=== PATIENT | female | born 1970 | race Hispanic/Latino ===

== ENCOUNTER → 2023-10-28 12:11 | Outpatient (REF) | payer OTHER, SELFPAY ==
[2023-10-28 13:38] LABS: Hematocrit 24.4 % (37.0-47.0); Hemoglobin 8.1 g/dL (12.0-16.0); Mean Corp Hgb Conc. 33.2 g/dL (33.0-37.0); Mean Corpuscular Hgb 29.1 pg (27.0-31.0); Mean Corpuscular Volume 87.8 fL (81.0-99.0); Mean Platelet Volume 9.6 fL (7.4-10.4); Platelet Count 401 10^3/uL (130-400); Red Blood Cell Count 2.78 10^6/uL (4.20-5.40); Red Cell Dist. Width 13.5 % (11.5-14.5); White Blood Cell Count 8.1 10^3/uL (4.8-10.8)
[2023-10-28 14:02] LABS: Blood Urea Nitrogen 22 mg/dl (7-17); Calcium 7.5 mg/dl (8.4-10.2); Carbon Dioxide 21 mmol/L (22-30); Chloride 105 mmol/L (98-107); Glucose 116 mg/dl (70-99); Potassium 5.4 mmol/L (3.5-5.1); Sodium 129 mmol/L (135-145); eGFR 41.93
== END ==
LOC: REG 12:11
PROVIDERS: ATTENDING PHYSICIAN Specialist
DX: M32.14 Glomerular disease in systemic lupus erythematosus (principal)
CPT/HCPCS: 36415; 80048; 85027

== ENCOUNTER → 2023-11-01 09:53 | Outpatient (REF) | payer OTHER, SELFPAY ==
[2023-11-01 14:25] LABS: Urine Protein 973 mg/dl (0-12)
[2023-11-01 14:26] LABS: 24 Hour Urine Creatinine 0.638 gm/day (0.8-1.8); 24 Hour Urine Protein 17027.5 mg/day (42-225); 24 Hour Urine Total Volume 1750 ml
== END ==
LOC: CLINIC 09:53
PROVIDERS: ATTENDING PHYSICIAN Specialist; FAMILY PHYSICIAN Nurse Practitioner Adult Health
DX: M32.14 Glomerular disease in systemic lupus erythematosus (principal)
CPT/HCPCS: 81050; 82570; 84156

== ENCOUNTER 2023-11-08 13:20 | Inpatient (IN) | payer OTHER, SELFPAY ==
[2023-11-08] VITALS (8 sets, daily range): BP systolic 77–220; BP diastolic 24–133; BMI 58.1
--- NOTE | 2023-11-08 09:36 | ED.GENMED ---
History of Present Illness
General
Chief Complaint: Abnormal Lab Value
Time Seen by Provider: 11/08/23 09:36
Travel History
Have you had any contact with someone who has COVID-19?: No
Do you have any symptoms of coronavirus? Fever > 100 degrees, chills, cough, shortness of breath, sore throat, loss of taste or smell, muscle aches, or headache?: No
History of Present Illness
History of Present Illness:
HPI: The patient is under the impression that she was to come here after an evaluation for bilateral thigh pain at the [facility] last week. She no longer has bilateral thigh pain. She has a history of lupus. She chronically has some swelling to
the face and legs. Language line was used to obtain HPI.
EXAM:
GENERAL: Well appearing in no distress
HEENT: Moist oral mucosa, mild facial edema noted
CARDIOVASCULAR: No murmurs, normal heart rate and rhythm, No chest wall tenderness
PULMONARY: No respiratory distress, breath sounds are clear and equal
ABDOMEN: Soft with no peritoneal signs, no tenderness
NEUROLOGIC: Excellent strength all extremities, no coordination deficits
PSYCHIATRIC: Appropriate mental status, normal insight and judgement
EXTREMITIES: Nontender, trace bilateral lower extremity edema, moves all extremities equally
SKIN: No rash, no lesions
ED COURSE:
9:45 AM: I initially evaluated patient
NUMBER AND COMPLEXITY OF PROBLEMS ADDRESSED AT THE ENCOUNTER
� Chronic conditions affecting care: Lupus, history of hydrocephalus with PHOTO STUDIO ASSISTANT shunt, CKD, questionable history of high blood pressure
� Acute Exacerbation and/or Progression of Chronic Illness: This is an acute problem
� Differential Diagnosis includes: Exacerbation of lupus, lab abnormality, JASKARAN
AMOUNT AND/OR COMPLEXITY OF DATA TO BE REVIEWED AND ANALYZED
� I performed an independent evaluation of and my interpretation is:
EKG:
CT:
X-rays:
Laboratory Studies: White count 12.5 but the patient is on steroids, hemoglobin is 8.1 which is similar to 12 days ago, creatinine continues to worsen now at 1.9, last year the patient's creatinine was normal
Other:
� Review of other/old records: I reviewed the discharge summary from March 2022 in which she initially came with hypertensive emergency but ultimately had iatrogenic shock requiring pressor support and was found to have
lupus/CKD/JASKARAN.
� Clinical information was obtained by an independent historian: I spoke to family at bedside
� Prescriptions/Medications Considered but not given:
� Further testing considered but not performed:
RISK OF COMPLICATIONS AND/OR MORBIDITY OR MORTALITY OF PATIENT MANAGEMENT
� Social determinants of health affecting care: Lives at home, Pakistani-speaking
� Discussion with other providers: I did speak to patient navigator who spoke to Dr. Leung, rheumatology who recommended patient be admitted to the hospital for steroids; hospitalist for admission at 12 PM
� Escalation of care including admission/observation vs risk of discharge considered: Language line was used to obtain history however the reason for visit is somewhat unclear. Her current medications include mycophenolate,
prednisone, and lisinopril. Proteinuria noted on urinalysis and she has worsening renal function.
Past History
Past History
ED Past Medical History: HTN and Other (Hydrocephalus)
ED Past Surgical History: Other (PHOTO STUDIO ASSISTANT shunt)
Social History
Tobacco: Non-smoker
Alcohol: None
Drug: None
Personal:
Living: with family
Family History
Family History: Diabetes
Phy Exam
Physical Exam
Physical Exam:
See HPI
Course
Orders/Labs/Results
Orders:
Orders
11/08/23 10:11
Type+Screen Urgent
CRP [C-Reactive Protein] Urgent
Complete Blood Count/With Diff Urgent
11/08/23 10:12
Basic Metabolic Panel Urgent
11/08/23 10:30
Urinalysis Reflex To Culture Urgent
Date Specimen was Collected: 11/08/23
Time Specimen was Collected: 10:29
Urine Microscopic Reflex Cult Urgent
Abnormal Lab Results
11/08/23 11/08/23 11/08/23
10:11 10:12 10:30
WBC 12.5 H 10^3/uL
(4.8-10.8)
RBC 2.78 L 10^6/uL
(4.20-5.40)
Hgb 8.1 L g/dL
(12.0-16.0)
Hct 23.8 L %
(37.0-47.0)
Abs Immat Gran (auto) 0.1 H 10^3/uL
(0-0.05)
Absolute Neuts (auto) 10.0 H 10^3/uL
(1.4-6.5)
Absolute Lymphs (auto) 0.8 L 10^3/uL
(1.2-3.4)
Absolute Eos (auto) 1.1 H 10^3/uL
(0-0.7)
Neutrophils % 80.1 H %
(42.2-75.2)
Lymphocytes % 6.6 L %
(20.5-51.1)
Eosinophils % 8.8 H %
(0-6)
Sodium 131 L mmol/L
(135-145)
Chloride 112 H mmol/L
(98-107)
Carbon Dioxide 18 L mmol/L
(22-30)
BUN 18 H mg/dl
(7-17)
Creatinine 1.9 H mg/dL
(0.6-1.0)
Calcium 7.6 L mg/dl
(8.4-10.2)
C-Reactive Protein 41.50 H mg/L
(0.0-10.00)
Ur Occult Blood Reflex 3+ A
(Negative)
Urine RBC 30-40 A /HPF
(0-2)
Urine Bacteria (Reflex) Few A
(Negative)
Urine Glucose Trace A
(Negative)
Urine Albumin (Reflex) 3+ A
(Neg - Trace)
11/08/23 10:11
11/08/23 10:12
Vital Signs
Initial and Last Documented VS:
Initial Vital Signs
Temp Pulse Resp BP Pulse Ox
98.4 F 105 16 185/101 100
11/08/23 09:20 11/08/23 09:20 11/08/23 09:20 11/08/23 09:20 11/08/23 09:20
Last Documented Vital Signs
Temp Pulse Resp BP Pulse Ox
98.4 F 105 16 185/101 100
11/08/23 09:20 11/08/23 09:20 11/08/23 09:20 11/08/23 09:20 11/08/23 09:20
*Critical Care Note
Total Time (30-74mins, 75-104mins- exclusive of procedures): Not Applicable
ED Attending Note
-
Portions of this chart may have been created with voice recognition software.� Occasional wrong word or��sound alike� substitutions may have occurred due to the inherent limitations of voice recognition software.
Discharge Plan
Departure
Patient Disposition: Admit
Date of Disposition: 11/08/23
Time of Disposition: 12:04
Presentation/result/management discussed w/ accepting MD/DO: Hospitalist
Discharge Problem:
Acute renal insufficiency
Prescriptions:
No Action
prednisone 5 mg Tablet
5 mg PO DAILY
mycophenolate mofetil 500 mg Tablet
1,000 mg PO BID
lisinopril 20 MG tablet
20 mg PO DAILY
acetaminophen [Tylenol Extra Strength] 500 mg Tablet
500 mg PO DAILYPRN PRN (Reason: mild pain)
ferrous sulfate [iron] 325 mg (65 mg iron) Tablet
325 mg PO HS
Referrals:
UNKNOWN - PT DOES,NOT KNOW [Family Provider] -
Interventions
Interventions:
*Risk Screen - Suicide Last Done: 11/08/23 10:09
*Neglect/Abuse Screening Last Done: 11/08/23 10:09
*ED COVID-19 Vaccine History Last Done: 11/08/23 09:23
[2023-11-08 10:21] LABS: % Basophils 0.6 % (0-2); % Eosinophils 8.8 % (0-6); % Immature Granulocytes 0.5 % (0-0.5); % Lymphocytes 6.6 % (20.5-51.1); % Monocytes 3.4 % (1.7-9.3); % Neutrophils 80.1 % (42.2-75.2); Absolute Basophils 0.1 10^3/uL (0-0.2); Absolute Eosinophils 1.1 10^3/uL (0-0.7); Absolute Immature Granulocytes 0.1 10^3/uL (0-0.05); Absolute Lymphocytes 0.8 10^3/uL (1.2-3.4); Absolute Monocytes 0.4 10^3/uL (0.1-0.6); Hematocrit 23.8 % (37.0-47.0); Hemoglobin 8.1 g/dL (12.0-16.0); Mean Corpuscular Hgb 29.1 pg (27.0-31.0); Mean Corpuscular Volume 85.6 fL (81.0-99.0); Mean Platelet Volume 9.1 fL (7.4-10.4); Nucleated Red Blood Cells % 0 %; Platelet Count 317 10^3/uL (130-400); Red Blood Cell Count 2.78 10^6/uL (4.20-5.40); Red Cell Dist. Width 13.9 % (11.5-14.5); White Blood Cell Count 12.5 10^3/uL (4.8-10.8)
[2023-11-08 10:33] LABS: Blood Urea Nitrogen 18 mg/dl (7-17); Calcium 7.6 mg/dl (8.4-10.2); Carbon Dioxide 18 mmol/L (22-30); Chloride 112 mmol/L (98-107); Glucose 94 mg/dl (70-99); Potassium 4.2 mmol/L (3.5-5.1); Sodium 131 mmol/L (135-145); eGFR 31.57
[2023-11-08 10:55] LABS: Urine Albumin 3+ (Neg - Trace); Urine Bilirubin Negative (Negative); Urine Character Clear (Clear); Urine Color Yellow; Urine Glucose Trace (Negative); Urine Ketone Negative (Negative); Urine Leukocyte Negative (Negative); Urine Nitrite Negative (Negative); Urine Occult Blood 3+ (Negative); Urine Urobilinogen Negative (Neg - 1+); Urine pH 6.5 (5.0-9.0)
[2023-11-08 11:32] LABS: Urine Mucus Few; Urine Squamous Cell >30 /LPF (Few)
[2023-11-08 11:34] LABS: Urine Bacteria Few (Negative); Urine Hyaline Cast >15 /LPF (0-2); Urine Red Blood Cell 30-40 /HPF (0-2); Urine White Cell 0-2 /HPF (0-5)
--- NOTE | 2023-11-08 12:29 | HPS.HSE ---
Addendum entered and electronically signed by Alex Schaefer DO 11/08/23 14:11:
Attending note:
Patient seen and examined and discussed with ASHLEY Mooney, and I agree with her note. Video language line used to help with interpretation.
Gen-AAOx3, NAD
HEENT-NC, AT, anicteric, clear oral mm
Neck-supple
CV-reg, no M, +S1/S2
Lungs-clear B/L
Abd-soft, NT, ND
Ext-no edema
Musculoskeletal-no cyanosis, clubbing
Skin-warm and dry
Neuro-grossly non-focal
Psych-calm, cooperative
JASKARAN on CKD 3A -differential diagnosis includes lupus nephritis versus other causes. Check renal ultrasound. Admit to MedSurg. Consult nephrology. Consult rheumatology. Hold lisinopril. Urinalysis shows 3+ albumin. Check spot
protein/creatinine ratio.
Normal anion gap metabolic acidosis. Bicarbonate 18. Start oral sodium bicarbonate.
SLE -continue mycophenolate, prednisone.
Hyponatremia -sodium 131. Check urine studies.
Chronic normocytic anemia -due to chronic inflammation. Hemoglobin appears to be at baseline.
Essential hypertension with hypertensive urgency -hold YANE inhibitor given JASKARAN. Can use hydralazine 3 times daily.
Full code
Original Note:
Family Physician
-
Family Physician: NOT KNOW UNKNOWN - PT DOES
Chief Complaint
-
right flank pain on off x 2 days , elevated creat
History of Present Illness
53-year-old female complaining of 2 days of right flank pain on and off she reported she went to a clinic last week and was told to go to the ER. She reports she took lisinopril 20 mg today. She denies any dysuria, hematuria, frequency, fever,
chills, chest pain, palpitations, shortness breath, cough, abdominal pain, nausea, vomiting, diarrhea. She was diagnosed with lupus approximately 8 months ago and has been on CellCept and prednisone daily. Other past medical history includes
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
Medical History
Past Medical History
Past Medical History: Reports Other
Additional Past Medical History:
Hypertension
Lupus Dx 8 months ago on chronic CellCept and prednisone
Iron deficiency anemia
HX renal biopsy 03/01/2022 cLass 4 lupus nephritis
Past Surgical History: Reports (X 2)
Social History
Tobacco: Non-smoker
Alcohol: None
Drug: None
Personal:
Living: With Family ( and son)
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
Family History
Family History: Other (Father complications of infection, mother still alive living in [place] and healthy)
Allergies / Home Medications
Allergies reflects when Allergies were last updated in [facility].
Home Medications with original date entered in [facility]
Allergy/Medication List:
Allergies
Allergy/AdvReac Type Severity Reaction Status Date / Time
No Known Allergies Allergy Verified 11/08/23 09:34
Home Medications
mycophenolate mofetil 500 mg tablet 1,000 mg PO BID 07/12/23
prednisone 5 mg tablet 5 mg PO DAILY 07/12/23
lisinopril 20 mg tablet 20 mg PO DAILY Blood pressure 09/01/23
acetaminophen 500 mg tablet (Tylenol Extra Strength) 500 mg PO DAILYPRN PRN mild pain 11/08/23
ferrous sulfate 325 mg (65 mg iron) tablet (iron) 325 mg PO HS 11/08/23
Review of Systems
-
History Source: Patient
A 12 point ROS was completed and negative except as noted: Yes
Constitutional: Denies Fever or Chills
EENT: Denies Sore Throat or Runny Nose
Respiratory: Denies Cough or Trouble Breathing
Cardiac: Denies Chest Pain
Abdomen/GI: Reports Other (Right flank pain on and off); Denies Abdominal Pain, Nausea, Vomiting, Diarrhea, Constipated, Bloody Stools or Black Stools
: Denies Dysuria, Frequency, Flank Pain, Incontinence or Difficulty Voiding
Musculoskeletal: Denies Joint Pain or Edema
Skin: Denies Itching or Rash
Neurological: Denies Dizzy or Headache
Endocrine: Reports No Symptoms
Hematologic/Lymphatic: Reports No Symptoms
Psych: Reports Calm
Physical Exam
Vital Signs
Vital Signs
Temp Pulse Resp BP Pulse Ox
98.4 F 88 18 185/101 100
11/08/23 09:20 11/08/23 12:23 11/08/23 12:23 11/08/23 09:20 11/08/23 09:20
Physical Exam
General: Comfortable and Conversant; No Pain, Fever or Chills
HEENT: NormoCephalic, Anicteric, Moist mucous membranes, [place] Conjunctivae and No Ptosis
Respiratory: Clear; No Wheezes, Rales or Rhonchi
Cardiac: S1/S2 and Regular Rhythm; No Murmur, Rub, Gallop or Peripheral Edema
GI: Soft, Non Tender, Non Distended, Normal Bowel Sounds and No Hepatosplenomegaly
Rectal: Deferred by Provider
Genito-urinary: Deferred by me
Musculoskeletal: No Clubbing, No Cyanosis and No Edema
Skin: Warm and Dry; No Rash
Neuro: AO x 3 ([place] and [place] speaking female), No Motor Deficits, Nonfocal/grossly intact, Cranial Nerves Intact and Other (Chronic strabismus of left eye); No Slurred Speech, Facial Droop or Tremors
Psych: Calm
Laboratory Results
-
11/08/23 10:11
11/08/23 10:12
Impression/Plan
-
Impression/plan:
Admit to MedSurg
#JASKARAN on CKD 3A concern ACute on chronic class IV lupus nephritis
#HX renal biopsy 03/01/2022 cLass 4 lupus nephritis
Creat 1.9 was 1.5 on , 1.2 on 08/2023
-Consult nephrology
-IV NSS
- Renal ultrasound
-Hold lisinopril 20 mg daily
-Follow BMP
#Lupus Hx chronic immunosuppressant/steroid
-Patient on mycophenolate 1000 mg twice daily, prednisone 5 mg daily
-consult Rheumatology
- will give Iv Solu-Medrol 750 mg daily x 3 days, increase CellCept to 1500 mg twice daily per Dr. Farhan Leung rheumatology
#HTN�benign
185/101
Hold lisinopril 20 mg daily patient's last dose was 11/08/2023 this am
-start hydralazine 25 mg tid
#Anemia-normocytic
Hgb 8.1
Check iron panel, B12, folate
-type and screen, blood consent obtained and scanned to chart
-Continue oral iron
#Leukocytosis likely secondary to chronic steroid use
No obvious infectious source
WBC 12.5, afebrile, BP stable
DVT prophylaxis
SCDs
Full code
[2023-11-08 13:38] LABS: Iron 37 ug/dl (37-170)
[2023-11-08 13:47] LABS: Percent Saturation 20 % (20-50); Total Iron Binding Capacity 183 ug/dl (265-497)
[2023-11-08 14:46] LABS: Folate 5.1 ng/ml (2.76-20); Vitamin B12 508 pg/ml (239-931)
[2023-11-08] MEDS: APRESOLINE 25 MG PO ×2 (14:53→20:52)
[2023-11-08] MEDS: NSS 1000 IV (14:54)
[2023-11-08] MEDS: SODIUM BICARBONATE 650 MG PO ×2 (15:33→20:49)
[2023-11-08] MEDS: SOLU-MEDROL 256 MG IV (15:33)
[2023-11-08 15:56] LABS: Osmolality Urine 461 mOsm/kg (300-900)
--- NOTE | 2023-11-08 16:05 | PTCARENOTE ---
Arrived from ED and ambulated to bed. No complaints at this time. Language line in drawer if needed. Oriented to room. Call luciano within reach.
[2023-11-08 16:14] LABS: Urine Sodium 78 mmol/L (30-90)
--- NOTE | 2023-11-08 17:10 | W.CON.NEPH ---
Consultation
-
Date/Time Consultation Requested: 11/08/23 1330
Date/Time Consultation Performed: 11/08/23 1700
Requesting Provider: Laura Laboy
Performing Provider: Ceci Gonzalez
Reason for Consultation: JASKARAN
Medical History
-
Chief Complaint: fank pain and edema
History of Present Illness:
53-year-old female with PMH of lupus nephritic class 4 diagnosed 02/2022 on cellcept, prednisone, persistent proteinuria around 2gm/gm of cr with stable cr below 1, IS managed by Rheumatology Dr Waite,uncontrolled HTN on coreg, restarted on Lisinopril
in June following cr was at 1.2 in Aug and 1.5 in Oct, 24hr urine shows worsening proteinuria 17gm/day, chr anemia, who also had latent TB supposed to have completed Rifampin comes with complaining of 2 days of right flank pain, swelling of face
and legs. she went to a clinic last week and was told to go to the ER, she came today to ER.�She is not taking coreg as directed and ran out of it some time ago, reports BP are labile at home. There was nonocomplaince in her history. She denies
any dysuria, hematuria, frequency, fever, chills, chest pain, palpitations, shortness breath, cough, abdominal pain, nausea, vomiting, diarrhea.�Cr on admit at 1.9, BP are high 200 range.
Past Medical History
Hypertension
Lupus Dx 8 months ago on chronic CellCept and prednisone
Iron deficiency anemia
HX� renal biopsy 03/01/2022 cLass 4 lupus nephritis
h/o Hydrocephalus
Past Medical History: Other (c section, K biopsy)
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
Social History
Tobacco: Non-Smoker
Alcohol: None
Drug: None
Living: With Family
Family History
Family History: Not Pertinent
Allergies / Home Medications
Allergy/AdvReac Type Severity Reaction Status Date / Time
No Known Allergies Allergy Verified 11/08/23 09:34
Medication Instructions Recorded Confirmed Type
mycophenolate mofetil 500 mg tablet 1,000 mg PO BID 07/12/23 11/08/23 History
prednisone 5 mg tablet 5 mg PO DAILY 07/12/23 11/08/23 History
lisinopril 20 mg tablet 20 mg PO DAILY Blood pressure 09/01/23 11/08/23 History
acetaminophen 500 mg tablet 500 mg PO DAILYPRN PRN mild pain 11/08/23 11/08/23 History
(Tylenol Extra Strength)
ferrous sulfate 325 mg (65 mg 325 mg PO HS 11/08/23 11/08/23 History
iron) tablet (iron)
Review of Systems
-
All compelte 12 point ROS have been inquired and found negative other than stated in HPI
Physical Exam
Vital Signs
Vital Signs
Temp Pulse Resp BP Pulse Ox
98.0 F 96 18 192/121 98
11/08/23 14:34 11/08/23 14:34 11/08/23 14:34 11/08/23 14:34 11/08/23 14:34
Lab Results
WBC 12.5 10^3/uL (4.8-10.8) H 11/08/23 10:11
RBC 2.78 10^6/uL (4.20-5.40) L 11/08/23 10:11
Hgb 8.1 g/dL (12.0-16.0) L 11/08/23 10:11
Hct 23.8 % (37.0-47.0) L 11/08/23 10:11
Plt Count 317 10^3/uL (130-400) 11/08/23 10:11
Sodium 131 mmol/L (135-145) L 11/08/23 10:12
Potassium 4.2 mmol/L (3.5-5.1) 11/08/23 10:12
Chloride 112 mmol/L (98-107) H 11/08/23 10:12
Carbon Dioxide 18 mmol/L (22-30) L 11/08/23 10:12
BUN 18 mg/dl (7-17) H 11/08/23 10:12
Creatinine 1.9 mg/dL (0.6-1.0) H 11/08/23 10:12
eGFR 31.57 11/08/23 10:12
Glucose 94 mg/dl (70-99) 11/08/23 10:12
Calcium 7.6 mg/dl (8.4-10.2) L 11/08/23 10:12
Physical Exam
General: Awake, Alert, Oriented and AOx3
HEENT: EOMI and Anicteric
Respiratory: Clear
Cardiac: S1/S2 and Regular Rate/Rhythm
Abdomen: Soft, Nontender and Nondistended
Musculoskeletal: No Clubbing, No Cyanosis and No Edema (trace)
Skin: No Rash
Neuro: Nonfocal/Grossly Intact
Psych: Mood/afflect pleasant, Insight/judgement good and Appropriate
Assessment/Plan
-
Assessment:�
JASKARAN(baseline 0.9)
class IV lupus nephritis
Hypertensive urgency on presentation
uncontrolled HTN
Marked nephrotic syndrome with hypoalbuminemia-17gm/day
Hyponatremia, hypervolemic
Low gap Metabolic acidosis
Anemia
Hypocalcemia in setting of hypoalbuminemia
h/o Pericardial effusion 2021
Plan:
A/w flank pain and puffy face and LE edema
Pt is currently treated with cellcept, prednisone for class 4lupus nephritis and lately her cr slowly increasing with progressive proteinuria 17gm/day
cr currently at 1.9, UA with sediment, await renal US
on pulse steroids, increased dose of cellcept per rheum Dr FARRAR
wonder if she will need rebiopsy if no improvement seen
BP are high, she ran out coreg dont know for how long, resume now
would avoid hydralazine with risk of drug induced lupus, ok to use prn
hold ACEI for JASKARAN , ok for nifedipine if needed
she seem mild hypervolemic on exam, would hold IVF , check BNP
note had h/o pericardial effusion in 2021
anemia-fe sat 20%-start IV fe course, adequate vit B12 and folate
for met acidosis added sodium bicarb po
hyponatremia likely hypervolemia-fluid restrict 48ounces/day, check TSH, U osmo high 461, U na normal
labs in am
d/w nursing
Data Reviewed
-
Radiology: Report Reviewed by me
Labs: Labs Reviewed by me
[2023-11-08] MEDS: APRESOLINE 5 MG IV (18:12)
--- NOTE | 2023-11-08 18:17 | PTCARENOTE ---
Nephrology made aware of current high BP's this shift. Medication adjustments made, see MAR.
[2023-11-08 18:37] LABS: NT-proBNP 5420 pg/ml
[2023-11-08 19:44] LABS: Protein/creatinine Ratio 17.9; Urine Protein 1748 mg/dl
[2023-11-08] MEDS: CELLCEPT 1500 MG PO (20:43)
[2023-11-08] MEDS: FEOSOL 325 MG PO (20:49)
[2023-11-08] MEDS: COREG 25 MG PO (20:50)
[2023-11-09 03:13] VITALS: BP 150/90
[2023-11-09 06:00] VITALS: BMI 23.9
[2023-11-09 07:00] VITALS: BP 185/118
[2023-11-09 07:07] LABS: % Basophils 0.2 % (0-2); % Immature Granulocytes 0.6 % (0-0.5); % Lymphocytes 12.8 % (20.5-51.1); % Monocytes 1.3 % (1.7-9.3); % Neutrophils 85.1 % (42.2-75.2); Absolute Lymphocytes 0.7 10^3/uL (1.2-3.4); Absolute Monocytes 0.1 10^3/uL (0.1-0.6); Absolute Neutrophils 4.6 10^3/uL (1.4-6.5); Hematocrit 22.7 % (37.0-47.0); Hemoglobin 7.6 g/dL (12.0-16.0); Mean Corp Hgb Conc. 33.5 g/dL (33.0-37.0); Mean Corpuscular Hgb 28.6 pg (27.0-31.0); Mean Corpuscular Volume 85.3 fL (81.0-99.0); Mean Platelet Volume 9.4 fL (7.4-10.4); Nucleated Red Blood Cells % 0 %; Platelet Count 315 10^3/uL (130-400); Red Blood Cell Count 2.66 10^6/uL (4.20-5.40); Red Cell Dist. Width 13.8 % (11.5-14.5); White Blood Cell Count 5.4 10^3/uL (4.8-10.8)
[2023-11-09 07:30] LABS: Blood Urea Nitrogen 23 mg/dl (7-17); Carbon Dioxide 16 mmol/L (22-30); Chloride 112 mmol/L (98-107); Estimated Creatinine Clearance 18 ml/min; Glucose 128 mg/dl (70-99); Potassium 4.4 mmol/L (3.5-5.1); Sodium 130 mmol/L (135-145); eGFR 25.11
[2023-11-09 08:02] LABS: TSH Reflex To Free T4 1.78 uIU/ml (0.47-4.68)
[2023-11-09] MEDS: CELLCEPT 1500 MG PO ×2 (08:44→21:01)
[2023-11-09] MEDS: COREG 25 MG PO ×2 (08:45→21:09)
[2023-11-09] MEDS: SODIUM BICARBONATE 650 MG PO ×3 (08:45→21:08)
--- NOTE | 2023-11-09 09:17 | W.PN.HOSP.TC ---
Today's Communication/Plan
-
Continue steroids
Monitor hemoglobin
Monitor creatinine
Assessment / Plan
Assessment / Plan
Gen-awake, alert, NAD
HEENT-NC, AT, anicteric, clear oral mm
Neck-supple
CV-reg, no M, +S1/S2
Lungs-clear B/L
Abd-soft, NT, ND
Ext-no edema
Musculoskeletal-no cyanosis, clubbing
Skin-warm and dry
Neuro-grossly non-focal
Psych-calm, cooperative
JASKARAN on CKD 3A -differential diagnosis includes lupus nephritis versus other causes.� She has class IV lupus nephritis. Continue pulse dose steroids per rheumatology. Mycophenolate dose increased by nephrology. Renal ultrasound unremarkable.� Spot
urine protein/creatinine ratio over 17. Creatinine is slowly rising. Nephrology following. May need renal biopsy. Defer to nephrology.
SLE -continue mycophenolate, prednisone.
Hyponatremia -sodium 130. High urine osmolality consistent with ADH excess. Fluid restriction.
Acute on chronic normocytic anemia -chronic anemia due to chronic inflammation.� Hemoglobin down to 7.6 today. No evidence of bleeding clinically. Hemodilution from IV fluids possibly playing a role. Monitor hemoglobin.
Essential hypertension with hypertensive urgency -hold YANE inhibitor given JASKARAN.� Carvedilol resumed. Hydralazine discontinued by nephrology. Can use nifedipine if needed.
Full code
Anticipated Discharge: > 48 hours
Subjective/Interval History
-
Date of Service: November 09, 2023
Patient seen and examined. No complaints.
Objective Data
-
Labs:
Laboratory Results
11/09/23
06:51
WBC 5.4
Hgb 7.6 L
Hct 22.7 L
Plt Count 315
Sodium 130 L
Potassium 4.4
Chloride 112 H
Carbon Dioxide 16 L
BUN 23 H
Creatinine 2.3 H
Glucose 128 H
Calcium 8.0 L
Vital Signs:
Vital Signs
Temp Pulse Resp BP Pulse Ox
98 F 78 18 185/118 99
11/09/23 07:00 11/09/23 07:00 11/09/23 07:00 11/09/23 07:00 11/09/23 07:00
I&O
11/08/23 11/09/23 11/10/23
06:59 06:59 06:59
Intake Total 240 / 240
Output Total 150 / 150
Balance 90 / 90
Review of Systems
-
Unable to obtain full review of systems at this time due to: Language Barrier
--- NOTE | 2023-11-09 09:22 | PTOTSP ---
Patient admitted due to JASKARAN, otherwise independent prior to admission. Therapist confirmed with the patient that she has no issues regarding her mobility. RN confirms the patient has been independent while here. PT evaluation is not warranted at
this time, will sign off.
--- NOTE | 2023-11-09 13:05 | CON.RHM ---
Addendum entered and electronically signed by Farhan Leung MD 11/09/23 15:57:
I have seen the patient with Sunita Guzman PA-C and reviewed her assessment/plan with the following addittions:
53 yo uninsured female with Class IV LN (biopsy proven 02/2022, moderate activity, mild chronicity) and treated latent TB. Former patient of Dr. Waite who now follows with me. She was sent to the ED for pulse dose steroids. Outpatient labs c/f
proteinuric flare with uptrending Cr to 1.5 (baseline 1) and 17 grams of protein. She had been on MMF 2g and pred 5 outpatient as maintenance therapy with unclear compliance (refills not picked up). Hospital course notable for Cr of 2.3.
# Class IV LN (CARL 1:1280, low C3, C4, ACL IgM 14, B2GP 52)
- recommend 750 mg of IV solumedrol daily for 3 days
- continue to trend renal function
- case discussed with nephrology, agree with repeating biopsy if no improvement
- c/w MMF 1500 mg BID
- currently in the process of obtaining outpatient Benlysta and Voclosporin through [employer] patient assistance
- would eventually discharge on 60 mg of prednisone daily
- has follow up with me 11/17
- we will continue to follow
Farhan Leung MD, [facility]
[phone]
Original Note:
Assessment/Plan
-
Continue high dose IV steroids
Increase Cellcept to 3g daily�
Continue to monitor renal function.
History of Present Illness
-
Pt is a 53 yo female with class IV lupus nephritis who presented ED yesterday after instructed by Dr. Leung for worsening proteinuria of 17 g. 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 She has been seen at our office since 2021 for SLE.
She was seen in office with elevated proteinuria along with fatigue arthralgias and edema. Since being admitted she currently she notes improvement of her edema. She is on day 2 of�750 mg IV medrol. Pt seen By Dr Leung and myself.�
Review of Systems
-
General: Edema: Yes
Vasculitis: Rash: No
Data Reviewed
Patient Allergies
Allergy/AdvReac Type Severity Reaction Status Date / Time
No Known Allergies Allergy Verified 11/08/23 09:34
Physical Exam
-
Constitutional: Alert and Oriented
Psych: Appropriate Behavior
[2023-11-09] MEDS: FERRLECIT 110 MG IV (13:31)
--- NOTE | 2023-11-09 13:54 | W.PN.NEPH.PH ---
Today's Communication / Plan
-
- initiate nifedipine
- trend BMP
Assessment/Plan
-
Assessment:�
JASKARAN(baseline 0.9)
class IV lupus nephritis
Hypertensive urgency on presentation
uncontrolled HTN
Marked nephrotic syndrome with hypoalbuminemia-17gm/day
Hyponatremia, hypervolemic
Low gap Metabolic acidosis
Anemia
Hypocalcemia in setting of hypoalbuminemia
h/o Pericardial effusion 2021
Plan:
patient presented with flank pain and puffy face and LE edema
Pt is currently treated with cellcept, prednisone for class 4lupus nephritis and lately her cr slowly increasing with progressive proteinuria 17gm/day
cr currently at 1.9, UA with sediment, UPCR 17.9, KUS with mismatched kidney size but otherwise benign
patient completed treatment for latent TB per rheum
pulse dose steroids day 2 today. if Cr does not improve after steroids, we will need to biopsy this patient. this is complicated by her anemia.
- per rheum, they are attempting to obtain voclosporin and/or benlysta for this patient in the outpatient setting
Blood pressures elevated, likely consistent with active lupus nephritis. initiated nifedipine 60mg daily. Patinet also on coreg 25mg BID
She will need aggressive control of her proteinuria once Cr stabilizes with YANE/ARB, SGLT2-i, MRA.
note had h/o pericardial effusion in 2021
anemia-fe sat 20%-start IV fe course, adequate vit B12 and folate. no CHRIS with pressures this high
bicarb gap high, not likely to be fixed with just sodium bicarb tabs. please give 1 amp sodium bicarb
hyponatremia likely hypervolemia-fluid restrict 48ounces/day, TSH wnl, U osmo high 461, U na normal
-
-
Date of Service: November 09, 2023
CC / HPI / ROS
-
Chief Complaint:
lupus nephritis
History of Present Illness:
Cr baseline 1, elevated to 2.3 now
pulse dose steroids day 2
Review of Systems:
patient states her pain is resolved
Labs
-
Labs:
WBC 5.4 10^3/uL (4.8-10.8) 11/09/23 06:51
RBC 2.66 10^6/uL (4.20-5.40) L 11/09/23 06:51
Hgb 7.6 g/dL (12.0-16.0) L 11/09/23 06:51
Hct 22.7 % (37.0-47.0) L 11/09/23 06:51
Plt Count 315 10^3/uL (130-400) 11/09/23 06:51
Sodium 130 mmol/L (135-145) L 11/09/23 06:51
Potassium 4.4 mmol/L (3.5-5.1) 11/09/23 06:51
Chloride 112 mmol/L (98-107) H 11/09/23 06:51
Carbon Dioxide 16 mmol/L (22-30) L 11/09/23 06:51
BUN 23 mg/dl (7-17) H 11/09/23 06:51
Creatinine 2.3 mg/dL (0.6-1.0) H 11/09/23 06:51
eGFR 25.11 11/09/23 06:51
Glucose 128 mg/dl (70-99) H 11/09/23 06:51
Calcium 8.0 mg/dl (8.4-10.2) L 11/09/23 06:51
Ijk-P-Sclsrrtcnju Pept 5420 pg/ml 11/08/23 10:11
Physical Exam
-
Vital Signs:
Vital Signs
Temp Pulse Resp BP Pulse Ox
98 F 78 18 185/118 99
11/09/23 07:00 11/09/23 07:00 11/09/23 07:00 11/09/23 07:00 11/09/23 07:00
Cardiovascular:: Regular rate and rhythm
Respiratory:: Bilateral: CTA
Lung Excursion:: Normal
Abdomen:: Nontender and Soft
Bowel Sounds:: Normal
Extremity Edema:: +1: Bilateral:
Ellis Catheter: No
[2023-11-09 15:00] VITALS: BP 177/65
[2023-11-09] MEDS: SOLU-MEDROL 256 MG IV (15:20)
[2023-11-09] MEDS: PROCARDIA XL (EXTENDED RELEASE) 60 MG PO (15:20)
--- NOTE | 2023-11-09 17:00 | CM ---
Alert awake oriented patient who lives with her Seth and son Jayy in a 1st floor apt. No steps to enter.Pt speaks limited Filipino but able to answer questions.She is independent in driving and in all activities of daily living.Pt is
followed at the [facility].She has no insurance.
No adaptive devices
Never had VN/SNF
Pharmacy [facility] in [place].
PCP [facility].
PLAN Home declined VN
[2023-11-09] MEDS: FEOSOL 325 MG PO (21:08)
[2023-11-09 23:26] VITALS: BP 129/75
[2023-11-10 06:00] VITALS: BMI 24.5
[2023-11-10 07:20] VITALS: BP 209/110
[2023-11-10 08:19] LABS: % Immature Granulocytes 0.5 % (0-0.5); % Lymphocytes 8.9 % (20.5-51.1); % Neutrophils 87.6 % (42.2-75.2); Absolute Lymphocytes 0.8 10^3/uL (1.2-3.4); Absolute Monocytes 0.3 10^3/uL (0.1-0.6); Absolute Neutrophils 7.5 10^3/uL (1.4-6.5); Hematocrit 22.1 % (37.0-47.0); Hemoglobin 7.6 g/dL (12.0-16.0); Mean Corp Hgb Conc. 34.4 g/dL (33.0-37.0); Mean Corpuscular Hgb 28.8 pg (27.0-31.0); Mean Corpuscular Volume 83.7 fL (81.0-99.0); Nucleated Red Blood Cells % 0 %; Red Blood Cell Count 2.64 10^6/uL (4.20-5.40); Red Cell Dist. Width 13.8 % (11.5-14.5); White Blood Cell Count 8.6 10^3/uL (4.8-10.8)
--- NOTE | 2023-11-10 08:32 | W.PN.HOSP.TC ---
Today's Communication/Plan
-
Continue current care
Assessment / Plan
Assessment / Plan
Gen-awake, alert, NAD
HEENT-NC, AT, anicteric, clear oral mm, facial swelling
Neck-supple
CV-reg, no M, +S1/S2
Lungs-clear B/L
Abd-soft, NT, ND
Ext-no edema
Musculoskeletal-no cyanosis, clubbing
Skin-warm and dry
Neuro-grossly non-focal
Psych-calm, cooperative
JASKARAN on CKD 3A -differential diagnosis includes lupus nephritis versus other causes.� She has class IV lupus nephritis. Continue pulse dose steroids per rheumatology. Mycophenolate dose increased by nephrology. Renal ultrasound unremarkable.� Spot
urine protein/creatinine ratio over 17. Creatinine is slowly rising. Nephrology following. May need renal biopsy. Defer to nephrology. Labs pending for today.
SLE -continue mycophenolate at higher dose. Rheumatology consulted. Getting pulse dose methylprednisolone.
Hyponatremia -sodium 130. High urine osmolality consistent with ADH excess. Fluid restriction.
Acute on chronic normocytic anemia -chronic anemia due to chronic inflammation.� Hemoglobin down to 7.6 yesterday, pending for today. No evidence of bleeding clinically. Hemodilution from IV fluids possibly playing a role. Monitor hemoglobin.
Essential hypertension with hypertensive urgency -hold YANE inhibitor given JASKARAN.� Carvedilol resumed. Hydralazine discontinued by nephrology. Procardia XL started. Blood pressure overall improving.
Full code
Anticipated Discharge: > 48 hours
Subjective/Interval History
-
Date of Service: November 10, 2023
Patient seen and examined. Complaining of facial swelling.
Objective Data
-
Labs:
Laboratory Results
11/10/23
07:43
WBC 8.6
Hgb 7.6 L
Hct 22.1 L
Plt Count Not Reportable
Sodium Pending
Potassium Pending
Chloride Pending
Carbon Dioxide Pending
BUN Pending
Creatinine Pending
Glucose Pending
Calcium Pending
Vital Signs:
Vital Signs
Temp Pulse Resp BP Pulse Ox
98.2 F 73 17 129/75 99
11/09/23 23:26 11/09/23 23:26 11/09/23 23:26 11/09/23 23:26 11/09/23 23:26
I&O
11/09/23 11/10/23 11/11/23
06:59 06:59 06:59
Intake Total 240 / 240 960 / 960
Output Total 150 / 150
Balance 90 / 90 960 / 960
Review of Systems
-
Unable to obtain full review of systems at this time due to: Language Barrier
History Source: Patient
All other systems: Reviewed and negative
[2023-11-10 08:39] LABS: Blood Urea Nitrogen 38 mg/dl (7-17); Calcium 7.7 mg/dl (8.4-10.2); Carbon Dioxide 15 mmol/L (22-30); Chloride 110 mmol/L (98-107); Estimated Creatinine Clearance 19 ml/min; Glucose 116 mg/dl (70-99); Potassium 4.5 mmol/L (3.5-5.1); Sodium 128 mmol/L (135-145); eGFR 26.48
[2023-11-10] MEDS: SODIUM BICARBONATE 650 MG PO (09:15)
[2023-11-10] MEDS: PROCARDIA XL (EXTENDED RELEASE) 60 MG PO (09:15)
[2023-11-10] MEDS: COREG 25 MG PO ×2 (09:15→20:41)
[2023-11-10] MEDS: CELLCEPT 1500 MG PO ×2 (09:16→20:44)
[2023-11-10] MEDS: APRESOLINE 5 MG IV (10:38)
[2023-11-10 12:40] VITALS: BP 114/60
[2023-11-10] MEDS: FERRLECIT 110 MG IV (13:33)
--- NOTE | 2023-11-10 13:36 | W.PN.NEPH.PH ---
Today's Communication / Plan
-
observe on steroids
bmp daily
titrate up nifedipine to 90mg for hypertension
Assessment/Plan
-
Assessment:�
JASKARAN(baseline 0.9)
class IV lupus nephritis
Hypertensive urgency on presentation
uncontrolled HTN
Marked nephrotic syndrome with hypoalbuminemia-17gm/day
Hyponatremia, hypervolemic
Low gap Metabolic acidosis
Anemia
Hypocalcemia in setting of hypoalbuminemia
h/o Pericardial effusion 2021
Plan:
patient presented with flank pain and puffy face and LE edema
Pt is currently treated with cellcept, prednisone for class 4 lupus nephritis and lately her cr slowly increasing with progressive proteinuria 17gm/day
cr currently at 1.9, UA with sediment, UPCR 17.9, KUS with mismatched kidney size but otherwise benign
creatinine at 2.2
patient completed treatment for latent TB per rheum
pulse dose steroids day 3 today. if Cr does not improve after steroids, we will need to biopsy this patient. this is complicated by her anemia.
- per rheum, they are attempting to obtain voclosporin and/or benlysta for this patient in the outpatient setting
Blood pressures elevated, likely consistent with active lupus nephritis. initiated nifedipine 60mg daily. Patient also on coreg 25mg BID
She will need aggressive control of her proteinuria once Cr stabilizes with YANE/ARB, SGLT2-i, MRA.
note had h/o pericardial effusion in 2021
anemia-fe sat 20%-started IV fe course, adequate vit B12 and folate. no CHRIS with pressures this high
bicarb gap high, not likely to be fixed with just sodium bicarb tabs.
hyponatremia likely hypervolemia-fluid restrict 48ounces/day, TSH wnl, U osmo high 461, U na normal
-
-
Date of Service: November 10, 2023
CC / HPI / ROS
-
Chief Complaint:
lupus nephritis
History of Present Illness:
Cr baseline 1, elevated to 2.2
pulse dose steroids day 3
bp elevated on procardia and carvedilol
Review of Systems:
patient states her pain is resolved
Labs
-
Labs:
WBC 8.6 10^3/uL (4.8-10.8) 11/10/23 07:43
RBC 2.64 10^6/uL (4.20-5.40) L 11/10/23 07:43
Hgb 7.6 g/dL (12.0-16.0) L 11/10/23 07:43
Hct 22.1 % (37.0-47.0) L 11/10/23 07:43
Plt Count 10^3/uL (130-400) 11/10/23 07:43
Sodium 128 mmol/L (135-145) L 11/10/23 07:43
Potassium 4.5 mmol/L (3.5-5.1) 11/10/23 07:43
Chloride 110 mmol/L (98-107) H 11/10/23 07:43
Carbon Dioxide 15 mmol/L (22-30) L 11/10/23 07:43
BUN 38 mg/dl (7-17) H 11/10/23 07:43
Creatinine 2.2 mg/dL (0.6-1.0) H 11/10/23 07:43
eGFR 26.48 11/10/23 07:43
Glucose 116 mg/dl (70-99) H 11/10/23 07:43
Calcium 7.7 mg/dl (8.4-10.2) L 11/10/23 07:43
Egu-O-Zjckwdsonuw Pept 5420 pg/ml 11/08/23 10:11
Physical Exam
-
Vital Signs:
Vital Signs
Temp Pulse Resp BP Pulse Ox
98.1 F 80 18 161/87 98
11/10/23 07:20 11/10/23 10:38 11/10/23 07:20 11/10/23 10:38 11/10/23 07:20
Cardiovascular:: Regular rate and rhythm
Respiratory:: Bilateral: CTA
Lung Excursion:: Normal
Abdomen:: Nontender and Soft
Bowel Sounds:: Normal
Extremity Edema:: None: Bilateral:
Ellis Catheter: No
[2023-11-10 15:38] VITALS: BP 113/63
[2023-11-10] MEDS: SOLU-MEDROL 256 MG IV (15:39)
[2023-11-10] MEDS: SODIUM BICARBONATE 1300 MG PO ×2 (15:45→21:46)
--- NOTE | 2023-11-10 15:59 | PTCARENOTE ---
Received patient this am AA0x3, Pt speaks primarily Trinidadian but understands some Italian. B/ P this am 186/110, HR-72. Pt given her am Coreg an Procardia. Recheck B/P 161/87 Pt medicated with Hydralazine 5 MG IV AT 1040. Recheck B/P-114/60. Pt
tolerated diet. OOB ambulating in room. Offered no complaints. Made patient comfortable. Cont to assess patient status.
--- NOTE | 2023-11-10 16:24 | CM ---
Patient seen, reports no new concerns at this time. CM will continue to follow for discharge planning needs.
Plan; home no needs, declining home health.
[2023-11-10] MEDS: FEOSOL 325 MG PO (20:41)
[2023-11-10 23:35] VITALS: BP 155/82
[2023-11-11 06:00] VITALS: BMI 25.2
[2023-11-11 07:00] VITALS: BP 152/108
[2023-11-11 07:21] LABS: % Basophils 0.1 % (0-2); % Immature Granulocytes 0.5 % (0-0.5); % Monocytes 0.7 % (1.7-9.3); % Neutrophils 92.7 % (42.2-75.2); Absolute Lymphocytes 0.5 10^3/uL (1.2-3.4); Absolute Monocytes 0.1 10^3/uL (0.1-0.6); Absolute Neutrophils 7.9 10^3/uL (1.4-6.5); Hematocrit 22.4 % (37.0-47.0); Hemoglobin 7.9 g/dL (12.0-16.0); Mean Corp Hgb Conc. 35.3 g/dL (33.0-37.0); Mean Corpuscular Volume 82.4 fL (81.0-99.0); Nucleated Red Blood Cells % 0 %; Platelet Count 345 10^3/uL (130-400); Red Blood Cell Count 2.72 10^6/uL (4.20-5.40); Red Cell Dist. Width 13.9 % (11.5-14.5); White Blood Cell Count 8.5 10^3/uL (4.8-10.8)
[2023-11-11 08:12] LABS: Blood Urea Nitrogen 40 mg/dl (7-17); Calcium 7.9 mg/dl (8.4-10.2); Carbon Dioxide 15 mmol/L (22-30); Chloride 108 mmol/L (98-107); Estimated Creatinine Clearance 24 ml/min; Glucose 120 mg/dl (70-99); Sodium 131 mmol/L (135-145); eGFR 33.69
[2023-11-11] MEDS: CELLCEPT 1500 MG PO ×2 (08:59→21:03)
[2023-11-11] MEDS: SODIUM BICARBONATE 1300 MG PO ×3 (09:00→21:02)
[2023-11-11] MEDS: PROCARDIA XL (EXTENDED RELEASE) 90 MG PO (09:00)
[2023-11-11] MEDS: COREG 25 MG PO ×2 (09:01→21:04)
--- NOTE | 2023-11-11 10:22 | W.PN.HOSP.TC ---
Today's Communication/Plan
-
Continue current care
Assessment / Plan
Assessment / Plan
Gen-awake, alert, NAD
HEENT-NC, AT, anicteric, clear oral mm, facial swelling
Neck-supple
CV-reg, no M, +S1/S2
Lungs-clear B/L
Abd-soft, NT, ND
Ext-no edema
Musculoskeletal-no cyanosis, clubbing
Skin-warm and dry
Neuro-grossly non-focal
Psych-calm, cooperative
JASKARAN on CKD 3A -differential diagnosis includes lupus nephritis versus other causes.� She has class IV lupus nephritis. Received 3 days of pulse dose methylprednisolone. Mycophenolate dose increased by nephrology. Renal ultrasound unremarkable.�
Spot urine protein/creatinine ratio over 17. Creatinine now coming down, 1.8 today[address] Dr. Hand believes she may need a kidney biopsy on Wednesday.
Normal anion gap metabolic acidosis -bicarb remains at 15. Sodium bicarbonate increased to 1300 mg 3 times daily.
SLE -continue mycophenolate at higher dose. Rheumatology consulted.
Hyponatremia -sodium 131. High urine osmolality consistent with ADH excess. Fluid restriction.
Acute on chronic normocytic anemia -chronic anemia due to chronic inflammation.� Hemoglobin down to 7.6 yesterday, pending for today. No evidence of bleeding clinically. Hemodilution from IV fluids possibly playing a role. Monitor hemoglobin.
Essential hypertension with hypertensive urgency -hold YANE inhibitor given JASKARAN.� Carvedilol resumed. Hydralazine discontinued by nephrology. Procardia XL started. Blood pressure overall improving.
Full code
Anticipated Discharge: > 48 hours
Subjective/Interval History
-
Date of Service: November 11, 2023
Patient seen and examined. Feeling better. No complaints.
Objective Data
-
Labs:
Laboratory Results
11/11/23
06:55
WBC 8.5
Hgb 7.9 L
Hct 22.4 L
Plt Count 345
Sodium 131 L
Potassium 4.0
Chloride 108 H
Carbon Dioxide 15 L
BUN 40 H
Creatinine 1.8 H
Glucose 120 H
Calcium 7.9 L
Vital Signs:
Vital Signs
Temp Pulse Resp BP Pulse Ox
98.4 F 66 18 152/108 98
11/11/23 07:00 11/11/23 09:00 11/11/23 07:00 11/11/23 09:00 11/11/23 07:00
I&O
11/10/23 11/11/23 11/12/23
06:59 06:59 06:59
Intake Total 960 / 960 1446 / 1446
Balance 960 / 960 1446 / 1446
Review of Systems
-
History Source: Patient
All other systems: Reviewed and negative
[2023-11-11] MEDS: FERRLECIT 110 MG IV (14:10)
[2023-11-11 15:00] VITALS: BP 132/72
--- NOTE | 2023-11-11 15:01 | W.PN.NEPH.PH ---
Today's Communication / Plan
-
Prednisone 50 mg
To determine for renal biopsy next 24 to 48-hour
Will continue to titrate antihypertensives for uncontrolled hypertension
Metabolic acidosis persist despite high sodium bicarbonate loading
Assessment/Plan
-
Assessment:�
JASKARAN(baseline 0.9)
class IV lupus nephritis
Hypertensive urgency on presentation
uncontrolled HTN
Marked nephrotic syndrome with hypoalbuminemia-17gm/day
Hyponatremia, hypervolemic
Low gap Metabolic acidosis
Anemia
Hypocalcemia in setting of hypoalbuminemia
h/o Pericardial effusion 2021
Plan:
patient presented with flank pain and puffy face and LE edema
Pt is currently treated with cellcept, prednisone for class 4 lupus nephritis and lately her cr slowly increasing with progressive proteinuria 17gm/day
Status post pulse steroids x 3 days
We will initiate prednisone 50 mg p.o. daily
cr currently at 1.9, UA with sediment, UPCR 17.9, KUS with mismatched kidney size but otherwise benign
creatinine down to 1.8.
patient completed treatment for latent TB per rheum
We will observe patient over the next 24 to 48 hours at that determine need to biopsy this patient. This is complicated by her anemia.
- per rheum, they are attempting to obtain voclosporin and/or benlysta for this patient in the outpatient setting
Blood pressures elevated, likely consistent with active lupus nephritis now on nifedipine 90mg daily. Patient also on coreg 25mg BID
She will need aggressive control of her proteinuria once Cr stabilizes with YANE/ARB, SGLT2-i, MRA.
note had h/o pericardial effusion in 2021
anemia-fe sat 20%-started IV fe course, adequate vit B12 and folate. no CHRIS with pressures this high
Metabolic acidosis: Sodium bicarb tabs.,now on 1300 mg 3 times daily
hyponatremia likely hypervolemia-fluid restrict 48ounces/day, TSH wnl, U osmo high 461, U na normal
-
-
Date of Service: November 11, 2023
CC / HPI / ROS
-
Chief Complaint:
lupus nephritis
History of Present Illness:
Cr baseline 1, down to 1.8
pulse dose steroids completed
bp elevated on procardia and carvedilol
Metabolic acidosis persist despite sodium bicarbonate initiate
Review of Systems:
patient states her pain is resolved
Subjectively nonoliguric
Labs
-
Labs:
WBC 8.5 10^3/uL (4.8-10.8) 11/11/23 06:55
RBC 2.72 10^6/uL (4.20-5.40) L 11/11/23 06:55
Hgb 7.9 g/dL (12.0-16.0) L 11/11/23 06:55
Hct 22.4 % (37.0-47.0) L 11/11/23 06:55
Plt Count 345 10^3/uL (130-400) 11/11/23 06:55
Sodium 131 mmol/L (135-145) L 11/11/23 06:55
Potassium 4.0 mmol/L (3.5-5.1) 11/11/23 06:55
Chloride 108 mmol/L (98-107) H 11/11/23 06:55
Carbon Dioxide 15 mmol/L (22-30) L 11/11/23 06:55
BUN 40 mg/dl (7-17) H 11/11/23 06:55
Creatinine 1.8 mg/dL (0.6-1.0) H 11/11/23 06:55
eGFR 33.69 11/11/23 06:55
Glucose 120 mg/dl (70-99) H 11/11/23 06:55
Calcium 7.9 mg/dl (8.4-10.2) L 11/11/23 06:55
Fzk-P-Omkontlsygg Pept 5420 pg/ml 11/08/23 10:11
Physical Exam
-
Vital Signs:
Vital Signs
Temp Pulse Resp BP Pulse Ox
98.4 F 66 18 152/108 98
11/11/23 07:00 11/11/23 09:00 11/11/23 07:00 11/11/23 09:00 11/11/23 12:41
Cardiovascular:: Regular rate and rhythm
Respiratory:: Bilateral: CTA
Lung Excursion:: Normal
Abdomen:: Nontender and Soft
Bowel Sounds:: Normal
Extremity Edema:: None: Bilateral:
Ellis Catheter: No
[2023-11-11] MEDS: DELTASONE 50 MG PO (15:25)
[2023-11-11] MEDS: FEOSOL 325 MG PO (21:03)
[2023-11-11 23:46] VITALS: BP 154/86
[2023-11-12 05:38] VITALS: BMI 25.4
[2023-11-12 07:00] VITALS: BP 227/122
[2023-11-12 08:12] LABS: Blood Urea Nitrogen 35 mg/dl (7-17); Calcium 7.6 mg/dl (8.4-10.2); Carbon Dioxide 19 mmol/L (22-30); Chloride 110 mmol/L (98-107); Estimated Creatinine Clearance 27 ml/min; Glucose 89 mg/dl (70-99); Potassium 3.4 mmol/L (3.5-5.1); Sodium 129 mmol/L (135-145); eGFR 38.81
[2023-11-12] MEDS: SODIUM BICARBONATE 1300 MG PO ×3 (08:21→21:19)
[2023-11-12] MEDS: CELLCEPT 1500 MG PO ×2 (08:21→21:17)
[2023-11-12] MEDS: COREG 25 MG PO ×2 (08:22→21:18)
[2023-11-12] MEDS: PROCARDIA XL (EXTENDED RELEASE) 90 MG PO (08:22)
[2023-11-12] MEDS: DELTASONE 50 MG PO (08:22)
[2023-11-12 08:26] VITALS: BP 227/112
--- NOTE | 2023-11-12 08:27 | PTCARENOTE ---
Pt was hypertensive this morning at 227/112 manually, Pt is asymptomatic. I reached out to the MD, morning medications given, will reassess and follow up
[2023-11-12] MEDS: LOZOL 1.25 MG PO (08:57)
--- NOTE | 2023-11-12 08:58 | W.PN.HOSP.TC ---
Today's Communication/Plan
-
Check magnesium
Replete potassium
Assessment / Plan
Assessment / Plan
Gen-awake, alert, NAD
HEENT-NC, AT, anicteric, clear oral mm, facial swelling
Neck-supple
CV-reg, no M, +S1/S2
Lungs-clear B/L
Abd-soft, NT, ND
Ext-no edema
Musculoskeletal-no cyanosis, clubbing
Skin-warm and dry
Neuro-grossly non-focal
Psych-calm, cooperative
JASKARAN on CKD 3A -differential diagnosis includes lupus nephritis versus other causes.� She has class IV lupus nephritis. Received 3 days of pulse dose methylprednisolone. Mycophenolate dose increased by nephrology. Renal ultrasound unremarkable.�
Spot urine protein/creatinine ratio over 17. Creatinine now coming down, 1.6 today. Ne[address]rology following. Dr. Hand believes she may need a kidney biopsy on Wednesday. Prednisone started by nephrology.
Normal anion gap metabolic acidosis -bicarb improved to 19. Sodium bicarbonate increased to 1300 mg 3 times daily.
Hypokalemia -3.4. Check magnesium. Will replete.
SLE -continue mycophenolate at higher dose. Rheumatology consulted.
Hyponatremia -sodium 129. High urine osmolality consistent with ADH excess. Fluid restriction.
Acute on chronic normocytic anemia -chronic anemia due to chronic inflammation.� Hemoglobin down to 7.9 yesterday. No evidence of bleeding clinically. Hemodilution from IV fluids possibly playing a role. Monitor hemoglobin.
Essential hypertension with hypertensive urgency -hold YANE inhibitor given JASKARAN.� Carvedilol resumed. Hydralazine discontinued by nephrology. Procardia XL started. Blood pressure elevated again this morning, 227/112. Will defer to nephrology.
Full code
Anticipated Discharge: > 48 hours
Subjective/Interval History
-
Date of Service: November 12, 2023
Patient seen and examined. No complaints.
Objective Data
-
Labs:
Laboratory Results
11/12/23
07:10
Sodium 129 L
Potassium 3.4 L
Chloride 110 H
Carbon Dioxide 19 L
BUN 35 H
Creatinine 1.6 H
Glucose 89
Calcium 7.6 L
Vital Signs:
Vital Signs
Temp Pulse Resp BP Pulse Ox
98 F 74 18 227/112 98
11/12/23 07:00 11/12/23 08:22 11/12/23 07:00 11/12/23 08:26 11/12/23 07:00
I&O
11/11/23 11/12/23 11/13/23
06:59 06:59 06:59
Intake Total 1446 / 1446 480 / 480
Balance 1446 / 1446 480 / 480
Review of Systems
-
Unable to obtain full review of systems at this time due to: Language Barrier
History Source: Patient
All other systems: Reviewed and negative
[2023-11-12 09:15] VITALS: BP 119/68
[2023-11-12] MEDS: KCL 40 MEQ PO (09:21)
--- NOTE | 2023-11-12 11:42 | CM ---
Patient seen bedside, reports no new concerns. Per Hospitalist note, discharge >48 hours. CM will continue to follow for discharge planning needs. Patient reports her will provide transportation home when stable for discharge.
Plan; home no needs anticipated.
[2023-11-12] MEDS: FERRLECIT 110 MG IV (13:22)
--- NOTE | 2023-11-12 13:44 | W.PN.NEPH.PH ---
Addendum entered and electronically signed by Sandra Viramontes MD 11/12/23 13:51:
Patient should make an appointment with Dr. Hernandez in 1 month.
Please obtain BMP in one week and send to Dr. Hernandez
Original Note:
Today's Communication / Plan
-
- initiated on indapamide for high blood pressures
Assessment/Plan
-
Assessment:�
JASKARAN(baseline 0.9)
class IV lupus nephritis
Hypertensive urgency on presentation
uncontrolled HTN
Marked nephrotic syndrome with hypoalbuminemia-17gm/day
Hyponatremia, hypervolemic
Low gap Metabolic acidosis
Anemia
Hypocalcemia in setting of hypoalbuminemia
h/o Pericardial effusion 2021
Plan:
patient presented with flank pain and puffy face and LE edema
Pt is currently treated with cellcept, prednisone for class 4 lupus nephritis and lately her cr slowly increasing with progressive proteinuria 17gm/day
Status post pulse steroids x 3 days
We will initiate prednisone 50 mg p.o. daily
cr currently at 1.6 (peak 2.3), UA with sediment, UPCR 17.9, KUS with mismatched kidney size but otherwise benign.
patient completed treatment for latent TB per rheum
overall, with a falling Cr and anemia, we will defer biopsy in this patient
- per rheum, they are attempting to obtain voclosporin and/or benlysta for this patient in the outpatient setting
Blood pressures elevated, likely consistent with active lupus nephritis now on nifedipine 90mg daily and coreg 25mg BID
- initiate indapamide 1.25mg PO daily and monitor response. this can likely be stopped once Cr stabilizes and we initiate her on antiproteinuric agents as below.
She will need aggressive control of her proteinuria once Cr stabilizes with YANE/ARB, SGLT2-i, MRA.
note had h/o pericardial effusion in 2021
anemia-fe sat 20%-started IV fe course, adequate vit B12 and folate. no CHRIS with pressures this high
Metabolic acidosis: Sodium bicarb tabs.,now on 1300 mg 3 times daily
hyponatremia likely hypervolemia-fluid restrict 48ounces/day, TSH wnl, U osmo high 461, U na normal
-
-
Date of Service: November 12, 2023
CC / HPI / ROS
-
Chief Complaint:
lupus nephritis
History of Present Illness:
Cr baseline 1, down to 1.6
pulse dose steroids completed
bp elevated on procardia and carvedilol
Metabolic acidosis persist despite sodium bicarbonate initiate
Review of Systems:
patient states her pain is resolved
Subjectively nonoliguric
Labs
-
Labs:
WBC 8.5 10^3/uL (4.8-10.8) 11/11/23 06:55
RBC 2.72 10^6/uL (4.20-5.40) L 11/11/23 06:55
Hgb 7.9 g/dL (12.0-16.0) L 11/11/23 06:55
Hct 22.4 % (37.0-47.0) L 11/11/23 06:55
Plt Count 345 10^3/uL (130-400) 11/11/23 06:55
Sodium 129 mmol/L (135-145) L 11/12/23 07:10
Potassium 3.4 mmol/L (3.5-5.1) L 11/12/23 07:10
Chloride 110 mmol/L (98-107) H 11/12/23 07:10
Carbon Dioxide 19 mmol/L (22-30) L 11/12/23 07:10
BUN 35 mg/dl (7-17) H 11/12/23 07:10
Creatinine 1.6 mg/dL (0.6-1.0) H 11/12/23 07:10
eGFR 38.81 11/12/23 07:10
Glucose 89 mg/dl (70-99) 11/12/23 07:10
Calcium 7.6 mg/dl (8.4-10.2) L 11/12/23 07:10
Zgu-Q-Iuhfmhdwepb Pept 5420 pg/ml 11/08/23 10:11
Physical Exam
-
Vital Signs:
Vital Signs
Temp Pulse Resp BP Pulse Ox
98 F 72 18 119/68 98
11/12/23 07:00 11/12/23 09:15 11/12/23 09:15 11/12/23 09:15 11/12/23 09:15
Cardiovascular:: Regular rate and rhythm
Respiratory:: Bilateral: CTA
Lung Excursion:: Normal
Abdomen:: Nontender and Soft
Bowel Sounds:: Normal
Extremity Edema:: +2: Bilateral:
Ellis Catheter: No
[2023-11-12 15:00] VITALS: BP 161/86
--- NOTE | 2023-11-12 16:50 | W.PN.RHM ---
Today's Communication / Plan
-
Chart checked and case discussed with nephrology. Renal function improving. Agree with deferring renal biopsy. Can be discharged on pred 50 mg daily once stable from primary team and nephro standpoint.
Will initiate Voclosporin and Benlysta on outpatient setting. Continue MMF 3 grams daily. Has follow up with me 11/17.
Rheum will sign off. Please feel free to call us back if you have any questions or concerns.
Farhan Leung MD, [facility]
[phone]
Objective Data
-
Vital Signs
Temp Pulse Resp BP Pulse Ox
98.2 F 78 18 161/86 99
11/12/23 15:00 11/12/23 15:00 11/12/23 15:00 11/12/23 15:00 11/12/23 15:00
Laboratory Data
11/11/23 06:55
11/12/23 07:10
C-Reactive Protein 41.50 mg/L (0.0-10.00) H 11/08/23 10:11
Urine Color Yellow 11/08/23 10:30
Urine Clarity Clear (Clear) 11/08/23 10:30
Urine pH 6.5 (5.0-9.0) 11/08/23 10:30
Ur Specific Blain 1.010 (<1.030) 11/08/23 10:30
Urine Ketones Negative (Negative) 11/08/23 10:30
Urine Bilirubin Negative (Negative) 11/08/23 10:30
Urine Urobilinogen Negative (Neg - 1+) 11/08/23 10:30
[2023-11-12] MEDS: FEOSOL 325 MG PO (21:19)
[2023-11-12 23:56] VITALS: BP 215/101
[2023-11-13] MEDS: APRESOLINE 5 MG IV (02:27)
[2023-11-13 05:08] VITALS: BP 207/98
[2023-11-13 06:00] VITALS: BMI 25.6
[2023-11-13 07:32] VITALS: BP 197/109
[2023-11-13 07:33] LABS: % Basophils 0.2 % (0-2); % Eosinophils 4.4 % (0-6); % Immature Granulocytes 0.4 % (0-0.5); % Lymphocytes 13.2 % (20.5-51.1); % Neutrophils 75.8 % (42.2-75.2); Absolute Eosinophils 0.5 10^3/uL (0-0.7); Absolute Immature Granulocytes 0.1 10^3/uL (0-0.05); Absolute Lymphocytes 1.6 10^3/uL (1.2-3.4); Absolute Monocytes 0.7 10^3/uL (0.1-0.6); Absolute Neutrophils 8.9 10^3/uL (1.4-6.5); Hematocrit 24.2 % (37.0-47.0); Hemoglobin 8.5 g/dL (12.0-16.0); Mean Corp Hgb Conc. 35.1 g/dL (33.0-37.0); Mean Corpuscular Hgb 28.9 pg (27.0-31.0); Mean Corpuscular Volume 82.3 fL (81.0-99.0); Mean Platelet Volume 9.3 fL (7.4-10.4); Nucleated Red Blood Cells % 0 %; Platelet Count 364 10^3/uL (130-400); Red Blood Cell Count 2.94 10^6/uL (4.20-5.40); Red Cell Dist. Width 13.7 % (11.5-14.5); White Blood Cell Count 11.8 10^3/uL (4.8-10.8)
[2023-11-13 07:57] LABS: Blood Urea Nitrogen 35 mg/dl (7-17); Calcium 7.8 mg/dl (8.4-10.2); Carbon Dioxide 21 mmol/L (22-30); Chloride 108 mmol/L (98-107); Estimated Creatinine Clearance 33 ml/min; Glucose 89 mg/dl (70-99); Potassium 3.3 mmol/L (3.5-5.1); Sodium 131 mmol/L (135-145); eGFR 49.79
[2023-11-13] MEDS: PROCARDIA XL (EXTENDED RELEASE) 90 MG PO (07:57)
[2023-11-13] MEDS: CELLCEPT 1500 MG PO ×2 (07:57→19:54)
[2023-11-13] MEDS: SODIUM BICARBONATE 1300 MG PO ×3 (07:58→21:07)
[2023-11-13] MEDS: DELTASONE 50 MG PO (07:58)
[2023-11-13] MEDS: COREG 25 MG PO ×2 (07:58→19:55)
[2023-11-13] MEDS: LOZOL 1.25 MG PO (08:42)
[2023-11-13 09:05] VITALS: BP 101/58
[2023-11-13] MEDS: KCL 40 MEQ PO (10:05)
--- NOTE | 2023-11-13 10:35 | W.PN.HOSP.TC ---
Today's Communication/Plan
-
Await nephrology input
Assessment / Plan
Assessment / Plan
Gen-awake, alert, NAD
HEENT-NC, AT, anicteric, clear oral mm, facial swelling
Neck-supple
CV-reg, no M, +S1/S2
Lungs-clear B/L
Abd-soft, NT, ND
Ext-no edema
Musculoskeletal-no cyanosis, clubbing
Skin-warm and dry
Neuro-grossly non-focal
Psych-calm, cooperative
JASKARAN on CKD 3A -differential diagnosis includes lupus nephritis versus other causes.� She has class IV lupus nephritis. Received 3 days of pulse dose methylprednisolone. Mycophenolate dose increased by nephrology. Renal ultrasound unremarkable.�
Spot urine protein/creatinine ratio over 17. Creatinine now coming down, 1.3 today. Nephrology following. Continue prednisone per nephrology. No plans for kidney biopsy now given improvement in renal function.
Normal anion gap metabolic acidosis -bicarb improved to 21. Sodium bicarbonate increased to 1300 mg 3 times daily.
Hypokalemia -3.4. Magnesium normal. Continue potassium repletion. Spironolactone added.
SLE -continue mycophenolate at higher dose. Rheumatology consulted.
Hyponatremia -sodium 131. High urine osmolality consistent with ADH excess. Fluid restriction.
Acute on chronic normocytic anemia -chronic anemia due to chronic inflammation.� Hemoglobin stable, 8.5. No evidence of bleeding clinically. Hemodilution from IV fluids possibly playing a role. Monitor hemoglobin.
Essential hypertension with hypertensive urgency -hold YANE inhibitor given JASKARAN.� Carvedilol resumed. Hydralazine discontinued by nephrology. Procardia XL started. Labile blood pressures noted.
Full code
Dispo -can discharge when cleared by nephrology. Outpatient follow-up.
Anticipated Discharge: Today
Subjective/Interval History
-
Date of Service: November 13, 2023
Patient seen and examined. No complaints.
Objective Data
-
Labs:
Laboratory Results
11/13/23
07:25
WBC 11.8 H
Hgb 8.5 L
Hct 24.2 L
Plt Count 364
Sodium 131 L
Potassium 3.3 L
Chloride 108 H
Carbon Dioxide 21 L
BUN 35 H
Creatinine 1.3 H
Glucose 89
Calcium 7.8 L
Vital Signs:
Vital Signs
Temp Pulse Resp BP Pulse Ox
98.2 F 72 16 101/58 98
11/13/23 07:32 11/13/23 08:42 11/13/23 07:32 11/13/23 09:05 11/13/23 07:32
I&O
11/12/23 11/13/23 11/14/23
06:59 06:59 07:59
Intake Total 480 / 480 1260 / 1260
Balance 480 / 480 1260 / 1260
Review of Systems
-
Unable to obtain full review of systems at this time due to: Language Barrier
History Source: Patient
All other systems: Reviewed and negative
--- NOTE | 2023-11-13 11:52 | W.PN.NEPH.PH ---
Today's Communication / Plan
-
- add on spironolactone
Assessment/Plan
-
Assessment:�
JASKARAN(baseline 0.9)
class IV lupus nephritis
Hypertensive urgency on presentation
uncontrolled HTN
Marked nephrotic syndrome with hypoalbuminemia-17gm/day
Hyponatremia, hypervolemic
Low gap Metabolic acidosis
Anemia
Hypocalcemia in setting of hypoalbuminemia
h/o Pericardial effusion 2021
Plan:
patient presented with flank pain and puffy face and LE edema
Pt is currently treated with cellcept, prednisone for class 4 lupus nephritis and lately her cr slowly increasing with progressive proteinuria 17gm/day
Status post pulse steroids x 3 days
We will initiate prednisone 50 mg p.o. daily
cr currently at 1.3 (peak 2.3), UA with sediment, UPCR 17.9, KUS with mismatched kidney size but otherwise benign.
patient completed treatment for latent TB per rheum
overall, with a falling Cr and anemia, we will defer biopsy in this patient
- per rheum, they are attempting to obtain voclosporin and/or benlysta for this patient in the outpatient setting
Blood pressures elevated, likely consistent with active lupus nephritis now on nifedipine 90mg daily and coreg 25mg BID
- initiate indapamide 1.25mg PO daily and monitor response.
- blood pressure continued to be elevated. will add on spironolactone 12.5mg in the evening
She will need aggressive control of her proteinuria once Cr stabilizes with YANE/ARB, SGLT2-i
note had h/o pericardial effusion in 2021
anemia-fe sat 20%-started IV fe course, adequate vit B12 and folate. no CHRIS with pressures this high
Metabolic acidosis: Sodium bicarb tabs.,now on 1300 mg 3 times daily
hyponatremia likely hypervolemia-fluid restrict 48ounces/day, TSH wnl, U osmo high 461, U na normal
If BP less labile, likely can d/c tomorrow
-
-
Date of Service: November 13, 2023
CC / HPI / ROS
-
Chief Complaint:
lupus nephritis
History of Present Illness:
Cr baseline 1, down to 1.3
pulse dose steroids completed
bp elevated on procardia and carvedilol
Metabolic acidosis improving
Review of Systems:
patient states her pain is resolved
Subjectively nonoliguric
Labs
-
Labs:
WBC 11.8 10^3/uL (4.8-10.8) H 11/13/23 07:25
RBC 2.94 10^6/uL (4.20-5.40) L 11/13/23 07:25
Hgb 8.5 g/dL (12.0-16.0) L 11/13/23 07:25
Hct 24.2 % (37.0-47.0) L 11/13/23 07:25
Plt Count 364 10^3/uL (130-400) 11/13/23 07:25
Sodium 131 mmol/L (135-145) L 11/13/23 07:25
Potassium 3.3 mmol/L (3.5-5.1) L 11/13/23 07:25
Chloride 108 mmol/L (98-107) H 11/13/23 07:25
Carbon Dioxide 21 mmol/L (22-30) L 11/13/23 07:25
BUN 35 mg/dl (7-17) H 11/13/23 07:25
Creatinine 1.3 mg/dL (0.6-1.0) H 11/13/23 07:25
eGFR 49.79 11/13/23 07:25
Glucose 89 mg/dl (70-99) 11/13/23 07:25
Calcium 7.8 mg/dl (8.4-10.2) L 11/13/23 07:25
Jxo-A-Clvfhbyimok Pept 5420 pg/ml 11/08/23 10:11
Physical Exam
-
Vital Signs:
Vital Signs
Temp Pulse Resp BP Pulse Ox
98.2 F 72 16 101/58 98
11/13/23 07:32 11/13/23 08:42 11/13/23 07:32 11/13/23 09:05 11/13/23 07:32
Cardiovascular:: Regular rate and rhythm
Respiratory:: Bilateral: CTA
Lung Excursion:: Normal
Abdomen:: Nontender and Soft
Bowel Sounds:: Normal
Extremity Edema:: +2: Bilateral:
Ellis Catheter: No
[2023-11-13] MEDS: FERRLECIT 110 MG IV (15:01)
[2023-11-13 15:27] VITALS: BP 133/70
[2023-11-13] MEDS: ALDACTONE 12.5 MG PO (19:54)
[2023-11-13] MEDS: FEOSOL 325 MG PO (19:55)
[2023-11-13 23:21] VITALS: BP 171/91
[2023-11-14 03:45] VITALS: BP 193/101
[2023-11-14] MEDS: APRESOLINE 5 MG IV (04:22)
[2023-11-14 05:30] VITALS: BP 161/79
[2023-11-14 05:40] VITALS: BMI 25.5
[2023-11-14 07:27] LABS: Blood Urea Nitrogen 34 mg/dl (7-17); Calcium 7.8 mg/dl (8.4-10.2); Carbon Dioxide 21 mmol/L (22-30); Chloride 111 mmol/L (98-107); Estimated Creatinine Clearance 33 ml/min; Glucose 84 mg/dl (70-99); Potassium 3.4 mmol/L (3.5-5.1); Sodium 130 mmol/L (135-145); eGFR 49.79
[2023-11-14 07:40] VITALS: BP 181/91
[2023-11-14] MEDS: DELTASONE 50 MG PO (09:13)
[2023-11-14] MEDS: COREG 25 MG PO (09:13)
[2023-11-14] MEDS: ALDACTONE 12.5 MG PO (09:14)
[2023-11-14] MEDS: LOZOL 1.25 MG PO (09:14)
[2023-11-14] MEDS: SODIUM BICARBONATE 1300 MG PO (09:14)
[2023-11-14] MEDS: PROCARDIA XL (EXTENDED RELEASE) 30 MG PO (09:14)
--- NOTE | 2023-11-14 09:14 | W.PN.HOSP.TC ---
Addendum entered and electronically signed by Alex Schaefer DO 11/14/23 11:49:
Nephrology recommends discharge today, outpatient follow up.
Original Note:
Today's Communication/Plan
-
Await nephrology input
Assessment / Plan
Assessment / Plan
Gen-awake, alert, NAD
HEENT-NC, AT, anicteric, clear oral mm, facial swelling
Neck-supple
CV-reg, no M, +S1/S2
Lungs-clear B/L
Abd-soft, NT, ND
Ext-no edema
Musculoskeletal-no cyanosis, clubbing
Skin-warm and dry
Neuro-grossly non-focal
Psych-calm, cooperative
JASKARAN on CKD 3A -differential diagnosis includes lupus nephritis versus other causes.� She has class IV lupus nephritis. Received 3 days of pulse dose methylprednisolone. Mycophenolate dose increased by nephrology. Renal ultrasound unremarkable.�
Spot urine protein/creatinine ratio over 17. Creatinine now coming down, 1.3 again today. Nephrology following. Continue prednisone per nephrology. No plans for kidney biopsy now given improvement in renal function.
Normal anion gap metabolic acidosis -bicarb improved to 21. Sodium bicarbonate increased to 1300 mg 3 times daily.
Hypokalemia -3.4. Magnesium normal. Continue potassium repletion. Spironolactone added.
SLE -continue mycophenolate at higher dose. Rheumatology consulted.
Hyponatremia -sodium 131. High urine osmolality consistent with ADH excess. Fluid restriction.
Acute on chronic normocytic anemia -chronic anemia due to chronic inflammation.� Hemoglobin stable, 8.5. No evidence of bleeding clinically. Hemodilution from IV fluids possibly playing a role. Monitor hemoglobin.
Essential hypertension with hypertensive urgency -hold YANE inhibitor given JASKARAN.� Carvedilol resumed. Hydralazine discontinued by nephrology. Procardia XL started. Labile blood pressures noted.
Full code
Dispo -can discharge when cleared by nephrology. Outpatient follow-up.
Anticipated Discharge: Today
Subjective/Interval History
-
Date of Service: November 14, 2023
Patient seen and examined. No complaints.
Objective Data
-
Labs:
Laboratory Results
11/14/23
06:42
Sodium 130 L
Potassium 3.4 L
Chloride 111 H
Carbon Dioxide 21 L
BUN 34 H
Creatinine 1.3 H
Glucose 84
Calcium 7.8 L
Vital Signs:
Vital Signs
Temp Pulse Resp BP Pulse Ox
98.1 F 86 16 161/79 99
11/13/23 23:21 11/14/23 05:30 11/13/23 23:21 11/14/23 05:30 11/13/23 23:21
I&O
11/13/23 11/14/23 11/15/23
05:59 06:59 06:59
Intake Total
Balance
Review of Systems
-
History Source: Patient
All other systems: Reviewed and negative
[2023-11-14] MEDS: CELLCEPT 1500 MG PO (09:15)
[2023-11-14] MEDS: PROCARDIA XL (EXTENDED RELEASE) 60 MG PO (09:15)
[2023-11-14] MEDS: KCL 40 MEQ PO (09:52)
--- NOTE | 2023-11-14 11:31 | W.PN.NEPH.PH ---
Today's Communication / Plan
-
- d/c today
Assessment/Plan
-
Assessment:�
JASKARAN(baseline 0.9)
class IV lupus nephritis
Hypertensive urgency on presentation
uncontrolled HTN
Marked nephrotic syndrome with hypoalbuminemia-17gm/day
Hyponatremia, hypervolemic
Low gap Metabolic acidosis
Anemia
Hypocalcemia in setting of hypoalbuminemia
h/o Pericardial effusion 2021
Plan:
patient presented with flank pain and puffy face and LE edema
Pt is currently treated with cellcept, prednisone for class 4 lupus nephritis and lately her cr slowly increasing with progressive proteinuria 17gm/day
Status post pulse steroids x 3 days
We will initiate prednisone 50 mg p.o. daily
cr currently at 1.3 (peak 2.3), UA with sediment, UPCR 17.9, KUS with mismatched kidney size but otherwise benign.
patient completed treatment for latent TB per rheum
overall, with a falling Cr and anemia, we will defer biopsy in this patient
- per rheum, they are attempting to obtain voclosporin and/or benlysta for this patient in the outpatient setting
Blood pressures elevated, likely consistent with active lupus nephritis now on nifedipine 90mg daily and coreg 25mg BID
- initiate indapamide 1.25mg PO daily and monitor response.
- blood pressure continued to be elevated. will add on spironolactone 12.5mg in the evening
She will need aggressive control of her proteinuria once Cr stabilizes with YANE/ARB, SGLT2-i
note had h/o pericardial effusion in 2021
anemia-fe sat 20%-started IV fe course, adequate vit B12 and folate. no CHRIS with pressures this high
Metabolic acidosis: Sodium bicarb tabs.,now on 1300 mg 3 times daily
hyponatremia likely hypervolemia-fluid restrict 48ounces/day, TSH wnl, U osmo high 461, U na normal
Ok for D/C today. Plan for follow up with Dr. Hernandez in 1 month
-
-
Date of Service: November 14, 2023
CC / HPI / ROS
-
Chief Complaint:
lupus nephritis
History of Present Illness:
Cr baseline 1, down to 1.3
pulse dose steroids completed
bp elevated on procardia and carvedilol. added on indapamide and spironolactone
Metabolic acidosis improving
Review of Systems:
patient states her pain is resolved
Subjectively nonoliguric
Labs
-
Labs:
WBC 11.8 10^3/uL (4.8-10.8) H 11/13/23 07:25
RBC 2.94 10^6/uL (4.20-5.40) L 11/13/23 07:25
Hgb 8.5 g/dL (12.0-16.0) L 11/13/23 07:25
Hct 24.2 % (37.0-47.0) L 11/13/23 07:25
Plt Count 364 10^3/uL (130-400) 11/13/23 07:25
Sodium 130 mmol/L (135-145) L 11/14/23 06:42
Potassium 3.4 mmol/L (3.5-5.1) L 11/14/23 06:42
Chloride 111 mmol/L (98-107) H 11/14/23 06:42
Carbon Dioxide 21 mmol/L (22-30) L 11/14/23 06:42
BUN 34 mg/dl (7-17) H 11/14/23 06:42
Creatinine 1.3 mg/dL (0.6-1.0) H 11/14/23 06:42
eGFR 49.79 11/14/23 06:42
Glucose 84 mg/dl (70-99) 11/14/23 06:42
Calcium 7.8 mg/dl (8.4-10.2) L 11/14/23 06:42
Jru-E-Zkydnozadyn Pept 5420 pg/ml 11/08/23 10:11
Physical Exam
-
Vital Signs:
Vital Signs
Temp Pulse Resp BP Pulse Ox
98.2 F 87 16 181/91 99
11/14/23 07:40 11/14/23 07:40 11/14/23 07:40 11/14/23 07:40 11/14/23 10:37
Cardiovascular:: Regular rate and rhythm
Respiratory:: Bilateral: CTA
Lung Excursion:: Normal
Abdomen:: Nontender and Soft
Bowel Sounds:: Normal
Extremity Edema:: +2: Bilateral:
Ellis Catheter: No
--- NOTE | 2023-11-14 12:00 | W.DS.TRANS ---
DC Summary - [employer]
-
Discharge Instructions:
Discharge Diagnosis/Procedures Acute kidney injury, systemic lupus
erythematosus, low blood sodium, uncontrolled
blood pressure
Diet 2 Gram Sodium,Other diet,Restrict fluids to 48
oz
Additional Diets 2 gram potassium
Activity As tolerated
Driving Restrictions As prior to admission
Bathing Restrictions None
Blood Work BMP in 5 days
Instructions:
Stand-Alone Forms:
Changes to Home Medications: Yes
Discharge Medications:
DC Medications w/original date entered in [email or web address]
acetaminophen 500 mg tablet (Tylenol Extra Strength) 500 mg PO DAILYPRN PRN mild pain 11/08/23
ferrous sulfate 325 mg (65 mg iron) tablet (iron) 325 mg PO HS Supplement 11/08/23
carvedilol 25 mg tablet 25 mg PO BID #60 tabs 11/14/23
indapamide 2.5 mg tablet 1.25 mg PO DAILY #30 tabs 11/14/23
mycophenolate mofetil 500 mg tablet 1,500 mg PO BID #180 tabs 11/14/23
nifedipine 30 mg tablet,extended release 30 mg PO DAILY #30 tabs 11/14/23
nifedipine 60 mg tablet,extended release 60 mg PO DAILY #30 tabs 11/14/23
potassium chloride 20 mEq tablet,extended release 20 meq PO TID #60 tabs 11/14/23
prednisone 50 mg tablet 50 mg PO DAILY #14 tabs 11/14/23
sodium bicarbonate 650 mg tablet 1,300 mg PO TID #180 tabs 11/14/23
spironolactone 25 mg tablet 12.5 mg PO DAILY #30 tabs 11/14/23
Home Medication Changes
Stop lisinopril
Pending Results: No
[2023-11-14 12:40] VITALS: BP 88/51
== END 2023-11-14 13:15 | disposition home or self-care (01) | DRG 546 ==
LOC: 4 EAST ACU 13:20
PROVIDERS: Clinical Nurse Specialist Family Health; ADMITTING PHYSICIAN Hospitalist; CONSULT PHYSICIAN Internal Medicine; EMERGENCY PHYSICIAN Emergency Medicine; OTHER PHYSICIAN Internal Medicine
DX: M32.14 Glomerular disease in systemic lupus erythematosus (principal); E87.1 Hypo-osmolality and hyponatremia; N17.9 Acute kidney failure, unspecified; E87.20 Acidosis, unspecified; N18.31 Chronic kidney disease, stage 3a; I12.9 Hypertensive chronic kidney disease with stage 1 through stage 4 chronic kidney disease, or unspecified chronic kidney disease; I16.0 Hypertensive urgency; D72.829 Elevated white blood cell count, unspecified; Z79.52 Long term (current) use of systemic steroids; T38.0X5A Adverse effect of glucocorticoids and synthetic analogues, initial encounter; E83.51 Hypocalcemia; E88.09 Other disorders of plasma-protein metabolism, not elsewhere classified; E87.70 Fluid overload, unspecified; D50.9 Iron deficiency anemia, unspecified; E87.6 Hypokalemia
CPT/HCPCS: 76775; 80048; 81003; 81015; 82570; 82607; 82728; 82746; 83540; 83550; 83735; 83880; 83935; 84156; 84300; 84443; 85025; 86140; 86850; 86900; 86901; 99285; J2916

== ENCOUNTER → 2023-11-18 15:24 | Outpatient (REF) | payer OTHER, SELFPAY ==
[2023-11-18 16:19] LABS: Urine Albumin 3+ (Neg - Trace); Urine Bilirubin Negative (Negative); Urine Character Clear (Clear); Urine Color Yellow; Urine Glucose Trace (Negative); Urine Ketone Negative (Negative); Urine Leukocyte Negative (Negative); Urine Nitrite Negative (Negative); Urine Occult Blood 1+ (Negative); Urine Urobilinogen Negative (Neg - 1+)
[2023-11-18 16:26] LABS: % Basophils 0.1 % (0-2); % Immature Granulocytes 0.7 % (0-0.5); % Lymphocytes 2.5 % (20.5-51.1); % Monocytes 0.7 % (1.7-9.3); Absolute Immature Granulocytes 0.1 10^3/uL (0-0.05); Absolute Lymphocytes 0.4 10^3/uL (1.2-3.4); Absolute Monocytes 0.1 10^3/uL (0.1-0.6); Absolute Neutrophils 16.8 10^3/uL (1.4-6.5); Hematocrit 29.4 % (37.0-47.0); Mean Corpuscular Hgb 28.6 pg (27.0-31.0); Mean Platelet Volume 11.6 fL (7.4-10.4); Nucleated Red Blood Cells % 0 %; Platelet Count 226 10^3/uL (130-400); Red Cell Dist. Width 14.2 % (11.5-14.5); White Blood Cell Count 17.5 10^3/uL (4.8-10.8)
[2023-11-18 16:31] LABS: Urine Bacteria Moderate (Negative); Urine White Cell 0-2 /HPF (0-5)
[2023-11-18 16:32] LABS: Erythrocyte Sed Rate 47 mm/hour (0-20); Urine Mucus Few
[2023-11-18 16:54] LABS: C-Reactive Protein < 5.00 mg/L (0.0-10.00)
[2023-11-18 17:22] LABS: TSH Reflex To Free T4 3.35 uIU/ml (0.47-4.68)
[2023-11-18 17:23] LABS: Protein/creatinine Ratio 21.6; Urine Protein 1700 mg/dl
[2023-11-18 17:43] LABS: ALT (SGPT) 24 U/L (0-35); AST (SGOT) 23 U/L (14-36); Albumin 2.5 g/dl (3.5-5.0); Alkaline Phosphatase 101 U/L (38-126); Blood Urea Nitrogen 39 mg/dl (7-17); Calcium 7.9 mg/dl (8.4-10.2); Carbon Dioxide 19 mmol/L (22-30); Chloride 107 mmol/L (98-107); Glucose 111 mg/dl (70-99); Potassium 6.4 mmol/L (3.5-5.1); Sodium 127 mmol/L (135-145); Total Bilirubin 0.2 mg/dl (0.2-1.3); Total Protein 4.9 g/dl (6.3-8.2); eGFR 45.55
[2023-11-18 17:59] LABS: Complement C3 91 mg/dl (88-165)
== END ==
LOC: CLINIC 15:24
PROVIDERS: ATTENDING PHYSICIAN Internal Medicine; FAMILY PHYSICIAN Nurse Practitioner Adult Health; OTHER PHYSICIAN Internal Medicine
DX: M32.14 Glomerular disease in systemic lupus erythematosus (principal); Z51.81 Encounter for therapeutic drug level monitoring; E03.9 Hypothyroidism, unspecified
CPT/HCPCS: 36415; 80053; 81003; 81015; 82570; 84156; 84443; 85025; 85652; 86140; 86160

== ENCOUNTER → 2023-11-23 10:22 | Outpatient (REF) | payer OTHER, SELFPAY ==
[2023-11-23 12:08] LABS: ALT (SGPT) 16 U/L (0-35); AST (SGOT) 20 U/L (14-36); Albumin 2.5 g/dl (3.5-5.0); Alkaline Phosphatase 105 U/L (38-126); Blood Urea Nitrogen 30 mg/dl (7-17); Calcium 8.1 mg/dl (8.4-10.2); Carbon Dioxide 25 mmol/L (22-30); Chloride 102 mmol/L (98-107); Glucose 116 mg/dl (70-99); Potassium 3.6 mmol/L (3.5-5.1); Sodium 132 mmol/L (135-145); Total Bilirubin 0.1 mg/dl (0.2-1.3); Total Protein 4.7 g/dl (6.3-8.2); eGFR 49.79
== END ==
LOC: CLINIC 10:22
PROVIDERS: ATTENDING PHYSICIAN Internal Medicine
DX: M32.14 Glomerular disease in systemic lupus erythematosus (principal); Z51.81 Encounter for therapeutic drug level monitoring; Z71.89 Other specified counseling
CPT/HCPCS: 36415; 80053

== ENCOUNTER → 2023-12-07 10:23 | Outpatient (REF) | payer OTHER, SELFPAY ==
[2023-12-07 13:54] LABS: Blood Urea Nitrogen 41 mg/dl (7-17); Calcium 7.9 mg/dl (8.4-10.2); Carbon Dioxide 28 mmol/L (22-30); Chloride 99 mmol/L (98-107); Glucose 92 mg/dl (70-99); Potassium 3.4 mmol/L (3.5-5.1); Sodium 128 mmol/L (135-145)
== END ==
LOC: CLINIC 10:23
PROVIDERS: ATTENDING PHYSICIAN Specialist
DX: M32.14 Glomerular disease in systemic lupus erythematosus (principal)
CPT/HCPCS: 36415; 80048

== ENCOUNTER → 2023-12-14 10:33 | Outpatient (REF) | payer OTHER, SELFPAY | LOC: CLINIC 10:33 | PROVIDERS: ATTENDING PHYSICIAN Internal Medicine; FAMILY PHYSICIAN Nurse Practitioner Adult Health | DX: Z12.31 Encounter for screening mammogram for malignant neoplasm of breast (principal) | CPT/HCPCS: 77063; 77067 ==

== ENCOUNTER 2023-12-18 06:03 | Inpatient (IN) | payer OTHER, SELFPAY ==
[2023-12-18] VITALS (74 sets, daily range): BP systolic 83–262; BP diastolic 58–159; BMI 28.6
[2023-12-18 04:18] LABS: Glucose - Point of Care 136 mg/dl (70-99)
[2023-12-18 04:26] LABS: % Basophils 0.1 % (0-2); % Eosinophils 0.5 % (0-6); % Immature Granulocytes 1.6 % (0-0.5); % Lymphocytes 11.7 % (20.5-51.1); % Monocytes 4.2 % (1.7-9.3); % Neutrophils 81.9 % (42.2-75.2); Absolute Eosinophils 0.1 10^3/uL (0-0.7); Absolute Immature Granulocytes 0.2 10^3/uL (0-0.05); Absolute Lymphocytes 1.8 10^3/uL (1.2-3.4); Absolute Monocytes 0.7 10^3/uL (0.1-0.6); Absolute Neutrophils 12.6 10^3/uL (1.4-6.5); Hematocrit 26.7 % (37.0-47.0); Hemoglobin 8.9 g/dL (12.0-16.0); Mean Corp Hgb Conc. 33.3 g/dL (33.0-37.0); Mean Corpuscular Hgb 29.9 pg (27.0-31.0); Mean Corpuscular Volume 89.6 fL (81.0-99.0); Nucleated Red Blood Cells % 0 %; Platelet Count 213 10^3/uL (130-400); Red Blood Cell Count 2.98 10^6/uL (4.20-5.40); Red Cell Dist. Width 13.4 % (11.5-14.5); White Blood Cell Count 15.4 10^3/uL (4.8-10.8)
[2023-12-18] MEDS: NITROGLYCERIN PREMIX 250 IV (04:32)
[2023-12-18 04:36] LABS: INR 0.98; PT 12.8 Sec (11.4-14.6)
[2023-12-18 04:39] LABS: ALT (SGPT) 21 U/L (0-35); AST (SGOT) 39 U/L (14-36); Albumin 2.3 g/dl (3.5-5.0); Alkaline Phosphatase 101 U/L (38-126); Blood Urea Nitrogen 39 mg/dl (7-17); Calcium 7.3 mg/dl (8.4-10.2); Carbon Dioxide 21 mmol/L (22-30); Chloride 102 mmol/L (98-107); Glucose 133 mg/dl (70-99); Potassium 3.2 mmol/L (3.5-5.1); Sodium 131 mmol/L (135-145); Total Bilirubin 0.4 mg/dl (0.2-1.3); Total Protein 4.4 g/dl (6.3-8.2); eGFR 49.79
[2023-12-18 04:41] LABS: Alcohol None Detected
--- NOTE | 2023-12-18 04:45 | ED.GENMED ---
History of Present Illness
General
Chief Complaint: Unresponsive
Source: family (Son and ) and previous hospital records (Recent hospitalization 1 month ago for acute kidney injury on chronic kidney disease related to lupus nephritis, hypertensive urgency)
Exam Limitations: altered mental status (Unresponsive, sonorous respirations)
Time Seen by Provider: 12/18/23 04:03
Nursing documentation reviewed up to this point in time: agreed with
Travel History
Have you had any contact with someone who has COVID-19?: Unable to Answer
Do you have any symptoms of coronavirus? Fever > 100 degrees, chills, cough, shortness of breath, sore throat, loss of taste or smell, muscle aches, or headache?: Unable to Answer
History of Present Illness
History of Present Illness:
This is a 53-year-old woman who resides at home with family. She is brought to the ED by private vehicle/by after he found his 330 this morning unresponsive, gurgling respirations. She seemed well and at her baseline at 10 PM when she
went to bed. No fall out of bed, no seizure activity noted.
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
She has history of lupus, lupus nephritis, hypertension and was recently admitted November 07 until November 13 for treatment of acute on chronic kidney disease thought to be related to lupus nephritis, hypertensive urgency. Medications were adjusted, she
remains on daily prednisone and was recently started on a new lupus medication several days ago.
Son states that patient has been complaining of some abdominal fullness, generalized swelling with difficulty breathing over the past several days, intermittent cough, no fevers or chills, she has not been complaining of a headache, no dizziness nor
lightheadedness.
She takes no anticoagulants.
No history of alcohol nor drug use and no recent falls.
Patient arrives via private automobile unresponsive, sonorous respirations, she was lifted out of the car placed onto a stretcher and brought immediately to ED room #11.
If applicable-neuro sx onset
Onset of symptoms known: No
Time pt last seen normal is known: Yes
Date last time pt seen normal: 12/17/23
Time last time pt seen normal: 22:00
Past History
Past History
ED Past Medical History: HTN, Renal failure (Chronic kidney disease related to lupus) and Other (Hydrocephalus, lupus with lupus nephritis, chronic anemia)
ED Past Surgical History: Cholecystectomy and Other (SURGICAL DEVICE SALES REPRESENTATIVE shunt)
Social History
Tobacco: Non-smoker
Alcohol: None
Drug: None
Personal:
Living: with family
Family History
Family History: Diabetes
Phy Exam
Physical Exam
Physical Exam:
GENERAL: 53-year-old woman appears her stated age. She is unresponsive with sonorous respirations. Bloody frothy secretions from her mouth. Initial GCS of 6�noted to briefly/occasionally withdrawal from painful stimuli
EYE: Pupils are deviated up to the right
NECK: Supple, nontender, no meningismus, no significant adenopathy.
ENT: Significant blood-tinged frothy secretions from mouth, frothy secretions extend to posterior pharynx, hypopharynx and appeared to originate from trachea
CARDIAC: Regular rate and rhythm. no murmur.
LUNGS: Sonorous respirations with initial pulse ox above 95%. Coarse rhonchi bilaterally.
ABDOMEN: Rotund, soft, nondistended, no appreciable tenderness, normoactive bowel sounds.
NEUROLOGICAL: Obtunded with sonorous respirations, initial GCS of 6, degraded to GCS of 4-5.
SKIN: Warm and dry, normal color, skin intact. No rash.
MUSCULOSKELETAL: Moderate bilateral lower extremity edema, peripheral pulses are full and equal b/l.
PSYCH: Obtunded, unobtainable.
Course
Orders/Labs/Results
Orders:
Orders
12/18/23
NPO Routine
Allow oral meds: No
Allow clear liquids: No
NPO with Ice Chips: No
Comment: can resume PO meds s/p NGT placement
12/18/23 04:08
Electrocardiogram (*1) Urgent
Reason for Study: Other
Other Reason for Exam: Potential overdose
Bedside Glucose- Treatment ONCE
Cardiac Monitoring- Treatment ONCE
EKG- Treatment ONCE
IV Insert/Care/Rem.- Treatment PRN
Pulse Ox/spot Check [RESP] Urgent
Quantity: 1
12/18/23 04:19
Alcohol Urgent
Complete Blood Count/With Diff Urgent
Comprehensive Metabolic Panel Urgent
PT/INR [Prothrombin Time] Urgent
12/18/23 04:27
BNP [NT-proBNP] Urgent
Troponin I Urgent
Nitroglycerin 100 mg/250 ml [Nitroglycerin Premix] 100 mg in 250 ml .ROUTE .STK-MED
12/18/23 04:30
Nicardipine 40 mg/200 ml [Cardene] 40 mg in 200 ml .ROUTE .STK-MED
12/18/23 04:32
CT Head W/o Iv Contrast Urgent
Comment:
Reason For Exam: unresponsive, hypertensive
Nitroglycerin 100 mg/250 ml [Nitroglycerin Premix] 100 mg in 250 ml IV NOW
Initial dose in mcg/min, then titrate:: 5
Titrate to keep:: SBP < 160 mmHg
Titrate by mcg/min:: 5 mcg/min, may increase by 10 mcg/min if dose > 20 mcg/min
Frequency of titrations (minutes):: every 3-5 minutes
Maximum dose in mcg/min:: 200
Begin to taper infusion when:: Remained at goal for 2hrs
Taper by mcg/min:: 5 mcg/min
Frequency of taper (minutes) if patient maintains goal:: 30
Taper to off?: Yes
If infusion off & no longer maintaining goal:: Contact Provider
12/18/23 04:40
Chest X-ray Portable [CR Chest Portable - 1 View] Urgent
Comment:
Reason For Exam: s/p intubation
Reason Study Needs to be Portable: Patient Unstable
12/18/23 05:10
CT Head & Neck Angio W/wo IV Urgent
Reason For Exam: unresponsive
12/18/23 05:16
ABG [Arterial Blood Gas] Urgent
%Oxygen/Room Air: AC 18/400/peep 5, 100%
12/18/23 05:24
Lactic Acid Urgent
Blood Culture Q30M
AUDREY Source: Blood/Venous
Specimen Description:
Blood Culture Q30M
AUDREY Source: Blood/Venous
Specimen Description:
12/18/23 05:36
Admit/Transfer Patient As Directed
Co-Sign Provider:
Level of Care: Inpatient admission
Assign to:: ICU
Physician / Group: htay
Diagnosis: t
Reason for Hospitalization: acute VDRF, HTN emergecy, Obtunded encephalopathy , JASKARAN, Lupus nephritis
Expected length of stay greater than two midnights?: Yes
ELOS- Estimated Length of Stay in days: 7
I certify the patient meets the requirements for IP care: Yes
12/18/23 05:38
Code Status As Directed
Resuscitation Status: Full Code
12/18/23 05:39
Speech Screening from Pete Routine
12/18/23 06:25
Procalcitonin Urgent
PCT Algorithmm Indication: Respiratory
Abnormal Lab Results
12/18/23 12/18/23 12/18/23
04:17 04:19 04:27
WBC 15.4 H 10^3/uL
(4.8-10.8)
RBC 2.98 L 10^6/uL
(4.20-5.40)
Hgb 8.9 L g/dL
(12.0-16.0)
Hct 26.7 L %
(37.0-47.0)
MPV 11.0 H fL
(7.4-10.4)
Abs Immat Gran (auto) 0.2 H 10^3/uL
(0-0.05)
Absolute Neuts (auto) 12.6 H 10^3/uL
(1.4-6.5)
Absolute Monos (auto) 0.7 H 10^3/uL
(0.1-0.6)
Immature Gran % 1.6 H %
(0-0.5)
Neutrophils % 81.9 H %
(42.2-75.2)
Lymphocytes % 11.7 L %
(20.5-51.1)
pH
pCO2
pO2
ABG O2 Sat (Measured)
Sodium 131 L mmol/L
(135-145)
Potassium 3.2 L mmol/L
(3.5-5.1)
Carbon Dioxide 21 L mmol/L
(22-30)
BUN 39 H mg/dl
(7-17)
Creatinine 1.3 H mg/dL
(0.6-1.0)
Glucose 133 H mg/dl
(70-99)
Lactic Acid
Calcium 7.3 L mg/dl
(8.4-10.2)
AST 39 H U/L
(14-36)
Troponin I 0.072 H* ng/ml
Total Protein 4.4 L g/dl
(6.3-8.2)
Albumin 2.3 L g/dl
(3.5-5.0)
POC Glucose 136 H mg/dl
(70-99)
12/18/23 12/18/23
05:16 05:24
WBC
RBC
Hgb
Hct
MPV
Abs Immat Gran (auto)
Absolute Neuts (auto)
Absolute Monos (auto)
Immature Gran %
Neutrophils %
Lymphocytes %
pH 7.31 L
(7.35-7.45)
pCO2 54 H mmHg
(32-35)
pO2 206 H mmHg
(83-108)
ABG O2 Sat (Measured) 100.0 H %
(94-98)
Sodium
Potassium
Carbon Dioxide
BUN
Creatinine
Glucose
Lactic Acid 2.3 H mmol/L
(0.7-2.0)
Calcium
AST
Troponin I
Total Protein
Albumin
POC Glucose
12/18/23 04:19
12/18/23 04:19
Vital Signs
Initial and Last Documented VS:
Initial Vital Signs
Pulse Resp
101 19
12/18/23 04:04 12/18/23 04:04
Last Documented Vital Signs
Pulse Resp BP Pulse Ox
126 20 195/134 91
12/18/23 06:30 12/18/23 06:30 12/18/23 06:35 12/18/23 06:30
MDM/Problems Addressed
Differential Diagnosis Includes:
Significant concern for hemorrhagic versus ischemic stroke. Noted to be severely hypertensive.
Unresponsive, GCS of 6 with rare episodes of purposeful upper arm movement to painful stimuli.
Due to unresponsive, gurgling respirations patient was urgently sedated and paralyzed in preparation for endotracheal intubation but required anesthesia assistance due to severely poor visualization of the cords along with significant frothy
blood-tinged secretions concerning for pulmonary edema.
Able to be bagged and pulse ox with bagging remains 100%.
Due to concern for pulmonary edema and significant hypertension IV nitroglycerin initiated.
Labs are pending.
Airway secured via ET tube, assist-control ventilator initiated and patient sent to CT for stat CT of the head.
Chronic conditions affecting care: HTN, Neurological disorder (SURGICAL DEVICE SALES REPRESENTATIVE shunt; according to family prior history of similar unresponsiveness 2009 requiring urgent intracranial surgery), Immunosuppressed, Kidney disease and Other (Lupus)
*Radiology
Radiology exam reviewed: preliminary read by ED provider (Portable chest x-ray shows ET tube in the right mainstem bronchus, complete whiteout of left lung field concerning for infiltrate, less likely atelectasis, other consideration is pleural
effusion.) and radiology read reviewed (Plain CT of the head shows SURGICAL DEVICE SALES REPRESENTATIVE shunt, no acute intracranial abnormality, no intracranial bleeding)
*Pulse Oximetry
Patient hypoxic: no
*EKG
Interpreted by ED Provider?: Yes
Interpretation: normal
Comparison EKG: no changes (Unchanged from previous June 2023 save for mildly globally flattened T waves are more pronounced than previous.)
Rate: normal
Rhythm: sinus
[place]: normal axis
Interval: normal interval
QRS Pattern: normal QRS
Ischemia: no ischemia
*Tawer Interpretation
Rate: tachycardiac
Interpretation: abnormal
Rhythm: sinus
*Critical Care Note
Total Time (30-74mins, 75-104mins- exclusive of procedures): 120
comment:
Critical care statement: A total of 120 minutes of critical care time was provided for this patient. This includes management of unstable vital signs, evaluation of the patient at bedside, reviewing the patient's pertinent medical records,
discussion with consultants, review of old EKGs and review of pertinent medical records. This time with separate from time utilized to perform the aforementioned documented procedures
Update Note
Update Note:
12/18/2023 05:[address] initially read by myself shows no evidence of intracranial bleeding. No hydrocephalus. SURGICAL DEVICE SALES REPRESENTATIVE shunt in place.
Urgent consult with neurology, case discussed with Dr. Lawton who recommends CTA of the head and neck.
As patient has significant bloody upper airway secretions and unknown time of onset/last known well time of 10 PM she is not a TNK candidate.
Portable chest x-ray shows ET tube in the right mainstem bronchus with complete whiteout/opacification left lung field concerning for infiltrate, atelectasis, other consideration is pleural effusion. There is also moderate gastric distention with
air.
Due to concern for left lung pneumonia will check lactic acid, blood cultures.
ET tube will be withdrawn [address] NG tube for gastric decompression and then plan for CTA of the head and neck.
Patient remains unresponsive with GCS of 3. She has had no further paralytics nor sedating medicines since initial RSI.
IV nitroglycerin initiated with mild improvement in hypertension, currently 210/130.
Will plan to initiate IV Cardene after CT and continue to titrate nitroglycerin.
12/18/2023 0626 AM
Patient remains unresponsive without additional sedating medications. GCS of 3.
She remains hypertensive, will initiate IV Cardene.
NG tube in place, ET tube withdrawn with improvement in left upper lobe lung sounds.
Will recheck portable chest x-ray, assess for ET tube placement and left lung opacification.
12/18/2023 0631 AM
Portable chest x-ray shows ET tube 2 cm above moreno with complete resolution of opacification left lung field that appear to be atelectasis.
NG tube looped with in the stomach with resolution of gastric distention.
Labs show moderate but stable anemia, elevated white blood cell count of 15, similar to previous.
Creatinine of 1.3, at patient's baseline. Mild hypokalemia at 3.2.
Troponin minimally elevated 0.072, similar elevation noted in 2021.
BNP is markedly elevated at 15,200 concerning for CHF.
ABG shows mild respiratory acidosis with pH of 7.31, pCO2 of 54, pO2 of 206 and normal bicarb. End-tidal CO2 on current vent settings 38-40.
CTA of the head and neck are pending.
Case has been discussed with hospitalist who is already involved.
As per neurology if CTA of the head and neck shows no occlusion we will plan to initiate IV Keppra load for possible new onset seizure disorder.
Patient remains in critical state.
ED Attending Note
-
Portions of this chart may have been created with voice recognition software.� Occasional wrong word or��sound alike� substitutions may have occurred due to the inherent limitations of voice recognition software.
Discharge Plan
Departure
Patient Disposition: Admit
Date of Disposition: 12/18/23
Time of Disposition: 05:20
Admit to: ICU
Admit to doctor: Victor Manuel
Presentation/result/management discussed w/ accepting MD/DO: Hospitalist
Condition: Critical
Discharge Problem:
acute obtundation, Malignant hypertension, Acute pulmonary edema
Interventions
Interventions:
*Risk Screen - Suicide Last Done: 12/18/23 04:59
*General Assessment Last Done: 12/18/23 04:15
*Neglect/Abuse Screening Last Done: 12/18/23 04:59
*ED COVID-19 Vaccine History Last Done: 12/18/23 04:59
ED- Neurological Assessment Last Done: 12/18/23 04:15
[2023-12-18 05:04] LABS: NT-proBNP 15200 pg/ml; Troponin I 0.072 ng/ml
--- NOTE | 2023-12-18 05:09 | HPS.HSE ---
Addendum entered and electronically signed by Diego Rush MD 12/18/23 06:56:
Per Neuro Dr Lawton
CTA head/neck (-).
- Give 2 mg IV Ativan
- Order 2000 mg IV Keppra
- Start daily rectal aspirin
- He will order cEEG shortly and have management technician come in to start
Addendum entered and electronically signed by Diego Rush MD 12/18/23 06:49:
CTA head/neck (-) per ER attd
- Empiric IV Keppra 100mg BID
- cont. EG monitoring as per Neuro
Original Note:
Family Physician
-
Family Physician: INTERVIEWE UNKNOWN - PT NOT
Chief Complaint
-
AMS obtunded and extremely weak and debilitated
History of Present Illness
I could not get any information from the patient as she is obtunded and susequently intubated at ER
Information gathered by chart review and speaking with family the ER staff.
53F HX Lupus Nephritis on on Mycophenolate and chr prednisone, uncontrolled HTN, Nephrotic syndrome, severe hypoalbuminemia, hypocalcemia, HX pericardial effusion BiB private vehicle.
She was pulled out of car by staff coz she is too debilitated in general and minimally responsive .Patient is snoring and blood around the mouth per ER staff.
Per family:
Usual state of health and went to bed
Around 3 am, she was gurgling sound with breathing
Fults frothy sputum around the mouth and in Resp distress.
Denied any Sz episode.
At ER
Obtunded, in acute distress ? acute pul edema and intubated to protect AW
HR 110 BP 260/150 -230/120
Started on NTG gtt
Medical History
Past Medical History
Past Medical History: Reports Other
Additional Past Medical History:
Lupus Dx 9months ago on chronic CellCept and prednisone
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
Hypertensive urgency
HX uncontrolled HTN
Essential HTN
Marked nephrotic syndrome with hypoalbuminemia and progressive proteinuria 17gm/day
Chronic Hypervolemic Hyponatremia due to nephrotic syndrome
Low gap Metabolic acidosis
Anemia of Chr dz plus Iron deficiency anemia
Hypocalcemia in setting of hypoalbuminemia
HX Pericardial effusion 2021
Past Surgical History: Reports (times 2 )
Social History
Tobacco: Non-smoker
Alcohol: None
Personal:
Living: With Family
Family History
Family History: Other (Father complications of infection, mother still alive living in [place] and healthy))
Allergies / Home Medications
Allergies reflects when Allergies were last updated in [employer].
Home Medications with original date entered in [employer]
Allergy/Medication List:
Allergies
Allergy/AdvReac Type Severity Reaction Status Date / Time
No Known Allergies Allergy Verified 11/08/23 09:34
Home Medications
acetaminophen 500 mg tablet (Tylenol Extra Strength) 500 mg PO DAILYPRN PRN mild pain 11/08/23
ferrous sulfate 325 mg (65 mg iron) tablet (iron) 325 mg PO HS Supplement 11/08/23
carvedilol 25 mg tablet 25 mg PO BID #60 tabs 11/14/23
indapamide 2.5 mg tablet 1.25 mg (1/2 x 2.5 mg) PO DAILY #30 tabs 11/14/23
mycophenolate mofetil 500 mg tablet 1,500 mg (3 x 500 mg) PO BID #180 tabs 11/14/23
nifedipine 30 mg tablet,extended release 30 mg PO DAILY #30 tabs 11/14/23
nifedipine 60 mg tablet,extended release 60 mg PO DAILY #30 tabs 11/14/23
potassium chloride 20 mEq tablet,extended release 20 meq PO TID #60 tabs 11/14/23
prednisone 50 mg tablet 50 mg PO DAILY #14 tabs 11/14/23
sodium bicarbonate 650 mg tablet 1,300 mg (2 x 650 mg) PO TID #180 tabs 11/14/23
spironolactone 25 mg tablet 12.5 mg (1/2 x 25 mg) PO DAILY #30 tabs 11/14/23
Review of Systems
-
Constitutional: Reports Fatigue
EENT: Reports No Symptoms
Respiratory: Reports No Symptoms
Cardiac: Reports No Symptoms
Abdomen/GI: Reports No Symptoms
: Reports No Symptoms
Musculoskeletal: Reports No Symptoms
Skin: Reports No Symptoms
Neurological: Reports Weakness
Endocrine: Reports No Symptoms
Hematologic/Lymphatic: Reports No Symptoms
Psych: Reports No Symptoms
Physical Exam
Vital Signs
Vital Signs
Pulse Resp BP Pulse Ox
132 14 208/153 100
12/18/23 05:05 12/18/23 05:05 12/18/23 05:05 12/18/23 05:05
Physical Exam
General: Other (intubated , unresponsive )
HEENT: NormoCephalic and Atraumatic
Respiratory: Rhonchi (bilaterally ); No Wheezes
Cardiac: S1/S2 and Regular Rhythm
Breast: Deferred by me
GI: Soft, Non Tender, Non Distended and Normal Bowel Sounds
Rectal: Deferred by Provider
Genito-urinary: Deferred by me
Musculoskeletal: Edema, Left Lower Extremity (2plus ) and Edema, Right Lower Extremity (2 plus )
Neuro: Other (unresposnive )
Psych: Other (unresponsive )
Laboratory Results
-
12/18/23 04:19
12/18/23 04:19
Laboratory Results
PT 12.8 Sec (11.4-14.6) 12/18/23 04:19
INR 0.98 12/18/23 04:19
Total Bilirubin 0.4 mg/dl (0.2-1.3) 12/18/23 04:19
AST 39 U/L (14-36) H 12/18/23 04:19
ALT 21 U/L (0-35) 12/18/23 04:19
Alkaline Phosphatase 101 U/L (38-126) 12/18/23 04:19
Troponin I 0.072 ng/ml H* 12/18/23 04:27
Data Reviewed
-
Lab Data: Labs Reviewed by me
Old Records: Reviewed
Impression/Plan
-
Reviewed VS: HR 110 BP 260/150 -230/120
Data
WCC 15s on chronic PO Prednisone
Hgb 8.9 - baseline is 8.5- 10
nl Plt
Na 131 - baseline Na 128- 132
Cr 1.3 - baseline Cr 1.2 - 1.3
CO2 21
eGFR 49 - baseline GFR was 55 0n 12/07/23
Pending proBNP - prior range was 5000s - 8000s
Pending ETOH
Pending EKG
My view CXR : white out on the Lt chest but rotated
Prelim HCT read per ER attd: unremarkable
Pending CT H & N per ER attd : unremarkable
Last hospitalist admission: 11/08/23 - 11/14/23
JASKARAN n chronic kidney disease 3A.
Metabolic acidosis.
Hypokalemia.
Systemic lupus erythematosus.
Chr Hyponatremia.
Acute on chronic normocytic anemia.
Hypertensive urgency.
ASSESSMENT & PLAN
Acute VDRF to protect AW due to obtunded acute encephalopathy and presumed acute Pul edema
Per ER attd d/w Neuro - ? Sz
- cont Vent
- f/u final report of HCT, CTA of H &N
- If CTA H & N is NEG , empiric IV Keppra and cont EEG monitoring
- AIRLINE LOUNGE RECEPTIONIST Meds following Small bore NGT placement
- Pending PCT and pro BNP
- ICU consult
- Neuro consulted
Total white out of Lt chest - layered pleural effusion , PNA
Acute VDRF
- pending LA
- check PCT
- BCx sent
- Empiric vanco and CFP
- f/u repeat final CXR report ( post intubation film)
HTN emergency
Associated with AMS, lethargy, weakness and general debility DDX: HTN encephalopathy
HX essential HTN
- f/u final HCT report
- cont. NTG gtt to keep SBP < 165
- Added IV Hydralazine for SBP > 165 DBP > 110
- Held nifedipine, Indapamide, spironolactone and Carvedilol due to intubation
- held Lisinopril given JASKARAN
- Renal consult
JASKARAN due to lupus nephritis
HX CKD 3A
HX Marked nephrotic syndrome with hypoalbuminemia-17gm/day
Asso. Low gap Metabolic acidosis
- Hold lisinopril.
- On AIRLINE LOUNGE RECEPTIONIST PTO Na bicarb 1300 mg tid
- Await Renal evalaution
SLE HX complicated by Lupus Nephritis
HX renal biopsy 03/01/2022 suggest cLass 4 lupus nephritis
Known to Dr. aFrhan Leung / Rheumatology per last admissio record
- Status post pulse steroids x 3 days on last admission
- on mycophenolate, prednisone
- per Rheum on prior admission they are attempting to obtain voclosporin and/or Benlysta for this patient in the outpatient setting
Hypocalcemia in setting of hypoalbuminemia
Corrected Ca is 8.7 for Alb 2.2
Hypervolemic Hyponatremia due to marked Nephrotic syndrome
Chr Hyponatremia -sodium 131 at baseline
-Trend Na
-FR 48 ounces/day
Chronic normocytic anemia -due to SLE with chronic inflammation.
- Hemoglobin appears to be at baseline.
- s/p IV fe course on last admission
- adequate vit B12 and folate on last admission
- No CHRIS due to uncontrolled HTN
HX Pericardial effusion 2021
Leukocytosis likely secondary to chronic steroid use plus or minus acute infective process
DVT Px: SCD
Code: Full
ICU
[2023-12-18 05:26] LABS: B.E. 0.5 mmol/L; HCO3 27.2 mmol/L (21-28); PCO2 54 mmHg (32-35); PO2 206 mmHg (83-108); pH 7.31 (7.35-7.45)
[2023-12-18 05:42] LABS: Lactic Acid 2.3 mmol/L (0.7-2.0)
[2023-12-18] MEDS: CARDENE 200 IV (06:33)
--- NOTE | 2023-12-18 06:34 | W.PN.ANESINT ---
Addendum entered and electronically signed by Eryn Hwang CRNA 12/18/23 06:40:
Intubation time was @ 4:30 - unable to document at that time.
Original Note:
Anesthesia Intubation Note
- Intubation Note
Intubation Note:
Diagnosis: respiratory distress
Blade: glidescope 4
Tube Size: 8.0
Depth: 22cm
Side Taped: right
Drugs Used:none
Grade View: III
EtCO2 Present: +
Atraumatic:
Attempts: multiple attempts by ER physician/ FORENSIC PATHOLOGIST / anesthesiologist d/t anterior presentation
Insertion Start and Stop Time:
SaO2 Pre: 100
SaO2 Post: 100
Glidescope Used: yes
Other Airway Adjustments:
Pre-Oxygenated: yes
Portable Chest X-Ray: to follow
RSI:
Suctioned: yes
Bilateral Breath Sounds Confirmed: equal
Vent Settings:
Settings per _X__Attending Physician
[2023-12-18 06:59] LABS: Procalcitonin 0.52 ng/ml (0.0-0.25)
[2023-12-18] MEDS: KEPPRA 2000 MG IV (07:34)
--- NOTE | 2023-12-18 07:34 | CON.NEURO4 ---
Consultation - Neurology 4
-
CONSULTING PHYSICIAN: Brad Lawton
REFERRING PHYSICIAN: ER
DICTATED BY: Brad Lawton
DATE/TIME OF REQUEST: 12/18/23
DATE/TIME OF CONSULTATION: 12/18/23
Reason for Consultation: Unresponsive, extreme hypertension
History of Present Illness:
Patient is a 53-year-old woman with a past no history of lupus associate with nephritis, uncontrolled hypertension, nephrotic syndrome, hydrocephalus status post GAS PUMPING STATION SUPERVISOR shunt presenting to hospital with extreme hypertension and encephalopathy to the
point of obtundation.
Patient had went to bed last night around 10 PM and around 3 AM noted by family to be breathing abnormally with gurgling sounds she was brought to the ER via private car and had to have assistance to get out of the car noted in the ER to have
initial GCS of 6 with rare episodes of purposeful arm movement and movement to painful stimuli. She was intubated and chest x-ray did show findings supportive of pulmonary edema and a significant left sided pleural effusion. She was extremely
hypertensive with blood pressure as high as 260/151. CT head noncontrast and CTA of the head and neck in the ER did not show any acute abnormalities. There was no overt seizure activity observed by family at home, ER reported to me gaze deviation
of the eyes right and upwards. Patient has no known history of seizures. Patient did have admission earlier this month for JASKARAN and hypertensive urgency was treated with a few days of steroids given history of lupus nephritis.
Past Medical History: CKD, Systemic lupus erythematosus on Cellcept and prednisone with lupus nephritis, hydrocephalus s/p GAS PUMPING STATION SUPERVISOR shunt, uncontrolled hypertension, nephrotic syndrome, anemia of chronic disease
Surgical History: GAS PUMPING STATION SUPERVISOR shunt, renal biopsy, 2 C sections
Family History: Reviewed and non-contributory
Social History: , lives at home with family, no tobacco or alcohol use
Allergies: No known drug allergies
Review of Symptoms:
Patient denies any fever, headache, chest pain, shortness of breath, GI or symptoms.
Physical Exam:
Middle-aged woman intubated and sedated, no signs of head or neck trauma eyes are clear her ET tube is in place neck with no obvious masses full range of motion with no meningismus, heart rate regular breathing synchronized with the vent, abdomen is
obese soft nontender, no lower extremity edema
Neurologic Examination:
Patient is sedated, eyes do not open spontaneously, she localizes to pain bilaterally in the arms and grimaces to pain, not tracking or obeying commands at this time
Cranial nerve examination shows midline resting gaze with intact horizontal extraocular movements and normal vestibular ocular reflex, pupils 3 mm equal round react light bilaterally, no ptosis, cough and gag reflexes are normal, corneal reflex
present bilaterally
Motor examination shows normal bulk and tone no abnormal movements spasticity or tremor or parkinsonism. Shows bilateral localization to pain with the arms showing 4/5 strength of shoulder abduction arm flexion bilaterally, legs withdraw with 3/5
strength of hip flexion a symmetric manner
Reflexes are unobtainable throughout no clonus Babinski is negative
Unable to assess coordination or gait
Neuro Imaging: CT head non contrast with GAS PUMPING STATION SUPERVISOR shunt catheter seen, collapsed ventricles which are similar to previous CT head, encephalomalacia in right frontal lobe around the GAS PUMPING STATION SUPERVISOR shunt, no acute infarct, hemorrhage, or edema is seen.
CTA of the head and neck images reviewed there is no significant cervical stenosis or occlusion no intracranial occlusions or stenosis seen. Vertebral arteries are patent bilaterally with patent and normal basilar artery. No significant carotid
stenosis or calcification seen. Patent DAWN and MCA arteries bilaterally with no occlusions or stenosis seen.
Impressions
1. Sudden onset global encephalopathy with no focal neurologic deficits associated with extreme hypertension, history of CKD and lupus with nephritis as well as chronic hypertension. Highest suspicion is for a hypertensive encephalopathy type of
picture, PRES (posterior reversible encephalopathy) is a similar phenomenon. Additionally may have metabolic encephalopathy due to pleural effusion, respiratory failure and pneumonia. Provoked seizure possible but at this time continuous EEG with
no seizure activity. Ischemic stroke felt less likely but in the differential diagnosis. Neurologic exam shows localization to pain bilaterally and no focal neurologic deficits of cranial nerve of motor function which is an improvement compared to
presentation. CT head and CTA head and neck with no significant abnormalities.
2. History of hydrocephalus and GAS PUMPING STATION SUPERVISOR shunt, no significant change compared to CT head study from February 2022 so unlikely any type of GAS PUMPING STATION SUPERVISOR shunt abnormality is contributing.
3. History of lupus with nephritis on immune suppression
4. History nephrotic syndrome
5. History of hypertension
Patient has the following risk factors for their symptoms: CKD, hypertension, lupus
Recommendations:
1. Start aspirin 325 mg rectally daily
2. Neurologic checks
3. Continuous EEG monitoring
4. Continue Levetiracetam 500 mg q12hr
5. Slow lowering of extreme hypertension
6. Treating respiratory failure, mechanical ventilation, antibiotics
7. Follow renal function
8. Not recommending lumbar puncture as this time
9. Sedation as appropriate for mechanical ventilation
Will follow
ICU time = 90 minutes
Discussed patient care with: ER physician, ICU physician, nursing
[2023-12-18] MEDS: NSS (PRESERVATIVE FREE) 1 ML IV (07:35)
[2023-12-18] MEDS: ATIVAN 2 MG IV (07:35)
[2023-12-18] MEDS: ASPIRIN 300 MG RECTAL (07:35)
--- NOTE | 2023-12-18 07:43 | CON.INTV ---
Addendum entered and electronically signed by Dwaine Suarez MD 12/18/23 10:33:
Of note, spoke with pharmacy who spoke with the family. Patient taking a drug called Voclosporin for her lupus nephritis. Per pharmacy, this can cause severe hypertension and up to 19%
For now we will maintain off immunosuppressive therapy. Will need to address steroid therapy, for now hold
Will consider restarting in the next 24 hours, IV steroids
Original Note:
Consultation
Consultation Request
Date/Time Consultation Requested: 12/18/23
Date/Time Consultation Performed: 12/18/23
Reason for Consultation: Critical care
Medical History
-
History of Present Illness:
History obtained from the chart as patient currently intubated and sedated. 53-year-old female with complex medical history including lupus nephritis with nephrotic syndrome, hypertension, hydrocephalus with RN DERMATOLOGY shunt, presents to [facility]
unresponsive. Of note patient was evaluated in the hospital ED for acute renal insufficiency, hypertensive urgency. Patient was found unresponsive at home by gargling, at around 3:30 AM. Patient was apparently well at 10 PM. Per records,
there has been some complaints of swelling, abdominal fullness for the past few days and mild cough. Upon arrival, pulse 126, breathing at 20, blood pressure 195/134, 91%. Patient was intubated in the ED, required assistance with anesthesia.
Secretions bloody noted worrisome for pulm edema. Patient was started on IV nitroglycerin for significant hypertension. Imaging revealed no acute findings, no hydrocephalus, RN DERMATOLOGY shunt in place. Given significant upper airway bloody secretions,
patient not lytic candidate. Initial x-ray suggested right mainstem intubation which was withdrawn and adjusted. IV Cardene was initiated for systolic pressure in the 210s. Repeat chest x-ray suggested improvement in left lung aeration. NG tube
placed. Head and neck CT angiogram was unremarkable. Patient started on IV Keppra and admitted to ICU
Upon arrival to ICU, patient is spontaneously moving extremities, reaching for ET tube
.
PMH: Poorly controlled hypertension, nephrotic syndrome, hydrocephalus with RN DERMATOLOGY shunt placed 2011, revised 2017, chronic kidney disease, chronic anemia. History of laparoscopic cholecystectomy,
Past Medical History
Past Medical History: None (See above)
Past Surgical History: None (See above)
Social History
Tobacco: Non-smoker
Alcohol: None
Drug: None
Living: With Family
Employment: Not Employed
Family History
Family History: Unable to Obtain (Per records, family history of renal disease and hypertension)
Allergies / Home Medications
Allergies
Allergy/AdvReac Type Severity Reaction Status Date / Time
No Known Allergies Allergy Verified 11/08/23 09:34
Home Medications
�Medication �Instructions �Recorded �Confirmed �Last Taken �Type
acetaminophen 500 mg tablet 500 mg PO DAILYPRN PRN mild pain 11/08/23 11/08/23 11/07/23 History
(Tylenol Extra Strength)
ferrous sulfate 325 mg (65 mg 325 mg PO HS Supplement 11/08/23 11/08/23 11/07/23 History
iron) tablet (iron)
carvedilol 25 mg tablet 25 mg PO BID #60 tabs 11/14/23 Unknown Rx
indapamide 2.5 mg tablet 1.25 mg (1/2 x 2.5 mg) PO DAILY 11/14/23 Unknown Rx
#30 tabs
mycophenolate mofetil 500 mg tablet 1,500 mg (3 x 500 mg) PO BID #180 11/14/23 Unknown Rx
tabs
nifedipine 30 mg tablet,extended 30 mg PO DAILY #30 tabs 11/14/23 Unknown Rx
release
nifedipine 60 mg tablet,extended 60 mg PO DAILY #30 tabs 11/14/23 Unknown Rx
release
potassium chloride 20 mEq 20 meq PO TID #60 tabs 11/14/23 Unknown Rx
tablet,extended release
prednisone 50 mg tablet 50 mg PO DAILY #14 tabs 11/14/23 Unknown Rx
sodium bicarbonate 650 mg tablet 1,300 mg (2 x 650 mg) PO TID #180 11/14/23 Unknown Rx
tabs
spironolactone 25 mg tablet 12.5 mg (1/2 x 25 mg) PO DAILY #30 11/14/23 Unknown Rx
tabs
Review of Systems
-
Unable to Obtain full review of systems at this time due to: Patient Intubation
Vitals / Labs / Diagnostic Testing
Vital Signs
Pulse Resp BP Pulse Ox
126 20 195/134 95
12/18/23 06:30 12/18/23 06:30 12/18/23 06:35 12/18/23 07:07
Lab Data
12/18/23 04:19
12/18/23 04:19
Laboratory Results
12/18/23 12/18/23
04:19 05:16
PT 12.8
INR 0.98
pH 7.31 L
pCO2 54 H
pO2 206 H
HCO3 27.2
O2 Delivery Level
Diagnostic Testing:
Physical Exam
-
HEENT: Normocephalic, Anicteric and Other (Large neck, ET tube)
Cardiovascular: S1/S2, Regular Rhythm, Murmur (n), Rub (n) and Peripheral Edema (n)
Respiratory: Wheeze (n), Rales (n), Rhonchi (Scattered), Non-Labored Respirations and Other (ET tube)
GI: Soft, Distended and Non Tender
Neurology: Other (Lethargic, spontaneously moving extremities, coughing)
Skin: Other (No obvious rash)
Assessment
-
Patient is a 53-year-old female with history of nephrotic syndrome, hypertension, hydrocephalus s/p RN DERMATOLOGY shunt, lupus nephritis followed by rheumatology on mycophenolate, prednisone, was being considered for biologic therapy/Cytoxan therapy as
outpatient. Lasix therapy was recently started per nephrology over the last month per reviewing outpatient records. Patient now presents with unresponsiveness requiring intubation/mechanical ventilation, treatment for hypertensive
emergency/urgency with systolic pressure in the 220s requiring Priyank christiansonip. Admitted to ICU 12/18/2023
VDRF, intubated 12/18/2023 for unresponsiveness
Found unresponsive by family at 3:30 AM
Last seen in [facility] 10 PM
Neuroimaging negative
Bloody secretions at time of intubation
Acute hypercapnia
Hypertensive emergency
Requiring nitroglycerin drip, transition to Cardene
Leukocytosis
Hyponatremia, hypokalemia elevated lactate
History of mild to moderate mitral regurgitation per echo 2021
Aortic sclerosis
PA pressure 34
Moderate pericardial effusion
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
Lupus nephritis, on chronic immunosuppression
MMF/prednisone/hydroxychloroquine
Being considered for biologic therapy (Dr. Engel)
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
Hydrocephalus status post RN DERMATOLOGY shunt; placed in 2011 with an revised in 2016
Chronic anemia
Nephrotic syndrome
Significant proteinuria
Hypertension
Laparoscopic cholecystectomy
x2
History of latent tuberculosis, positive PPD, status post 6 months of INH per records
Cannot confirm
Seen by [facility], recommended 4 months of rifampin
History of noncompliance
Plan/recommendations
At this time, patient is critically ill
Initial chest x-ray with left lung whiteout due to right mainstem, now resolved
Cardiomegaly on imaging
CT chest with patchy infiltrate
EKG unremarkable
History of mild to moderate mitral regurgitation and with pericardial effusion in the past
Neuroimaging unremarkable
Moving forward
Continue with mechanical ventilation
Wean FiO2 as able, follow airway pressures
Panculture. Blood cultures have been sent
Tracheal culture, COVID screen, flu screen
Legionella, streptococcal antigen
Continue with cefepime/vancomycin for now
Chronic immunosuppression noted
Procalcitonin barely elevated
Neuroimaging unremarkable
Patient apparently moving extremities, reaching for tube
Etiology unclear.
IV Keppra was started
Check TSH
Presentation suggests pulmonary edema
Frothy/bloody secretions noted at time of intubation
Chest x-ray with mild patchy infiltrate
Hypertensive emergency with history of MR noted
Consider echocardiogram as indicated
EKG is normal
Elevated proBNP and mildly elevated troponin noted
Follow fluid status, I's and O's
Per records, there is a history of noncompliance with regards to antihypertensive therapy
History of moderate pericardial effusion noted in the past
History of acute renal insufficiency, recently hospitalized 1 month ago
Sees nephrology as outpatient (Mary)
I's and O's, Ellis catheter
Renal biopsy noted , Suggestive of lupus nephritis although difficult to visualize report from 2021
Reviewed with critical care nursing, respiratory care
TCCT 40 min
--- NOTE | 2023-12-18 08:00 | PHA.VAN.IN ---
Assessment
- Assessment
Renal Function: Appears elevated from baseline (1.0 07/02/23)
Concomitant Antimicrobials: Cefepime
Plan
- Plan
Initial / Loading Dose: Vancomycin 1500mg x 1 dose
Maintenance Regimen: Dose by level
Monitoring: Random vancomycin level ordered for 12/19/23 at 06:00
MRSA Screen: Ordered per protocol (MRSA PCR ordered)
Pharmacokinetics Vancomycin I
- -
Patient Age: 53
Patient Sex: Female
Vancomycin Day #: 1
Indication: Pulmonary/Respiratory
Requesting Provider: Dr Rodriguez Rush
Pertinent Antimicrobial Allergies:
No antibiotic allergies
Height / Weight:
Height 4 ft 7.5 in
Actual Weight 59.5 kg
IBW in k.2
Adjusted BW in k.9
Pertinent Past Medical History: lupus nephritis on chronic prednisone and cellcept
- Vital Signs / Lab Results
Pulse Resp BP Pulse Ox
126 20 195/134 95
12/18/23 06:30 12/18/23 06:30 12/18/23 06:35 12/18/23 07:07
Lab Results - Hematology
12/18/23
04:19
WBC 15.4 H
Lab Results - Chemistry
12/18/23
04:19
BUN 39 H
Creatinine 1.3 H
Albumin 2.3 L
12/18/23
05:24
Lactic Acid 2.3 H
[2023-12-18] MEDS: VANCOCIN 300 MG IV (08:14)
[2023-12-18] MEDS: VANCOCIN 300 ML IV (08:14)
--- NOTE | 2023-12-18 09:02 | W.CON.NEPH ---
Consultation
-
Date/Time Consultation Requested: 12/18/2023
Date/Time Consultation Performed: 12/18/2023 2:334PM
Requesting Provider: Diego Rush
Performing Provider: Sandra Viramontes
Reason for Consultation: hx of lupus nephritis
Medical History
-
History of Present Illness:
Ms. Yaron Turpin is a 53YOF with PMH of lupus nephritis class IV, latent TB (s/p 6 months INH at age 21, retreatment -06/2024), HTN, anemia, hydrocephalus who presents to the hospital for unresponsiveness.
History is obtained from chart review and other physicians. She was found unresponsive at home by her , gargling around 3:30AM. Her last known well was 10PM. She was tachycardic and hypertensive on arrival. She was intubated in the ED. She
did have bloody pulmonary secretions. Patient was started on IV Keppra and admitted to the ICU.
She was last seen by her commercial stripper on 11/22 for follow up regarding HTN, nephrotic range proteinuria, edema, lupus nephritis class IV. She had a flare in early November and was treated with a steroid pulse and improvement of her JASKARAN. She had
significant proteinuria at 21g. Rheumatology was to see her and planned for benlysta/lupkynis in addition to steroids, cellcept and hydroxychloroquine. She was initiated on lasix and IS was managed per rheumatology. On last labs, her Cr was 1.2.
Per pharmacy, the patient was initiated on voclosporin for lupus nephritis.
Past Medical History
Poorly controlled hypertension
nephrotic syndrome
hydrocephalus with TEXTILE FINISHER shunt placed 2011, revised 2017
chronic anemia
latent TB s/p treatment
Past Medical History: Other
Past Surgical History: Cholecystectomy and Gynecological (C section)
Social History
Tobacco: Non-Smoker
Alcohol: None
Drug: None
Living: With Family
Employment: Not Employed
Family History
+HTN
Allergies / Home Medications
Allergy/AdvReac Type Severity Reaction Status Date / Time
No Known Allergies Allergy Verified 11/08/23 09:34
�Medication �Instructions �Recorded �Confirmed �Type
acetaminophen 500 mg tablet 500 mg PO DAILYPRN PRN mild pain 11/08/23 11/08/23 History
(Tylenol Extra Strength)
ferrous sulfate 325 mg (65 mg 325 mg PO HS Supplement 11/08/23 11/08/23 History
iron) tablet (iron)
carvedilol 25 mg tablet 25 mg PO BID #60 tabs 11/14/23 Rx
indapamide 2.5 mg tablet 1.25 mg (1/2 x 2.5 mg) PO DAILY 11/14/23 Rx
#30 tabs
mycophenolate mofetil 500 mg tablet 1,500 mg (3 x 500 mg) PO BID #180 11/14/23 Rx
tabs
nifedipine 30 mg tablet,extended 30 mg PO DAILY #30 tabs 11/14/23 Rx
release
nifedipine 60 mg tablet,extended 60 mg PO DAILY #30 tabs 11/14/23 Rx
release
potassium chloride 20 mEq 20 meq PO TID #60 tabs 11/14/23 Rx
tablet,extended release
prednisone 50 mg tablet 50 mg PO DAILY #14 tabs 11/14/23 Rx
sodium bicarbonate 650 mg tablet 1,300 mg (2 x 650 mg) PO TID #180 11/14/23 Rx
tabs
spironolactone 25 mg tablet 12.5 mg (1/2 x 25 mg) PO DAILY #30 11/14/23 Rx
tabs
Review of Systems
-
Unable to obtain full review of systems at this time due to: Patient Intubation
Physical Exam
Vital Signs
Vital Signs
Temp Pulse Resp BP Pulse Ox
96.7 F L 96 20 131/99 98
12/18/23 08:13 12/18/23 08:50 12/18/23 08:50 12/18/23 08:50 12/18/23 08:50
Lab Results
WBC 15.4 10^3/uL (4.8-10.8) H 12/18/23 04:19
RBC 2.98 10^6/uL (4.20-5.40) L 12/18/23 04:19
Hgb 8.9 g/dL (12.0-16.0) L 12/18/23 04:19
Hct 26.7 % (37.0-47.0) L 12/18/23 04:19
Plt Count 213 10^3/uL (130-400) 12/18/23 04:19
Sodium 131 mmol/L (135-145) L 12/18/23 04:19
Potassium 3.2 mmol/L (3.5-5.1) L 12/18/23 04:19
Chloride 102 mmol/L (98-107) 12/18/23 04:19
Carbon Dioxide 21 mmol/L (22-30) L 12/18/23 04:19
BUN 39 mg/dl (7-17) H 12/18/23 04:19
Creatinine 1.3 mg/dL (0.6-1.0) H 12/18/23 04:19
eGFR 49.79 12/18/23 04:19
Glucose 133 mg/dl (70-99) H 12/18/23 04:19
Calcium 7.3 mg/dl (8.4-10.2) L 12/18/23 04:19
But-G-Hckcuglcmny Pept 87516 pg/ml 12/18/23 04:27
Albumin 2.3 g/dl (3.5-5.0) L 12/18/23 04:19
Physical Exam
General: Other (intubated and sedated)
HEENT: Trachea Midline
Respiratory: Other (mechanical breath sounds)
Cardiac: S1/S2, Regular Rate/Rhythm and Edema
Breast: Deferred by me
Abdomen: Soft, Nontender, Nondistended, Normal Bowel Sounds and No Hepatosplenomegaly
Rectal: Deferred by Provider
Genito-urinary: Clear Urine
Musculoskeletal: No Clubbing, No Cyanosis and Edema
Skin: No Rash (on exposed skin)
Neuro: Sedated
Assessment/Plan
-
Assessment:
AMS
Class IV lupus nephritis (on MMF, prednisone, hydroxychloroquine + voclosporin)
CKD (bl Cr around 1.2)
Hydrocephalus s/p TEXTILE FINISHER shunt
hypertensive emergency
nephrotic syndrome
hyponatremia
Anemia
hypcoalcemia
h/o pericardial effusion
hx of latent TB, s/p treatment
Plan:
- obtain lupus labs (complements, CARL, dsDNA, esr/crp, UA, UPCR)
- plan for methylpred 40mg q12 per rheum
- given K 40meQ
- agree with nitro gtt at this time to slowly lower blood pressures.
- her AMS is concerning for lupus cerebritis vs. PRES vs. hypertensive encephalopathy vs ongoing seizures. will defer to neuro
- Cr not far from baseline. okay with lasix 40mg IV now as patient is overtly volume overloaded
Data Reviewed
-
Radiology: Image Personally Visualized and interpreted (CXR relatively clear)
Ultrasound: Report Reviewed by me (from 11/07. R smaller than L kidney)
Labs: Labs Reviewed by me, Discussed with Physician and Discussed with Nurse
Old Records: Reviewed
[2023-12-18] MEDS: MAXIPIME 2000 MG IV ×2 (10:19→21:08)
[2023-12-18] MEDS: STERILE WATER FOR INJECTION 10 ML IV ×2 (10:19→21:07)
[2023-12-18 12:02] LABS: Triglycerides 375 mg/dl (10-149)
[2023-12-18 12:54] LABS: TSH 5.06 uIU/ml (0.47-4.68)
[2023-12-18] MEDS: TYLENOL/FEVERALL 650 MG RECTAL (14:14)
--- NOTE | 2023-12-18 14:39 | PTCARENOTE ---
Patient received as a transfer from the ED at 0645 with assessment as noted. Continues intubates and lightly sedated with Propofol infusing at 15 mcg/kg/min. Reaching for ET tube when awake and she became notably more restless when her son was in
the room and speaking. As per her family she understands some Chilean but does not speak Chilean. Moves all extremities. Opens eyes spontaneously and pupils equal, 3's and sluggish but reactive. Soft wrist restraints maintained for patient safety
with current order on chart and documentation as noted. Initially sinus tach upon arrival but through the morning she settled in to NSR in the 80-90's. She was hypertensive in the ED with NTG infusing. Cardene at 5 mg/hr was added in the ED just
prior to transfer to the ICU. Upon arrival her SBP was 109. The Cardene was lowered to 2.5 mg/hr and the NTG was lowered from 65 to 50 mcg/min. At 0715 her B/P was 83/69 and both the Cardene and NTG were held. At 0730 the NTG was restarted at 25
mcg/min for a B/P of 130/97 but then was again stopped at 0830 for a B/P of 92/76 and both the Cardene and NTG remain off as of this time. Since 0850 B/P's have been stable and maintained 110-150/80-90's. T-max 101.0 rectal and PRN Tylenol 650 supp
given. Lungs initially with coarse rhonchi through out and suctioning for large amounts of thick clear/martinez secretions both via ET tube and orally. At 1200 lungs just coarse through out and suctioning for much less secretions orally and via ET tube.
Sa02 maintained >96% on vent setting A/C 18-400-50% peep 5. Hypo BS. NG tube to suction with a small amount of bile green output noted. No bowel movement today. Ellis draining clau urine. Family into visit and up dated to patient condition. Her son
is fluent bilingual and translated for his father. Patient currently in bed with soft wrist restraints in place an side rails up. Will continue to monitor closely.
--- NOTE | 2023-12-18 15:26 | W.PN.HOSP.TC ---
Today's Communication/Plan
-
IV steroids
Electroporation
IV Lasix
Lupus labs
325
Keppra
BP control
Monitor mental status
Assessment / Plan
Assessment / Plan
Physical Exam
General: Other (intubated , unresponsive )
HEENT: NormoCephalic and Atraumatic
Respiratory: Rhonchi (bilaterally ); No Wheezes
Cardiac: S1/S2 and Regular Rhythm
Breast: Deferred by me
GI: Soft, Non Tender, Non Distended and Normal Bowel Sounds
Rectal: Deferred by Provider
Genito-urinary: Deferred by me
Musculoskeletal: Edema, Left Lower Extremity (2plus ) and Edema, Right Lower Extremity (2 plus )
Neuro: Other (unresposnive )
Psych: Other (unresponsive )
#Acute Hypoxic Respiratory Failure
#Acute hypercapnic respiratory failure
#Vent dependent respiratory failure
- most likely secondary to acute metabolic encephalopathy +/- pneumonia and pulmonary edema
�Continue mechanical ventilation
� Sedation, reduce sedation as appropriate
� Antibiotics
-IV lasix
� Follow-up cultures
#Hypertensive emergency
� Weaned off Cardene drip
� May have caused PRES syndrome
-ctm and adjust as needed
-hx of non compliance
#Acute metabolic encephalopathy
� Etiology include PRES and infectious etiology v less likely Lupus cerebritis
�appreciate neurology recommendations
� Provoked seizure with possibility although EEG with no obvious evidence of seizures
CT head unremarkable
� Start aspirin 325 rectally daily
-Continue EEG monitoring
-Start Keppra 500 mg every 12
� Control hypertension
� Hold off on LP at this time, continue to monitor
-F/u TSH
#CKD 3a
� Obtain lupus labs in setting of altered mental status
� Continue methylprednisolone 40 mg every 12 per rheumatology, curb sided
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
Known to Dr. Farhan Leung / Rheumatology per last admissio record
- on mycophenolate, prednisone - start IV steroids at this time
- per Rheum on prior admission they are attempting to obtain voclosporin and/or Benlysta for this patient in the outpatient setting
-obtain lupus labs
#Hypokalemia
� Monitor and replete
#Leukocytosis
� Possibly reactive versus infection
� Continue moderate resuscitation
#Hyponatremia�continue monitor
Chronic normocytic anemia -due to SLE with chronic inflammation.
- Hemoglobin appears to be at baseline.
- s/p IV fe course on last admission
- adequate vit B12 and folate on last admission
- No CHRIS due to uncontrolled HTN
HX Pericardial effusion 2021
DVT Px: SCD
Anticipated Discharge: > 48 hours
Subjective/Interval History
-
Date of Service: December 18, 2023
intubated, sedated
Objective Data
-
Labs:
Laboratory Results
12/18/23 12/18/23
04:19 05:16
WBC 15.4 H
Hgb 8.9 L
Hct 26.7 L
Plt Count 213
PT 12.8
INR 0.98
HCO3 27.2
Sodium 131 L
Potassium 3.2 L
Chloride 102
Carbon Dioxide 21 L
BUN 39 H
Creatinine 1.3 H
Glucose 133 H
Calcium 7.3 L
Total Bilirubin 0.4
AST 39 H
ALT 21
Alkaline Phosphatase 101
Vital Signs:
Vital Signs
Temp Pulse Resp BP Pulse Ox
99.9 F 90 18 112/81 100
12/18/23 12:14 12/18/23 14:30 12/18/23 14:30 12/18/23 14:30 12/18/23 14:30
I&O
12/17/23 12/18/2312/18/24
06:59 06:59 06:59
Intake Total 343.9 / 343.9
Output Total 475 / 475
Balance -131.1 / -131.1
Review of Systems
-
History Source: Patient
All other systems: Reviewed and negative
Physical Exam
-
General: Well Developed, Well Nourished and No Apparent Distress
HEENT: Normocephalic, Atraumatic, Moist Mucous Membranes and PERRLA
Respiratory: Clear to Auscultation
Cardiac: Regular Rhythm and S1/S2; Negative Murmur, Rub or JVD
GI: Soft, Nontender, Nondistended and Normal Bowel Sounds
Musculoskeletal: No Clubbing, No Cyanosis, Edema, Left Upper Extrem, Edema, Right Lower Extrem and Edema, Left Lower Extrem
Neuro: Awake, Alert, Oriented, No Motor Deficits and Nonfocal/Grossly Intact
Data Reviewed
-
Diagnostic Radiology: Image personally visualized and interpreted and Report Reviewed by me
CT Scan: Image personally visualized and interpreted and Report Reviewed by me
Labs: Labs Reviewed by me and Discussed with Family
[2023-12-18] MEDS: KCL 270 MEQ IV (16:10)
[2023-12-18] MEDS: LASIX 40 MG IV (16:10)
[2023-12-18 16:15] LABS: Urine Albumin 2+ (Neg - Trace); Urine Bilirubin Negative (Negative); Urine Character Slightly Cloudy (Clear); Urine Color Yellow; Urine Glucose Negative (Negative); Urine Ketone Negative (Negative); Urine Leukocyte Trace (Negative); Urine Nitrite Negative (Negative); Urine Occult Blood 3+ (Negative); Urine Urobilinogen Negative (Neg - 1+); Urine pH 6.5 (5.0-9.0)
[2023-12-18 16:22] LABS: Erythrocyte Sed Rate 88 mm/hour (0-20)
[2023-12-18 16:41] LABS: Protein/creatinine Ratio 7.4; Urine Protein 508 mg/dl
[2023-12-18] MEDS: KEPPRA 500 MG IV (19:05)
--- NOTE | 2023-12-18 19:54 | PTCARENOTE ---
received patient at change of shift. opens eyes to tactile stimuli. pupils 2 and sluggish bilaterally. continuous EEG. attempts to reach for tube during turns. propofol infusing. bilateral wrist restraints in place. ETT 7.0 18/400/40/5. NS on the
monitor, strip printed and placed in chart. Ellis draining clear yellow urine. right nare [place] to low intermittent suction. +bs. family at bedside, emotional support provided.
[2023-12-18] MEDS: SOLU-MEDROL PF 40 MG IV (20:00)
[2023-12-18] MEDS: SUBLIMAZE 50 MCG IV (21:37)
[2023-12-19] VITALS (41 sets, daily range): BP systolic 110–210; BP diastolic 65–121; BMI 28.0
[2023-12-19] MEDS: SUBLIMAZE 50 MCG IV ×5 (02:08→23:44)
--- NOTE | 2023-12-19 03:05 | PTCARENOTE ---
pt reassessed, complete bed bath given. pt incontinent of stool. when turning pt reaches for ETT. bilateral wrist restraints remain in place.
--- NOTE | 2023-12-19 07:09 | W.PN.INTV ---
Today's Communication / Plan
Recommendations
Transfuse 1 unit
SBT
Follow blood pressure continue antibiotics for now, follow cultures
Hope for extubation later today
Assessment
-
Patient is a 53-year-old female with history of nephrotic syndrome, hypertension, hydrocephalus s/p ASSOCIATE MATERIAL HANDLER shunt, lupus nephritis followed by rheumatology on mycophenolate, prednisone, was being considered for biologic therapy/Cytoxan therapy as
outpatient. Lasix therapy was recently started per nephrology over the last month per reviewing outpatient records. Patient now presents with unresponsiveness requiring intubation/mechanical ventilation, treatment for hypertensive
emergency/urgency with systolic pressure in the 220s requiring Cardene drip. Admitted to ICU 12/18/2023
VDRF, intubated 12/18/2023 for unresponsiveness
Found unresponsive by family at 3:30 AM
Last seen in [facility] 10 PM
Neuroimaging negative
Bloody secretions at time of intubation
Acute hypercapnia
Hypertensive emergency
Requiring nitroglycerin drip, transition to Cardene
Leukocytosis
Hyponatremia, hypokalemia elevated lactate
History of mild to moderate mitral regurgitation per echo 2021
Aortic sclerosis
PA pressure 34
Moderate pericardial effusion
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
Lupus nephritis, on chronic immunosuppression
MMF/prednisone/hydroxychloroquine
Being considered for biologic therapy (Dr. Engel)
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
Hydrocephalus status post ASSOCIATE MATERIAL HANDLER shunt; placed in 2011 with an revised in 2017
Chronic anemia
Nephrotic syndrome
Significant proteinuria
Hypertension
Laparoscopic cholecystectomy
x2
History of latent tuberculosis, positive PPD, status post 6 months of INH per records
Cannot confirm
Seen by [facility], recommended 4 months of rifampin
History of noncompliance
Plan/recommendations
At this time, patient is critically ill, on mechanical ventilation
Chest exam is improved significantly, secretions improved
Hemodynamics improved, blood pressure stable
Cardiomegaly on imaging
CT chest with patchy infiltrate
EKG unremarkable
History of mild to moderate mitral regurgitation and with pericardial effusion in the past
Neuroimaging unremarkable
EEG unremarkable
Moving forward
Continue with mechanical ventilation
Will consider SBT, transition to CPAP
Patient following commands
Airleak is present
Tracheal culture, COVID screen, flu screen
Legionella, streptococcal antigen
Continue with cefepime/vancomycin for now
Chronic immunosuppression noted
Procalcitonin barely elevated
Follow cultures (blood culture, respiratory culture)
Neuroimaging unremarkable
Patient apparently moving extremities, following commands with sedation wean
EEG unremarkable
IV Keppra was started
TSH unremarkable
Appreciate neurology input
Presentation suggests pulmonary edema
Frothy/bloody secretions noted at time of intubation, improved
Chest x-ray with mild patchy infiltrate
Hypertensive emergency with history of MR noted
Consider echocardiogram as indicated
EKG is normal
Elevated proBNP and mildly elevated troponin noted
Follow fluid status, I's and O's
Per records, there is a history of noncompliance with regards to antihypertensive therapy
History of moderate pericardial effusion noted in the past
It is also noted that Voclosporin for her lupus nephritis. Per pharmacy, this can cause severe hypertension and up to 19%
Follow
History of acute renal insufficiency, recently hospitalized 1 month ago
Sees nephrology as outpatient (Mary)
I's and O's, Ellis catheter
Renal biopsy noted , Suggestive of lupus nephritis although difficult to visualize report from 2021
Anemia noted. No active bleeding
Will transfuse 1 unit, type and screen sent
Consent obtained from son over phone
Reviewed with critical care nursing, respiratory care
Reviewed with nephrology, primary service
Updated son by phone
TCCT 35 min
Subjective Dataa
Subjective Data
Date of Service:
Date of Service: December 19, 2023
Subjective:
Patient remains critically ill, but blood pressure is stabilized. From neurological standpoint, following commands when sedation is weaned earlier today. Low-grade fever noted. Secretions have improved significantly.
Objective Data
Data Reviewed
Vital Signs / I&O / Oxygen:
Vital Signs
Temp Pulse Resp BP Pulse Ox
98.9 F 76 26 135/81 100
12/19/23 02:59 12/19/23 05:33 12/19/23 05:33 12/19/23 05:33 12/19/23 05:33
Intake and Output
12/18/23 12/19/23 12/20/23
06:59 06:59 06:59
Intake Total 709.2 / 709.2
Output Total 1755 / 1755
Balance -1045.8 / -1045.8
SaO2 [A/C] 100
SaO2 100
Physical Exam
General: Comfortable
HEENT: Normocephalic and Anicteric
Cardiovascular: S1-S2, Regular Rhythm, Murmur (n) and Rub (n)
Respiratory: Wheeze (n), Crackles (n), Rhonchi (n), Non-Labored Respirations, ET Tube and Other (Mild coarse breath sounds)
GI: Soft, Non Distended and Non Tender
Neurology: Awake, Alert and No Motor Deficits (Moving all extremities, following commands)
Skin: Cyanosis (n), Jaundice (n) and Rash (n)
Labs/Micro/Reports
Microbiology
12/18/23 05:24 Blood/Venous Blood Culture - Preliminary
No Growth in 24 hours- Final report to follow
12/18/23 05:24 Blood/Venous Blood Culture - Preliminary
No Growth in 24 hours- Final report to follow
12/18/23 11:06 Tracheal Aspirate Gram Stain - Preliminary
12/18/23 11:06 Nose Nasal Screen MRSA (PCR) - Final
MRSA not detected - performed by PCR methodology.
[2023-12-19] MEDS: ASPIRIN 300 MG RECTAL (07:30)
[2023-12-19] MEDS: KEPPRA 500 MG IV ×2 (07:30→20:08)
[2023-12-19] MEDS: MIRALAX TUBE (07:31)
--- NOTE | 2023-12-19 07:46 | W.PN.NEURO.1 ---
Today's Communication / Plan
-
-Can come off EEG with no seizures or concerning findings on the study since starting yesterday
-Remain on Levetiracetam 500 mg q12hr tentatively would plan on weaning this off before discharge
-Continue aspirin 300 rectally
-Given significant improvement in mental status I feel acceptable to not pursue LP at this time
-Would reimage brain with CT head non contrast or ideally MRI brain (sometimes proves difficult with the shunt) non urgently in next couple of days to assess for any findings of PRES
-No concerns from my standpoint about extubation if deemed appropriate by ICU team
-Neurologic checks
-Blood pressure control
Will continue to follow
Neuro Assessment/Plan
Assessment
53 year old woman with history of lupus and associated nephritis, nephrotic syndrome, hypertension, hydrocephalus s/p ASSOCIATE MANAGER shunt, chronic immune suppression presents to the hospital with significant mental status changes to point of obtundation and
GCS of 6 on arrive to ED, required intubation, findings suggestive of pulmonary edema and respiratory failure. Some right and upward gaze reported by ED. Extreme hypertension as high as 260's systolic on admission.
CT head non contrast and CTA head and neck no acute abnormalities
No seizures on EEG, no interictal discharges highly suspicious for underlying seizure disorder.
Highest suspicion is for hypertensive encephalopathy or PRES (posterior reversible encephalopathy syndrome) which is more likely on patients with CKD and immune suppression
Provoked seizures in setting of extreme hypertension possible
Ischemic stroke is felt less likely at this point
Lupus related encephalopathy or cerebritis in differential diagnosis but felt less likely based on rapid improvement and was improving (localizing to pain while intubated on my exam 12/17) with improvement on blood pressure on medication infusions
before steroids were started
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
Subjective/Objective
Subjective Data
Date of Service: December 19, 2023
No acute events, no seizures on EEG, this morning off sedation obeyed all of my commands in Nauruan
Objective Data
Vital Signs
Temp Pulse Resp BP Pulse Ox
98.9 F 76 26 135/81 100
12/19/23 02:59 12/19/23 05:33 12/19/23 05:33 12/19/23 05:33 12/19/23 05:33
PT 12.8 Sec (11.4-14.6) 12/18/23 04:19
INR 0.98 12/18/23 04:19
Sodium 131 mmol/L (135-145) L 12/18/23 04:19
Potassium 3.2 mmol/L (3.5-5.1) L 12/18/23 04:19
BUN 39 mg/dl (7-17) H 12/18/23 04:19
Glucose 133 mg/dl (70-99) H 12/18/23 04:19
Calcium 7.3 mg/dl (8.4-10.2) L 12/18/23 04:19
Vgh-J-Vfqsdlqtsvo Pept 51537 pg/ml 12/18/23 04:27
Patient Allergies
No Known Allergies Allergy (Verified 11/08/23 09:34)
Review of Systems
-
Unable to obtain full review of systems at this time due to: Patient Intubation
Physical Exam
-
General: Comfortable and Intubated
Eyes: No Ptosis
HEENT: Normocephalic and Atraumatic
Neck: No Bruits Bilaterally
Respiratory: Clear to Auscultation
Cardiac: Regular Rhythm
GI: Normal Bowel Sounds, Soft and Non-tender
Skin: Unremarkable
Extremities: No Clubbing
Psych: Anxious
Extended Neurological Exam
Attention Span & Concentration: Other (Off sedation patient obeys all commands in Nauruan (stick out tongue, show 2 fingers, make a fist, move feet))
Memory: Unable to Assess
Tremor: Hand Tremor Absent
Involuntary Movement: None
Speech: Other (Comprehension intact)
Cranial Nerve II: Left Eye: Pupillary Reactivity Unremarkable, Pupillary Size Unremarkable and Visual Lenz Grossly Intact
Cranial Nerve II: Right Eye: Pupillary Reactivity Unremarkable, Pupillary Size Unremarkable and Visual Lenz Grossly Intact
Cranial Nerves III, IV, : Extraocular Movement: Extraocular Movement Full in all Directions
Cranial Nerve VII: Facial Symmetry: Normal Facial Symmetry and Other (Face symmetric, blink symmetric)
Cranial Nerves IX, X: Palate Movement: Other (Cough and gag intact)
Muscle Strength, Overall: Other (Symmetric motor function shows full strength 5/5 shouder abudction arm flexion hip flexion moves all extremities to command in symmetric manner)
Pronator Drift: No Drift in Upper Extremities
Deep Tendon Reflexes: Trace Throughout
Touch Sensation: Withdrawal to Pain
Data Reviewed
-
CT-A: Report Reviewed and Image Reviewed
EEG: Report Reviewed
--- NOTE | 2023-12-19 07:50 | EEGC.RPT ---
Continuous EEG Report
Recording
Start Date of Data Reviewed: 12/18/23
Start Time of Data Reviewed: 09:50
End Date of Data Reviewed: 12/19/23
End Time of Data Reviewed: 10:38
Study Sequence: Initiation of Study
Electrocardiogram: Unremarkable
Report
CONTINUOUS EEG REPORT
EEG INTERPRETATION:
Mildly abnormal study for age based on generalized slowing demonstrated bihemispherically equally. No seizures or epileptiform features seen
CLINICAL CORRELATION:
This study was suggestive of mild bihemispheric cortical dysfunction and is nonspecific to etiology, can be due to sedation, numerous metabolic causes. No epileptiform features were demonstrated.
Clinical correlation is advised.
METHODS:
A 21-channel digital electroencephalogram (EEG) was performed at the bedside. The 10/20 international system of electrode placement was used with ECG and lateral/vertical eye movements recorded. Video was recorded. Duration of this study was 24
hours and 48 minutes.
IMPRESSION(S):
Quality of study
Fair, intermittent muscle artifact
Background
Medium amplitude mix of mostly theta and delta frequencies
Fair anterior posterior differentiation gradient
No clear posterior dominant alpha rhythm seen
No asymmetry of the background
Sleep
Drowsiness present
Hyperventilation
Not performed
Photic Stimulation
Not performed
ECG
Normal rhythm
Abnormal Activity
Mild/moderate slowing seen throughout study, no seizures or interictal epileptiform discharges seen
[2023-12-19] MEDS: SOLU-MEDROL PF 40 MG IV ×2 (08:49→20:08)
[2023-12-19 08:52] LABS: % Basophils 0.1 % (0-2); % Immature Granulocytes 0.6 % (0-0.5); % Lymphocytes 3.8 % (20.5-51.1); % Monocytes 2.3 % (1.7-9.3); % Neutrophils 93.2 % (42.2-75.2); Absolute Immature Granulocytes 0.1 10^3/uL (0-0.05); Absolute Lymphocytes 0.3 10^3/uL (1.2-3.4); Absolute Monocytes 0.2 10^3/uL (0.1-0.6); Absolute Neutrophils 7.6 10^3/uL (1.4-6.5); Mean Corp Hgb Conc. 35.3 g/dL (33.0-37.0); Mean Corpuscular Hgb 30.1 pg (27.0-31.0); Mean Corpuscular Volume 85.2 fL (81.0-99.0); Mean Platelet Volume 11.5 fL (7.4-10.4); Nucleated Red Blood Cells % 0 %; Platelet Count 110 10^3/uL (130-400); Red Blood Cell Count 2.16 10^6/uL (4.20-5.40); Red Cell Dist. Width 14.2 % (11.5-14.5); White Blood Cell Count 8.1 10^3/uL (4.8-10.8)
[2023-12-19 09:06] LABS: Hematocrit 18.4 % (37.0-47.0); Hemoglobin 6.5 g/dL (12.0-16.0)
[2023-12-19 09:07] LABS: Vancomycin Random 12.7 ug/ml
[2023-12-19 09:29] LABS: % Basophils 0.1 % (0-2); % Immature Granulocytes 0.7 % (0-0.5); % Lymphocytes 4.4 % (20.5-51.1); % Monocytes 1.9 % (1.7-9.3); % Neutrophils 92.9 % (42.2-75.2); Absolute Immature Granulocytes 0.1 10^3/uL (0-0.05); Absolute Lymphocytes 0.4 10^3/uL (1.2-3.4); Absolute Monocytes 0.2 10^3/uL (0.1-0.6); Absolute Neutrophils 8.4 10^3/uL (1.4-6.5); Mean Corp Hgb Conc. 34.2 g/dL (33.0-37.0); Mean Corpuscular Hgb 29.4 pg (27.0-31.0); Mean Platelet Volume 11.8 fL (7.4-10.4); Nucleated Red Blood Cells % 0 %; Platelet Count 118 10^3/uL (130-400); Red Blood Cell Count 2.28 10^6/uL (4.20-5.40); Red Cell Dist. Width 14.3 % (11.5-14.5)
[2023-12-19 09:30] LABS: Hemoglobin 6.7 g/dL (12.0-16.0)
[2023-12-19 09:31] LABS: Hematocrit 19.6 % (37.0-47.0)
[2023-12-19 09:34] LABS: Blood Urea Nitrogen 39 mg/dl (7-17); Calcium 6.7 mg/dl (8.4-10.2); Carbon Dioxide 26 mmol/L (22-30); Chloride 107 mmol/L (98-107); Estimated Creatinine Clearance 35 ml/min; Glucose 91 mg/dl (70-99); Potassium 3.2 mmol/L (3.5-5.1); Sodium 134 mmol/L (135-145); eGFR 49.79
[2023-12-19] MEDS: MAXIPIME 2000 MG IV ×2 (10:04→21:31)
[2023-12-19] MEDS: STERILE WATER FOR INJECTION 10 ML IV ×2 (10:05→21:31)
[2023-12-19] MEDS: CALCIUM GLUCONATE 290 MG IV (11:04)
[2023-12-19] MEDS: KCL 270 MEQ IV (11:04)
[2023-12-19 12:03] LABS: B.E. 1.6 mmol/L; HCO3 24.6 mmol/L (21-28); O2 Saturation % 99.3 % (94-98); PCO2 33 mmHg (32-35); PO2 143 mmHg (83-108); pH 7.48 (7.35-7.45)
--- NOTE | 2023-12-19 12:31 | W.PN.UPDATE ---
Addendum entered and electronically signed by Dwaine Suarez MD 12/19/23 12:53:
Upon review with anesthesia, difficulty with intubation in the ED secondary to significant secretions
Patient continues to have some secretions, but overall improved
She is comfortable.
We will give another 24 hours of steroids, negative fluid status
Chest x-ray in the a.m.
Will consider extubation 12/19
Maintain on CPAP for now, maintain off sedation
Continue to follow mental status
Reviewed with critical care nursing, anesthesia, respiratory care
TCCT 15 min
Original Note:
Update Note
Progress Note Update
Patient tolerating weaning adequately, ABG reviewed, adequate oxygenation/ventilation
Following commands, moving extremities
There is a minimal cuff leak, wheezing noted and significant coughing during deflation of cough, no airleak per my review
Patient already on steroids
Did review with anesthesia. Patient may have been a difficult intubation in the ED
Will have anesthesia at bedside at time of extubation
Reviewed with CCN
--- NOTE | 2023-12-19 13:24 | W.PN.NEPH.PH ---
Today's Communication / Plan
-
- lasix
Assessment/Plan
-
Assessment:
AMS
Class IV lupus nephritis (on MMF, prednisone, hydroxychloroquine + voclosporin)
CKD (bl Cr around 1.2)
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
hypertensive emergency
nephrotic syndrome
hyponatremia
Anemia
hypcoalcemia
h/o pericardial effusion
hx of latent TB, s/p treatment
Plan:
- obtain lupus labs (complements, CARL, dsDNA). elevated ESR and CRP. UA with hematuria. UPCR at 7g
- plan for methylpred 40mg q12 per rheum. adjustment per rheumatology. could consider pulse dose steroids
- please replete K and Ca
- blood pressures very labile. will hold off on adding any more medications at this time
- her AMS is concerning for lupus cerebritis vs. PRES vs. hypertensive encephalopathy vs ongoing seizures. will defer to neuro
- Cr not far from baseline. okay with lasix 40mg IV now as patient is overtly volume overloaded
-
-
Date of Service: December 19, 2023
CC / HPI / ROS
-
Chief Complaint:
JASKARAN
History of Present Illness:
lupus nephritis
AMS
Cr rising to 1.3
Review of Systems:
intubated, plan for extubation tomorrow
Labs
-
Labs:
WBC 9.0 10^3/uL (4.8-10.8) 12/19/23 09:22
RBC 2.28 10^6/uL (4.20-5.40) L 12/19/23 09:22
Hgb 6.7 g/dL (12.0-16.0) L* 12/19/23 09:22
Hct 19.6 % (37.0-47.0) L* 12/19/23 09:22
Plt Count 118 10^3/uL (130-400) L 12/19/23 09:22
Sodium 134 mmol/L (135-145) L 12/19/23 08:41
Potassium 3.2 mmol/L (3.5-5.1) L 12/19/23 08:41
Chloride 107 mmol/L (98-107) 12/19/23 08:41
Carbon Dioxide 26 mmol/L (22-30) 12/19/23 08:41
BUN 39 mg/dl (7-17) H 12/19/23 08:41
Creatinine 1.3 mg/dL (0.6-1.0) H 12/19/23 08:41
eGFR 49.79 12/19/23 08:41
Glucose 91 mg/dl (70-99) 12/19/23 08:41
Calcium 6.7 mg/dl (8.4-10.2) L* 12/19/23 08:41
Nuz-C-Xtkydvbdwyq Pept 78975 pg/ml 12/18/23 04:27
Albumin 2.3 g/dl (3.5-5.0) L 12/18/23 04:19
Physical Exam
-
Vital Signs:
Vital Signs
Temp Pulse Resp BP Pulse Ox
98.8 F 87 16 183/94 98
12/19/23 12:19 12/19/23 12:00 12/19/23 12:00 12/19/23 12:00 12/19/23 12:29
Cardiovascular:: Regular rate and rhythm
Respiratory:: Bilateral: Coarse (mechanical breath sounds)
Lung Excursion:: Normal
Abdomen:: Nontender and Soft
Bowel Sounds:: Normal
Extremity Edema:: +3: Bilateral:
Ellis Catheter: Yes
--- NOTE | 2023-12-19 13:48 | W.PN.HOSP.TC ---
Today's Communication/Plan
-
sbt
iv steroids
iv lasix
abx
monitor air leak
transfuse 1u prbc, ctm hgb
Assessment / Plan
Assessment / Plan
Physical Exam
General: Other (intubated , unresponsive )
HEENT: NormoCephalic and Atraumatic
Respiratory: Rhonchi (bilaterally ); No Wheezes
Cardiac: S1/S2 and Regular Rhythm
Breast: Deferred by me
GI: Soft, Non Tender, Non Distended and Normal Bowel Sounds
Rectal: Deferred by Provider
Genito-urinary: Deferred by me
Musculoskeletal: Edema, Left Lower Extremity (2plus ) and Edema, Right Lower Extremity (2 plus )
Neuro: Other (unresposnive )
Psych: Other (unresponsive )
#Acute Hypoxic Respiratory Failure
#Acute hypercapnic respiratory failure
#Vent dependent respiratory failure
- most likely secondary to acute metabolic encephalopathy +/- pneumonia and pulmonary edema
�Continue mechanical ventilation
� Sedation, reduce sedation as appropriate
� Antibiotics
-IV lasix
� Follow-up cultures
-of note, difficult intubation: minimal air leak; will have anesthesia at bedside upon time of extubation; already on iv iv steroids
-SBT today
#Hypertensive emergency
� Weaned off Cardene drip
� May have caused PRES syndrome
-ctm and adjust as needed
-hx of non compliance
� Continue IV Lasix
� Defer pulse dose steroids to rheumatology
#Acute metabolic encephalopathy
� Etiology include PRES and infectious etiology v less likely Lupus cerebritis
�appreciate neurology recommendations
� Provoked seizure with possibility although EEG with no obvious evidence of seizures
CT head unremarkable
� Start aspirin 300 rectally daily
-Continue EEG monitoring - no seizure noted
-Start Keppra 500 mg every 12
� Control hypertension
� Hold off on LP at this time, continue to monitor
-MRI in the next few days
#CKD 3a
� Obtain lupus labs in setting of altered mental status
� Continue methylprednisolone 40 mg every 12 per rheumatology, curb sided
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
Known to Dr. Farhan Leung / Rheumatology per last admissio record - f/u further recs
- on mycophenolate, prednisone - IV steroids at this time;
- per Rheum on prior admission they are attempting to obtain voclosporin and/or Benlysta for this patient in the outpatient setting
-obtain lupus labs
#Anemia
� Transfuse 1 unit PRBC
� May be dilutional
� Continue to monitor
� No obvious evidence of bleeding right now
#Hypokalemia
#Hypocalcemia
� Monitor and replete
#Leukocytosis
� Possibly reactive versus infection
� Continue moderate resuscitation
#Hyponatremia�continue monitor
Chronic normocytic anemia -due to SLE with chronic inflammation.
- Hemoglobin appears to be at baseline.
- s/p IV fe course on last admission
- adequate vit B12 and folate on last admission
- No CHRIS due to uncontrolled HTN
HX Pericardial effusion 2021
DVT Px: SCD
Anticipated Discharge: > 48 hours
Subjective/Interval History
-
Date of Service: December 19, 2023
No acute events, weaning sedation, SBT today. Minimal cuff leak, may have a difficult intubation, already on steroids
Objective Data
-
Labs:
Laboratory Results
12/19/23 12/19/23 12/19/23
08:41 09:22 11:45
WBC 8.1 9.0
Hgb 6.5 L* D 6.7 L*
Hct 18.4 L* 19.6 L*
Plt Count 110 L D 118 L
HCO3 24.6
Sodium 134 L
Potassium 3.2 L
Chloride 107
Carbon Dioxide 26
BUN 39 H
Creatinine 1.3 H
Glucose 91
Calcium 6.7 L*
Vital Signs:
Vital Signs
Temp Pulse Resp BP Pulse Ox
98.8 F 87 16 183/94 98
12/19/23 12:19 12/19/23 12:00 12/19/23 12:00 12/19/23 12:00 12/19/23 12:29
I&O
12/18/23 12/19/23 12/20/23
06:59 06:59 06:59
Intake Total 709.2 / 715.9 287.6 / 287.6
Output Total 1755 / 1755 200 / 200
Balance -1045.8 / -1039.1 87.6 / 87.6
Review of Systems
-
History Source: Patient
All other systems: Reviewed and negative
Data Reviewed
-
Diagnostic Radiology: Image personally visualized and interpreted and Report Reviewed by me
CT Scan: Image personally visualized and interpreted and Report Reviewed by me
Labs: Labs Reviewed by me and Discussed with Family
[2023-12-19] MEDS: DIPRIVAN 100 IV ×2 (13:49→23:30)
[2023-12-19] MEDS: APRESOLINE 10 MG IV (14:05)
[2023-12-19 15:53] LABS: Free T4 1.88 ng/dl (0.78-2.19)
--- NOTE | 2023-12-19 19:05 | PTCARENOTE ---
Patient received in AM with assessment as noted. Initially intubated and sedated with Propofol infusing at 20 mcg/kg/min. Sedation held at 0900 at Neurology's request to facilitate exam. Patient follows directions and denies pain when awake. Moves
all extremities equally. Sedation held through the morning for an SBT. Results 1200 ABG [id number]%. aware but the patient was not extubated because of wheezing and a suspect leak test. She was a difficult intubation in the ED
and it was decided that she was at a risk of needing reintubation because of airway issues. Propofol restarted at 1230 and patient continues at this time on 15 mcg/kg/min and on vent setting PS 8, CPAP 5, Fio2 40% with sao2 100%. Patient
increasingly hypertensive with the propofol off. PRN Hydralazine 10 mg IV given x1 with patient normotensive afterwords on the propofol infusion. NSR on monitor. Afebrile. Lungs coarse and suctions for a small amount of white martinez secretions. Hypo
BS. A small amount of liquid brown stool draining via rectal trumpet. Ellis draining clau urine. AM Hgb 6.5 and 1 unit PRBC's transfused. Potassium and calcium repleted as per orders. Family into visit and updated to patient condition. Report given
to pediatric urologist.
--- NOTE | 2023-12-19 20:00 | PTCARENOTE ---
Rec'd pt sedated on diprivan gtt at 15mic, pt able to follow commands, wrists restrained for pt safety, FLOR at 3mm, sluggish, no sz activity noted, INGRAM, SR, bp stable , weak distal pulses, skin warm/dry, #7 oral ett- moved to R side at 19cm, CPAP
5, PS 8, sherrill well, sat 100, suct for thick white secretions, lungs coarse, decr in bases, hypo bowel sounds, Rectal trumpet to str drainage bag drainng brown liquid , R nares [place] to low inter suction draining gold liquid, irrigated q4h, conrad
draining clau urine
--- NOTE | 2023-12-19 23:45 | PTCARENOTE ---
sys reviewed, changes noted, fent 50mic iv given before bath, CHG bath done, linens changed, K ASHLEY Williamson aware of urine output- to cont to monitor
[2023-12-20] VITALS (26 sets, daily range): BP systolic 123–180; BP diastolic 67–97; BMI 28.2
[2023-12-20] MEDS: LASIX 40 MG IV ×2 (01:15→09:31)
--- NOTE | 2023-12-20 01:18 | PTCARENOTE ---
lasix 40mg iv given as ordered
[2023-12-20] MEDS: APRESOLINE 10 MG IV ×2 (02:08→19:27)
--- NOTE | 2023-12-20 02:09 | PTCARENOTE ---
apresoline 10mg iv given for DBP 120
[2023-12-20 03:20] LABS: Hematocrit 29.3 % (37.0-47.0); Mean Corp Hgb Conc. 35.5 g/dL (33.0-37.0); Mean Corpuscular Hgb 29.5 pg (27.0-31.0); Mean Platelet Volume 10.6 fL (7.4-10.4); Platelet Count 148 10^3/uL (130-400); Red Blood Cell Count 3.53 10^6/uL (4.20-5.40); Red Cell Dist. Width 15.2 % (11.5-14.5); White Blood Cell Count 12.4 10^3/uL (4.8-10.8)
[2023-12-20 03:26] LABS: Hemoglobin 10.4 g/dL (12.0-16.0)
[2023-12-20 03:54] LABS: Complement C3 82 mg/dl (88-165)
[2023-12-20 03:57] LABS: Blood Urea Nitrogen 41 mg/dl (7-17); Calcium 8.1 mg/dl (8.4-10.2); Carbon Dioxide 22 mmol/L (22-30); Chloride 108 mmol/L (98-107); Estimated Creatinine Clearance 35 ml/min; Glucose 103 mg/dl (70-99); Potassium 3.9 mmol/L (3.5-5.1); Sodium 134 mmol/L (135-145); eGFR 49.79
[2023-12-20] MEDS: SUBLIMAZE 50 MCG IV ×4 (04:07→23:16)
--- NOTE | 2023-12-20 04:10 | PTCARENOTE ---
sys reviewed, fent 50mic iv given for pain, ett repos on left side at 19 cm
[2023-12-20 04:33] LABS: HCO3 22.2 mmol/L (21-28); O2 Saturation % 99.2 % (94-98); PCO2 35 mmHg (32-35); PO2 132 mmHg (83-108); pH 7.41 (7.35-7.45)
--- NOTE | 2023-12-20 07:18 | W.PN.NEURO.1 ---
Addendum entered and electronically signed by Hasmukh Lawton MD 12/20/23 12:04:
Spoke with Dr Lozano, likely to remain intubated today. Will check CT head non contrast this afternoon.
Unless CT head shows findings extremely consistent with PRES, most likely pursue lumbar puncture tomorrow although my suspicion for a lupus cerebritis is lower given extreme hypertension as a likely cause of mental status changes.
Addendum entered and electronically signed by Hasmukh Lawton MD 12/20/23 09:17:
CTA head and neck done in ER on admit no significant vessel stenosis or occlusions seen, no overt evidence for a vasculitis which generally show up as stenosis or beading or occlusions on CTA of the head.
Original Note:
Today's Communication / Plan
-
-Unable to receive MRI brain due to programable COUNTY DEMONSTRATOR shunt
-Check CT head non contrast this afternoon
-Would continue aspirin for time being
-Stop Levetiracetam
-Neurologic checks
-Daily sedation holiday
-Okay for extubation from my POV if deemed appropriate by ICU
Will follow
Neuro Assessment/Plan
Assessment
53 year old woman with history of lupus and associated nephritis, nephrotic syndrome, hypertension, hydrocephalus s/p COUNTY DEMONSTRATOR shunt, chronic immune suppression presents to the hospital with significant mental status changes to point of obtundation and
GCS of 6 on arrive to ED, required intubation, findings suggestive of pulmonary edema and respiratory failure. Some right and upward gaze reported by ED. Extreme hypertension as high as 260's systolic on admission.
CT head non contrast and CTA head and neck no acute abnormalities
No seizures on EEG, no interictal discharges highly suspicious for underlying seizure disorder.
Highest suspicion is for hypertensive encephalopathy or PRES (posterior reversible encephalopathy syndrome) which is more likely on patients with CKD and immune suppression
Provoked seizures in setting of extreme hypertension possible
Ischemic stroke is felt less likely at this point
Lupus related encephalopathy or cerebritis in differential diagnosis but felt less likely based on rapid improvement and was improving (localizing to pain while intubated on my exam 12/17) with improvement on blood pressure on medication infusions
before steroids were started
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
Subjective/Objective
Subjective Data
Date of Service: December 20, 2023
No acute events, has cuff leak on airway, this morning on 15 mcg of propofol, still intubated, obeys commands when awakened
Objective Data
Vital Signs
Temp Pulse Resp BP Pulse Ox
98.4 F 94 13 140/77 100
12/20/23 04:00 12/20/23 07:00 12/20/23 07:00 12/20/23 07:00 12/20/23 07:00
Lab Results
12/20/23 03:07
12/20/23 03:07
PT 12.8 Sec (11.4-14.6) 12/18/23 04:19
INR 0.98 12/18/23 04:19
Sodium 134 mmol/L (135-145) L 12/20/23 03:07
Potassium 3.9 mmol/L (3.5-5.1) 12/20/23 03:07
BUN 41 mg/dl (7-17) H 12/20/23 03:07
Glucose 103 mg/dl (70-99) H 12/20/23 03:07
Calcium 8.1 mg/dl (8.4-10.2) L 12/20/23 03:07
Aqk-K-Gxgpraevmdh Pept 23678 pg/ml 12/18/23 04:27
Patient Allergies
No Known Allergies Allergy (Verified 11/08/23 09:34)
Review of Systems
-
Unable to obtain full review of systems at this time due to: Patient Intubation
Physical Exam
-
General: No Apparent Distress and Intubated
Eyes: No Ptosis
HEENT: Atraumatic
Neck: Full Range of Motion
Respiratory: Negative Wheezes
Cardiac: No Murmur
GI: Soft and Non-tender
Skin: Warm and Dry
Extremities: Edema +1
Extended Neurological Exam
Attention Span & Concentration: Other (Awakens to voice and mild tactile stimulation, obeys command consistently in [place] making a fist, wiggling feet, showing 2 fingers, sticking out tongue)
Memory: Unable to Assess
Tremor: Hand Tremor Absent
Involuntary Movement: None
Speech: Negative Receptive Aphasia
Cranial Nerve II: Left Eye: Pupillary Reactivity Unremarkable, Pupillary Size Unremarkable and Visual Lenz Grossly Intact
Cranial Nerve II: Right Eye: Pupillary Reactivity Unremarkable, Pupillary Size Unremarkable and Visual Lenz Grossly Intact
Cranial Nerves III, IV, : Extraocular Movement: Extraocular Movement Full in all Directions
Cranial Nerve VII: Facial Symmetry: Normal Facial Symmetry
Muscle Strength, Overall: Full Throughout
Pronator Drift: No Drift in Upper Extremities
Deep Tendon Reflexes: Trace Throughout
Touch Sensation: Withdrawal to Pain
Data Reviewed
-
CT Head: Report Reviewed and Image Reviewed
EEG: Report Reviewed
Labs: Report Reviewed
--- NOTE | 2023-12-20 07:21 | W.PN.INTV ---
Today's Communication / Plan
Recommendations
MV
Dexam for airway mgmt of lack of ETT air leak
Cefepime
Assessment
-
Patient is a 53-year-old female with history of nephrotic syndrome, hypertension, hydrocephalus s/p COASTAL AND ESTUARY SPECIALIST shunt, lupus nephritis followed by rheumatology on mycophenolate, prednisone, was being considered for biologic therapy/Cytoxan therapy as
outpatient. Lasix therapy was recently started per nephrology over the last month per reviewing outpatient records. Patient now presents with unresponsiveness requiring intubation/mechanical ventilation, treatment for hypertensive
emergency/urgency with systolic pressure in the 220s requiring Cardene drip. Admitted to ICU 12/18/2023
VDRF, intubated 12/18/2023 for unresponsiveness
Found unresponsive by family at 3:30 AM
Last seen in [facility] 10 PM
Neuroimaging negative
Bloody secretions at time of intubation
Acute hypercapnia
Hypertensive emergency
Requiring nitroglycerin drip, transition to Cardene
Leukocytosis
Hyponatremia, hypokalemia elevated lactate
History of mild to moderate mitral regurgitation per echo 2021
Aortic sclerosis
PA pressure 34
Moderate pericardial effusion
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
Lupus nephritis, on chronic immunosuppression
MMF/prednisone/hydroxychloroquine
Being considered for biologic therapy (Dr. Engel)
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
Hydrocephalus status post COASTAL AND ESTUARY SPECIALIST shunt; placed in 2011 with an revised in 2017
Chronic anemia
Nephrotic syndrome
Significant proteinuria
Hypertension
Laparoscopic cholecystectomy
x2
History of latent tuberculosis, positive PPD, status post 6 months of INH per records
Cannot confirm
Seen by Department [facility] Health, recommended 4 months of rifampin
History of noncompliance
Plan/recommendations
Continues on mechanical ventilation
Air leak test negative on deflated ETT cuff 04-15 (reportedly present before, reportedly difficult intubation, on examination small jaw, decreased opening of mouth on examination, short neck)
Changed IV MP to dexamethasone 10 mg IV q6h x 4 doses
Will reassess in 24 hrs
Continue PCV
Asp precs
Chest exam is improved significantly, secretions improved
Hemodynamics improved, blood pressure stable
CT chest with patchy infiltrate
EKG unremarkable
History of mild to moderate mitral regurgitation and with pericardial effusion in the past
Neuroimaging unremarkable
EEG unremarkable
Tracheal culture: Morax cat BL positive
CXR 12-19: suspected patchy R infiltrates. ET/GT. R sided COASTAL AND ESTUARY SPECIALIST shunt (adm CXR with L lung atelectasis due to RMSB intubation)
Blood cxs NTD
MRSA negative
COVID screen, flu screen, Legionella, streptococcal antigen: not taken
Continue with cefepime, complete 5 d course
Vancomycin d/c
Chronic immunosuppression noted
Procalcitonin barely elevated
Neurology following
EEG unremarkable
IV Keppra was started
TSH unremarkable
So far low suspicion for lupus cerebritis
Presentation suggested pulmonary edema
Frothy/bloody secretions noted at time of intubation, improved
Hypertensive emergency with history of MR noted
Consider echocardiogram as indicated
EKG is normal
Elevated proBNP and mildly elevated troponin noted
Follow fluid status, I's and O's
Per records, there is a history of noncompliance with regards to antihypertensive therapy
History of moderate pericardial effusion noted in the past
It is also noted that Voclosporin for lupus nephritis (reported side effect of evere hypertension and up to 19% of cases)
History of acute renal insufficiency, recently hospitalized 1 month ago
Sees nephrology as outpatient (Mary), team following
I's and O's, Ellis catheter
Renal biopsy noted, suggestive of lupus nephritis although difficult to visualize report from [address] Leung (Rheum) 12-19, rec to continue holding MMF due to suspected pneumonia. Rec to follow at office to evaluate resuming MMF, benlysta and likely low dose voclosporin
Anemia noted. No active bleeding
Transfused 1 U PRBCs 12-18 (consent obtained from son over phone)
Critical care time: 35 min
Subjective Dataa
Subjective Data
Date of Service:
Date of Service: December 20, 2023
Chief Complaint: General Activities Therapist Follow Up
Subjective:
No major events reported overnight
Reported difficult intubation
No air leak through deflated ET tube cuff earlier today by RT, test repeated in my presence, no air leak
Sedated, able to follow few simple commands
Review of Systems
General: Other (Follow few simple commands on sedation)
Objective Data
Data Reviewed
Vital Signs / I&O / Oxygen:
Vital Signs
Temp Pulse Resp BP Pulse Ox
98.4 F 94 13 140/77 100
12/20/23 04:00 12/20/23 07:00 12/20/23 07:00 12/20/23 07:00 12/20/23 07:00
Intake and Output
12/19/23 12/20/23 12/21/23
06:59 06:59 06:59
Intake Total 709.2 / 715.9 1028.4 / 1028.4
Output Total 1755 / 1755 970 / 970
Balance -1045.8 / -1039.1 58.4 / 58.4
SaO2 [CPAP/PSV] 100
SaO2 [A/C] 100
SaO2 100
Physical Exam
General: Comfortable
HEENT: Normocephalic, Anicteric and Moist Mucous Membranes
Cardiovascular: S1-S2, Regular Rhythm, Murmur (n) and Rub (n)
Respiratory: Wheeze (n), Crackles (n), Rhonchi (n), Non-Labored Respirations, ET Tube and Other (Mild coarse breath sounds)
GI: Soft, Non Distended and Non Tender
Neurology: No Motor Deficits (Moving all extremities, following commands) and Other (sedated)
Skin: Cyanosis (n), Jaundice (n) and Rash (n)
Labs/Micro/Reports
Lab Data
12/20/23 03:07
12/20/23 03:07
Laboratory Results
12/19/23 12/20/23
11:45 04:19
pH 7.48 H 7.41
pCO2 33 35
pO2 143 H 132 H
HCO3 24.6 22.2
O2 Delivery Level
Microbiology
12/18/23 05:24 Blood/Venous Blood Culture - Preliminary
No Growth in 48 hours- Final report to follow
12/18/23 05:24 Blood/Venous Blood Culture - Preliminary
No Growth in 48 hours- Final report to follow
12/18/23 11:06 Tracheal Aspirate Respiratory Culture - Preliminary
Moraxella catarrhalis
12/18/23 11:06 Tracheal Aspirate Gram Stain - Preliminary
12/18/23 11:06 Nose Nasal Screen MRSA (PCR) - Final
MRSA not detected - performed by PCR methodology.
[2023-12-20] MEDS: KEPPRA 500 MG IV (08:03)
[2023-12-20] MEDS: MIRALAX 17 GRAMS TUBE (08:03)
[2023-12-20] MEDS: SOLU-MEDROL PF 40 MG IV (08:03)
[2023-12-20] MEDS: ASPIRIN 300 MG RECTAL (08:03)
--- NOTE | 2023-12-20 08:47 | W.PN.NEPH.PH ---
Today's Communication / Plan
-
IV lasix
Rheumatology consult
Assessment/Plan
-
Assessment:
AMS
VDRF
Class IV lupus nephritis (on MMF, prednisone, hydroxychloroquine + voclosporin)
CKD (bl Cr around 1.2)
Hydrocephalus s/p SECOND SHIFT SUPERVISOR shunt
hypertensive emergency
nephrotic syndrome
hyponatremia
Anemia
hypocalcemia
h/o pericardial effusion
hx of latent TB, s/p treatment
Plan:
- obtain lupus labs (complements, CARL, dsDNA). elevated ESR and CRP. UA with hematuria. UPCR at 7g
-Maintaining methylpred 40mg q12 per rheum. adjustment per rheumatology
-Electrolytes stable creatinine stable at baseline nonoliguric via phone
- blood pressures very labile. will hold off on adding any more medications at this time , on prn hydralazine, coreg currenlty held
- her AMS is concerning for lupus cerebritis vs. PRES vs. hypertensive encephalopathy vs ongoing seizures. will defer to neuro
- lasix 40mg IV again today as patient is overtly volume overloaded and remains intubated
-
-
Date of Service: December 20, 2023
CC / HPI / ROS
-
Chief Complaint:
JASKARAN
History of Present Illness:
lupus nephritis
AMS
Cr stable at 1.3
Review of Systems:
intubated/sedated
Nonoliguric via follow
Labs
-
Labs:
WBC 12.4 10^3/uL (4.8-10.8) H 12/20/23 03:07
RBC 3.53 10^6/uL (4.20-5.40) L 12/20/23 03:07
Hgb 10.4 g/dL (12.0-16.0) L D 12/20/23 03:07
Hct 29.3 % (37.0-47.0) L 12/20/23 03:07
Plt Count 148 10^3/uL (130-400) D 12/20/23 03:07
Sodium 134 mmol/L (135-145) L 12/20/23 03:07
Potassium 3.9 mmol/L (3.5-5.1) 12/20/23 03:07
Chloride 108 mmol/L (98-107) H 12/20/23 03:07
Carbon Dioxide 22 mmol/L (22-30) 12/20/23 03:07
BUN 41 mg/dl (7-17) H 12/20/23 03:07
Creatinine 1.3 mg/dL (0.6-1.0) H 12/20/23 03:07
eGFR 49.79 12/20/23 03:07
Glucose 103 mg/dl (70-99) H 12/20/23 03:07
Calcium 8.1 mg/dl (8.4-10.2) L 12/20/23 03:07
Hna-O-Oaagngwnsur Pept 61635 pg/ml 12/18/23 04:27
Albumin 2.3 g/dl (3.5-5.0) L 12/18/23 04:19
Physical Exam
-
Vital Signs:
Vital Signs
Temp Pulse Resp BP Pulse Ox
98.3 F 94 13 140/77 97
12/20/23 07:36 12/20/23 07:00 12/20/23 07:00 12/20/23 07:00 12/20/23 08:29
Cardiovascular:: Regular rate and rhythm
Respiratory:: Bilateral: Coarse
Lung Excursion:: Normal
Abdomen:: Nontender and Soft
Bowel Sounds:: Decreased
Extremity Edema:: +1: Bilateral:
Ellis Catheter: Yes
Other Findings::
Intubated and sedated
--- NOTE | 2023-12-20 09:04 | PTCARENOTE ---
Received pt this am on vent with low dose propofol. Pt with ogt to liws with green biliary drainage. Ellis draining clear yellow urine, rectal trumpet with small amount brown stool. Pt very agitated with mouth care, fighting. When sedation
stopped for sedation vacation, pt coughing and immediately trying to rip out ett. Sedation resumed as charted. Pt turned repositioned. Ellis/quinn care completed. B/l wrist restraints intact to protect airway. Otherwise please refer to flowsheet.
[2023-12-20] MEDS: STERILE WATER FOR INJECTION 10 ML IV ×2 (09:20→21:42)
[2023-12-20] MEDS: MAXIPIME 2000 MG IV ×2 (09:21→21:42)
[2023-12-20] MEDS: DIPRIVAN 100 IV ×2 (11:10→21:42)
--- NOTE | 2023-12-20 11:31 | PTCARENOTE ---
pt failed cuff leak test. Will adjust to high dose steroids with decadron per Dr Faria. Remains agitated with care. PRN fentanyl given. Turned/repositioned. ETT adjusted. Otherwise no changes.
[2023-12-20] MEDS: DECADRON 10 MG IV ×3 (11:59→23:16)
--- NOTE | 2023-12-20 12:09 | PTCARENOTE ---
Systems reviewed. No new changes. Pupils 2 and equal, manzano, follows commands. CT head pending
--- NOTE | 2023-12-20 12:21 | W.PN.RHM ---
Today's Communication / Plan
-
Chart reviewed. My outpatient being treated for lupus nephritis. Renal function stable, proteinuria still significant but much improved from prior hospitalization. Presentation seems c/w flash pulmonary edema. Less likely lupus cerebritis given
charted improvement in symptoms. Need to reevaluate using CNI as outpatient. Agree with holding MMF in the setting of possible PNA.
Recommend dropping patient to pred 50 mg daily once she is successfully extubated. Needs to see me as outpatient before resuming MMF and Benlysta. Could consider voclosporin at a lower dose under close observation.
Please reach out to me directly w/ any further questions. Please let me know before the patient is discharged so I can arrange follow up.
Farhan Leung MD, [facility]
Objective Data
-
Vital Signs
Temp Pulse Resp BP Pulse Ox
98.3 F 93 14 158/90 100
12/20/23 11:20 12/20/23 12:00 12/20/23 12:00 12/20/23 12:00 12/20/23 12:00
Microbiology Results
12/18/23 11:06 Tracheal Aspirate Respiratory Culture - Final
Moraxella catarrhalis
12/18/23 11:06 Tracheal Aspirate Gram Stain - Final
12/18/23 05:24 Blood/Venous Blood Culture - Preliminary
No Growth in 48 hours- Final report to follow
12/18/23 05:24 Blood/Venous Blood Culture - Preliminary
No Growth in 48 hours- Final report to follow
Laboratory Data
12/20/23 03:07
12/20/23 03:07
ESR 88 mm/hour (0-20) H 12/18/23 16:04
C-Reactive Protein 62.60 mg/L (0.0-10.00) H 12/18/23 16:04
Urine Color Yellow 12/18/23 16:04
Urine Clarity Slightly cloudy (Clear) 12/18/23 16:04
Urine pH 6.5 (5.0-9.0) 12/18/23 16:04
Ur Specific Cropsey 1.010 (<1.030) 12/18/23 16:04
Urine Ketones Negative (Negative) 12/18/23 16:04
Urine Occult Blood 3+ (Negative) A 12/18/23 16:04
Urine Nitrite Negative (Negative) 12/18/23 16:04
Urine Bilirubin Negative (Negative) 12/18/23 16:04
Urine Urobilinogen Negative (Neg - 1+) 12/18/23 16:04
Ur Leukocyte Esterase Trace (Negative) A 12/18/23 16:04
Urine Albumin 2+ (Neg - Trace) A 12/18/23 16:04
Complement C3 82 mg/dl (88-165) L 12/18/23 16:04
Complement C4 28.4 mg/dl (14-44) 12/18/23 16:04
--- NOTE | 2023-12-20 15:38 | CM ---
Chart reviewed and spoke with Pts son
Pt admitted 12/17 - pulmonary edema. H/O lupus, neph syndrome, HTN, Hydrocephalus w/AV shunt
Currently intubated, receiving IV steroids, diuresing
Per son prior to hospitalization pt lived with her and sons in an apartment
Son describes pt as independent and functional
DME in home - rolling walker - pt not using
Son denies past SNF/HH
PCP - son unsure of PCP, follows [facility] at
[facility] - [facility]
CM will follow for d/c planning
Plan - TBD at this time
--- NOTE | 2023-12-20 15:45 | PTCARENOTE ---
Systems reviewed. No new changes. CT scan pending.
--- NOTE | 2023-12-20 17:58 | W.PN.HOSP.TC ---
Today's Communication/Plan
-
Blood pressure control, as needed hydralazine
Continue cefepime
Repeat cuff leak test in the morning
Rheumatology input reviewed
Maintain on IV steroids
Assessment / Plan
Assessment / Plan
# Acute hypoxic and hypercapnic respiratory failure
# Vent dependent respiratory failure
-Most likely secondary to acute metabolic encephalopathy +/- pulmonary edema
-Continue vent weaning efforts possible
-Patient feeling cuff leak test likely may have laryngeal edema, patient had difficult intubation. Will be reattempted tomorrow
-Patient already on IV steroid as part of treatment of SLE.
#Hypertensive emergency
-Weaned off Cardene drip
-hx of medication non compliance with SLE nephritis
-Will be needed to be restarted on lisinopril/coreg
-PRN hydralazine for SBP > 160
#Acute metabolic encephalopathy
-Suspected hypertensive encephalopathy versus press versus lupus cerebritis
-Unfortunately unable to get MRI brain without contrast to rule out lupus cerebritis
-CT head did not show any acute abnormality
-Patient had continuous EEG monitoring. No clear seizure activity
-Patient has been taken off of Keppra.
-LP being considered if patient mentation does not improve
# SLE
-Question of SLE flareup and patient being provided methylprednisolone 40 mg every 12 hours
-Minimal borderline low C3 level. Anti-dsDNA level pending
-Rheumatology evaluated patient and help appreciated, recommended patient to be transition to oral prednisone 50 mg daily once clinically better.
-Patient will be started on mycophenolate and Benlysta on outpatient basis
#CKD 3a
Stage IV lupus nephritis - biopsy in February 25
-Continue monitoring renal function
-Nephrology following and help appreciated.
# Moraxella catarrhalis pneumonia
-On cefepime currently
#Acute normocytic anemia
-S/p 1 unit of blood transfusion
-No signs of luminal blood loss. Not on any blood thinners.
-Hbg 10.5. contiue monitoring
#Hypokalemia
#Hypocalcemia
� Monitor and replete
#Leukocytosis
� steroid use related vs reactive
#Hyponatremia
�continue monitor
# Hx Pericardial effusion 2021
DVT Px: SCD
Total critical care time 38 mins . Total critical care time documented does not include time spent on separately billed procedures or the services of residents, students, nurses or physician assistants. I personally saw and examined the patient. I
have reviewed all diagnostic interpretations and treatment plans as written. I was present for the walter portions of any procedures performed and the inclusive time noted in any critical care statement. Critical care time includes patient management
by me, time spent at the patients bedside, time to review lab and imaging results, discussing patient care, documentation in the medical record, and time spent with the family or caregiver.
Anticipated Discharge: > 48 hours
Subjective/Interval History
-
Date of Service: December 20, 2023
Patient remains sedated/intubated
No acute issues reported overnight
Objective Data
-
Vital Signs:
Vital Signs
Temp Pulse Resp BP Pulse Ox
98.9 F 93 13 156/77 100
12/20/23 15:15 12/20/23 13:00 12/20/23 13:00 12/20/23 13:00 12/20/23 16:18
I&O
12/19/23 12/20/23 12/21/23
06:59 06:59 06:59
Intake Total 709.2 / 715.9 1028.4 / 1033.4 181.4 / 181.4
Output Total 1755 / 1755 970 / 1000 415 / 415
Balance -1045.8 / -1039.1 58.4 / 33.4 -233.6 / -233.6
Review of Systems
-
Unable to obtain full review of systems at this time due to: Patient Intubation and Patient Non-verbal
Physical Exam
-
General: Obese; Negative Appears in Distress
HEENT: Oxygen (Intubated on ventilator)
Respiratory: Clear to Auscultation
Cardiac: Regular Rhythm and S1/S2; Negative Murmur
GI: Soft, Nontender and Nondistended
Musculoskeletal: No Edema
Neuro: Sedated
Psych: Calm
--- NOTE | 2023-12-20 18:32 | PTCARENOTE ---
pt taken to ct scan. premedicated with fentanyl as charted. tolerated well. conrad and rectal trumpet removed upon return. purewick in place. otherwise no changes.
--- NOTE | 2023-12-20 19:03 | RESPNOTE ---
leak test was performed with dr alves present , leak was not sufficient enough to extubate patient
--- NOTE | 2023-12-20 19:25 | PTCARENOTE ---
Addendum entered by Yenni Quinones RN 12/20/23 21:48:
ett was moved to R at 21cm
Original Note:
Rec'd pt with wrists restrained on diprivan gtt at 15 laura, pt follows commands, INGRAM, family at bedside, SR, apresoline 10mg iv given for DBP 119, weak distal pulses, + anasarca, skin warm/dry, #7 oral ett- moved to left at 21 cm, PS 8, CPAP 5- sherrill
well sat 100, lungs coarse, decr in bases, suct for thick white secretions, + bowel sounds, no bm, abd soft, no vomiting, R nares [place] to low inter suction draining sm amt bile,irrigated q4hr, purewick in place
[2023-12-21] VITALS (27 sets, daily range): BP systolic 125–204; BP diastolic 65–156; BMI 27.4
--- NOTE | 2023-12-21 | PTCARENOTE ---
sys reviewed, fent 50miv iv given at 2315 for pain, CHG bath done, linens changed, bladder scanned for 250ml urine
[2023-12-21 00:56] LABS: ANA, IgG Reflex to HEp-2 None Detected (None Detected)
[2023-12-21 01:05] LABS: ds-DNA Ab, IgG Reflex To Titer 1 IU (0-24)
[2023-12-21] MEDS: SUBLIMAZE 50 MCG IV ×2 (03:29→05:25)
--- NOTE | 2023-12-21 03:30 | PTCARENOTE ---
Addendum entered by Yenni Quinones, RN 12/21/23 05:13:
unable to draw am labs via midline, periph stick x 2 unsuccessful, IV team in - unable to obtain labs, geography head to come and try
Original Note:
sys reviewed, fent 50mic IV given for pain, ett repos in center at 21 cm, bladder scanned for 311 ml
[2023-12-21] MEDS: DECADRON 10 MG IV ×2 (05:14→11:24)
--- NOTE | 2023-12-21 05:37 | PTCARENOTE ---
fent 50 laura iv given before str cath;bladder scanned for 400ml, str cathed for 425 ml clau urine
--- NOTE | 2023-12-21 07:51 | W.PN.HOSP.TC ---
Addendum entered and electronically signed by Solitario Lozano MD 12/21/23 13:33:
Add on to diagnosis list
Sepsis- POA
-from PNA/sinusitis. on abx.
Original Note:
Today's Communication/Plan
-
see note
Assessment / Plan
Assessment / Plan
# Acute hypoxic and hypercapnic respiratory failure
# Vent dependent respiratory failure
-Most likely secondary to acute metabolic encephalopathy +/- pulmonary edema
-Continue vent weaning efforts possible
-Patient feeling cuff leak test likely may have laryngeal edema, patient had difficult intubation. Will be reattempted today.
-Patient already on IV steroid as part of treatment of SLE.
#Hypertensive emergency
-Weaned off Cardene drip
-hx of medication non compliance with SLE nephritis
-IV vasotec 0.625mg x q6h ordered
-Will be needed to be restarted on lisinopril/coreg
-PRN hydralazine for SBP > 160
#Acute metabolic encephalopathy
-Suspected hypertensive encephalopathy versus press versus lupus cerebritis
-Unfortunately unable to get MRI brain without contrast to rule out lupus cerebritis
-CT head did not show any acute abnormality
-Repeat CT head done and no new changes - 12/19
-Patient had continuous EEG monitoring. No clear seizure activity
-Patient has been taken off of Keppra.
-LP being considered if patient mentation does not improve
# SLE
-Question of SLE flareup and patient being provided methylprednisolone 40 mg every 12 hours
-Minimal borderline low C3 level. Anti-dsDNA level pending
-Rheumatology evaluated patient and help appreciated, recommended patient to be transition to oral prednisone 50 mg daily once clinically better.
-Patient will be started on mycophenolate and Benlysta on outpatient basis
#CKD 3a
Stage IV lupus nephritis - biopsy in February 25
Nephrotic syndrome
Anasarca
-Nephrology following and help appreciated.
-diffuse swelling of upper/lower ext, 2/2 hypoalbuminemia , weight down trending.
-Lasix dosing per nephrology
-AM labs pending today. f/uy renal function
# Moraxella catarrhalis pneumonia
-change to unasyn IV, day 4 of abx
#Acute normocytic anemia
-S/p 1 unit of blood transfusion
-No signs of luminal blood loss. Not on any blood thinners.
-Hbg 10.5. contiue monitoring
#Hypokalemia
#Hypocalcemia
� Monitor and replete
#Leukocytosis
� steroid use related vs reactive
#Hyponatremia
�continue monitor
Hx Pericardial effusion 2021
h/o Hydrocephalus s/p v/p shunt
h/o latent TB s/p treatment
DVT Px: SCD
Total critical care time 37 mins . Total critical care time documented does not include time spent on separately billed procedures or the services of residents, students, nurses or physician assistants. I personally saw and examined the patient. I
have reviewed all diagnostic interpretations and treatment plans as written. I was present for the walter portions of any procedures performed and the inclusive time noted in any critical care statement. Critical care time includes patient management
by me, time spent at the patients bedside, time to review lab and imaging results, discussing patient care, documentation in the medical record, and time spent with the family or caregiver.
Anticipated Discharge: > 48 hours
Subjective/Interval History
-
Date of Service: December 21, 2023
remains intubated
not on pressors
aferbrile overnight
Hypertensive again, SBP in 170s
Objective Data
-
Labs:
Laboratory Results
12/21/23
06:00
WBC Pending
Hgb Pending
Hct Pending
Plt Count Pending
Sodium Pending
Potassium Pending
Chloride Pending
Carbon Dioxide Pending
BUN Pending
Creatinine Pending
Glucose Pending
Calcium Pending
Vital Signs:
Vital Signs
Temp Pulse Resp BP Pulse Ox
98.9 F 84 12 150/92 100
12/21/23 04:00 12/21/23 06:00 12/21/23 05:11 12/21/23 06:00 12/21/23 06:00
I&O
12/20/23 12/21/23 12/22/23
06:59 06:59 06:59
Intake Total 1028.4 / 1033.4 341.3 / 341.3
Output Total 970 / 1000 875 / 875
Balance 58.4 / 33.4 -533.7 / -533.7
Review of Systems
-
Unable to obtain full review of systems at this time due to: Acuity and Patient Intubation
Physical Exam
-
General: Obese; Negative Appears in Distress
HEENT: Oxygen (Intubated on ventilator)
Respiratory: Clear to Auscultation
Cardiac: Regular Rhythm and S1/S2; Negative Murmur
GI: Soft, Nontender and Nondistended
Musculoskeletal: Edema, Right Upper Extrem, Edema, Left Upper Extrem, Edema, Right Lower Extrem and Edema, Left Lower Extrem
Neuro: Sedated
Psych: Calm
--- NOTE | 2023-12-21 08:02 | W.PN.NEURO.1 ---
Today's Communication / Plan
-
Consider lumbar puncture if patient does not have significant improvement while off of sedation
Neuro Assessment/Plan
Assessment
53 year old woman with history of lupus and associated nephritis, nephrotic syndrome, hypertension, hydrocephalus s/p ACLS NURSE shunt, chronic immune suppression presents to the hospital with significant mental status changes to point of obtundation and
GCS of 6 on arrival to ED, required intubation, findings suggestive of pulmonary edema and respiratory failure. Extreme hypertension as high as 260's systolic on admission.
CT head non contrast and CTA head and neck no acute abnormalities, CT of the head repeated on 12/20/2023 again unremarkable except for severe bilateral maxillary sinusitis
No seizures on EEG, no interictal discharges highly suspicious for underlying seizure disorder.
Highest suspicion is for hypertensive encephalopathy or PRES (posterior reversible encephalopathy syndrome)
Ischemic stroke is felt less likely at this point
Lupus related encephalopathy or cerebritis in differential diagnosis but felt less likely based on rapid improvement and was improving (localizing to pain while intubated on exam 12/17) with improvement on blood pressure on medication infusions
before steroids were started
BASEBALL UMPIRE [employer] infection felt less likely based on rapid improvement
Plan
-Unable to receive MRI brain due to programable ACLS NURSE shunt
-Would continue aspirin for time being
-Stop Levetiracetam
-Neurologic checks
-Daily sedation holiday
Consider lumbar puncture if patient does not have significant improvement while off of sedation
Will follow peripherally
Subjective/Objective
Subjective Data
Date of Service: December 21, 2023
Patient unable to provide her own medical history.
Objective Data
Vital Signs
Temp Pulse Resp BP Pulse Ox
36.9 C 84 12 150/92 100
12/21/23 07:56 12/21/23 06:00 12/21/23 05:11 12/21/23 06:00 12/21/23 06:00
PT 12.8 Sec (11.4-14.6) 12/18/23 04:19
INR 0.98 12/18/23 04:19
Sodium 134 mmol/L (135-145) L 12/20/23 03:07
Potassium 3.9 mmol/L (3.5-5.1) 12/20/23 03:07
BUN 41 mg/dl (7-17) H 12/20/23 03:07
Glucose 103 mg/dl (70-99) H 12/20/23 03:07
Calcium 8.1 mg/dl (8.4-10.2) L 12/20/23 03:07
Lsk-Q-Mgpthwecfpm Pept 18366 pg/ml 12/18/23 04:27
Patient Allergies
No Known Allergies Allergy (Verified 11/08/23 09:34)
Review of Systems
-
Unable to obtain full review of systems at this time due to: Patient Intubation and Lethargy
History Source: Patient
All other systems: Reviewed and negative
Physical Exam
-
General: No Apparent Distress, Intubated and Appears Stated Age
Eyes: No Ptosis
HEENT: Normocephalic and Atraumatic
Neck: Full Range of Motion
Respiratory: Negative Accessory Resp Muscle Use
Cardiac: No JVD
GI: Non-distended
Extremities: No Clubbing and No Cyanosis
Psych: Unable to Assess
Extended Neurological Exam
Mood & Affect: Unable to Assess
Attention Span & Concentration: Other (Awakens to voice and mild tactile stimulation, does not follow requests even in Czech); Negative Unresponsive to Physical Stimuli
Memory: Unable to Assess
Tremor: Hand Tremor Absent and Head Tremor Absent
Involuntary Movement: None
Speech: Unable to Assess
Cranial Nerve II: Left Eye: Pupillary Reactivity Unremarkable, Pupillary Size Unremarkable and Unable to Assess Visual Lenz
Cranial Nerve II: Right Eye: Pupillary Reactivity Unremarkable, Pupillary Size Unremarkable and Unable to Assess Visual Lenz
Cranial Nerves III, IV, : Extraocular Movement: Absent Doll's Eyes
Cranial Nerve VII: Facial Symmetry: Normal Facial Symmetry
Cranial Nerves IX, X: Palate Movement: Unable to Assess
Cranial Nerve XI: Shoulder Shrug: Unable to Assess
Cranial Nerve XII: Tongue Protusion: Unable to Assess
Muscle Strength, Overall: Spontaneously Moves
Muscle Bulk & Tone: Bulk Unremarkable and Tone Unremarkable
Pronator Drift: Unable to Assess
Cold Sensation: Unable to Assess
Vibration Sensation: Unable to Assess
Coordination: Unable to Assess
Gait & Station: Unable to Assess
Data Reviewed
-
Labs: Report Reviewed
Reviewed with: Physician and Nurse
Old Records: Summarized
--- NOTE | 2023-12-21 08:04 | W.PN.INTV ---
Today's Communication / Plan
Recommendations
Extubated
D/c dexam IV
O2 protocol
Amp sulb
Diuretic
Follow MS
Assessment
-
Patient is a 53-year-old female with history of nephrotic syndrome, hypertension, hydrocephalus s/p GUT CLEANER shunt, lupus nephritis followed by rheumatology on mycophenolate, prednisone, was being considered for biologic therapy/Cytoxan therapy as
outpatient. Lasix therapy was recently started per nephrology over the last month per reviewing outpatient records. Patient now presents with unresponsiveness requiring intubation/mechanical ventilation, treatment for hypertensive
emergency/urgency with systolic pressure in the 220s requiring Cardene drip. Admitted to ICU 12/18/2023
VDRF, intubated 12/18/2023 for unresponsiveness
Found unresponsive by family at 3:30 AM
Last seen in [facility] 10 PM
Neuroimaging negative
Bloody secretions at time of intubation
Acute hypercapnia
Hypertensive emergency
Requiring nitroglycerin drip, transition to Cardene
Leukocytosis
Hyponatremia, hypokalemia elevated lactate
History of mild to moderate mitral regurgitation per echo 2021
Aortic sclerosis
PA pressure 34
Moderate pericardial effusion
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
Lupus nephritis, on chronic immunosuppression
MMF/prednisone/hydroxychloroquine
Being considered for biologic therapy (Dr. Engel)
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
Hydrocephalus status post GUT CLEANER shunt; placed in 2011 with an revised in 2017
Chronic anemia
Nephrotic syndrome
Significant proteinuria
Hypertension
Laparoscopic cholecystectomy
x2
History of latent tuberculosis, positive PPD, status post 6 months of INH per records
Cannot confirm
Seen by Department [facility] Health, recommended 4 months of rifampin
History of noncompliance
Plan/recommendations
Continues on mechanical ventilation
Air leak test negative on deflated ETT cuff 04-15 (reportedly present before, reportedly difficult intubation. On examination small jaw, decreased opening of mouth on examination, short neck)
Changed IV MP to dexamethasone 10 mg IV q6h x 4 doses at least
Mild air leak today
Started weaning trial, did well
Extubated this afternoon
Keep asp precs
CT chest with patchy infiltrate
EKG unremarkable
History of mild to moderate mitral regurgitation and with pericardial effusion in the past
Neuroimaging unremarkable
EEG unremarkable
Tracheal culture: Morax cat BL positive
CXR 12-19: suspected patchy R infiltrates. ET/GT. R sided GUT CLEANER shunt (adm CXR with L lung atelectasis due to RMSB intubation)
Head CT with severe acute bilateral maxillary sinusitis
Blood cxs NTD
MRSA negative
COVID screen, flu screen, Legionella, streptococcal antigen: not taken
Cefepime changed to ampic/sulb 12-20
Vancomycin d/c
Chronic immunosuppression
Procalcitonin barely elevated
Neurology following
EEG unremarkable
IV Keppra was started
TSH unremarkable
So far low suspicion for lupus cerebritis
Head CT 12-19: no evidence for PRES, R frontal ventricular shunt in place. no acute BOTTOM FINISHER findings but severe acute bilateral maxillary sinusitis
Unable to have MRI brain due to programable GUT CLEANER shunt
For LP is no further improvement off sedation
Presentation suggested pulmonary edema
Frothy/bloody secretions noted at time of intubation, improved
Hypertensive emergency with history of MR noted
Consider echocardiogram as indicated
EKG is normal
Elevated proBNP and mildly elevated troponin noted
Follow fluid status, I's and O's
Per records, there is a history of noncompliance with regards to antihypertensive therapy
History of moderate pericardial effusion noted in the past
It is also noted that Voclosporin for lupus nephritis (reported side effect of evere hypertension and up to 19% of cases)
History of acute renal insufficiency, recently hospitalized 1 month ago
Sees nephrology as outpatient (Mary), team following
I's and O's, Ellis catheter
Furosemide IV dose 12-20
Renal biopsy noted, suggestive of lupus nephritis (2021)
Seen by Dr Leung (Rheum) 12-19, rec to continue holding MMF due to suspected pneumonia (now found severe maxillary sinusitis). Rec to follow at office to evaluate resuming MMF, benlysta and likely low dose voclosporin
Anemia noted. No active bleeding
Transfused 1 U PRBCs 12-18 (consent obtained from son over phone)
Critical care time: 35 min
Subjective Dataa
Subjective Data
Date of Service:
Date of Service: December 21, 2023
Chief Complaint: Loom Tuner Follow Up
Subjective:
No major events reported overnight
Continues on mechanical ventilation
Started on IV dexamethasone for lack of leak through the failure ET tube, mild leak noted this morning
Review of Systems
General: Unobtainable - Sedation
Objective Data
Data Reviewed
Vital Signs / I&O / Oxygen:
Vital Signs
Temp Pulse Resp BP Pulse Ox
98.4 F 84 12 150/92 100
12/21/23 07:56 12/21/23 06:00 12/21/23 05:11 12/21/23 06:00 12/21/23 06:00
Intake and Output
12/20/23 12/21/23 12/22/23
06:59 06:59 06:59
Intake Total 1028.4 / 1033.4 341.3 / 341.3
Output Total 970 / 1000 875 / 875
Balance 58.4 / 33.4 -533.7 / -533.7
SaO2 [CPAP/PSV] 100
SaO2 [A/C] 100
SaO2 100
Physical Exam
General: Comfortable
HEENT: Normocephalic, Anicteric and Moist Mucous Membranes
Cardiovascular: S1-S2, Regular Rhythm, Murmur (n) and Rub (n)
Respiratory: Wheeze (n), Crackles (n), Rhonchi (n), Non-Labored Respirations, ET Tube and Other (Mild coarse breath sounds)
GI: Soft, Non Distended and Non Tender
Neurology: No Motor Deficits (Moving all extremities, following commands) and Other (sedated)
Skin: Cyanosis (n), Jaundice (n) and Rash (n)
Labs/Micro/Reports
Microbiology
12/18/23 05:24 Blood/Venous Blood Culture - Preliminary
No Growth in 72 hours- Final report to follow
12/18/23 05:24 Blood/Venous Blood Culture - Preliminary
No Growth in 72 hours- Final report to follow
12/18/23 11:06 Tracheal Aspirate Respiratory Culture - Final
Moraxella catarrhalis
12/18/23 11:06 Tracheal Aspirate Gram Stain - Final
12/18/23 11:06 Nose Nasal Screen MRSA (PCR) - Final
MRSA not detected - performed by PCR methodology.
--- NOTE | 2023-12-21 08:57 | W.PN.NEPH.PH ---
Today's Communication / Plan
-
40 mg IV Lasix
Reviewed lab
Immunosuppression per rheumatology
Add back carvedilol
Assessment/Plan
-
Assessment:
AMS
VDRF
Class IV lupus nephritis (on MMF, prednisone, hydroxychloroquine + voclosporin)
CKD (bl Cr around 1.2)
Hydrocephalus s/p CLINICAL QUALITY ASSURANCE SPECIALIST shunt
hypertensive emergency
nephrotic syndrome
hyponatremia
Anemia
hypocalcemia
h/o pericardial effusion
hx of latent TB, s/p treatment
Plan:
- obtain lupus labs (complements, CARL, dsDNA). elevated ESR and CRP. UA with hematuria. UPCR at 7g
-Prednisone drop to 50 mg adjustment per rheumatology
-Benlysta and mycophenolate held as well
-Blood pressure remains labile on IV Vasotec and IV Hydralazine, placed patient back on carvedilol via feeding tube
-Remains intubated with likely underlying laryngeal edema
-am labs pending, remains nonoliguric, needs IV access
- her AMS is concerning for lupus cerebritis vs. PRES vs. hypertensive encephalopathy vs ongoing seizures. will defer to neuro
- lasix 40mg IV again today as patient is overtly volume overloaded and remains intubated
-
-
Date of Service: December 21, 2023
CC / HPI / ROS
-
Chief Complaint:
JASKARAN
History of Present Illness:
lupus nephritis
AMS
Remains intubated
Hemodynamically stable
Review of Systems:
intubated/sedated
Nonoliguric
Labs
-
Labs:
eGFR 49.79 12/20/23 03:07
Bin-Q-Lxwhlhhxawn Pept 23615 pg/ml 12/18/23 04:27
Albumin 2.3 g/dl (3.5-5.0) L 12/18/23 04:19
Physical Exam
-
Vital Signs:
Vital Signs
Temp Pulse Resp BP Pulse Ox
98.4 F 84 12 150/92 100
12/21/23 07:56 12/21/23 06:00 12/21/23 05:11 12/21/23 06:00 12/21/23 08:12
Cardiovascular:: Regular rate and rhythm
Respiratory:: Bilateral: Coarse
Lung Excursion:: Normal
Abdomen:: Nontender and Soft
Bowel Sounds:: Decreased
Extremity Edema:: +1: Bilateral:
Ellis Catheter: No
[2023-12-21] MEDS: MIRALAX 17 GRAMS TUBE (09:12)
[2023-12-21] MEDS: UNASYN IV ×3 (09:12→20:56)
[2023-12-21] MEDS: ASPIRIN 300 MG RECTAL (09:13)
--- NOTE | 2023-12-21 09:29 | PTCARENOTE ---
Iv team called with additional access as well as labs if able given multiple people have attempted without success and pt is swollen and withdrawing when b/l hand ivf are flushed for meds.
--- NOTE | 2023-12-21 10:04 | VATNOTE ---
B/l hand IVs checked per SENIOR COPYWRITER request. Both IV sites swollen and leaking; patient withdraws and appears to be in pain when IVs flushed. Midline without blood return, but flushes well, appears WNL. B/l hand IVs removed. Unsuccessful x2 attempts to
place new PIV. Will discuss plan of care with PCN to decide further action.
--- NOTE | 2023-12-21 10:31 | PN.CDI ---
CDI
- -
CDI:
Physician Documentation Request
Admit Date: 12/18/23 06:03
Dear Doctor Blake,
Please review the following and provide your response in the progress notes.
Clinical Indicators:
Pt admitted with Acute Hypoxic /Hypercapnic Respiratory Failure / Pneumonia /Metabolic Encephalopathy
On admit WBC 15.6, Tmax 100.8, HR 126, RR 24
Please clarify which of the following most accurately describes the status of the patient's infection:
Sepsis-POA
- Systemic manifestations of infection, with 2 or more SIRS criteria which include:
- Fever >100.4 degrees F or hypothermia < 96.8 degrees F
- Leukocytosis - WBC > 12,000 or leukopenia - WBC < 4,000 or > 10% bands
- Tachycardia > 90 beats per minute
- Tachypnea - RR > 20 breaths per minute or PaCO2 , 32mmHg
Source: Merck Manual 2013
Pneumonia only , Without Systemic Illness
Other
Use of terms such as suspected, likely, concern for, or probable (associated with a specific diagnosis that is being evaluated, monitored, or treated as if it exists) are acceptable and can be coded in the inpatient setting, when documented at the
time of discharge.
Thank you,
Hilda Martínez RN
CDI Specialist
[facility]
Please use your independent medical judgment in providing your response.
[2023-12-21] MEDS: LASIX 40 MG IV ×2 (11:23→16:27)
[2023-12-21] MEDS: VASOTEC 0.625 MG IV ×3 (11:26→23:46)
[2023-12-21] MEDS: STERILE WATER FOR INJECTION IV (11:27)
[2023-12-21] MEDS: COREG 25 MG TUBE ×2 (11:27→20:56)
[2023-12-21 11:47] LABS: Blood Urea Nitrogen 46 mg/dl (7-17); Calcium 7.8 mg/dl (8.4-10.2); Carbon Dioxide 13 mmol/L (22-30); Chloride 112 mmol/L (98-107); Estimated Creatinine Clearance 35 ml/min; Glucose 97 mg/dl (70-99); Potassium 4.1 mmol/L (3.5-5.1); Sodium 135 mmol/L (135-145); eGFR 49.79
[2023-12-21 12:00] LABS: Triglycerides 692 mg/dl (10-149)
[2023-12-21] MEDS: APRESOLINE 10 MG IV (13:10)
--- NOTE | 2023-12-21 13:26 | CM ---
Patient seen at bedside, remains on Vent, will continue to follow for discharge planning needs.
Plan; TBD
--- NOTE | 2023-12-21 14:00 | PTCARENOTE ---
Pt extubated with anesthesia at bedside to aerosol mask. son called and was given update.
--- NOTE | 2023-12-21 16:39 | PTCARENOTE ---
Pt continues to tolerate aerosol mask. Not very interactive, manzano, but not following commands. Not cooperative with mouth care. Fights checking pupils. St cath as charted. Dr Hand in to review i/o. aware of st cath, if pt continues to
retain, wants catheter. additional lasix ordered and given. no further changes.
--- NOTE | 2023-12-21 20:00 | PTCARENOTE ---
Rec'd pt lethargic, opens eyes w/ much stimulation, family at bedside, pt not talking, not following commands, Dianne Montelongo, VBA DEVELOPER in to assess neuro status,withdrawals to painful stimuli, INGRAM spont, SR, weak distal pulses, + anasarca, skin warm/dry,
o2 changed to 6 liters nc by resp therapist, sat 100, resp easy, nonlabored, + cough, + bowel sounds,abd round, soft, R nares [place] to low inter wall suction draining scant bile, irrigated q4h, # 14 Fr conrad cath inserted under sterile condition per
order- clear yellow urine
--- NOTE | 2023-12-21 23:55 | PTCARENOTE ---
sys reviewed, lethargic, opens eyes to name, still not following commands
[2023-12-22] VITALS (23 sets, daily range): BP systolic 121–204; BP diastolic 68–110; PULSE 81–82; O2SAT 100; BMI 26.3
[2023-12-22] MEDS: UNASYN IV ×4 (01:00→19:49)
[2023-12-22] MEDS: APRESOLINE 10 MG IV ×2 (04:00→14:49)
--- NOTE | 2023-12-22 04:00 | PTCARENOTE ---
sys reviewed, moving arms more than earlier, opening eyes, not following commands or talking, CHG bath done, linens changed, o2 decr to 4 liters nc; apresoline 10mg iv given for bp
--- NOTE | 2023-12-22 04:49 | DOWNTIME ---
There was a [employer] Client Electronic Instrument Trades Worker Downtime on 12/01/2023 from 0100 to 12/01/2023 at 0322. Downtime documentation of patient's care, including medication administrations, has been reconciled in the electronic record per guidelines. Refer to the
patient's paper chart under the miscellaneous tab to see printed paper medication records and downtime forms.
--- NOTE | 2023-12-22 05:40 | PTCARENOTE ---
vice president of development aware to draw am labs
--- NOTE | 2023-12-22 06:03 | PTCARENOTE ---
o2 decr to 2 liters nc; pt nodding head when name called
[2023-12-22] MEDS: VASOTEC 0.625 MG IV ×3 (06:04→17:54)
--- NOTE | 2023-12-22 07:37 | W.PN.INTV ---
Today's Communication / Plan
Recommendations
O2
Atbs
Asp precs
Telem
Reconsult prn
Assessment
-
Patient is a 53-year-old female with history of nephrotic syndrome, hypertension, hydrocephalus s/p DIRECTOR OF CONVENTION SERVICES shunt, lupus nephritis followed by rheumatology on mycophenolate, prednisone, was being considered for biologic therapy/Cytoxan therapy as
outpatient. Lasix therapy was recently started per nephrology over the last month per reviewing outpatient records. Patient now presents with unresponsiveness requiring intubation/mechanical ventilation, treatment for hypertensive
emergency/urgency with systolic pressure in the 220s requiring Cardene drip. Admitted to ICU 12/18/2023
VDRF, intubated 12/18/2023 at ER for unresponsiveness
Found unresponsive by family at 3:30 AM
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
Neuroimaging negative
Bloody secretions at time of intubation
Acute hypercapnia
Hypertensive emergency
Requiring nitroglycerin drip, transition to Cardene
Leukocytosis
Hyponatremia, hypokalemia elevated lactate
Maxillary sinusitis on CT
Moraxella catarrhalis bronchitis
History of mild to moderate mitral regurgitation per echo 2021
Aortic sclerosis
PA pressure 34
Moderate pericardial effusion
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
Lupus nephritis, on chronic immunosuppression
MMF/prednisone/hydroxychloroquine
Being considered for biologic therapy (Dr. Engel)
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
Hydrocephalus status post DIRECTOR OF CONVENTION SERVICES shunt; placed in 2011 with an revised in 2017
Chronic anemia
Nephrotic syndrome
Significant proteinuria
Hypertension
Laparoscopic cholecystectomy
x2
History of latent tuberculosis, positive PPD, status post 6 months of INH per records
Cannot confirm
Seen by Department of Health, recommended 4 months of rifampin
History of noncompliance
Plan/recommendations
Intubated at ER due to unresponsiveness 12-17
Air leak test negative on deflated ETT cuff 12-19 (reportedly present before, reportedly difficult intubation. On examination small jaw, decreased opening of mouth on examination, short neck)
Changed IV MP to dexamethasone 10 mg IV q6h x 5 doses
Mild air leak 12-20
Started weaning trial, did well
Extubated early afternoon 12-20
Keep asp precs
O2 protocol as needed
EKG unremarkable
History of mild to moderate mitral regurgitation and with pericardial effusion in the past
Neuroimaging unremarkable
EEG unremarkable
Tracheal culture: Morax cat BL positive
CXR 12-19: suspected patchy R infiltrates. ET/GT. R sided DIRECTOR OF CONVENTION SERVICES shunt (adm CXR with L lung atelectasis due to RMSB intubation)
Head CT with severe acute bilateral maxillary sinusitis
Blood cxs NTD
MRSA negative
COVID screen, flu screen, Legionella, streptococcal antigen: not taken
Cefepime changed to ampic/sulb 12-20, complete 7-10 d atb course and d/c
Vancomycin d/c
Chronic immunosuppression
Procalcitonin barely elevated
Neurology following
EEG unremarkable
IV Keppra was started
TSH unremarkable
So far low suspicion for lupus cerebritis
Head CT 12-19: no evidence for PRES, R frontal ventricular shunt in place. no acute SOLE STITCHER HAND findings but severe acute bilateral maxillary sinusitis
Unable to have MRI brain due to programable DIRECTOR OF CONVENTION SERVICES shunt
For LP if no further improvement off sedation
Presentation suggested pulmonary edema
Frothy/bloody secretions noted at time of intubation, improved
Hypertensive emergency with history of MR noted
Consider echocardiogram as indicated
EKG is normal
Elevated proBNP and mildly elevated troponin noted
Follow fluid status, I's and O's
Per records, there is a history of noncompliance with regards to antihypertensive therapy
History of moderate pericardial effusion noted in the past
It is also noted that Voclosporin for lupus nephritis (reported side effect of evere hypertension and up to 19% of cases)
History of acute renal insufficiency, recently hospitalized 1 month ago
Sees nephrology as outpatient (Mary), team following
I's and O's, Ellis catheter
Furosemide IV dose 12-20
Renal biopsy noted, suggestive of lupus nephritis (2021)
Seen by Dr Leung (Rheum) 12-19, rec to continue holding MMF due to suspected pneumonia (now found severe maxillary sinusitis). Rec to follow at office to evaluate resuming MMF, benlysta and likely low dose voclosporin
Anemia noted. No active bleeding
Transfused 1 U PRBCs 12-18 (consent obtained from son over phone)
Family updated through outpatient [facility] staff 12-20
Agree with transfer to telemetry
Reconsult as needed
Subjective Dataa
Subjective Data
Date of Service:
Date of Service: December 22, 2023
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
Subjective:
No major events reported overnight
Hypertension better controlled today
Successfully weaned yesterday and extubated without issue
This morning no major complaints except weakness
Review of Systems
General: Fever, Sweats (n) and Satisfactory Appetite (n)
Cardiopulmonary: Dyspnea (n), Cough (n), Wheezing, Chest Pain (n) and Edema (AKASH)
GI: Abdominal Pain (n), Nausea (n) and Vomiting
Neuro: Weakness
Objective Data
Data Reviewed
Vital Signs / I&O / Oxygen:
Vital Signs
Temp Pulse Resp BP Pulse Ox
97.0 F 76 15 131/72 100
12/22/23 03:45 12/22/23 06:04 12/22/23 06:02 12/22/23 06:04 12/22/23 06:02
Intake and Output
12/21/23 12/22/23 12/23/23
06:59 06:59 06:59
Intake Total 341.3 / 341.3 330 / 330
Output Total 875 / 875 1275 / 1275
Balance -533.7 / -533.7 -945 / -945
SaO2 [CPAP/PSV] 100
SaO2 [A/C] 100
SaO2 100
Nasal Cannula flow liters per 2
minute
Physical Exam
General: Comfortable
HEENT: Normocephalic, Anicteric and Moist Mucous Membranes
Cardiovascular: S1-S2, Regular Rhythm, Murmur (n), Rub (n) and Peripheral Edema (AKASH)
Respiratory: Wheeze (n), Crackles (n), Rhonchi (n) and Non-Labored Respirations
GI: Soft, Non Distended and Non Tender
Neurology: Awake, Oriented and No Motor Deficits (Moving all extremities, following commands)
Skin: Cyanosis (n), Jaundice (n) and Rash (n)
Labs/Micro/Reports
Microbiology
12/18/23 05:24 Blood/Venous Blood Culture - Preliminary
No Growth in 4 days- Final report to follow
12/18/23 05:24 Blood/Venous Blood Culture - Preliminary
No Growth in 4 days- Final report to follow
12/18/23 11:06 Tracheal Aspirate Respiratory Culture - Final
Moraxella catarrhalis
12/18/23 11:06 Tracheal Aspirate Gram Stain - Final
[2023-12-22] MEDS: COREG 25 MG TUBE ×2 (08:09→19:49)
[2023-12-22] MEDS: ASPIRIN 300 MG RECTAL (08:10)
[2023-12-22] MEDS: MIRALAX 17 GRAMS TUBE (08:10)
--- NOTE | 2023-12-22 08:44 | PTCARENOTE ---
Dr Rowley with patient and nursing. Patient awake alert answering questions with translation. Following commands, cooperative and pleasant. Medications as per Emar. Antibiotics infusing at this time. Follow up input output trends. Difficult stick
this am for lab work will follow up with phlebotomy. Await hospitalist to update transfer form ICU, pt/ot and speech follow up needs for patient care plan. Continue ongoing supportive cares.
--- NOTE | 2023-12-22 09:36 | PTCARENOTE ---
Update in morning rounds. Plan for transfer to telemetry. Hospitalist update and follow up new orders. Speech team at bedside follow along plan of cares. Continue supportive cares.
--- NOTE | 2023-12-22 10:05 | W.PN.NEURO.1 ---
Today's Communication / Plan
-
-Unable to receive MRI brain due to programable TELEPHONIC NURSE CASE MANAGER shunt
-Would continue aspirin until discharge
-Stop Levetiracetam
Neuro Assessment/Plan
Assessment
53 year old woman with history of lupus and associated nephritis, nephrotic syndrome, hypertension, hydrocephalus s/p TELEPHONIC NURSE CASE MANAGER shunt, chronic immune suppression presents to the hospital with significant mental status changes to point of obtundation and
GCS of 6 on arrival to ED, required intubation, findings suggestive of pulmonary edema and respiratory failure. Extreme hypertension as high as 260's systolic on admission.
CT head non contrast and CTA head and neck no acute abnormalities, CT of the head repeated on 12/20/2023 again unremarkable except for severe bilateral maxillary sinusitis
No seizures on EEG, no interictal discharges highly suspicious for underlying seizure disorder.
Highest suspicion is for hypertensive encephalopathy
Ischemic stroke is felt less likely at this point
Lupus related encephalopathy or cerebritis in differential diagnosis less likely based on rapid improvement
Plan
-Unable to receive MRI brain due to programable TELEPHONIC NURSE CASE MANAGER shunt
-Would continue aspirin until discharge
-Stop Levetiracetam
-Neurologic checks
Will follow peripherally
Subjective/Objective
Subjective Data
Date of Service: December 22, 2023
Objective Data
Vital Signs
Temp Pulse Resp BP Pulse Ox
36.6 C 80 16 121/105 99
12/22/23 07:30 12/22/23 09:03 12/22/23 09:03 12/22/23 09:03 12/22/23 09:03
PT 12.8 Sec (11.4-14.6) 12/18/23 04:19
INR 0.98 12/18/23 04:19
Sodium 135 mmol/L (135-145) 12/21/23 10:54
Potassium 4.1 mmol/L (3.5-5.1) 12/21/23 10:54
BUN 46 mg/dl (7-17) H 12/21/23 10:54
Glucose 97 mg/dl (70-99) 12/21/23 10:54
Calcium 7.8 mg/dl (8.4-10.2) L 12/21/23 10:54
Vur-F-Pjqmilzuugq Pept 60982 pg/ml 12/18/23 04:27
Patient Allergies
No Known Allergies Allergy (Verified 11/08/23 09:34)
Review of Systems
-
Unable to obtain full review of systems at this time due to: Language Barrier
History Source: Patient
All other systems: Reviewed and negative
Physical Exam
-
General: No Apparent Distress, Appears Stated Age and Wearing Oxygen
Eyes: No Ptosis
HEENT: Normocephalic and Atraumatic
Neck: Full Range of Motion
Respiratory: Negative Accessory Resp Muscle Use
Cardiac: No JVD
GI: Non-distended
Extremities: No Clubbing and No Cyanosis
Psych: Unable to Assess
Extended Neurological Exam
Mood & Affect: Mood Unremarkable and Affect Unremarkable
Attention Span & Concentration: Awake, Alert and Interactive
Memory: Unable to Assess
Tremor: Hand Tremor Absent and Head Tremor Absent
Involuntary Movement: None
Cranial Nerve II: Left Eye: Pupillary Size Unremarkable and Visual Lenz Grossly Intact
Cranial Nerve II: Right Eye: Pupillary Size Unremarkable and Visual Lenz Grossly Intact
Cranial Nerves III, IV, : Extraocular Movement: Other (Right eye 1+ esophoria)
Cranial Nerve VII: Facial Symmetry: Normal Facial Symmetry
Cranial Nerve VIII: Hearing: Unremarkable Hearing to Normal Conversational Volume
Muscle Strength, Overall: Spontaneously Moves (All extremities)
Muscle Bulk & Tone: Bulk Unremarkable and Tone Unremarkable
Pronator Drift: No Drift in Upper Extremities
Coordination: Cyfzmn-ulem-mnyhan Testing Unremarkable
Gait & Station: Unable to Assess
Data Reviewed
-
Reviewed with: Nurse
Old Records: Summarized
Past History
Past History
ED Past Medical History: HTN, Renal failure (Chronic kidney disease related to lupus) and Other (Hydrocephalus, lupus with lupus nephritis, chronic anemia)
ED Past Surgical History: Cholecystectomy and Other (TELEPHONIC NURSE CASE MANAGER shunt)
Social History
Tobacco: Non-smoker
Alcohol: None
Drug: None
Personal:
Living: with family
Family History
Family History: Diabetes
Medications
-
Medications:
Generic Name Dose Route Start Last Admin
Trade Name Freq PRN Reason Stop Dose Admin
Acetaminophen 650 mg 12/18/23 13:29 12/18/23 14:14
Acetaminophen 650 Mg Rectal Suppository RECTAL 01/15/24 13:28 650 mg
Q4HPRN PRN Administration
fever
Aspirin 300 mg 12/19/23 08:00 12/22/23 08:10
Aspirin 300 Mg Rectal Suppository RECTAL 01/16/24 07:59 300 mg
DAILY HEATHER Administration
Bisacodyl 10 mg 12/18/23 07:24
Bisacodyl 10 Mg Rectal Suppository RECTAL 01/15/24 07:23
[id number] PRN
constipation
Carvedilol 25 mg 12/21/23 10:00 12/22/23 08:09
Carvedilol 25 Mg Tablet TUBE 01/18/24 09:59 25 mg
BID HEATHER Administration
Enalaprilat 0.625 mg 12/21/23 12:00 12/22/23 06:04
Enalaprilat 1.25 Mg/Ml Vial IV 01/18/24 11:59 0.625 mg
Q6 HEATHER Administration
Hydralazine HCl 10 mg 12/18/23 07:24 12/22/23 04:00
Hydralazine 20 Mg/Ml Vial IV 01/15/24 07:23 10 mg
Q4HPRN PRN Administration
SBP > 185. DBP >110
Ampicillin Sodium/Sulbactam 120 mls @ 240 mls/hr 12/21/23 08:00 12/22/23 08:09
Sodium 3 gm/ Sodium Chloride IV 120 mls
Q6H HEATHER Administration
Polyethylene Glycol 17 grams 12/19/23 08:00 12/22/23 08:10
Polyethylene Glycol Powder 17 Grams Packet TUBE 01/16/24 07:59 17 grams
DAILY HEATHER Administration
Senna/Docusate Sodium 1 tablet 12/18/23 07:24
Docusate W/Senna (Agnes-Colace) Tablet PO 01/15/24 07:23
BIDPRN PRN
constipation
Sodium Chloride 0 flush 12/18/23 08:00
Sodium Chloride 0.9% (Flush) Syringe IV 01/15/24 07:59
PER PROTOCOL HEATHER
--- NOTE | 2023-12-22 10:08 | PTOTSP ---
SPEECH THERAPY SWALLOW EVALUATION:
Clinical signs of oropharyngeal dysphagia, likely acutely related to VDRF, encephalopathy, pneumonia, and recent 4-day endotracheal intubation. Patient remains at high risk for aspiration and related complications given confusion, weakness, and
tenuous pulmonary status. Signs of aspiration noted with thin liquids. Recommend strict NPO at this time; continue NGT for all nutrition/medication/hydration. Speech therapy to follow, re-assess patient in 24 hours, assess readiness for further p.o.
trials/textures, determine indication for instrumental assessment of swallowing if indicated, provide continued education regarding aspiration risks/precautions and provide diagnostic swallow therapy as appropriate. Discussed with pt, RN, and .
Blake.
RECOMMEND:
1) strict NPO at this time; continue NGT for all nutrition/medication/hydration
2) Speech therapy to follow, re-assess patient in 24 hours, assess readiness for further p.o. trials/textures, determine indication for instrumental assessment of swallowing if indicated, provide continued education regarding aspiration
risks/precautions and provide diagnostic swallow therapy as appropriate
--- NOTE | 2023-12-22 13:21 | PTCARENOTE ---
Patient assessment unchanged. Sleeping when not disturbed. Speech, pt/ot continue to follow up and reevaluate. Await family. Patient now in telemetry status continue with rounds, safety checks and to update plan of cares. Skin cares, oral cares and
turning continues. Continue ongoing supportive cares.
--- NOTE | 2023-12-22 14:52 | PTCARENOTE ---
Patient working with PT/OT friends in to see patient updated events and plan of cares. Working well with point of care specialist. Continue with teaching, emotional support and supportive cares. Following vital signs and i/o trends. Emar with antibiotics and
antihypertensive medications.
--- NOTE | 2023-12-22 15:05 | CM ---
Addendum entered by Hannah Kimbrough 12/22/23 15:12:
PT recommending SNF at current time. CM will need to review with patient family options when medically appropriate.
Original Note:
Patient off of ventilator and CM met with her and patient advocate from [facility]. Patient lives with her and son approx aged 9. Patient was sitting out of bed in chair with NG tube. Patient states with help of the advocate
Joyce x [phone] that she goes to the clinic and [facility] uses [facility] in [place]. Patient lives with son and in a 2nd floor apartment with approx 13 steps to enter. Patient does not drive, normally drives her or she uses an uber. Patient
advocate Joyce Green from [facility] office will accompany patient to appointments if needed. Patient slow to answer but given time is able to answer questions in French. Patient is complaining to patient advocate that she cannot walk.
Pending assessments with PT/OT. CM will continue to follow for discharge planning needs.
Plan; home with VN; family supports vs SNF; pending PT/OT assessment.
--- NOTE | 2023-12-22 15:34 | W.PN.NEPH.PH ---
Today's Communication / Plan
-
- lasix daily
- titrate BP medications
Assessment/Plan
-
Assessment:
AMS
VDRF
Class IV lupus nephritis (on MMF, prednisone, hydroxychloroquine + voclosporin)
CKD (bl Cr around 1.2)
Hydrocephalus s/p ENGRAVER TIRE MOLD shunt
hypertensive emergency
nephrotic syndrome
hyponatremia
Anemia
hypocalcemia
h/o pericardial effusion
hx of latent TB, s/p treatment
Plan:
-obtain lupus labs (complements, CARL, dsDNA). elevated ESR and CRP. UA with hematuria. UPCR at 7g
-Prednisone drop to 50 mg adjustment per rheumatology
-Benlysta and mycophenolate held as well
-Blood pressure remains labile. continued on YANE + coreg. likely can transition to PO YANE tomorrow
-started on schedule 40IV lasix for volume overload
-am labs pending, remains nonoliguric
-her AMS is concerning for lupus cerebritis vs. PRES vs. hypertensive encephalopathy vs ongoing seizures. will defer to neuro
-
-
Date of Service: December 22, 2023
CC / HPI / ROS
-
Chief Complaint:
JASKARAN
History of Present Illness:
lupus nephritis
AMS
Remains intubated
Hemodynamically stable
Review of Systems:
now extubated
Nonoliguric
Labs
-
Labs:
eGFR 49.79 12/21/23 10:54
Ndv-E-Aswhszyosse Pept 70359 pg/ml 12/18/23 04:27
Albumin 2.3 g/dl (3.5-5.0) L 12/18/23 04:19
Physical Exam
-
Vital Signs:
Vital Signs
Temp Pulse Resp BP Pulse Ox
98.3 F 91 18 204/106 100
12/22/23 11:04 12/22/23 14:49 12/22/23 14:49 12/22/23 14:49 12/22/23 14:49
Cardiovascular:: Regular rate and rhythm
Respiratory:: Bilateral: Coarse
Lung Excursion:: Normal
Abdomen:: Nontender and Soft
Bowel Sounds:: Normal
Extremity Edema:: +3: Bilateral:
Ellis Catheter: Yes
--- NOTE | 2023-12-22 16:16 | W.PN.HOSP.TC ---
Today's Communication/Plan
-
Maintain n.p.o.
Unable to obtain blood work is difficult stick
start on iv decadron for SLE
Assessment / Plan
Assessment / Plan
# Acute hypoxic and hypercapnic respiratory failure
# Vent dependent respiratory failure
-Most likely secondary to acute metabolic encephalopathy +/- pulmonary edema
-Continue vent weaning efforts possible
-Patient feeling cuff leak test likely may have laryngeal edema, patient had difficult intubation. Will be reattempted today.
-Patient already on IV steroid as part of treatment of SLE.
-Patient dysphasic and unable to take oral intake.
#Hypertensive emergency
-Weaned off Cardene drip
-hx of medication non compliance with SLE nephritis
-IV vasotec 0.625mg x q6h ordered
-Will be needed to be restarted on lisinopril/coreg
-PRN hydralazine for SBP > 160
#Acute metabolic encephalopathy
-Suspected hypertensive encephalopathy versus press versus lupus cerebritis
-Unfortunately unable to get MRI brain without contrast to rule out lupus cerebritis
-CT head did not show any acute abnormality
-Repeat CT head done and no new changes - 12/19
-Patient had continuous EEG monitoring. No clear seizure activity
-Patient has been taken off of Keppra.
-LP being considered if patient mentation does not improve
# SLE
-Question of SLE flareup and patient being provided methylprednisolone 40 mg every 12 hours
-Minimal borderline low C3 level. Anti-dsDNA level 1
-Rheumatology evaluated patient and help appreciated, recommended patient to be transition to oral prednisone 50 mg daily once clinically better.
-Patient will be started on mycophenolate and Benlysta on outpatient basis
#CKD 3a
Stage IV lupus nephritis - biopsy in February 25
Nephrotic syndrome
Anasarca
-Nephrology following and help appreciated.
-diffuse swelling of upper/lower ext, 2/2 hypoalbuminemia , weight down trending.
-Lasix dosing per nephrology
# Moraxella catarrhalis pneumonia
-change to unasyn IV, day 5 of abx
#Acute normocytic anemia
-S/p 1 unit of blood transfusion
-No signs of luminal blood loss. Not on any blood thinners.
-Hbg 10.5. contiue monitoring
#Hypokalemia
#Hypocalcemia
� Monitor and replete
#Leukocytosis
� steroid use related vs reactive
#Hyponatremia
�continue monitor
Hx Pericardial effusion 2021
h/o Hydrocephalus s/p v/p shunt
h/o latent TB s/p treatment
DVT Px: SCD
Unable to have blood draw for last 2 days. No blood through coming midline as well. I do not prefer to have a central line placed to collect blood on her. Will reattempt to have a different rafter cutting machine operator try tomorrow if not we will need to discuss
possible central line placement while patient in hospital.
Total critical care time 38 min. Total critical care time documented does not include time spent on separately billed procedures or the services of residents, students, nurses or physician assistants. I personally saw and examined the patient. I
have reviewed all diagnostic interpretations and treatment plans as written. I was present for the walter portions of any procedures performed and the inclusive time noted in any critical care statement. Critical care time includes patient management
by me, time spent at the patients bedside, time to review lab and imaging results, discussing patient care, documentation in the medical record, and time spent with the family or caregiver.
Anticipated Discharge: > 48 hours
Subjective/Interval History
-
Date of Service: December 22, 2023
Patient waking up
Coherent
NG tube in place
No acute events reported overnight
Objective Data
-
Vital Signs:
Vital Signs
Temp Pulse Resp BP Pulse Ox
99 F 92 18 156/81 100
12/22/23 15:05 12/22/23 15:16 12/22/23 15:16 12/22/23 15:16 12/22/23 15:00
I&O
12/21/23 12/22/23 12/23/23
06:59 06:59 06:59
Intake Total 341.3 / 341.3 330 / 330 180 / 180
Output Total 875 / 875 1275 / 1275 350 / 350
Balance -533.7 / -533.7 -945 / -945 -170 / -170
Review of Systems
-
Respiratory: Reports No Symptoms
Cardiac: Reports No Symptoms
Abdomen/GI: Reports No Symptoms
Physical Exam
-
General: Obese; Negative Appears in Distress
HEENT: Oxygen (Intubated on ventilator)
Respiratory: Clear to Auscultation
Cardiac: Regular Rhythm and S1/S2; Negative Murmur
GI: Soft, Nontender and Nondistended
Musculoskeletal: Edema, Right Upper Extrem, Edema, Left Upper Extrem, Edema, Right Lower Extrem and Edema, Left Lower Extrem
Neuro: Awake, Alert, Oriented and No Motor Deficits
Psych: Calm
[2023-12-22] MEDS: LASIX 40 MG IV (16:17)
--- NOTE | 2023-12-22 16:24 | PTCARENOTE ---
Nephrology in to see patient updated orders and plan of cares. Follow up with hospitalist. Patient continues to be difficult stick multiple attempts by nursing and phlebotomy. Will reattempt in am follow up trends, review midline with IV access
team, presently no return on it continue to follow patient care needs. Follow up medications with pharmacy and via Emar. Hourly rounds and frequent patient safety checks ongoing. No changes in assessment.
--- NOTE | 2023-12-22 20:00 | PTCARENOTE ---
Patient received in the chair,asleep, but arousable. Nods head, does not speak much. NSR on monitor, afebrile, blood pressure as documented. Palpable pulses throughout, + anasarca. knee high SCDs maintained. Lungs coarse, pulse ox 97% on 2L.
Occasional moist non productive cough noted. Barron sump in right nare, currently clamped. Abdomen round with hypoactive bowel sounds. Ellis catheter draining yellow urine. Right upper arm midline flushed and patent. Bed alarm for safety. CAll
luciano within reach
--- NOTE | 2023-12-22 20:48 | PTCARENOTE ---
patient assist x 2 back to bed
[2023-12-23] VITALS (13 sets, daily range): BP systolic 139–197; BP diastolic 73–98; BMI 27.2
[2023-12-23] MEDS: VASOTEC 0.625 MG IV ×2 (00:06→05:28)
[2023-12-23] MEDS: UNASYN IV ×2 (02:13→08:13)
--- NOTE | 2023-12-23 04:58 | PTCARENOTE ---
Multiple attempts to draw labs from midline and peripheral stick patient, unsuccessful.
--- NOTE | 2023-12-23 08:40 | W.PN.HOSP.TC ---
Today's Communication/Plan
-
see note
Assessment / Plan
Assessment / Plan
# Acute hypoxic and hypercapnic respiratory failure
# Vent dependent respiratory failure
-Most likely secondary to acute metabolic encephalopathy +/- pulmonary edema
-extubated on 12/20
-Patient already on IV steroid as part of treatment of SLE.
-Patient dysphasic and unable to take oral intake.
-[place] sump to be changed to Dobbhoff and tube feed ordered
#Hypertensive emergency - resolved
Uncontrolled HTN
-Weaned off Cardene drip
-hx of medication non compliance with SLE nephritis
-Increased IV Vasotec to 1.25 mg every every 6 hours
-Patient can be started on oral YANE therapy
-PRN hydralazine for SBP > 160
#Acute metabolic encephalopathy
-Suspected hypertensive encephalopathy versus press versus lupus cerebritis
-Unfortunately unable to get MRI brain without contrast to rule out lupus cerebritis
-CT head did not show any acute abnormality
-Repeat CT head done and no new changes - 12/19
-Patient had continuous EEG monitoring. No clear seizure activity
-Patient has been taken off of Keppra.
-Patient mentation was back to normal yesterday, again in the morning patient sedated and minimally responsive.
-Patient hypoglycemic today with glucose of 58 explaining TME
-Starting D5 NS for now and transition to tube feed once Dobbhoff in
# SLE
-Question of SLE flareup and patient being provided methylprednisolone 40 mg every 12 hours
-Minimal borderline low C3 level. Anti-dsDNA level 1
-Rheumatology evaluated patient and help appreciated, recommended patient to be transition to oral prednisone 50 mg daily once clinically better.
-Patient will be started on mycophenolate and Benlysta on outpatient basis
#CKD 3a
Stage IV lupus nephritis - biopsy in February 25
Nephrotic syndrome
Anasarca
-Nephrology following and help appreciated.
-diffuse swelling of upper/lower ext, 2/2 hypoalbuminemia , weight down trending.
-Unable to obtain blood work as patient is hard stick. No blood work for 48hrs.
-Holding Lasix dose.
-Midline to be changed to PICC line for blood draw. If fails to draw through PICC line will require central line or port placed
# Moraxella catarrhalis pneumonia
-Finished 5 days course of IV antibiotics. Discontinue and monitor
#Acute normocytic anemia
-S/p 1 unit of blood transfusion
-No signs of luminal blood loss. Not on any blood thinners.
-Hbg pending today.
#Hypokalemia
#Hypocalcemia
� Monitor and replete
#Leukocytosis
� steroid use related vs reactive
#Hyponatremia
�continue monitor
Hx Pericardial effusion 2021
h/o Hydrocephalus s/p v/p shunt
h/o latent TB s/p treatment
DVT Px: SCD
Anticipated Discharge: > 48 hours
Subjective/Interval History
-
Date of Service: December 23, 2023
Patient somnolent/sedated in the morning
Oxygen requirement stable
Afebrile in the night
Objective Data
-
Labs:
Laboratory Results
12/22/23 12/23/23
06:00 06:00
WBC Cancelled Pending
Hgb Cancelled Pending
Hct Cancelled Pending
Plt Count Cancelled Pending
Sodium Cancelled Pending
Potassium Cancelled Pending
Chloride Cancelled Pending
Carbon Dioxide Cancelled Pending
BUN Cancelled Pending
Creatinine Cancelled Pending
Glucose Cancelled Pending
Calcium Cancelled Pending
Vital Signs:
Vital Signs
Temp Pulse Resp BP Pulse Ox
97.7 F 74 12 185/85 100
12/23/23 07:45 12/23/23 05:00 12/23/23 05:00 12/23/23 04:00 12/23/23 05:00
I&O
12/22/23 12/23/23 12/24/23
06:59 06:59 06:59
Intake Total 330 / 330 540 / 540
Output Total 1275 / 1275 1010 / 1010
Balance -945 / -945 -470 / -470
Review of Systems
-
Unable to obtain full review of systems at this time due to: Acuity
Physical Exam
-
General: Obese; Negative Appears in Distress
HEENT: Oxygen (Intubated on ventilator) and Other ([place] sump in place on low intermittent suction)
Respiratory: Clear to Auscultation
Cardiac: Regular Rhythm and S1/S2; Negative Murmur
GI: Soft, Nontender and Nondistended
Musculoskeletal: Edema, Right Upper Extrem, Edema, Left Upper Extrem, Edema, Right Lower Extrem and Edema, Left Lower Extrem
Neuro: Negative Awake or Alert
[2023-12-23] MEDS: D5/0.9% SODIUM CHLORIDE 1000 IV ×2 (08:49→21:06)
[2023-12-23 08:50] LABS: Glucose - Point of Care 58 mg/dl (70-99)
[2023-12-23 09:09] LABS: Glucose - Point of Care 118 mg/dl (70-99)
--- NOTE | 2023-12-23 10:00 | PTCARENOTE ---
Received pt with eyes closed.Pt does not follow commands or open eyes to voice.+ localize to noxious stimuli.Dr Lozano made aware.Blood sugar 58.Dextrose IV given as ordered.IVF infusing as ordered.Coarse breath sounds throughout with decreased
bibasilar.POX 97% O2 2l NC.[place] discontinued as per MD order.Dobbhoff placed via right nares as per MD order.X ray obtained.Ellis draining yellow urine.Pt's son at bedside.Plan of care discussed.
[2023-12-23] MEDS: COREG 25 MG TUBE ×2 (10:56→20:32)
[2023-12-23] MEDS: MIRALAX 17 GRAMS TUBE (10:56)
[2023-12-23] MEDS: ASPIRIN 300 MG RECTAL (10:56)
[2023-12-23 11:28] LABS: Hematocrit 33.1 % (37.0-47.0); Hemoglobin 10.9 g/dL (12.0-16.0); Mean Corp Hgb Conc. 32.9 g/dL (33.0-37.0); Mean Corpuscular Hgb 29.2 pg (27.0-31.0); Mean Corpuscular Volume 88.7 fL (81.0-99.0); Mean Platelet Volume 11.6 fL (7.4-10.4); Platelet Count 142 10^3/uL (130-400); Red Blood Cell Count 3.73 10^6/uL (4.20-5.40); Red Cell Dist. Width 14.3 % (11.5-14.5); White Blood Cell Count 3.8 10^3/uL (4.8-10.8)
[2023-12-23 11:38] LABS: Blood Urea Nitrogen 47 mg/dl (7-17); Calcium 7.8 mg/dl (8.4-10.2); Carbon Dioxide 25 mmol/L (22-30); Chloride 114 mmol/L (98-107); Estimated Creatinine Clearance 37 ml/min; Glucose 94 mg/dl (70-99); Potassium 3.1 mmol/L (3.5-5.1); Sodium 140 mmol/L (135-145)
--- NOTE | 2023-12-23 12:00 | PTCARENOTE ---
Pt assessed.eyes open to voice.No verbalization noted.SR noted.IVF infusing.Right midline exchanged to right PICC as ordered.Labs pending.
--- NOTE | 2023-12-23 12:00 | W.PN.NEPH.PH ---
Today's Communication / Plan
-
- extubated
Assessment/Plan
-
Assessment:
AMS
VDRF
Class IV lupus nephritis (on MMF, prednisone, hydroxychloroquine + voclosporin)
CKD (bl Cr around 1.2)
Hydrocephalus s/p FINANCIAL SERVICES REP shunt
hypertensive emergency
nephrotic syndrome
hyponatremia
Anemia
hypocalcemia
h/o pericardial effusion
hx of latent TB, s/p treatment
Plan:
-obtain lupus labs negative. elevated ESR and CRP. C3 slightly low at 82 (unclear of clinical significance). UA with hematuria. UPCR at 7g
-Prednisone drop to 50 mg adjustment per rheumatology
-Benlysta and mycophenolate held as well
-Blood pressure remains labile. continued on YANE + coreg. increased valtec by primary but will just transition to PO lisinopril 20mg BID.
- hydralazine PRN ordered
- if remains elevated, can consider spironolactone addition tomorrow
-started on schedule 40IV lasix for volume overload
-Cr stable at 1.2, remains nonoliguric
-patient was hypoglycemic this AM, more altered than yesterday. Dobhoff being placed
-her AMS is concerning for lupus cerebritis vs. PRES vs. hypertensive encephalopathy vs ongoing seizures. will defer to neuro
-
-
Date of Service: December 23, 2023
CC / HPI / ROS
-
Chief Complaint:
JASKARAN
History of Present Illness:
lupus nephritis
AMS
Remains intubated
Hemodynamically stable
Review of Systems:
now extubated
Nonoliguric
Labs
-
Labs:
WBC 3.8 10^3/uL (4.8-10.8) L 12/23/23 11:07
RBC 3.73 10^6/uL (4.20-5.40) L 12/23/23 11:07
Hgb 10.9 g/dL (12.0-16.0) L 12/23/23 11:07
Hct 33.1 % (37.0-47.0) L 12/23/23 11:07
Plt Count 142 10^3/uL (130-400) 12/23/23 11:07
Sodium 140 mmol/L (135-145) 12/23/23 11:08
Potassium 3.1 mmol/L (3.5-5.1) L 12/23/23 11:08
Chloride 114 mmol/L (98-107) H 12/23/23 11:08
Carbon Dioxide 25 mmol/L (22-30) 12/23/23 11:08
BUN 47 mg/dl (7-17) H 12/23/23 11:08
Creatinine 1.2 mg/dL (0.6-1.0) H 12/23/23 11:08
eGFR 54.80 12/23/23 11:08
Glucose 94 mg/dl (70-99) 12/23/23 11:08
Calcium 7.8 mg/dl (8.4-10.2) L 12/23/23 11:08
Eoo-C-Efewbjdfwsr Pept 77395 pg/ml 12/18/23 04:27
Albumin 2.3 g/dl (3.5-5.0) L 12/18/23 04:19
Physical Exam
-
Vital Signs:
Vital Signs
Temp Pulse Resp BP Pulse Ox
97.7 F 74 12 185/85 100
12/23/23 07:45 12/23/23 05:00 12/23/23 05:00 12/23/23 04:00 12/23/23 05:00
Cardiovascular:: Regular rate and rhythm
Respiratory:: Bilateral: Coarse
Lung Excursion:: Normal
Abdomen:: Nontender and Soft
Bowel Sounds:: Normal
Extremity Edema:: +3: Bilateral:
Ellis Catheter: Yes
[2023-12-23 12:08] LABS: Glucose - Point of Care 105 mg/dl (70-99)
[2023-12-23] MEDS: LASIX 40 MG IV (12:57)
[2023-12-23] MEDS: KCL ELIXIR 40 MEQ TUBE (12:57)
--- NOTE | 2023-12-23 13:30 | W.PN.NEURO.1 ---
Today's Communication / Plan
-
-Remain off levetiracetam
-Follow mental status
-Continue aspirin rectal or oral daily
-Follow blood glucose and renal function
Will follow
Neuro Assessment/Plan
Assessment
53 year old woman with history of lupus and associated nephritis, nephrotic syndrome, hypertension, hydrocephalus s/p CHURN DRILLER HELPER shunt, chronic immune suppression presents to the hospital with significant mental status changes to point of obtundation and
GCS of 6 on arrival to ED, required intubation, findings suggestive of pulmonary edema and respiratory failure. Extreme hypertension as high as 260's systolic on admission.
CT head non contrast and CTA head and neck no acute abnormalities, CT of the head repeated on 12/20/2023 again unremarkable except for severe bilateral maxillary sinusitis
No seizures on EEG, no interictal discharges highly suspicious for underlying seizure disorder.
Highest suspicion is for hypertensive encephalopathy
Ischemic stroke is felt less likely at this point
Lupus related encephalopathy or cerebritis in differential diagnosis less likely based on rapid improvement
Some degree of hypoglycemic induced toxic metabolic encephalopathy and sedatives from intubation present
Subjective/Objective
Subjective Data
Date of Service: December 23, 2023
No acute events, extubated, did have significant hypoglycemia recently
Objective Data
Vital Signs
Temp Pulse Resp BP Pulse Ox
98.1 F 67 12 139/73 99
12/23/23 12:03 12/23/23 13:00 12/23/23 13:00 12/23/23 12:00 12/23/23 13:00
Lab Results
12/23/23 11:07
12/23/23 11:08
PT 12.8 Sec (11.4-14.6) 12/18/23 04:19
INR 0.98 12/18/23 04:19
Sodium 140 mmol/L (135-145) 12/23/23 11:08
Potassium 3.1 mmol/L (3.5-5.1) L 12/23/23 11:08
BUN 47 mg/dl (7-17) H 12/23/23 11:08
Glucose 94 mg/dl (70-99) 12/23/23 11:08
Calcium 7.8 mg/dl (8.4-10.2) L 12/23/23 11:08
Smz-A-Armwuvepjcf Pept [id number] pg/ml 12/18/23 04:27
Patient Allergies
No Known Allergies Allergy (Verified 11/08/23 09:34)
Review of Systems
-
Unable to obtain full review of systems at this time due to: Lethargy
Physical Exam
-
General: No Apparent Distress
Eyes: No Ptosis
HEENT: Normocephalic
Neck: No Bruits Bilaterally
Respiratory: Rales and No Dyspnea; Negative Accessory Resp Muscle Use
Cardiac: Regular Rhythm
GI: Normal Bowel Sounds, Soft and Non-tender
Skin: Unremarkable
Extremities: No Clubbing
Psych: Negative Agitated
Extended Neurological Exam
Mood & Affect: Mood Unremarkable and Affect Unremarkable
Attention Span & Concentration: Other (Awakens to sternal rub, eyes open, tracks, no speech and no obeying commands in Ukrainian)
Memory: Unable to Assess
Tremor: Hand Tremor Absent
Involuntary Movement: None
Speech: Mute
Cranial Nerve II: Left Eye: Pupillary Reactivity Unremarkable and Pupillary Size Unremarkable
Cranial Nerve II: Right Eye: Pupillary Reactivity Unremarkable and Pupillary Size Unremarkable
Cranial Nerves III, IV, : Extraocular Movement: Extraocular Movement Full in all Directions
Muscle Strength, Overall: Other (Withdraws 2/5 throughout,)
Touch Sensation: Withdrawal to Pain
Data Reviewed
-
CT-A: Report Reviewed and Image Reviewed
CT Head: Report Reviewed and Image Reviewed
EEG: Report Reviewed
Labs: Report Reviewed
--- NOTE | 2023-12-23 15:52 | VATNOTE ---
right picc retracted 5cm per radiology md report.
--- NOTE | 2023-12-23 16:40 | PTCARENOTE ---
Pt assessed.No change in assessment noted.
[2023-12-23 17:44] LABS: Glucose - Point of Care 123 mg/dl (70-99)
--- NOTE | 2023-12-23 19:41 | PTCARENOTE ---
Report given to 2 Tan RN.
--- NOTE | 2023-12-23 20:30 | PTCARENOTE ---
Pt transferred to room 2129 from ICU, nonverbal, does not follow commands, family at bedside and concerned comparing her conditions to yesterday, pt keeping eyes closed and mouth/lips closed tight. VS 192/100, 82, T97.8, RR 16, Pox 93% on 2L. Lino.
coreg and lisinopril given, will recheck BP again to assess for PRN hydralazine. TF infusing at 10/hr with 25/hr flush.
[2023-12-23] MEDS: ZESTRIL 20 MG PO (20:32)
[2023-12-23] MEDS: ZESTRIL TUBE (21:09)
[2023-12-23 21:15] LABS: Glucose - Point of Care 128 mg/dl (70-99)
[2023-12-24] VITALS (8 sets, daily range): BP systolic 84–181; BP diastolic 68–109; BMI 26.1
[2023-12-24 01:07] LABS: Glucose - Point of Care 159 mg/dl (70-99)
[2023-12-24 04:07] LABS: Glucose - Point of Care 161 mg/dl (70-99)
--- NOTE | 2023-12-24 09:34 | W.PN.NEURO.1 ---
Today's Communication / Plan
-
-Continue aspirin daily
-Neurologic checks and NIH scales
-Goal normotension
-Check CT head non contrast for new right eye esotropia
-Check lumbar puncture
---If workup unrevealing consider discussion with neurosurgery given so far MRI staff stating not able to do MRI with programable SERVER SOFTWARE ENGINEER shunt
Will follow
Neuro Assessment/Plan
Assessment
53 year old woman with history of lupus and associated nephritis, nephrotic syndrome, hypertension, hydrocephalus s/p SERVER SOFTWARE ENGINEER shunt, chronic immune suppression presents to the hospital with significant mental status changes to point of obtundation and
GCS of 6 on arrival to ED, required intubation, findings suggestive of pulmonary edema and respiratory failure. Extreme hypertension as high as 260's systolic on admission.
CT head non contrast and CTA head and neck no acute abnormalities, CT of the head repeated on 12/20/2023 again unremarkable except for severe bilateral maxillary sinusitis
No seizures on EEG, no interictal discharges highly suspicious for underlying seizure disorder.
Highest suspicion is for hypertensive encephalopathy
Ischemic stroke is felt less likely at this point
Lupus related encephalopathy or cerebritis in differential diagnosis less likely based on rapid improvement
Some degree of hypoglycemic induced toxic metabolic encephalopathy and sedatives from intubation present
12/23 new right eye esotrophia: Could be partial CN 3 palsy due to hypertension, or other causes of CN palsy, small ischemic stroke of ryanne, have aneurysm ruled out with CTA head and neck
Subjective/Objective
Subjective Data
Date of Service: December 24, 2023
No acute events, denies pain, no chest pain or headache, says no problems on the right eye previously no history of strabismus or eye surgery or lazy eye, denies diplopia
Objective Data
Vital Signs
Temp Pulse Resp BP Pulse Ox
98.9 F 84 16 158/91 99
12/24/23 07:15 12/24/23 07:15 12/24/23 07:15 12/24/23 07:15 12/24/23 07:15
Lab Results
12/23/23 11:07
12/23/23 11:08
PT 12.8 Sec (11.4-14.6) 12/18/23 04:19
INR 0.98 12/18/23 04:19
Sodium 140 mmol/L (135-145) 12/23/23 11:08
Potassium 3.1 mmol/L (3.5-5.1) L 12/23/23 11:08
BUN 47 mg/dl (7-17) H 12/23/23 11:08
Glucose 94 mg/dl (70-99) 12/23/23 11:08
Calcium 7.8 mg/dl (8.4-10.2) L 12/23/23 11:08
Ilz-G-Chqgebgypbu Pept 51037 pg/ml 12/18/23 04:27
Patient Allergies
No Known Allergies Allergy (Verified 11/08/23 09:34)
Review of Systems
-
History Source: Patient
All other systems: Reviewed and negative
Constitutional: No Symptoms
EENT: No Symptoms Reported
Respiratory: No Symptoms
Cardiac: No Symptoms
Abdomen/GI: No Symptoms
Genitourinary: No Symptoms
Musculoskeletal: No Symptoms
Skin: No Symptoms
Neuro: No Symptoms
Endocrine: No Symptoms
Hematologic / Lymphatic: No Symptoms
Allergy / Immunology: No Symptoms
Physical Exam
-
General: Comfortable
Eyes: No Ptosis
HEENT: Normocephalic
Neck: No Bruits Bilaterally
Respiratory: Clear to Auscultation
Cardiac: Regular Rhythm
GI: Normal Bowel Sounds
Skin: Unremarkable
Extremities: No Clubbing
Psych: Unremarkable
Extended Neurological Exam
Mood & Affect: Mood Unremarkable and Affect Unremarkable
Attention Span & Concentration: Other (Drowsy, oriented to person, obeys commands consistently)
Memory: Reduced
Tremor: Hand Tremor Absent
Involuntary Movement: None
Speech: Dysarthric; Negative Expressive Aphasia or Receptive Aphasia
Cranial Nerve II: Left Eye: Pupillary Reactivity Unremarkable, Pupillary Size Unremarkable and Visual Lenz Intact
Cranial Nerve II: Right Eye: Pupillary Reactivity Unremarkable, Pupillary Size Unremarkable and Visual Lenz Intact
Cranial Nerves III, IV, : Extraocular Movement: Other (Right eye esotropha, right eye has full abduction elevation and depression, left eye normal position, full EOM on left eye, no ptosis)
Cranial Nerve VII: Facial Symmetry: Normal Facial Symmetry
Muscle Strength, Overall: Other (4/5 arm abduction and hip flexion symmetric)
Pronator Drift: No Drift in Upper Extremities
Touch Sensation: Unremarkable
Babinski Sign: Absent Bilaterally
Data Reviewed
-
CT-A: Report Reviewed and Image Reviewed
CT Head: Report Reviewed and Image Reviewed
EEG: Report Reviewed
Labs: Report Reviewed
[2023-12-24] MEDS: ZESTRIL 20 MG TUBE ×2 (09:40→20:20)
[2023-12-24] MEDS: KCL ELIXIR 40 MEQ TUBE (09:41)
[2023-12-24] MEDS: DELTASONE 50 MG TUBE (09:41)
[2023-12-24] MEDS: COREG 25 MG TUBE ×2 (09:41→20:21)
[2023-12-24] MEDS: ASPIRIN 300 MG RECTAL (09:42)
[2023-12-24] MEDS: LASIX 40 MG IV (09:42)
[2023-12-24] MEDS: MIRALAX 17 GRAMS TUBE (09:43)
--- NOTE | 2023-12-24 10:04 | W.PN.HOSP.TC ---
Today's Communication/Plan
-
see note
Assessment / Plan
Assessment / Plan
# Acute hypoxic and hypercapnic respiratory failure - Improved
# Vent dependent respiratory failure - Resolved
-Most likely secondary to acute metabolic encephalopathy +/- pulmonary edema
-extubated on 12/20
-Patient already on IV steroid as part of treatment of SLE.
-Patient dysphagic and unable to take oral intake.
-Dobbhoff placed on 12/22 on TF now
#Hypertensive emergency - resolved
Uncontrolled HTN
-Weaned off Cardene drip
-hx of medication non compliance with SLE nephritis
-Increased IV Vasotec to 1.25 mg every every 6 hours
-Patient can be started on oral YANE therapy
-PRN hydralazine for SBP > 160
#Acute metabolic encephalopathy
-Suspected hypertensive encephalopathy versus press versus lupus cerebritis
-Unfortunately unable to get MRI brain without contrast to rule out lupus cerebritis
-CT head did not show any acute abnormality
-Cannot get MRI due to CLERK GENERAL OFFICE shunt. Repeat CT head done and no new changes - 12/19
-Patient had continuous EEG monitoring. No clear seizure activity
-Patient has been taken off of Keppra.
-Discussed with neuro and plan to get LP
# SLE
-Question of SLE flareup and patient being provided methylprednisolone 40 mg every 12 hours
-Minimal borderline low C3 level. Anti-dsDNA level 1
-Patient will be started on mycophenolate and Benlysta on outpatient basis by Rheumatology
-Rheumatology evaluated and recommended to be maintained on oral prednisone 50 mg daily at discharge
#CKD 3a
Stage IV lupus nephritis - biopsy in February 25
Nephrotic syndrome
Anasarca
-Nephrology following and help appreciated.
-diffuse swelling of upper/lower ext, 2/2 hypoalbuminemia , weight down trending.
-maintained on IV lasix - f/u BMP ordered for AM
# Strabismus/Esotropia
-Question of possible assorted cranial neuropathy of right nerve, although no papillary changes
-repeat CT head neg for acute abnormalities.
# Moraxella catarrhalis pneumonia
-Finished 5 days course of IV antibiotics. Discontinue and monitor
#Acute normocytic anemia
-S/p 1 unit of blood transfusion
-No signs of luminal blood loss. Not on any blood thinners.
-Hbg pending today.
#Hypokalemia
#Hypocalcemia
� Monitor and replete
#Difficult IV acces
-could not have labs for 2 days due to difficulty with blood draw
-picc line placed for this
#Hyponatremia
�continue monitor
Hx Pericardial effusion 2021
h/o Hydrocephalus s/p v/p shunt
h/o latent TB s/p treatment
DVT PPx: SCD
Care plan discussed with neurology.
Total time spent : 53 mins
I personally saw and examined the patient.
I have reviewed all diagnostic interpretations and treatment plans as written.
Time includes patient management by me, time spent at the patients bedside, time to review lab and imaging results, discussing patient care, documentation in the medical record, and time spent with the family or caregiver and discussing care plan
with RN/Consultants.
Anticipated Discharge: > 48 hours
Subjective/Interval History
-
Date of Service: December 24, 2023
Patient having right eye gaze palsy?
no other reported neuro complaints
Objective Data
-
Vital Signs:
Vital Signs
Temp Pulse Resp BP Pulse Ox
98.9 F 84 16 158/91 99
12/24/23 07:15 12/24/23 09:42 12/24/23 07:15 12/24/23 09:42 12/24/23 07:15
I&O
12/23/23 12/24/23 12/25/23
06:59 06:59 06:59
Intake Total 540 / 540 2135 / 2135
Output Total 1010 / 1010 620 / 620
Balance -470 / -470 1515 / 1515
Review of Systems
-
Respiratory: Reports No Symptoms
Cardiac: Reports No Symptoms
Abdomen/GI: Reports No Symptoms
Physical Exam
-
General: Obese; Negative Appears in Distress
HEENT: Oxygen (Intubated on ventilator) and Other (Double to be placed. Right eye nasal side deviation)
Respiratory: Clear to Auscultation
Cardiac: Regular Rhythm and S1/S2; Negative Murmur
GI: Soft, Nontender and Nondistended
Musculoskeletal: Edema, Right Upper Extrem, Edema, Left Upper Extrem, Edema, Right Lower Extrem and Edema, Left Lower Extrem
Neuro: Awake, Alert and Oriented
--- NOTE | 2023-12-24 10:35 | W.PN.NEPH.PH ---
Today's Communication / Plan
-
Add back nifedipine
Maintain IV Lasix
Assessment/Plan
-
Assessment:
AMS
VDRF
Class IV lupus nephritis (on MMF, prednisone, hydroxychloroquine + voclosporin)
CKD (bl Cr around 1.2)
Hydrocephalus s/p TECHNICAL ADMINISTRATOR shunt
hypertensive emergency
nephrotic syndrome
hyponatremia
Anemia
hypocalcemia
h/o pericardial effusion
hx of latent TB, s/p treatment
Plan:
-obtained lupus labs negative. elevated ESR and CRP. C3 slightly low at 82 (unclear of clinical significance). UA with hematuria. UPCR at 7g
-Prednisone drop to 50 mg adjustment per rheumatology
-Benlysta and mycophenolate held as well
-Blood pressure remains labile. continued on YANE + coreg. Will add back nifedipine today
- hydralazine PRN ordered
-Maintain on schedule 40IV lasix for volume overload, weights decreasing
-Cr stable at 1.2, remains nonoliguric
-Dobbhoff in place
-her AMS is concerning for lupus cerebritis vs. PRES vs. hypertensive encephalopathy vs ongoing seizures. For CAT scan of head today
-
-
Date of Service: December 24, 2023
CC / HPI / ROS
-
Chief Complaint:
JASKARAN
History of Present Illness:
lupus nephritis
Mental status improved
Hemodynamically stable
Review of Systems:
Dobbhoff in place
Nonoliguric
Labs
-
Labs:
WBC 3.8 10^3/uL (4.8-10.8) L 12/23/23 11:07
RBC 3.73 10^6/uL (4.20-5.40) L 12/23/23 11:07
Hgb 10.9 g/dL (12.0-16.0) L 12/23/23 11:07
Hct 33.1 % (37.0-47.0) L 12/23/23 11:07
Plt Count 142 10^3/uL (130-400) 12/23/23 11:07
Sodium 140 mmol/L (135-145) 12/23/23 11:08
Potassium 3.1 mmol/L (3.5-5.1) L 12/23/23 11:08
Chloride 114 mmol/L (98-107) H 12/23/23 11:08
Carbon Dioxide 25 mmol/L (22-30) 12/23/23 11:08
BUN 47 mg/dl (7-17) H 12/23/23 11:08
Creatinine 1.2 mg/dL (0.6-1.0) H 12/23/23 11:08
eGFR 54.80 12/23/23 11:08
Glucose 94 mg/dl (70-99) 12/23/23 11:08
Calcium 7.8 mg/dl (8.4-10.2) L 12/23/23 11:08
Leb-S-Cwoqhuamrco Pept 25736 pg/ml 12/18/23 04:27
Albumin 2.3 g/dl (3.5-5.0) L 12/18/23 04:19
Physical Exam
-
Vital Signs:
Vital Signs
Temp Pulse Resp BP Pulse Ox
98.9 F 84 16 158/91 99
12/24/23 07:15 12/24/23 09:42 12/24/23 07:15 12/24/23 09:42 12/24/23 07:15
Cardiovascular:: Regular rate and rhythm
Respiratory:: Bilateral: Coarse
Lung Excursion:: Normal
Abdomen:: Nontender
Bowel Sounds:: Normal
Extremity Edema:: +1: Bilateral:
Ellis Catheter: Yes
[2023-12-24 12:39] LABS: Glucose - Point of Care 184 mg/dl (70-99)
--- NOTE | 2023-12-24 14:50 | CM ---
Addendum entered by Dinesh Richardson 12/24/23 16:11:
Spoke with son and explained [employer] list. Left list in room. Son will choose at least 6 preferences.
Original Note:
CT head today/esotropia, plan for lumbar puncture. Dobhoff in place. Therapy recommending SNF. Will supply [employer] list and get preferences.
--- NOTE | 2023-12-24 15:39 | PTCARENOTE ---
Patient returned to floor from lumbar puncture. Lay semi-flat for one hour. Will hold tube feed for one hour until patient can sit up. Blood Pressure 181/[address] Lozano notified. Will give prn dose of hydralazine.
[2023-12-24] MEDS: APRESOLINE 10 MG IV (15:42)
[2023-12-24 16:19] LABS: CSF Clarity Clear; CSF Color Xanthochromic; CSF Tube # 3; Red Cell Count/CSF 54 mm^3; White Cell Count/CSF 2 mm^3 (0-5)
[2023-12-24 16:34] LABS: Spinal Fluid Glucose 79 mg/dl (40-70); Spinal Fluid Protein 85 mg/dl (12-60)
[2023-12-25] VITALS (9 sets, daily range): BP systolic 114–195; BP diastolic 73–117; BMI 26.5
[2023-12-25 00:35] LABS: Glucose - Point of Care 184 mg/dl (70-99)
[2023-12-25 04:17] LABS: Hematocrit 28.9 % (37.0-47.0); Hemoglobin 9.3 g/dL (12.0-16.0); Mean Corp Hgb Conc. 32.2 g/dL (33.0-37.0); Mean Corpuscular Hgb 28.8 pg (27.0-31.0); Mean Corpuscular Volume 89.5 fL (81.0-99.0); Mean Platelet Volume 11.6 fL (7.4-10.4); Platelet Count 128 10^3/uL (130-400); Red Blood Cell Count 3.23 10^6/uL (4.20-5.40); Red Cell Dist. Width 14.1 % (11.5-14.5); White Blood Cell Count 3.5 10^3/uL (4.8-10.8)
[2023-12-25 04:44] LABS: Blood Urea Nitrogen 49 mg/dl (7-17); Calcium 7.2 mg/dl (8.4-10.2); Carbon Dioxide 29 mmol/L (22-30); Chloride 117 mmol/L (98-107); Estimated Creatinine Clearance 44 ml/min; Glucose 148 mg/dl (70-99); Potassium 4.3 mmol/L (3.5-5.1); Sodium 142 mmol/L (135-145); eGFR > 60.00
[2023-12-25 07:06] LABS: Glucose - Point of Care 147 mg/dl (70-99)
[2023-12-25] MEDS: DELTASONE 50 MG TUBE (09:03)
[2023-12-25] MEDS: ZESTRIL 20 MG TUBE (09:03)
[2023-12-25] MEDS: ASPIRIN 300 MG RECTAL (09:03)
[2023-12-25] MEDS: LASIX 40 MG IV (09:04)
[2023-12-25] MEDS: COREG 25 MG TUBE (09:04)
[2023-12-25] MEDS: MIRALAX 17 GRAMS TUBE (09:07)
--- NOTE | 2023-12-25 09:15 | W.PN.NEPH.PH ---
Today's Communication / Plan
-
add hydralazine 20mg TID
Assessment/Plan
-
Assessment:
AMS
VDRF
Class IV lupus nephritis (on MMF, prednisone, hydroxychloroquine + voclosporin)
CKD (bl Cr around 1.2)
Hydrocephalus s/p [employer] shunt
hypertensive emergency
nephrotic syndrome
hyponatremia
Anemia
hypocalcemia
h/o pericardial effusion
hx of latent TB, s/p treatment
Plan:
-obtained lupus labs negative. elevated ESR and CRP. C3 slightly low at 82 (unclear of clinical significance). UA with hematuria. UPCR at 7g
-Prednisone drop to 50 mg adjustment per rheumatology
-Benlysta and mycophenolate held as well
- hydralazine PRN ordered
-Blood pressure remains elevated, will add oral hydralazine
-Maintain on schedule 40IV lasix for volume overload, weights decreasing
-Cr stable at 1., remains nonoliguric
-Dobbhoff in place
-
-
Date of Service: December 25, 2023
CC / HPI / ROS
-
Chief Complaint:
JASKARAN
History of Present Illness:
lupus nephritis
Mental status improved
Hemodynamically stable
Review of Systems:
Dobbhoff in place
Nonoliguric
Labs
-
Labs:
WBC 3.5 10^3/uL (4.8-10.8) L 12/25/23 04:09
RBC 3.23 10^6/uL (4.20-5.40) L 12/25/23 04:09
Hgb 9.3 g/dL (12.0-16.0) L 12/25/23 04:09
Hct 28.9 % (37.0-47.0) L 12/25/23 04:09
Plt Count 128 10^3/uL (130-400) L 12/25/23 04:09
Sodium 142 mmol/L (135-145) 12/25/23 04:09
Potassium 4.3 mmol/L (3.5-5.1) D 12/25/23 04:09
Chloride 117 mmol/L (98-107) H 12/25/23 04:09
Carbon Dioxide 29 mmol/L (22-30) 12/25/23 04:09
BUN 49 mg/dl (7-17) H 12/25/23 04:09
Creatinine 1.0 mg/dL (0.6-1.0) 12/25/23 04:09
eGFR > 60.00 12/25/23 04:09
Glucose 148 mg/dl (70-99) H 12/25/23 04:09
Calcium 7.2 mg/dl (8.4-10.2) L 12/25/23 04:09
Cmi-N-Rcykmxaftzx Pept 97030 pg/ml 12/18/23 04:27
Albumin 2.3 g/dl (3.5-5.0) L 12/18/23 04:19
Physical Exam
-
Vital Signs:
Vital Signs
Temp Pulse Resp BP Pulse Ox
98.7 F 98 18 174/97 100
12/25/23 07:00 12/25/23 07:00 12/25/23 07:00 12/25/23 07:00 12/25/23 07:00
Cardiovascular:: Regular rate and rhythm
Respiratory:: Bilateral: Coarse
Lung Excursion:: Normal
Abdomen:: Nontender and Soft
Bowel Sounds:: Normal
Extremity Edema:: +1: Bilateral:
Ellis Catheter: No
Other Findings::
HEENT:dobhof
--- NOTE | 2023-12-25 10:09 | W.PN.HOSP.TC ---
Today's Communication/Plan
-
continue supportive car
started on hydralazine through tube
f/u BP
continue PT and ST eval
Assessment / Plan
Assessment / Plan
# Acute hypoxic and hypercapnic respiratory failure - Improved
# Vent dependent respiratory failure - Resolved
-Most likely secondary to acute metabolic encephalopathy +/- pulmonary edema
-extubated on 12/20
-Patient already on IV steroid as part of treatment of SLE.
-Patient dysphagic and unable to take oral intake.
-Dobbhoff placed on 12/22 on TF now
#Hypertensive emergency - resolved
Uncontrolled HTN
-Weaned off Cardene drip
-hx of medication non compliance with SLE nephritis
-PRN hydralazine for SBP > 160
-Patient currently on oral lisinopril 20 mg twice daily through tube
-Cannot get Procardia through . Started on hydralazine
-will increase coreg dose if needed
#Acute metabolic encephalopathy
-Suspected hypertensive encephalopathy versus press versus lupus cerebritis
-Unfortunately unable to get MRI brain without contrast to rule out lupus cerebritis
-CT head did not show any acute abnormality
-Cannot get MRI due to [employer] shunt. Repeat CT head done and no new changes - 12/19
-Patient had continuous EEG monitoring. No clear seizure activity
-Patient has been taken off of Keppra.
-Repeat CT head remains neg
-LP showing WBC 2 RBC 54 Glu 79 TP 85 Meningitis panel neg
# SLE
-Question of SLE flare-up and patient being provided methylprednisolone 40 mg every 12 hours
-Minimal borderline low C3 level. Anti-dsDNA level 1
-Patient will be started on mycophenolate and Benlysta on outpatient basis by Rheumatology
-Rheumatology evaluated and recommended to be maintained on oral prednisone 50 mg daily at discharge
#CKD 3a
Stage IV lupus nephritis - biopsy in February 25
Nephrotic syndrome
Anasarca
-Nephrology following and help appreciated.
-diffuse swelling of upper/lower ext, 2/2 hypoalbuminemia , weight down trending.
-continue IV lasix 40mg/d. renal function back to normal.
# Strabismus/Esotropia
-Question of possible assorted cranial neuropathy of right nerve, although no papillary changes
-repeat CT head neg for acute abnormalities.
# Moraxella catarrhalis pneumonia
-Finished 5 days course of IV antibiotics. Discontinue and monitor
#Acute normocytic anemia
-S/p 1 unit of blood transfusion
-No signs of luminal blood loss. Not on any blood thinners.
-Hbg remains stable . continue follow.
#Hypokalemia
#Hypocalcemia
� Monitor and replete
#Difficult IV acces
-could not have labs for 2 days due to difficulty with blood draw
-picc line placed for this
#Hyponatremia
�continue monitor
Hx Pericardial effusion 2021
h/o Hydrocephalus s/p v/p shunt
h/o latent TB s/p treatment
DVT PPx: SCD
Care plan discussed with neurology.
Total time spent : 53 mins
I personally saw and examined the patient.
I have reviewed all diagnostic interpretations and treatment plans as written.
Time includes patient management by me, time spent at the patients bedside, time to review lab and imaging results, discussing patient care, documentation in the medical record, and time spent with the family or caregiver and discussing care plan
with RN/Consultants.
Anticipated Discharge: > 48 hours
Subjective/Interval History
-
Date of Service: December 25, 2023
Patient remains hypertensive
Remains communicative and at times coherent, difficult to assess full orientation with language barrier
Continues to have Dobbhoff in for tube feed.
No reported acute issues overnight
Objective Data
-
Labs:
Laboratory Results
12/25/23
04:09
WBC 3.5 L
Hgb 9.3 L
Hct 28.9 L
Plt Count 128 L
Sodium 142
Potassium 4.3 D
Chloride 117 H
Carbon Dioxide 29
BUN 49 H
Creatinine 1.0
Glucose 148 H
Calcium 7.2 L
Vital Signs:
Vital Signs
Temp Pulse Resp BP Pulse Ox
98.7 F 98 18 174/97 100
12/25/23 07:00 12/25/23 09:03 12/25/23 07:00 12/25/23 09:03 12/25/23 07:00
I&O
12/24/23 12/25/23 12/26/23
06:59 06:59 06:59
Intake Total 2135 / 2135
Output Total 620 / 620 550 / 550
Balance 1515 / 1515 -550 / -550
Review of Systems
-
Respiratory: Reports No Symptoms
Cardiac: Reports No Symptoms
Abdomen/GI: Reports No Symptoms
Physical Exam
-
General: Obese; Negative Appears in Distress
HEENT: Oxygen (Intubated on ventilator) and Other (dobhoff in place - on TF. Right eye nasal side deviation)
Respiratory: Clear to Auscultation
Cardiac: Regular Rhythm and S1/S2; Negative Murmur
GI: Soft, Nontender and Nondistended
Musculoskeletal: Edema, Right Upper Extrem, Edema, Left Upper Extrem, Edema, Right Lower Extrem and Edema, Left Lower Extrem
Neuro: Awake, Alert and Oriented
--- NOTE | 2023-12-25 12:49 | PTOTSP ---
SPEECH THERAPY SWALLOW FOLLOW UP:
Patient exhibits clinical signs of oropharyngeal dysphagia, likely acutely related to recent endotracheal intubation and acute metabolic encephalopathy. Appears with improved level of alertness. Denied history of dysphagia or pneumonia. CXR much
improved. Patient remains at risk for aspiration due to impulsivity. Recommend begin conservative diet of IDDSI Level 4 Puree and thin liquids with Strict aspiration precautions includin:1 assist/100% supervision; Medications whole in puree; NO
STRAW; Small single sips/bites; Upright positioning; Only feed when awake/alert; Monitor for signs of aspiration and d/c oral diet if any signs of aspiration or decline in mental or respiratory status. Increase mobility as able/tolerated and oral
care 3x/day to decrease risk for nosocomial infection. Speech therapy to follow, monitor CXR and labs, assess diet tolerance and modify as appropriate, determine indication for VFSS if warranted, and provide continued diagnostic swallow therapy as
appropriate. Educated pt and family on aspiration risks/precautions. All questions answered. Discussed recommendations with Dr. Lozano and TRINI Lanids via tiger text.
RECOMMEND:
1) IDDSI Level 4 Puree and thin liquids
2) Medications whole in puree
3) Strict aspiration precautions includin:1 assist/100% supervision; NO STRAW; Small single sips/bites; Upright positioning; Only feed when awake/alert; Monitor for signs of aspiration and d/c oral diet if any signs of aspiration or decline in
mental or respiratory status. Increase mobility as able/tolerated and oral care 3x/day to decrease risk for nosocomial infection
4) Speech therapy to follow, monitor CXR and labs, assess diet tolerance and modify as appropriate, determine indication for VFSS if warranted, and provide continued diagnostic swallow therapy as appropriate
[2023-12-25] MEDS: APRESOLINE 20 MG PO ×2 (15:28→23:04)
--- NOTE | 2023-12-25 15:33 | PTCARENOTE ---
pt on RA this shift, no signs of respiratory distress, per speech therapy she is on IDDS4 diet no straw, with supervision, tolerated her lunch with no issues today.
[2023-12-25] MEDS: PROCARDIA XL (EXTENDED RELEASE) 60 MG PO (15:39)
--- NOTE | 2023-12-25 18:06 | W.PN.NEURO.1 ---
Today's Communication / Plan
-
sign off
Neuro Assessment/Plan
Assessment
53 year old woman with history of lupus and associated nephritis, nephrotic syndrome, hypertension, hydrocephalus s/p [employer] shunt, chronic immune suppression presents to the hospital with significant mental status changes to point of obtundation and
GCS of 6 on arrival to ED, required intubation, findings suggestive of pulmonary edema and respiratory failure. Extreme hypertension as high as 260's systolic on admission. Mental status has improved significantly today per multiple family members
at bedside. Apparently has stabismus at baseline--CTA head/neck already done which showed no aneurysm when this history was not known.
CT head non contrast and CTA head and neck no acute abnormalities, CT of the head repeated on 12/20/2023 again unremarkable except for severe bilateral maxillary sinusitis
No seizures on EEG, no interictal discharges highly suspicious for underlying seizure disorder.
[employer] shunt is not MRI compatible.
Highest suspicion is for hypertensive encephalopathy
Ischemic stroke is felt less likely at this point
Lupus related encephalopathy or cerebritis in differential diagnosis less likely based on rapid improvement
Some degree of hypoglycemic induced toxic metabolic encephalopathy and sedatives from intubation present.
Plan
-Unable to receive MRI brain due to programable [employer] shunt
-Would continue aspirin until discharge
-Neurologic checks
Neurology is signing off. Please call with any further questions. Reviewed with Dr. Lozano who is in agreement.
Subjective/Objective
Subjective Data
Date of Service: December 25, 2023
mental status significantly improved per family at bedside, much more talkative than prior in hospitalization per family
Objective Data
Vital Signs
Temp Pulse Resp BP Pulse Ox
97.8 F 108 18 182/116 98
12/25/23 15:00 12/25/23 15:28 12/25/23 15:00 12/25/23 15:28 12/25/23 15:00
Lab Results
12/25/23 04:09
12/25/23 04:09
PT 12.8 Sec (11.4-14.6) 12/18/23 04:19
INR 0.98 12/18/23 04:19
Sodium 142 mmol/L (135-145) 12/25/23 04:09
Potassium 4.3 mmol/L (3.5-5.1) D 12/25/23 04:09
BUN 49 mg/dl (7-17) H 12/25/23 04:09
Glucose 148 mg/dl (70-99) H 12/25/23 04:09
Calcium 7.2 mg/dl (8.4-10.2) L 12/25/23 04:09
Jco-H-Cxsouslckab Pept 10784 pg/ml 12/18/23 04:27
Patient Allergies
No Known Allergies Allergy (Verified 11/08/23 09:34)
Physical Exam
-
Mood & Affect: Mood Unremarkable and Affect Unremarkable
Attention Span & Concentration: awake, alert, followed all commands, oriented x3, only question she could not answer was the name of the president--4 family members at bedside; they stated she would not know the name of the president at baseline
Tremor: Hand Tremor Absent
Involuntary Movement: None
Speech: Dysarthric; Negative Expressive Aphasia or Receptive Aphasia
Cranial Nerve II: Left Eye: Pupillary Reactivity Unremarkable, Pupillary Size Unremarkable and Visual Lenz Intact
Cranial Nerve II: Right Eye: Pupillary Reactivity Unremarkable, Pupillary Size Unremarkable and Visual Lenz Intact
Cranial Nerves III, IV, : Extraocular Movement: Other (Right eye esotropia, right eye has full abduction elevation and depression, left eye normal position, full EOM on left eye, no ptosis)
Cranial Nerve VII: Facial Symmetry: Normal Facial Symmetry
Muscle Strength, Overall: Other (5-/5 arm abduction and hip flexion symmetric)
Pronator Drift: No Drift in Upper Extremities
Touch Sensation: Unremarkable
Babinski Sign: Absent Bilaterally
[2023-12-25] MEDS: APRESOLINE 10 MG IV (18:28)
[2023-12-25] MEDS: ZESTRIL 20 MG PO (20:08)
[2023-12-25] MEDS: COREG 25 MG PO (20:08)
[2023-12-25 21:35] LABS: Glucose - Point of Care 234 mg/dl (70-99)
[2023-12-26] VITALS (7 sets, daily range): BP systolic 110–150; BP diastolic 71–90; BMI 28.7
--- NOTE | 2023-12-26 00:05 | PTCARENOTE ---
Conrad noted to have only 25ml of cloudy yellow urine with sediment at 2300. Discussed with eun CLANCY. Bladder scan done which said 175ml. Pt has +2-3 anasarca so unsure if this is accurate. Conrad flushed with sterile H2O and returned only flush
liquid. Conrad then replaced with #16 polish conrad. Return of 5ml cloudy yellow urine. Eun CLANCY notified. No further orders at this time.
--- NOTE | 2023-12-26 02:23 | PTCARENOTE ---
Pt has had 30 ml urine out in conrad for last 2 hours. House HAIRSPRING I INSPECTOR notified. No new orders
[2023-12-26 04:41] LABS: Hematocrit 27.1 % (37.0-47.0); Hemoglobin 8.8 g/dL (12.0-16.0); Mean Corp Hgb Conc. 32.5 g/dL (33.0-37.0); Mean Corpuscular Hgb 28.8 pg (27.0-31.0); Mean Corpuscular Volume 88.6 fL (81.0-99.0); Mean Platelet Volume 11.6 fL (7.4-10.4); Platelet Count 150 10^3/uL (130-400); Red Blood Cell Count 3.06 10^6/uL (4.20-5.40); Red Cell Dist. Width 13.7 % (11.5-14.5); White Blood Cell Count 5.2 10^3/uL (4.8-10.8)
[2023-12-26 05:14] LABS: Blood Urea Nitrogen 55 mg/dl (7-17); Calcium 7.3 mg/dl (8.4-10.2); Carbon Dioxide 26 mmol/L (22-30); Estimated Creatinine Clearance 37 ml/min; Glucose 98 mg/dl (70-99)
[2023-12-26 05:20] LABS: Chloride 111 mmol/L (98-107); Potassium 4.4 mmol/L (3.5-5.1); Sodium 135 mmol/L (135-145)
--- NOTE | 2023-12-26 06:22 | PTCARENOTE ---
Pt remains with poor urine output. House CLINICAL SAFETY SPECIALIST aware.
[2023-12-26] MEDS: MIRALAX 17 GRAMS PO (08:25)
[2023-12-26] MEDS: COREG 25 MG PO ×2 (08:26→21:20)
[2023-12-26] MEDS: PROCARDIA XL (EXTENDED RELEASE) 60 MG PO ×2 (08:29→21:19)
[2023-12-26] MEDS: APRESOLINE 20 MG PO ×3 (08:29→22:26)
[2023-12-26] MEDS: ZESTRIL 20 MG PO ×2 (08:32→21:20)
[2023-12-26] MEDS: DELTASONE 50 MG PO (08:32)
[2023-12-26] MEDS: LOW STRENGTH ASPIRIN 81 MG PO (08:32)
[2023-12-26] MEDS: LASIX 40 MG IV (08:54)
--- NOTE | 2023-12-26 10:32 | W.PN.NEPH.PH ---
Today's Communication / Plan
-
Lasix changed to p.o. 80 mg daily
Assessment/Plan
-
Assessment:
AMS
VDRF
Class IV lupus nephritis (on MMF, prednisone, hydroxychloroquine + voclosporin)
CKD (bl Cr around 1.2)
Hydrocephalus s/p [employer] shunt
hypertensive emergency
nephrotic syndrome
hyponatremia
Anemia
hypocalcemia
h/o pericardial effusion
hx of latent TB, s/p treatment
Plan:
-obtained lupus labs negative. elevated ESR and CRP. C3 slightly low at 82 (unclear of clinical significance). UA with hematuria. UPCR at 7g
-Prednisone drop to 50 mg adjustment per rheumatology
-Benlysta and mycophenolate held as well
- hydralazine PRN ordered
-Blood pressure improving on combination of carvedilol recent addition of hydralazine and lisinopril
-Will change Lasix to p.o. 80 mg daily today
-Ellis exchanged last evening due to decreased urine output
-Cr stable at 1.2, remains nonoliguric
-Dobbhoff in place
-
-
Date of Service: December 26, 2023
CC / HPI / ROS
-
Chief Complaint:
JASKARAN
History of Present Illness:
lupus nephritis
Mental status improved
Creatinine stable at 1 point
Hemodynamically stable
Review of Systems:
Dobbhoff in place
Nonoliguric
Labs
-
Labs:
WBC 5.2 10^3/uL (4.8-10.8) 12/26/23 04:22
RBC 3.06 10^6/uL (4.20-5.40) L 12/26/23 04:22
Hgb 8.8 g/dL (12.0-16.0) L 12/26/23 04:22
Hct 27.1 % (37.0-47.0) L 12/26/23 04:22
Plt Count 150 10^3/uL (130-400) 12/26/23 04:22
Sodium 135 mmol/L (135-145) 12/26/23 04:22
Potassium 4.4 mmol/L (3.5-5.1) 12/26/23 04:22
Chloride 111 mmol/L (98-107) H 12/26/23 04:22
Carbon Dioxide 26 mmol/L (22-30) 12/26/23 04:22
BUN 55 mg/dl (7-17) H 12/26/23 04:22
Creatinine 1.2 mg/dL (0.6-1.0) H 12/26/23 04:22
eGFR 54.80 12/26/23 04:22
Glucose 98 mg/dl (70-99) 12/26/23 04:22
Calcium 7.3 mg/dl (8.4-10.2) L 12/26/23 04:22
Ajb-J-Fdheatvednz Pept 36950 pg/ml 12/18/23 04:27
Albumin 2.3 g/dl (3.5-5.0) L 12/18/23 04:19
Physical Exam
-
Vital Signs:
Vital Signs
Temp Pulse Resp BP Pulse Ox
98.8 F 86 18 130/78 97
12/26/23 07:15 12/26/23 08:32 12/26/23 07:15 12/26/23 08:32 12/26/23 07:15
Cardiovascular:: Regular rate and rhythm
Respiratory:: Bilateral: Coarse
Lung Excursion:: Normal
Abdomen:: Nontender
Bowel Sounds:: Normal
Extremity Edema:: +1: Bilateral:
Ellis Catheter: Yes
--- NOTE | 2023-12-26 12:05 | W.PN.HOSP.TC ---
Today's Communication/Plan
-
switch to po lasix
remove dobhoff
continue to reassess and advance diet as tolerated
Assessment / Plan
Assessment / Plan
# Acute hypoxic and hypercapnic respiratory failure - Improved
# Vent dependent respiratory failure - Resolved
-Most likely secondary to acute metabolic encephalopathy +/- pulmonary edema
-extubated on 12/20
-Patient already on IV steroid as part of treatment of SLE.
-Patient was dysphagia, was unable to take orals at that time.
-Dobbhoff placed on 12/22�can discontinue as tolerated diet now
#Hypertensive emergency - resolved
Uncontrolled HTN
-Weaned off Cardene drip
-hx of medication non compliance with SLE nephritis
-PRN hydralazine for SBP > 160
Continue lisinopril 20 mg daily
-Procardia
- Started on hydralazine
-will increase coreg dose if needed
#Acute metabolic encephalopathy
-Suspected hypertensive encephalopathy versus press versus lupus cerebritis
-Unfortunately unable to get MRI brain without contrast to rule out lupus cerebritis
-CT head did not show any acute abnormality
-Cannot get MRI due to NURSE WOUND shunt. Repeat CT head done and no new changes - 12/19
-Patient had continuous EEG monitoring. No clear seizure activity
-Patient has been taken off of Keppra.
-Repeat CT head remains neg
-LP showing WBC 2 RBC 54 Glu 79 TP 85 Meningitis panel neg
# SLE
-Question of SLE flare-up and patient being provided methylprednisolone 40 mg every 12 hours
-Minimal borderline low C3 level. Anti-dsDNA level 1
-Patient will be started on mycophenolate and Benlysta on outpatient basis by Rheumatology
-Rheumatology evaluated and recommended to be maintained on oral prednisone 50 mg daily at discharge
#CKD 3a
Stage IV lupus nephritis - biopsy in February 25
Nephrotic syndrome
Anasarca
-Nephrology following and help appreciated.
-diffuse swelling of upper/lower ext, 2/2 hypoalbuminemia , weight down trending.
-Switch IV Lasix to p.o. Lasix
# Strabismus/Esotropia
-Question of possible assorted cranial neuropathy of right nerve, although no papillary changes
-repeat CT head neg for acute abnormalities.
# Moraxella catarrhalis pneumonia
-Finished 5 days course of IV antibiotics. Discontinue and monitor
#Acute normocytic anemia
-S/p 1 unit of blood transfusion
-No signs of luminal blood loss. Not on any blood thinners.
-Hbg remains stable . continue follow.
#Hypokalemia
#Hypocalcemia
� Monitor and replete
#Difficult IV access
-could not have labs for 2 days due to difficulty with blood draw
-picc line placed for this
#Hyponatremia
�continue monitor
Hx Pericardial effusion 2021
h/o Hydrocephalus s/p v/p shunt
h/o latent TB s/p treatment
DVT PPx: SCD
Care plan discussed with neurology.
Total time spent : 52 mins
I personally saw and examined the patient.
I have reviewed all diagnostic interpretations and treatment plans as written.
Time includes patient management by me, time spent at the patients bedside, time to review lab and imaging results, discussing patient care, documentation in the medical record, and time spent with the family or caregiver and discussing care plan
with RN/Consultants.
Anticipated Discharge: 24 - 48 hours
Subjective/Interval History
-
Date of Service: December 26, 2023
Patient tolerating diet well
Objective Data
-
Labs:
Laboratory Results
12/26/23
04:22
WBC 5.2
Hgb 8.8 L
Hct 27.1 L
Plt Count 150
Sodium 135
Potassium 4.4
Chloride 111 H
Carbon Dioxide 26
BUN 55 H
Creatinine 1.2 H
Glucose 98
Calcium 7.3 L
Vital Signs:
Vital Signs
Temp Pulse Resp BP Pulse Ox
97.7 F 89 20 110/71 97
12/26/23 11:00 12/26/23 11:00 12/26/23 11:00 12/26/23 11:00 12/26/23 11:00
I&O
12/25/23 12/26/23 12/27/23
06:59 06:59 06:59
Intake Total 1360 / 1360
Output Total 550 / 550 635 / 635
Balance -550 / -550 725 / 725
Review of Systems
-
History Source: Patient
All other systems: Not reviewed unless documented
Physical Exam
-
General: Obese; Negative Appears in Distress
HEENT: Oxygen (Intubated on ventilator) and Other (dobhoff in place - on TF. Right eye nasal side deviation)
Respiratory: Clear to Auscultation
Cardiac: Regular Rhythm and S1/S2; Negative Murmur
GI: Soft, Nontender and Nondistended
Musculoskeletal: Edema, Right Upper Extrem, Edema, Left Upper Extrem, Edema, Right Lower Extrem and Edema, Left Lower Extrem
Neuro: Awake, Alert and Oriented
Data Reviewed
-
Diagnostic Radiology: Image personally visualized and interpreted and Report Reviewed by me
CT Scan: Image personally visualized and interpreted and Report Reviewed by me
Labs: Labs Reviewed by me and Discussed with Family
--- NOTE | 2023-12-26 12:33 | PTCARENOTE ---
Dobhoff removed by nursing, no issues, pt resting in bed with family at bedside
[2023-12-26 14:51] LABS: C.neoformans Antigen Negative (Negative)
--- NOTE | 2023-12-26 17:33 | PTCARENOTE ---
pt tolerating diet without cough, sitting up in the chair for dinner, able to transfer x2 with RW.
--- NOTE | 2023-12-26 17:35 | PTCARENOTE ---
Ellis drained 300 ml of yellow clear urine.
[2023-12-27] VITALS (9 sets, daily range): BP systolic 99–120; BP diastolic 63–75; O2SAT 93; BMI 29.3
[2023-12-27 05:25] LABS: Hematocrit 25.9 % (37.0-47.0); Hemoglobin 8.6 g/dL (12.0-16.0); Mean Corp Hgb Conc. 33.2 g/dL (33.0-37.0); Mean Corpuscular Hgb 29.2 pg (27.0-31.0); Mean Corpuscular Volume 87.8 fL (81.0-99.0); Mean Platelet Volume 11.1 fL (7.4-10.4); Platelet Count 185 10^3/uL (130-400); Red Blood Cell Count 2.95 10^6/uL (4.20-5.40); Red Cell Dist. Width 13.6 % (11.5-14.5); White Blood Cell Count 6.4 10^3/uL (4.8-10.8)
[2023-12-27 06:03] LABS: Blood Urea Nitrogen 57 mg/dl (7-17); Calcium 7.2 mg/dl (8.4-10.2); Carbon Dioxide 28 mmol/L (22-30); Chloride 106 mmol/L (98-107); Estimated Creatinine Clearance 38 ml/min; Glucose 93 mg/dl (70-99); Potassium 4.7 mmol/L (3.5-5.1); Sodium 130 mmol/L (135-145)
[2023-12-27] MEDS: PROCARDIA XL (EXTENDED RELEASE) 60 MG PO ×2 (08:31→20:31)
[2023-12-27] MEDS: ZESTRIL 20 MG PO ×2 (08:32→20:31)
[2023-12-27] MEDS: APRESOLINE 20 MG PO ×3 (08:32→22:22)
[2023-12-27] MEDS: MIRALAX 17 GRAMS PO (08:33)
[2023-12-27] MEDS: COREG 25 MG PO ×2 (08:33→20:31)
[2023-12-27] MEDS: LOW STRENGTH ASPIRIN 81 MG PO (08:33)
[2023-12-27] MEDS: DELTASONE 50 MG PO (08:33)
[2023-12-27] MEDS: LASIX 80 MG PO (08:33)
[2023-12-27 09:45] LABS: Blood Urea Nitrogen 58 mg/dl (7-17); Calcium 7.4 mg/dl (8.4-10.2); Carbon Dioxide 26 mmol/L (22-30); Chloride 106 mmol/L (98-107); Estimated Creatinine Clearance 42 ml/min; Glucose 91 mg/dl (70-99); Potassium 4.6 mmol/L (3.5-5.1); Sodium 130 mmol/L (135-145); eGFR > 60.00
--- NOTE | 2023-12-27 11:19 | W.PN.NEPH.PH ---
Today's Communication / Plan
-
follow BMP
Assessment/Plan
-
Assessment:
AMS
VDRF
Class IV lupus nephritis (on MMF, prednisone, hydroxychloroquine + voclosporin)
CKD (bl Cr around 1.2)
Hydrocephalus s/p [employer] shunt
hypertensive emergency
nephrotic syndrome
hyponatremia
Anemia
hypocalcemia
h/o pericardial effusion
hx of latent TB, s/p treatment
Plan:
-po lasix
-only on po prednisone for immunosuppression
-OP rheum f/u
-follow BMP
-follow po intake
-
-
Date of Service: December 27, 2023
CC / HPI / ROS
-
Chief Complaint:
JASKARAN
History of Present Illness:
lupus nephritis
Mental status improved
Creatinine stable at 1.1
Hgb stable low 8.6
Hemodynamically stable
Review of Systems:
says edema is improving
Nonoliguric
Labs
-
Labs:
WBC 6.4 10^3/uL (4.8-10.8) 12/27/23 05:11
RBC 2.95 10^6/uL (4.20-5.40) L 12/27/23 05:11
Hgb 8.6 g/dL (12.0-16.0) L 12/27/23 05:11
Hct 25.9 % (37.0-47.0) L 12/27/23 05:11
Plt Count 185 10^3/uL (130-400) D 12/27/23 05:11
Sodium 130 mmol/L (135-145) L 12/27/23 09:07
Potassium 4.6 mmol/L (3.5-5.1) 12/27/23 09:07
Chloride 106 mmol/L (98-107) 12/27/23 09:07
Carbon Dioxide 26 mmol/L (22-30) 12/27/23 09:07
BUN 58 mg/dl (7-17) H 12/27/23 09:07
Creatinine 1.1 mg/dL (0.6-1.0) H 12/27/23 09:07
eGFR > 60.00 12/27/23 09:07
Glucose 91 mg/dl (70-99) 12/27/23 09:07
Calcium 7.4 mg/dl (8.4-10.2) L 12/27/23 09:07
Xqi-C-Mxrznhmugus Pept 62782 pg/ml 12/18/23 04:27
Albumin 2.3 g/dl (3.5-5.0) L 12/18/23 04:19
Physical Exam
-
Vital Signs:
Vital Signs
Temp Pulse Resp BP Pulse Ox
97.8 F 86 16 109/74 98
12/27/23 07:00 12/27/23 08:33 12/27/23 07:00 12/27/23 08:33 12/27/23 07:00
Cardiovascular:: Regular rate and rhythm
Respiratory:: Bilateral: Coarse
Lung Excursion:: Normal
Abdomen:: Nontender and Soft
Bowel Sounds:: Normal
Extremity Edema:: +2: Bilateral:
--- NOTE | 2023-12-27 12:42 | W.PN.HOSP.TC ---
Today's Communication/Plan
-
monitor bmp
Assessment / Plan
Assessment / Plan
General: Obese; Negative Appears in Distress
HEENT:Dobhoff out; Right eye nasal side deviation)
Respiratory: Clear to Auscultation
Cardiac: Regular Rhythm and S1/S2; Negative Murmur
GI: Soft, Nontender and Nondistended
Musculoskeletal: Edema, Right Upper Extrem, Edema, Left Upper Extrem, Edema, Right Lower Extrem and Edema, Left Lower Extrem
Neuro: Awake, Alert and Oriented
# Acute hypoxic and hypercapnic respiratory failure - Improved
# Vent dependent respiratory failure - Resolved
-Most likely secondary to acute metabolic encephalopathy +/- pulmonary edema
-extubated on 12/20
-Patient already on IV steroid as part of treatment of SLE.
-Patient was dysphagia, was unable to take orals at that time. - Now tolerated pureed - adv as tolerated
-Dobbhoff placed on 12/22�dced on 12/25
#Hypertensive emergency - resolved
Uncontrolled HTN
-Weaned off Cardene drip
-hx of medication non compliance with SLE nephritis
-PRN hydralazine for SBP > 160
Continue lisinopril 20 mg daily
-Procardia
- Started on hydralazine
-will increase coreg dose if needed
#Hyponatremia
-monitor to ensure not dropping further now that on PO diet
-renal following
#Acute metabolic encephalopathy, resolved
-Suspected hypertensive encephalopathy versus press versus lupus cerebritis
-Unfortunately unable to get MRI brain without contrast to rule out lupus cerebritis
-CT head did not show any acute abnormality
-Cannot get MRI due to PINION POLISHER shunt. Repeat CT head done and no new changes - 12/19
-Patient had continuous EEG monitoring. No clear seizure activity
-Patient has been taken off of Keppra.
-Repeat CT head remains neg
-LP showing WBC 2 RBC 54 Glu 79 TP 85 Meningitis panel neg
# SLE
-Question of SLE flare-up and patient being provided methylprednisolone 40 mg every 12 hours
-Minimal borderline low C3 level. Anti-dsDNA level 1
-Patient will be started on mycophenolate and Benlysta on outpatient basis by Rheumatology
-Rheumatology evaluated and recommended to be maintained on oral prednisone 50 mg daily at discharge
#CKD 3a
Stage IV lupus nephritis - biopsy in February 25
Nephrotic syndrome
Anasarca
-Nephrology following and help appreciated.
-diffuse swelling of upper/lower ext, 2/2 hypoalbuminemia , weight down trending.
-Switch IV Lasix to p.o. Lasix
# Strabismus/Esotropia
-Question of possible assorted cranial neuropathy of right nerve, although no papillary changes
-repeat CT head neg for acute abnormalities.
# Moraxella catarrhalis pneumonia
-Finished 5 days course of IV antibiotics. Discontinue and monitor
#Acute normocytic anemia
-S/p 1 unit of blood transfusion
-No signs of luminal blood loss. Not on any blood thinners.
-Hbg remains stable . continue follow.
#Hypokalemia
#Hypocalcemia
� Monitor and replete
#Difficult IV access
-could not have labs for 2 days due to difficulty with blood draw
-picc line placed for this
#Hyponatremia
�continue monitor
Hx Pericardial effusion 2021
h/o Hydrocephalus s/p v/p shunt
h/o latent TB s/p treatment
DVT PPx: SCD
Anticipated Discharge: 24 - 48 hours
Subjective/Interval History
-
Date of Service: December 27, 2023
no acute events
Objective Data
-
Labs:
Laboratory Results
12/27/23 12/27/23
05:11 09:07
WBC 6.4
Hgb 8.6 L
Hct 25.9 L
Plt Count 185 D
Sodium 130 L 130 L
Potassium 4.7 4.6
Chloride 106 106
Carbon Dioxide 28 26
BUN 57 H 58 H
Creatinine 1.2 H 1.1 H
Glucose 93 91
Calcium 7.2 L 7.4 L
Vital Signs:
Vital Signs
Temp Pulse Resp BP Pulse Ox
98.0 F 87 17 107/63 95
12/27/23 11:31 12/27/23 11:31 12/27/23 11:31 12/27/23 11:31 12/27/23 11:31
I&O
12/26/23 12/27/23 12/28/23
06:59 06:59 06:59
Intake Total 1360 / 1360 900 / 900
Output Total 635 / 635 575 / 575
Balance 725 / 725 325 / 325
Review of Systems
-
History Source: Patient
All other systems: Not reviewed unless documented
Data Reviewed
-
Diagnostic Radiology: Image personally visualized and interpreted and Report Reviewed by me
CT Scan: Image personally visualized and interpreted and Report Reviewed by me
Labs: Labs Reviewed by me and Discussed with Family
--- NOTE | 2023-12-27 16:28 | CM ---
Addendum entered by Dinesh Richardson 12/27/23 16:36:
Called and spoke with patient's son with patient present. Family wants patient to return home. Family will care for her and have 29/03 caretakers.
Original Note:
Francy D/cd 12/25, pureed diet, advance as tolerated. Discharge Plan of Care: Therapy recommendation for SNF. [employer] list provided to patient and left in room for family. Awaiting preferences.
[2023-12-27] MEDS: HEPARIN 5000 UNITS SC (16:48)
[2023-12-28] MEDS: HEPARIN 5000 UNITS SC ×3 (00:24→17:33)
[2023-12-28 03:19] VITALS: BP 124/77
[2023-12-28 05:43] VITALS: BMI 29.0
[2023-12-28 06:19] LABS: Mean Corp Hgb Conc. 33.3 g/dL (33.0-37.0); Mean Corpuscular Hgb 28.7 pg (27.0-31.0); Mean Platelet Volume 11.5 fL (7.4-10.4); Platelet Count 217 10^3/uL (130-400); Red Blood Cell Count 2.79 10^6/uL (4.20-5.40); Red Cell Dist. Width 13.9 % (11.5-14.5); White Blood Cell Count 7.2 10^3/uL (4.8-10.8)
[2023-12-28 07:01] LABS: Blood Urea Nitrogen 65 mg/dl (7-17); Calcium 7.2 mg/dl (8.4-10.2); Carbon Dioxide 26 mmol/L (22-30); Chloride 107 mmol/L (98-107); Estimated Creatinine Clearance 33 ml/min; Glucose 86 mg/dl (70-99); Sodium 129 mmol/L (135-145); eGFR 45.55
[2023-12-28 07:50] VITALS: BP 85/50
[2023-12-28] MEDS: DELTASONE 50 MG PO (08:58)
[2023-12-28] MEDS: LASIX 80 MG PO (08:58)
[2023-12-28] MEDS: ZESTRIL 20 MG PO ×2 (09:00→21:16)
[2023-12-28] MEDS: APRESOLINE 20 MG PO ×2 (09:00→21:15)
[2023-12-28] MEDS: COREG 25 MG PO ×2 (09:01→21:16)
[2023-12-28] MEDS: PROCARDIA XL (EXTENDED RELEASE) 60 MG PO ×2 (09:01→21:16)
[2023-12-28] MEDS: MIRALAX PO (09:01)
[2023-12-28] MEDS: LOW STRENGTH ASPIRIN 81 MG PO (09:01)
[2023-12-28 11:30] VITALS: BP 104/65
--- NOTE | 2023-12-28 11:35 | W.PN.NEPH.PH ---
Today's Communication / Plan
-
reduce hydralazine
Assessment/Plan
-
Assessment:
AMS
VDRF
Class IV lupus nephritis (on MMF, prednisone, hydroxychloroquine + voclosporin)
CKD (bl Cr around 1.2)
Hydrocephalus s/p SCRUB WHEEL OPERATOR shunt
hypertensive emergency
nephrotic syndrome
hyponatremia
Anemia
hypocalcemia
h/o pericardial effusion
hx of latent TB, s/p treatment
Plan:
-po lasix
-only on po prednisone for immunosuppression
-OP rheum f/u
-follow BMP
-follow po intake
-reduce hydralazine to BID
-
-
Date of Service: December 28, 2023
CC / HPI / ROS
-
Chief Complaint:
JASKARAN
History of Present Illness:
lupus nephritis
Mental status improved
Creatinine up to 1.4
BUN rising on steroids
Hgb stable low 8.0
Hemodynamically stable, slightly low
Review of Systems:
says edema is improving
Nonoliguric
Labs
-
Labs:
WBC 7.2 10^3/uL (4.8-10.8) 12/28/23 05:39
RBC 2.79 10^6/uL (4.20-5.40) L 12/28/23 05:39
Hgb 8.0 g/dL (12.0-16.0) L 12/28/23 05:39
Hct 24.0 % (37.0-47.0) L 12/28/23 05:39
Plt Count 217 10^3/uL (130-400) 12/28/23 05:39
Sodium 129 mmol/L (135-145) L 12/28/23 05:39
Potassium 5.0 mmol/L (3.5-5.1) 12/28/23 05:39
Chloride 107 mmol/L (98-107) 12/28/23 05:39
Carbon Dioxide 26 mmol/L (22-30) 12/28/23 05:39
BUN 65 mg/dl (7-17) H 12/28/23 05:39
Creatinine 1.4 mg/dL (0.6-1.0) H 12/28/23 05:39
eGFR 45.55 12/28/23 05:39
Glucose 86 mg/dl (70-99) 12/28/23 05:39
Calcium 7.2 mg/dl (8.4-10.2) L 12/28/23 05:39
Emj-H-Ssxwzkprzip Pept 08315 pg/ml 12/18/23 04:27
Albumin 2.3 g/dl (3.5-5.0) L 12/18/23 04:19
Physical Exam
-
Vital Signs:
Vital Signs
Temp Pulse Resp BP Pulse Ox
98.6 F 90 18 104/65 96
12/28/23 11:30 12/28/23 11:30 12/28/23 11:30 12/28/23 11:30 12/28/23 11:30
Cardiovascular:: Regular rate and rhythm
Respiratory:: Bilateral: Coarse
Lung Excursion:: Normal
Abdomen:: Nontender and Soft
Bowel Sounds:: Normal
Extremity Edema:: +1: Bilateral:
--- NOTE | 2023-12-28 13:04 | W.PN.HOSP.TC ---
Today's Communication/Plan
-
MMF
reduce hydral
Monitor Na
Assessment / Plan
Assessment / Plan
General: Obese; Negative Appears in Distress
HEENT:Dobhoff out; Right eye nasal side deviation)
Respiratory: Clear to Auscultation
Cardiac: Regular Rhythm and S1/S2; Negative Murmur
GI: Soft, Nontender and Nondistended
Musculoskeletal: Edema, Right Upper Extrem, Edema, Left Upper Extrem, Edema, Right Lower Extrem and Edema, Left Lower Extrem
Neuro: Awake, Alert and Oriented
# Acute hypoxic and hypercapnic respiratory failure - Improved
# Vent dependent respiratory failure - Resolved
-Most likely secondary to acute metabolic encephalopathy +/- pulmonary edema
-extubated on 12/20
-Patient already on IV steroid as part of treatment of SLE.
-Patient was dysphagia, was unable to take orals at that time. - Now tolerated pureed - adv as tolerated
-Dobbhoff placed on 12/22�dced on 12/25
#Hypertensive emergency - resolved
Uncontrolled HTN
-Weaned off Cardene drip
-hx of medication non compliance with SLE nephritis
-PRN hydralazine for SBP > 160
Continue lisinopril 20 mg daily
-Procardia
- Started on hydralazine - reduce dose
-will increase coreg dose if needed
#Hyponatremia
-monitor to ensure not dropping further now that on PO diet
-renal following
-Still dropping - cont to monitor
#Acute metabolic encephalopathy, resolved
-Suspected hypertensive encephalopathy versus press versus lupus cerebritis
-Unfortunately unable to get MRI brain without contrast to rule out lupus cerebritis
-CT head did not show any acute abnormality
-Cannot get MRI due to NEAR EASTERN ARCHAEOLOGY LECTURER shunt. Repeat CT head done and no new changes - 12/19
-Patient had continuous EEG monitoring. No clear seizure activity
-Patient has been taken off of Keppra.
-Repeat CT head remains neg
-LP showing WBC 2 RBC 54 Glu 79 TP 85 Meningitis panel neg
# SLE
-Question of SLE flare-up and patient being provided methylprednisolone 40 mg every 12 hours
-Minimal borderline low C3 level. Anti-dsDNA level 1
-Patient will be started on mycophenolate and Benlysta on outpatient basis by Rheumatology
-Rheumatology evaluated and recommended to be maintained on oral prednisone 50 mg daily at discharge
-Rheum OKed MMF 1500 BID - f/u rheum outpatient
#CKD 3a
Stage IV lupus nephritis - biopsy in February 25
Nephrotic syndrome
Anasarca
-Nephrology following and help appreciated.
-diffuse swelling of upper/lower ext, 2/2 hypoalbuminemia , weight down trending.
-Switch IV Lasix to p.o. Lasix
# Strabismus/Esotropia
-Question of possible assorted cranial neuropathy of right nerve, although no papillary changes
-repeat CT head neg for acute abnormalities.
# Moraxella catarrhalis pneumonia
-Finished 5 days course of IV antibiotics. Discontinue and monitor
#Acute normocytic anemia
-S/p 1 unit of blood transfusion
-No signs of luminal blood loss. Not on any blood thinners.
-Hbg remains stable . continue to follow.
#Hypokalemia
#Hypocalcemia
� Monitor and replete
Hx Pericardial effusion 2021
h/o Hydrocephalus s/p v/p shunt
h/o latent TB s/p treatment
DVT PPx: HSQ
WIll eventually need to be dced to SNF
Anticipated Discharge: 24 - 48 hours
Subjective/Interval History
-
Date of Service: December 28, 2023
no acute events
Objective Data
-
Labs:
Laboratory Results
12/28/23
05:39
WBC 7.2
Hgb 8.0 L
Hct 24.0 L
Plt Count 217
Sodium 129 L
Potassium 5.0
Chloride 107
Carbon Dioxide 26
BUN 65 H
Creatinine 1.4 H
Glucose 86
Calcium 7.2 L
Vital Signs:
Vital Signs
Temp Pulse Resp BP Pulse Ox
98.6 F 90 18 104/65 96
12/28/23 11:30 12/28/23 11:30 12/28/23 11:30 12/28/23 11:30 12/28/23 11:30
I&O
12/27/23 12/28/23 12/29/23
06:59 06:59 06:59
Intake Total 900 / 900 960 / 960
Output Total 575 / 575 300 / 300
Balance 325 / 325 660 / 660
Review of Systems
-
History Source: Patient
All other systems: Not reviewed unless documented
Physical Exam
-
General: Obese; Negative Appears in Distress
HEENT: Oxygen (Intubated on ventilator) and Other (dobhoff in place - on TF. Right eye nasal side deviation)
Respiratory: Clear to Auscultation
Cardiac: Regular Rhythm and S1/S2; Negative Murmur
GI: Soft, Nontender and Nondistended
Musculoskeletal: Edema, Right Upper Extrem, Edema, Left Upper Extrem, Edema, Right Lower Extrem and Edema, Left Lower Extrem
Neuro: Awake, Alert and Oriented
Data Reviewed
-
Diagnostic Radiology: Image personally visualized and interpreted and Report Reviewed by me
CT Scan: Image personally visualized and interpreted and Report Reviewed by me
Labs: Labs Reviewed by me and Discussed with Family
[2023-12-28 15:39] VITALS: BP 117/70
--- NOTE | 2023-12-28 16:16 | PTOTSP ---
Dysphagia Therapy
Patient presents with signs concerning for at least mild oral/pharyngeal dysphagia. Dry/non-productive cough noted in absence of PO. Coughing noted x1 with consecutive sips of thin liquids via straw.
Recommend:
1. IDDSI Level 6 Soft and Bite Sized, IDDSI Level 0 Thin Liquids
2. Medications whole in puree
3. Strategies: upright to 90 degrees, small single sips/bites, slow rate, monitor for s/s aspiration and if present notify RN
4. Will continue to follow for dysphagia tx at the acute care level.
[2023-12-28 19:47] VITALS: BP 139/83
[2023-12-28 23:25] VITALS: BP 155/96
[2023-12-28] MEDS: DUONEB 3 ML INH (23:40)
[2023-12-29] VITALS (9 sets, daily range): BP systolic 121–148; BP diastolic 73–87; PULSE 81; O2SAT 98–100; BMI 29.6
[2023-12-29] MEDS: HEPARIN 5000 UNITS SC ×4 (00:12→23:22)
[2023-12-29 06:45] LABS: Hematocrit 25.9 % (37.0-47.0); Hemoglobin 8.5 g/dL (12.0-16.0); Mean Corp Hgb Conc. 32.8 g/dL (33.0-37.0); Mean Corpuscular Hgb 28.9 pg (27.0-31.0); Mean Corpuscular Volume 88.1 fL (81.0-99.0); Mean Platelet Volume 11.2 fL (7.4-10.4); Platelet Count 254 10^3/uL (130-400); Red Blood Cell Count 2.94 10^6/uL (4.20-5.40); Red Cell Dist. Width 13.7 % (11.5-14.5); White Blood Cell Count 8.5 10^3/uL (4.8-10.8)
[2023-12-29 07:21] LABS: Blood Urea Nitrogen 70 mg/dl (7-17); Calcium 7.5 mg/dl (8.4-10.2); Carbon Dioxide 25 mmol/L (22-30); Chloride 104 mmol/L (98-107); Estimated Creatinine Clearance 39 ml/min; Glucose 76 mg/dl (70-99); Potassium 5.1 mmol/L (3.5-5.1); Sodium 129 mmol/L (135-145)
--- NOTE | 2023-12-29 08:55 | PTOTSP ---
Speech Language Pathology
Pt seen for dysphagia tx. Session completed in Italian. Pt with upper partial denture plate. She reported it takes her longer to chew harder textures at times given denture plate, but she is able to manage regular solids/thin liquids well. Seen
with P.O. trials of puree, regular solids, and thin liquids. Slightly prolonged mastication, but this was functional given additional time. Appears to be related to dentition, not a true oral dysphagia. No overt signs of aspiration.
Recommend:
(1) Upgrade to regular solids/thin liquids
(2) General aspiration precautions
(3) Meds as tolerated
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
[2023-12-29] MEDS: LOW STRENGTH ASPIRIN 81 MG PO (09:48)
[2023-12-29] MEDS: DELTASONE 50 MG PO (09:48)
[2023-12-29] MEDS: COREG 25 MG PO ×2 (09:48→20:11)
[2023-12-29] MEDS: APRESOLINE 20 MG PO ×2 (09:49→20:10)
[2023-12-29] MEDS: ZESTRIL 20 MG PO ×2 (09:49→20:11)
[2023-12-29] MEDS: PROCARDIA XL (EXTENDED RELEASE) 60 MG PO ×2 (09:49→21:14)
[2023-12-29] MEDS: LASIX 80 MG PO (09:49)
[2023-12-29] MEDS: MIRALAX PO (09:50)
--- NOTE | 2023-12-29 10:12 | W.PN.NEPH.PH ---
Today's Communication / Plan
-
Check postvoid straight cath to assess for urinary retention
Follow BMP
Assessment/Plan
-
Assessment:
AMS
VDRF
Class IV lupus nephritis (on MMF, prednisone, hydroxychloroquine + voclosporin)
CKD (bl Cr around 1.2)
Hydrocephalus s/p SURVEY PROJECT MANAGER shunt
hypertensive emergency
nephrotic syndrome
hyponatremia
Anemia
hypocalcemia
h/o pericardial effusion
hx of latent TB, s/p treatment
Plan:
-po lasix to continue
-Urine output questionable following removal of Ellis catheter
-Will check postvoid straight cath to assess for any significant urinary retention
-only on po prednisone for immunosuppression
-OP rheum f/u, MMF to be reinitiated
-follow BMP
-follow po intake, diet and increase
-Blood pressure stabilized on reduce hydralazine administration
-
-
Date of Service: December 29, 2023
CC / HPI / ROS
-
Chief Complaint:
JASKARAN
History of Present Illness:
lupus nephritis
Mental status improved
Creatinine at 1.2
BUN rising on steroids
Hgb stable low 8.0
Hemodynamically stable, slightly low
Review of Systems:
Edema persist
Weight is up
Nonoliguric
Labs
-
Labs:
WBC 8.5 10^3/uL (4.8-10.8) 12/29/23 06:26
RBC 2.94 10^6/uL (4.20-5.40) L 12/29/23 06:26
Hgb 8.5 g/dL (12.0-16.0) L 12/29/23 06:26
Hct 25.9 % (37.0-47.0) L 12/29/23 06:26
Plt Count 254 10^3/uL (130-400) 12/29/23 06:26
Sodium 129 mmol/L (135-145) L 12/29/23 06:26
Potassium 5.1 mmol/L (3.5-5.1) 12/29/23 06:26
Chloride 104 mmol/L (98-107) 12/29/23 06:26
Carbon Dioxide 25 mmol/L (22-30) 12/29/23 06:26
BUN 70 mg/dl (7-17) H 12/29/23 06:26
Creatinine 1.2 mg/dL (0.6-1.0) H 12/29/23 06:26
eGFR 54.80 12/29/23 06:26
Glucose 76 mg/dl (70-99) 12/29/23 06:26
Calcium 7.5 mg/dl (8.4-10.2) L 12/29/23 06:26
Pom-T-Cfwftpsmnjh Pept 13173 pg/ml 12/18/23 04:27
Albumin 2.3 g/dl (3.5-5.0) L 12/18/23 04:19
Physical Exam
-
Vital Signs:
Vital Signs
Temp Pulse Resp BP Pulse Ox
98.4 F 83 16 135/83 97
12/29/23 07:15 12/29/23 07:15 12/29/23 07:15 12/29/23 09:49 12/29/23 07:15
Cardiovascular:: Regular rate and rhythm
Respiratory:: Bilateral: Coarse
Abdomen:: Nontender
Extremity Edema:: +1: Bilateral: (Pitting)
--- NOTE | 2023-12-29 12:10 | PTCARENOTE ---
pt urinated 300ml, ate her lunch and tolerated regular diet, pt was bladder scanned for 180ml. i just straight cathed per the one time order and the patient had an output of 50ml of clear yellow urine. see worklist for proper documentation.
--- NOTE | 2023-12-29 12:56 | W.PN.HOSP.TC ---
Today's Communication/Plan
-
monitor post void residual, urine output
monitor Na
advance to regular diet
Assessment / Plan
Assessment / Plan
General: Obese; Negative Appears in Distress
HEENT:Dobhoff out; Right eye nasal side deviation)
Respiratory: Clear to Auscultation
Cardiac: Regular Rhythm and S1/S2; Negative Murmur
GI: Soft, Nontender and Nondistended
Musculoskeletal: Edema, Right Upper Extrem, Edema, Left Upper Extrem, Edema, Right Lower Extrem and Edema, Left Lower Extrem
Neuro: Awake, Alert and Oriented
# Acute hypoxic and hypercapnic respiratory failure - Improved
# Vent dependent respiratory failure - Resolved
-Most likely secondary to acute metabolic encephalopathy +/- pulmonary edema
-extubated on 12/20
-Patient already on IV steroid as part of treatment of SLE.
-Patient was dysphagia, was unable to take orals at that time. - Now tolerated pureed - adv as tolerated
-Dobbhoff placed on 12/22�dced on 12/25
#Hypertensive emergency - resolved
Uncontrolled HTN
-Weaned off Cardene drip
-hx of medication non compliance with SLE nephritis
-PRN hydralazine for SBP > 160
Continue lisinopril 20 mg daily
-Procardia
- Started on hydralazine - reduce dose
-will increase coreg dose if needed
#Hyponatremia
-monitor to ensure not dropping further now that on PO diet
-renal following
-okay if stable at appx 130- cont to monitor -
#Acute metabolic encephalopathy, resolved
-Suspected hypertensive encephalopathy versus press versus lupus cerebritis
-Unfortunately unable to get MRI brain without contrast to rule out lupus cerebritis
-CT head did not show any acute abnormality
-Cannot get MRI due to PEANUT SORTER shunt. Repeat CT head done and no new changes - 12/19
-Patient had continuous EEG monitoring. No clear seizure activity
-Patient has been taken off of Keppra.
-Repeat CT head remains neg
-LP showing WBC 2 RBC 54 Glu 79 TP 85 Meningitis panel neg
# SLE
-Question of SLE flare-up and patient being provided methylprednisolone 40 mg every 12 hours
-Minimal borderline low C3 level. Anti-dsDNA level 1
-Patient will be started on mycophenolate and Benlysta on outpatient basis by Rheumatology
-Rheumatology evaluated and recommended to be maintained on oral prednisone 50 mg daily at discharge
-Rheum OKed MMF 1500 BID - f/u rheum outpatient
#CKD 3a
Stage IV lupus nephritis - biopsy in February 25
Nephrotic syndrome
Anasarca
-Nephrology following and help appreciated.
-diffuse swelling of upper/lower ext, 2/2 hypoalbuminemia , weight down trending.
-Switch IV Lasix to p.o. Lasix
-monitor urine output, postvoid cath to assess for urinary retention
# Strabismus/Esotropia
-Question of possible assorted cranial neuropathy of right nerve, although no papillary changes
-repeat CT head neg for acute abnormalities.
# Moraxella catarrhalis pneumonia
-Finished 5 days course of IV antibiotics. Discontinue and monitor
#Acute normocytic anemia
-S/p 1 unit of blood transfusion
-No signs of luminal blood loss. Not on any blood thinners.
-Hbg remains stable . continue to follow.
#Hypokalemia
#Hypocalcemia
� Monitor and replete
Hx Pericardial effusion 2021
h/o Hydrocephalus s/p v/p shunt
h/o latent TB s/p treatment
DVT PPx: HSQ
Anticipated Discharge: Within 24 hours
Subjective/Interval History
-
Date of Service: December 29, 2023
Documents, patient can tolerate regular diet
Objective Data
-
Labs:
Laboratory Results
12/29/23
06:26
WBC 8.5
Hgb 8.5 L
Hct 25.9 L
Plt Count 254
Sodium 129 L
Potassium 5.1
Chloride 104
Carbon Dioxide 25
BUN 70 H
Creatinine 1.2 H
Glucose 76
Calcium 7.5 L
Vital Signs:
Vital Signs
Temp Pulse Resp BP Pulse Ox
98.4 F 83 16 135/83 97
12/29/23 07:15 12/29/23 07:15 12/29/23 07:15 12/29/23 09:49 12/29/23 10:23
I&O
12/28/23 12/29/23 12/30/23
06:59 06:59 06:59
Intake Total 960 / 960 1800 / 1800
Output Total 300 / 300 50 / 50
Balance 660 / 660 1800 / 1800 -50 / -50
Review of Systems
-
History Source: Patient
All other systems: Not reviewed unless documented
Physical Exam
-
General: Obese; Negative Appears in Distress
HEENT: Oxygen (Intubated on ventilator)
Respiratory: Clear to Auscultation
Cardiac: Regular Rhythm and S1/S2; Negative Murmur
GI: Soft, Nontender and Nondistended
Musculoskeletal: Edema, Right Upper Extrem, Edema, Left Upper Extrem, Edema, Right Lower Extrem and Edema, Left Lower Extrem
Neuro: Awake, Alert and Oriented
Data Reviewed
-
Diagnostic Radiology: Image personally visualized and interpreted and Report Reviewed by me
CT Scan: Image personally visualized and interpreted and Report Reviewed by me
Labs: Labs Reviewed by me and Discussed with Family
--- NOTE | 2023-12-29 17:06 | CM ---
Discharge Plan of Care: Per therapy: Home with assist vs SNF. Family wants to take patient home. She will have / care with multiple family members. Will continue to follow therapy recommendations.
[2023-12-29] MEDS: CELLCEPT 1500 MG PO (20:11)
[2023-12-30 03:10] VITALS: BP 115/68
[2023-12-30 05:09] VITALS: BMI 29.8
[2023-12-30 05:35] LABS: Hematocrit 24.2 % (37.0-47.0); Hemoglobin 7.9 g/dL (12.0-16.0); Mean Corp Hgb Conc. 32.6 g/dL (33.0-37.0); Mean Corpuscular Hgb 28.8 pg (27.0-31.0); Mean Corpuscular Volume 88.3 fL (81.0-99.0); Mean Platelet Volume 10.7 fL (7.4-10.4); Platelet Count 279 10^3/uL (130-400); Red Blood Cell Count 2.74 10^6/uL (4.20-5.40); Red Cell Dist. Width 13.8 % (11.5-14.5); White Blood Cell Count 7.1 10^3/uL (4.8-10.8)
[2023-12-30 05:55] LABS: Blood Urea Nitrogen 65 mg/dl (7-17); Calcium 7.5 mg/dl (8.4-10.2); Carbon Dioxide 27 mmol/L (22-30); Chloride 104 mmol/L (98-107); Estimated Creatinine Clearance 43 ml/min; Glucose 92 mg/dl (70-99); Potassium 5.4 mmol/L (3.5-5.1); Sodium 127 mmol/L (135-145); eGFR > 60.00
--- NOTE | 2023-12-30 06:26 | PTCARENOTE ---
Patient bladder scanned for 384ml- voided 175ml- post residual void- 266ml yellow urine.
[2023-12-30 07:32] VITALS: BP 140/83
[2023-12-30] MEDS: MIRALAX 17 GRAMS PO (08:37)
[2023-12-30] MEDS: HEPARIN 5000 UNITS SC ×2 (08:40→16:38)
[2023-12-30] MEDS: DELTASONE 50 MG PO (08:42)
[2023-12-30] MEDS: LASIX 80 MG PO ×2 (08:42→16:37)
[2023-12-30] MEDS: ZESTRIL 20 MG PO ×2 (08:43→20:22)
[2023-12-30] MEDS: LOW STRENGTH ASPIRIN 81 MG PO (08:43)
[2023-12-30] MEDS: COREG 25 MG PO ×2 (08:43→20:21)
[2023-12-30] MEDS: PROCARDIA XL (EXTENDED RELEASE) 60 MG PO ×2 (08:43→20:22)
[2023-12-30] MEDS: CELLCEPT 1500 MG PO ×2 (08:44→20:21)
[2023-12-30] MEDS: APRESOLINE 20 MG PO ×2 (08:45→20:22)
[2023-12-30] MEDS: LOKELMA 10 GRAM PO (10:53)
--- NOTE | 2023-12-30 11:20 | W.PN.NEPH.PH ---
Today's Communication / Plan
-
Increase Lasix to 80 mg twice BID
Follow BMP
Assessment/Plan
-
Assessment:
AMS
VDRF
Class IV lupus nephritis (on MMF, prednisone, hydroxychloroquine + voclosporin)
CKD (bl Cr around 1.2)
Hydrocephalus s/p WIRE STRANDER shunt
hypertensive emergency
nephrotic syndrome
hyponatremia
Anemia
hypocalcemia
h/o pericardial effusion
hx of latent TB, s/p treatment
Plan:
-po lasix to continue but will increase to 80 mg twice daily as weights rising, potassium rising, serum sodium levels dropped
-Urine output questionable following removal of Ellis catheter, straight cath parameters reviewed
-only on po prednisone for immunosuppression
-OP rheum MMF reinitiated
-follow BMP
-follow po intake, diet and increase
-Blood pressure stabilized on reduce hydralazine administration
-
-
Date of Service: December 30, 2023
CC / HPI / ROS
-
Chief Complaint:
JASKARAN
History of Present Illness:
lupus nephritis
Mental status improved
Creatinine at 1.1
BUN rising on steroids
Hgb stable low 8.0
Hemodynamically stable
Hyperkalemia evolving
Hyponatremia evolving
Review of Systems:
Edema persists
Weight is up
Urine output last
Labs
-
Labs:
WBC 7.1 10^3/uL (4.8-10.8) 12/30/23 05:17
RBC 2.74 10^6/uL (4.20-5.40) L 12/30/23 05:17
Hgb 7.9 g/dL (12.0-16.0) L 12/30/23 05:17
Hct 24.2 % (37.0-47.0) L 12/30/23 05:17
Plt Count 279 10^3/uL (130-400) 12/30/23 05:17
Sodium 127 mmol/L (135-145) L 12/30/23 05:17
Potassium 5.4 mmol/L (3.5-5.1) H 12/30/23 05:17
Chloride 104 mmol/L (98-107) 12/30/23 05:17
Carbon Dioxide 27 mmol/L (22-30) 12/30/23 05:17
BUN 65 mg/dl (7-17) H 12/30/23 05:17
Creatinine 1.1 mg/dL (0.6-1.0) H 12/30/23 05:17
eGFR > 60.00 12/30/23 05:17
Glucose 92 mg/dl (70-99) 12/30/23 05:17
Calcium 7.5 mg/dl (8.4-10.2) L 12/30/23 05:17
Fwl-S-Iwjkgqiidtd Pept 88973 pg/ml 12/18/23 04:27
Albumin 2.3 g/dl (3.5-5.0) L 12/18/23 04:19
Physical Exam
-
Vital Signs:
Vital Signs
Temp Pulse Resp BP Pulse Ox
97.6 F 91 16 140/83 98
12/30/23 07:32 12/30/23 08:42 12/30/23 07:32 12/30/23 08:42 12/30/23 10:51
Cardiovascular:: Regular rate and rhythm
Extremity Edema:: +1: Bilateral:
Ellis Catheter: No
--- NOTE | 2023-12-30 13:32 | W.PN.HOSP.TC ---
Today's Communication/Plan
-
increase lasix to 8-mg bid
monitor bmp
incentive sidra, early ambulation
Assessment / Plan
Assessment / Plan
General: Obese; Negative Appears in Distress
HEENT:Dobhoff out; Right eye nasal side deviation)
Respiratory: Clear to Auscultation
Cardiac: Regular Rhythm and S1/S2; Negative Murmur
GI: Soft, Nontender and Nondistended
Musculoskeletal: Edema, Right Upper Extrem, Edema, Left Upper Extrem, Edema, Right Lower Extrem and Edema, Left Lower Extrem
Neuro: Awake, Alert and Oriented
# Acute hypoxic and hypercapnic respiratory failure - Improved
# Vent dependent respiratory failure - Resolved
-Most likely secondary to acute metabolic encephalopathy +/- pulmonary edema
-extubated on 12/20
-Patient already on IV steroid as part of treatment of SLE.
-Patient was dysphagia, was unable to take orals at that time. - Now tolerated pureed - adv as tolerated
-Dobbhoff placed on 12/22�dced on 12/25
-Incentive Sidra
-Early ambulation
#Hypertensive emergency - resolved
Uncontrolled HTN
-Weaned off Cardene drip
-hx of medication non compliance with SLE nephritis
-PRN hydralazine for SBP > 160
Continue lisinopril 20 mg daily
-Procardia
- Started on hydralazine - reduce dose
-will increase coreg dose if needed
#Hyponatremia
-monitor to ensure not dropping further now that on PO diet
-renal following
-okay if stable at appx 130- cont to monitor -
-increase lasix to 80mg BID
#Hyperkalemia
-lokelma
#Acute metabolic encephalopathy, resolved
-Suspected hypertensive encephalopathy versus press versus lupus cerebritis
-Unfortunately unable to get MRI brain without contrast to rule out lupus cerebritis
-CT head did not show any acute abnormality
-Cannot get MRI due to ASSOCIATE LOAN OFFICER shunt. Repeat CT head done and no new changes - 12/19
-Patient had continuous EEG monitoring. No clear seizure activity
-Patient has been taken off of Keppra.
-Repeat CT head remains neg
-LP showing WBC 2 RBC 54 Glu 79 TP 85 Meningitis panel neg
# SLE
-Question of SLE flare-up and patient being provided methylprednisolone 40 mg every 12 hours
-Minimal borderline low C3 level. Anti-dsDNA level 1
-Patient will be started on mycophenolate and Benlysta on outpatient basis by Rheumatology
-Rheumatology evaluated and recommended to be maintained on oral prednisone 50 mg daily at discharge
-Rheum OKed MMF 1500 BID - f/u rheum outpatient
#CKD 3a
Stage IV lupus nephritis - biopsy in February 25
Nephrotic syndrome
Anasarca
-Nephrology following and help appreciated.
-diffuse swelling of upper/lower ext, 2/2 hypoalbuminemia , weight down trending.
-Switch IV Lasix to p.o. Lasix - adv to 80mg BID
-monitor urine output, postvoid cath to assess for urinary retention
# Strabismus/Esotropia
-Question of possible assorted cranial neuropathy of right nerve, although no papillary changes
-repeat CT head neg for acute abnormalities.
# Moraxella catarrhalis pneumonia
-Finished 5 days course of IV antibiotics. Discontinue and monitor
#Acute normocytic anemia
-S/p 1 unit of blood transfusion
-No signs of luminal blood loss. Not on any blood thinners.
-Hbg remains stable . continue to follow.
#Hypokalemia
#Hypocalcemia
� Monitor and replete
Hx Pericardial effusion 2021
h/o Hydrocephalus s/p v/p shunt
h/o latent TB s/p treatment
DVT PPx: HSQ
Anticipated Discharge: 24 - 48 hours
Subjective/Interval History
-
Date of Service: December 30, 2023
na still trending down, mild cough - afebrile
Objective Data
-
Labs:
Laboratory Results
12/30/23
05:17
WBC 7.1
Hgb 7.9 L
Hct 24.2 L
Plt Count 279
Sodium 127 L
Potassium 5.4 H
Chloride 104
Carbon Dioxide 27
BUN 65 H
Creatinine 1.1 H
Glucose 92
Calcium 7.5 L
Vital Signs:
Vital Signs
Temp Pulse Resp BP Pulse Ox
97.6 F 91 16 140/83 98
12/30/23 07:32 12/30/23 08:42 12/30/23 07:32 12/30/23 08:42 12/30/23 10:51
I&O
12/29/23 12/30/23 12/31/23
06:59 06:59 06:59
Intake Total 1800 / 1800 1520 / 1520
Output Total 100 / 100 200 / 200
Balance 1800 / 1800 1420 / 1420 -200 / -200
Review of Systems
-
History Source: Patient
All other systems: Not reviewed unless documented
Data Reviewed
-
Diagnostic Radiology: Image personally visualized and interpreted and Report Reviewed by me
CT Scan: Image personally visualized and interpreted and Report Reviewed by me
Labs: Labs Reviewed by me and Discussed with Family
[2023-12-30 15:15] VITALS: BP 103/69
--- NOTE | 2023-12-30 17:40 | CM ---
Discharge Plan of Care: Per therapy-home with assist vs SNF. Family wants home with 24/ family care.
[2023-12-30 19:30] VITALS: BP 141/86
[2023-12-30 23:20] VITALS: BP 159/94
[2023-12-31] MEDS: HEPARIN 5000 UNITS SC ×4 (01:00→23:00)
[2023-12-31 04:39] VITALS: BMI 29.1
[2023-12-31 06:46] LABS: Hematocrit 25.7 % (37.0-47.0); Hemoglobin 8.7 g/dL (12.0-16.0); Mean Corp Hgb Conc. 33.9 g/dL (33.0-37.0); Mean Corpuscular Hgb 29.3 pg (27.0-31.0); Mean Corpuscular Volume 86.5 fL (81.0-99.0); Mean Platelet Volume 11.1 fL (7.4-10.4); Platelet Count 367 10^3/uL (130-400); Red Blood Cell Count 2.97 10^6/uL (4.20-5.40); Red Cell Dist. Width 13.8 % (11.5-14.5); White Blood Cell Count 7.9 10^3/uL (4.8-10.8)
[2023-12-31 06:53] VITALS: BP 132/76
[2023-12-31 07:15] LABS: Blood Urea Nitrogen 62 mg/dl (7-17); Calcium 7.9 mg/dl (8.4-10.2); Carbon Dioxide 23 mmol/L (22-30); Chloride 104 mmol/L (98-107); Estimated Creatinine Clearance 46 ml/min; Glucose 100 mg/dl (70-99); Potassium 5.1 mmol/L (3.5-5.1); Sodium 128 mmol/L (135-145); eGFR > 60.00
[2023-12-31] MEDS: PROCARDIA XL (EXTENDED RELEASE) 60 MG PO ×2 (08:36→20:36)
[2023-12-31] MEDS: DELTASONE 50 MG PO (08:36)
[2023-12-31] MEDS: APRESOLINE 20 MG PO ×2 (08:37→20:36)
[2023-12-31] MEDS: LOW STRENGTH ASPIRIN 81 MG PO (08:38)
[2023-12-31] MEDS: COREG 25 MG PO ×2 (08:38→20:36)
[2023-12-31] MEDS: LASIX 80 MG PO ×2 (08:38→15:56)
[2023-12-31] MEDS: CELLCEPT 1500 MG PO ×2 (08:38→20:37)
[2023-12-31] MEDS: MIRALAX 17 GRAMS PO (08:39)
[2023-12-31] MEDS: ZESTRIL 20 MG PO ×2 (08:39→20:35)
[2023-12-31 11:22] VITALS: BP 138/86
--- NOTE | 2023-12-31 11:25 | FALL ---
Description of Fall:
Pt rang her call luciano to go to the bathroom, this RN ambulated pt as an assist of one with the rolling walker to the bathroom. The pt sat on the toilet, took her hands off of the rolling walker, and slipped off of the toilet. The pt hit her head
onto the counter of the sink and then laid flat. Pt complains of dizziness, no pain at this time, VSS, pupil responding brisk, pt ambulated back to the bed with this RN, bed alarm placed, MD made aware, stat head CT ordered. Bed locked in lowest
position, call luciano within reach.
Injuries Noted:
Pt notes dizziness at the time of the fall, no other injuries present.
Action Taken:
made aware, stat head CT ordered, bed locked in lowest position, vital signs taken, bed alarm placed, call luciano within reach, reoriented pt, pt ambulated back to bed by this RN
Name of Provider Notified: Alexia Stoner
--- NOTE | 2023-12-31 12:57 | W.PN.NEPH.PH ---
Today's Communication / Plan
-
follow BMP
Assessment/Plan
-
Assessment:
AMS
VDRF
Class IV lupus nephritis (on MMF, prednisone, hydroxychloroquine + voclosporin)
CKD (bl Cr around 1.2)
Hydrocephalus s/p CERTIFIED PROFESSIONAL CONTROLLER shunt
hypertensive emergency
nephrotic syndrome
hyponatremia
Anemia
hypocalcemia
h/o pericardial effusion
hx of latent TB, s/p treatment
Plan:
-po lasix to continue BID
-on po prednisone/MMF for immunosuppression
-follow BMP
-follow po intake, diet and increase
-Blood pressure stabilized
-PT/OT
-
-
Date of Service: December 31, 2023
CC / HPI / ROS
-
Chief Complaint:
JASKARAN
History of Present Illness:
lupus nephritis
Mental status improved
Creatinine at 1..0
BUN rising on steroids
Hgb stable low
Hemodynamically stable
Na low stable 128
Review of Systems:
Edema persists
no SOB
Urine output last
Labs
-
Labs:
WBC 7.9 10^3/uL (4.8-10.8) 12/31/23 05:43
RBC 2.97 10^6/uL (4.20-5.40) L 12/31/23 05:43
Hgb 8.7 g/dL (12.0-16.0) L 12/31/23 05:43
Hct 25.7 % (37.0-47.0) L 12/31/23 05:43
Plt Count 367 10^3/uL (130-400) D 12/31/23 05:43
Sodium 128 mmol/L (135-145) L 12/31/23 05:44
Potassium 5.1 mmol/L (3.5-5.1) 12/31/23 05:44
Chloride 104 mmol/L (98-107) 12/31/23 05:44
Carbon Dioxide 23 mmol/L (22-30) 12/31/23 05:44
BUN 62 mg/dl (7-17) H 12/31/23 05:44
Creatinine 1.0 mg/dL (0.6-1.0) 12/31/23 05:44
eGFR > 60.00 12/31/23 05:44
Glucose 100 mg/dl (70-99) H 12/31/23 05:44
Calcium 7.9 mg/dl (8.4-10.2) L 12/31/23 05:44
Brz-G-Wbnhrlbvwtx Pept 52171 pg/ml 12/18/23 04:27
Albumin 2.3 g/dl (3.5-5.0) L 12/18/23 04:19
Physical Exam
-
Vital Signs:
Vital Signs
Temp Pulse Resp BP Pulse Ox
97.7 F 99 18 138/86 99
12/31/23 06:53 12/31/23 11:22 12/31/23 11:22 12/31/23 11:22 12/31/23 11:22
Cardiovascular:: Regular rate and rhythm
Respiratory:: Bilateral: Coarse
Lung Excursion:: Normal
Abdomen:: Nontender and Soft
Bowel Sounds:: Normal
Extremity Edema:: +3: Bilateral:
--- NOTE | 2023-12-31 13:31 | W.PN.HOSP.TC ---
Today's Communication/Plan
-
monitor bmp
monitor mental status, repeat ct head tomorrow am
orthostatics
Assessment / Plan
Assessment / Plan
General: Obese; Negative Appears in Distress
HEENT:Dobhoff out; Right eye nasal side deviation)
Respiratory: Clear to Auscultation
Cardiac: Regular Rhythm and S1/S2; Negative Murmur
GI: Soft, Nontender and Nondistended
Musculoskeletal: Edema, Right Upper Extrem, Edema, Left Upper Extrem, Edema, Right Lower Extrem and Edema, Left Lower Extrem
Neuro: Awake, Alert and Oriented
# Acute hypoxic and hypercapnic respiratory failure - Improved
# Vent dependent respiratory failure - Resolved
-Most likely secondary to acute metabolic encephalopathy +/- pulmonary edema
-extubated on 12/20
-Patient already on steroids as part of treatment of SLE.
-Patient was dysphagia, was unable to take orals at that time. - Now tolerated pureed - adv as tolerated
-Dobbhoff placed on 12/22�dced on 12/25
-Incentive Dewayne
-Early ambulation
#Hypertensive emergency - resolved
Uncontrolled HTN
-Weaned off Cardene drip
-hx of medication non compliance with SLE nephritis
-PRN hydralazine for SBP > 160
Continue lisinopril 20 mg daily
-Procardia
- Started on hydralazine - reduce dose
-will increase coreg dose if needed
#Hyponatremia
-monitor to ensure not dropping further now that on PO diet
-renal following
-okay if stable at appx 130- cont to monitor -
-increase lasix to 80mg BID
#Fall
-head strike
-parietal area hematoma, no ICH
-cont to monitor, repeat ct head tomorrow
-after fall today, SNF most likely best course
-F/u orthostatics
#Hyperkalemia
-lokelma
#Acute metabolic encephalopathy, resolved
-Suspected hypertensive encephalopathy versus press versus lupus cerebritis
-Unfortunately unable to get MRI brain without contrast to rule out lupus cerebritis
-CT head did not show any acute abnormality
-Cannot get MRI due to ROLL SHEETING CUTTER shunt. Repeat CT head done and no new changes - 12/19
-Patient had continuous EEG monitoring. No clear seizure activity
-Patient has been taken off of Keppra.
-Repeat CT head remains neg
-LP showing WBC 2 RBC 54 Glu 79 TP 85 Meningitis panel neg
# SLE
-Question of SLE flare-up and patient being provided methylprednisolone 40 mg every 12 hours
-Minimal borderline low C3 level. Anti-dsDNA level 1
-Patient will be started on mycophenolate and Benlysta on outpatient basis by Rheumatology
-Rheumatology evaluated and recommended to be maintained on oral prednisone 50 mg daily at discharge
-Rheum OKed MMF 1500 BID - f/u rheum outpatient
#CKD 3a
Stage IV lupus nephritis - biopsy in February 25
Nephrotic syndrome
Anasarca
-Nephrology following and help appreciated.
-diffuse swelling of upper/lower ext, 2/2 hypoalbuminemia , weight down trending.
-Switch IV Lasix to p.o. Lasix - adv to 80mg BID
-monitor urine output, postvoid cath to assess for urinary retention
# Strabismus/Esotropia
-Question of possible assorted cranial neuropathy of right nerve, although no papillary changes
-repeat CT head neg for acute abnormalities.
# Moraxella catarrhalis pneumonia
-Finished 5 days course of IV antibiotics. Discontinue and monitor
#Acute normocytic anemia
-S/p 1 unit of blood transfusion
-No signs of luminal blood loss. Not on any blood thinners.
-Hbg remains stable . continue to follow.
#Hypokalemia
#Hypocalcemia
� Monitor and replete
Hx Pericardial effusion 2021
h/o Hydrocephalus s/p v/p shunt
h/o latent TB s/p treatment
DVT PPx: HSQ
Anticipated Discharge: 24 - 48 hours
Subjective/Interval History
-
Date of Service: December 31, 2023
patient fell with lack of balance, head strike
Objective Data
-
Labs:
Laboratory Results
12/31/23 12/31/23
05:43 05:44
WBC 7.9
Hgb 8.7 L
Hct 25.7 L
Plt Count 367 D
Sodium 128 L
Potassium 5.1
Chloride 104
Carbon Dioxide 23
BUN 62 H
Creatinine 1.0
Glucose 100 H
Calcium 7.9 L
Vital Signs:
Vital Signs
Temp Pulse Resp BP Pulse Ox
97.7 F 99 18 138/86 99
12/31/23 06:53 12/31/23 11:22 12/31/23 11:22 12/31/23 11:22 12/31/23 11:22
I&O
12/30/23 12/31/23 01/01/24
06:59 06:59 06:59
Intake Total 1520 / 1520 1080 / 1080
Output Total 100 / 100 260 / 260
Balance 1420 / 1420 820 / 820
Review of Systems
-
History Source: Patient
All other systems: Not reviewed unless documented
Physical Exam
-
General: Obese; Negative Appears in Distress
HEENT: Oxygen (Intubated on ventilator)
Respiratory: Clear to Auscultation
Cardiac: Regular Rhythm and S1/S2; Negative Murmur
GI: Soft, Nontender and Nondistended
Musculoskeletal: Edema, Right Upper Extrem, Edema, Left Upper Extrem, Edema, Right Lower Extrem and Edema, Left Lower Extrem
Neuro: Awake, Alert and Oriented
Data Reviewed
-
Diagnostic Radiology: Image personally visualized and interpreted and Report Reviewed by me
CT Scan: Image personally visualized and interpreted and Report Reviewed by me
Labs: Labs Reviewed by me and Discussed with Family
[2023-12-31 14:24] VITALS: BP 131/73; BP 134/82; BP 136/78; PULSE 88; PULSE 98
[2023-12-31 14:43] VITALS: BP 134/82; PULSE 98
--- NOTE | 2023-12-31 16:13 | CM ---
Monitoring BMP and mental status, Repeat CT of head on 01/01/24. Discharge Plan of Care: Therapy rec remains home with assist vs SNF.
[2023-12-31 20:00] VITALS: BP 153/88
[2023-12-31 23:03] VITALS: BP 116/82
--- NOTE | 2023-12-31 23:25 | PTCARENOTE ---
Patient was bladder scanned for 209mls. Then patient voided 220mls.
[2024-01-01 05:18] VITALS: BMI 29.1
[2024-01-01 07:25] VITALS: BP 129/75
[2024-01-01 08:03] LABS: Hematocrit 24.3 % (37.0-47.0); Hemoglobin 8.1 g/dL (12.0-16.0); Mean Corp Hgb Conc. 33.3 g/dL (33.0-37.0); Mean Corpuscular Hgb 29.6 pg (27.0-31.0); Mean Corpuscular Volume 88.7 fL (81.0-99.0); Mean Platelet Volume 10.5 fL (7.4-10.4); Platelet Count 393 10^3/uL (130-400); Red Blood Cell Count 2.74 10^6/uL (4.20-5.40); Red Cell Dist. Width 14.2 % (11.5-14.5); White Blood Cell Count 7.7 10^3/uL (4.8-10.8)
[2024-01-01] MEDS: PROCARDIA XL (EXTENDED RELEASE) 60 MG PO ×2 (08:24→19:49)
[2024-01-01] MEDS: LOW STRENGTH ASPIRIN 81 MG PO (08:24)
[2024-01-01] MEDS: LASIX 80 MG PO ×2 (08:24→16:50)
[2024-01-01] MEDS: APRESOLINE 20 MG PO ×2 (08:24→19:49)
[2024-01-01] MEDS: COREG 25 MG PO ×2 (08:25→19:50)
[2024-01-01] MEDS: MIRALAX 17 GRAMS PO (08:25)
[2024-01-01] MEDS: DELTASONE 50 MG PO (08:25)
[2024-01-01] MEDS: HEPARIN 5000 UNITS SC ×3 (08:25→23:17)
[2024-01-01] MEDS: ZESTRIL 20 MG PO ×2 (08:25→19:49)
[2024-01-01 09:00] LABS: Blood Urea Nitrogen 57 mg/dl (7-17); Calcium 7.9 mg/dl (8.4-10.2); Carbon Dioxide 22 mmol/L (22-30); Chloride 105 mmol/L (98-107); Estimated Creatinine Clearance 58 ml/min; Glucose 81 mg/dl (70-99); Potassium 4.6 mmol/L (3.5-5.1); Sodium 128 mmol/L (135-145); eGFR > 60.00
[2024-01-01] MEDS: CELLCEPT 1500 MG PO ×2 (09:10→19:50)
[2024-01-01 11:00] VITALS: BP 86/51; BP 94/56; BP 97/53
--- NOTE | 2024-01-01 11:45 | W.PN.HOSP.TC ---
Today's Communication/Plan
-
monitor na with diuresis
pt/ot
orthostatics
Assessment / Plan
Assessment / Plan
General: Obese; Negative Appears in Distress
HEENT:Dobhoff out; Right eye nasal side deviation)
Respiratory: Clear to Auscultation
Cardiac: Regular Rhythm and S1/S2; Negative Murmur
GI: Soft, Nontender and Nondistended
Musculoskeletal: Edema, Right Upper Extrem, Edema, Left Upper Extrem, Edema, Right Lower Extrem and Edema, Left Lower Extrem
Neuro: Awake, Alert and Oriented
# Acute hypoxic and hypercapnic respiratory failure - Improved
# Vent dependent respiratory failure - Resolved
-Most likely secondary to acute metabolic encephalopathy +/- pulmonary edema
-extubated on 12/20
-Patient already on steroids as part of treatment of SLE.
-Patient was dysphagia, was unable to take orals at that time. - Now tolerated pureed - adv as tolerated
-Dobbhoff placed on 12/22�dced on 12/25
-Incentive Evans
-Early ambulation
#Hypertensive emergency - resolved
Uncontrolled HTN
-Weaned off Cardene drip
-hx of medication non compliance with SLE nephritis
-PRN hydralazine for SBP > 160
Continue lisinopril 20 mg daily
-Procardia
- Started on hydralazine - reduce dose
-will increase coreg dose if needed
#Hyponatremia
-monitor to ensure not dropping further now that on PO diet
-renal following
-okay if stable at appx 130- cont to monitor -
-increase lasix to 80mg BID
#Fall
-head strike
-parietal area hematoma, no ICH - stable on repeat ct
-cont to monitor, repeat ct head tomorrow
-after fall 12/30, SNF most likely best course
-F/u orthostatics
#Hyperkalemia
-lokelma
#Acute metabolic encephalopathy, resolved
-Suspected hypertensive encephalopathy versus press versus lupus cerebritis
-Unfortunately unable to get MRI brain without contrast to rule out lupus cerebritis
-CT head did not show any acute abnormality
-Cannot get MRI due to MOLDER BENCH shunt. Repeat CT head done and no new changes - 12/19
-Patient had continuous EEG monitoring. No clear seizure activity
-Patient has been taken off of Keppra.
-Repeat CT head remains neg
-LP showing WBC 2 RBC 54 Glu 79 TP 85 Meningitis panel neg
# SLE
-Question of SLE flare-up and patient being provided methylprednisolone 40 mg every 12 hours
-Minimal borderline low C3 level. Anti-dsDNA level 1
-Patient will be started on mycophenolate and Benlysta on outpatient basis by Rheumatology
-Rheumatology evaluated and recommended to be maintained on oral prednisone 50 mg daily at discharge
-Rheum OKed MMF 1500 BID - f/u rheum outpatient (Dr. Leung)
#CKD 3a
Stage IV lupus nephritis - biopsy in February 25
Nephrotic syndrome
Anasarca
-Nephrology following and help appreciated.
-diffuse swelling of upper/lower ext, 2/2 hypoalbuminemia , weight down trending.
-Switch IV Lasix to p.o. Lasix - adv to 80mg BID
-monitor urine output, postvoid cath to assess for urinary retention
# Strabismus/Esotropia
-Question of possible assorted cranial neuropathy of right nerve, although no papillary changes
-repeat CT head neg for acute abnormalities.
# Moraxella catarrhalis pneumonia
-Finished 5 days course of IV antibiotics. Discontinue and monitor
#Acute normocytic anemia
-S/p 1 unit of blood transfusion
-No signs of luminal blood loss. Not on any blood thinners.
-Hbg remains stable . continue to follow.
#Hypokalemia
#Hypocalcemia
� Monitor and replete
Hx Pericardial effusion 2021
h/o Hydrocephalus s/p v/p shunt
h/o latent TB s/p treatment
DVT PPx: HSQ
Anticipated Discharge: 24 - 48 hours
Subjective/Interval History
-
Date of Service: January 01, 2024
No acute events after fall yesterday. No neurological changes.
Objective Data
-
Labs:
Laboratory Results
01/01/24
07:31
WBC 7.7
Hgb 8.1 L
Hct 24.3 L
Plt Count 393
Sodium 128 L
Potassium 4.6
Chloride 105
Carbon Dioxide 22
BUN 57 H
Creatinine 0.8
Glucose 81
Calcium 7.9 L
Vital Signs:
Vital Signs
Temp Pulse Resp BP Pulse Ox
98.5 F 79 14 129/75 98
01/01/24 07:25 01/01/24 07:25 01/01/24 07:25 01/01/24 07:25 01/01/24 08:00
I&O
12/31/23 01/01/24 01/02/24
06:59 06:59 06:59
Intake Total 1080 / 1080 840 / 840
Output Total 260 / 260 1745 / 1745
Balance 820 / 820 -905 / -905
Review of Systems
-
History Source: Patient
All other systems: Not reviewed unless documented
Data Reviewed
-
Diagnostic Radiology: Image personally visualized and interpreted and Report Reviewed by me
CT Scan: Image personally visualized and interpreted and Report Reviewed by me
Labs: Labs Reviewed by me and Discussed with Family
--- NOTE | 2024-01-01 11:52 | W.PN.NEPH.PH ---
Today's Communication / Plan
-
metolazone
Assessment/Plan
-
Assessment:
AMS
VDRF
Class IV lupus nephritis (on MMF, prednisone, hydroxychloroquine + voclosporin)
CKD (bl Cr around 1.2)
Hydrocephalus s/p GENERAL FARM [employer] shunt
hypertensive emergency
nephrotic syndrome
hyponatremia
Anemia
hypocalcemia
h/o pericardial effusion
hx of latent TB, s/p treatment
Plan:
-po lasix to continue BID
-on po prednisone/MMF for immunosuppression
-follow BMP
-follow po intake, diet and increase
-Blood pressure stabilized
-PT/OT
-metolazone once today
-
-
Date of Service: January 01, 2024
CC / HPI / ROS
-
Chief Complaint:
JASKARAN
History of Present Illness:
lupus nephritis
Mental status improved
Creatinine at 0.8
BUN stable on steroids
Hgb stable low 8.1
Hemodynamically stable
Na low stable 128
fell yesterday, hit head, CT now shows no hematoma
Review of Systems:
Edema persists
no SOB
Urine output last
Labs
-
Labs:
WBC 7.7 10^3/uL (4.8-10.8) 01/01/24 07:31
RBC 2.74 10^6/uL (4.20-5.40) L 01/01/24 07:31
Hgb 8.1 g/dL (12.0-16.0) L 01/01/24 07:31
Hct 24.3 % (37.0-47.0) L 01/01/24 07:31
Plt Count 393 10^3/uL (130-400) 01/01/24 07:31
Sodium 128 mmol/L (135-145) L 01/01/24 07:31
Potassium 4.6 mmol/L (3.5-5.1) 01/01/24 07:31
Chloride 105 mmol/L (98-107) 01/01/24 07:31
Carbon Dioxide 22 mmol/L (22-30) 01/01/24 07:31
BUN 57 mg/dl (7-17) H 01/01/24 07:31
Creatinine 0.8 mg/dL (0.6-1.0) 01/01/24 07:31
eGFR > 60.00 01/01/24 07:31
Glucose 81 mg/dl (70-99) 01/01/24 07:31
Calcium 7.9 mg/dl (8.4-10.2) L 01/01/24 07:31
Wjr-X-Rmuhfymzfky Pept 84707 pg/ml 12/18/23 04:27
Albumin 2.3 g/dl (3.5-5.0) L 12/18/23 04:19
Physical Exam
-
Vital Signs:
Vital Signs
Temp Pulse Resp BP Pulse Ox
98.5 F 79 14 129/75 98
01/01/24 07:25 01/01/24 07:25 01/01/24 07:25 01/01/24 07:25 01/01/24 08:00
Cardiovascular:: Regular rate and rhythm
Respiratory:: Bilateral: Coarse
Lung Excursion:: Normal
Abdomen:: Nontender and Soft
Bowel Sounds:: Normal
Extremity Edema:: +3: Bilateral:
[2024-01-01] MEDS: ZAROXOLYN 2.5 MG PO (13:29)
--- NOTE | 2024-01-01 14:58 | CM ---
MD requested CM speak with patient and family concerning patient going to SNF since she fell on 12/31/23. They declined STR in the past and are again declining. They live in a 1 floor apartment and have made arrangements for 29/03 care with family
members to be with patient at all times. Patient is adamant she is not going to rehab. Will set up HH for VN and PT/OT upon discharge. MD aware.
[2024-01-01 15:20] VITALS: BP 116/62
[2024-01-01 15:30] VITALS: BP 128/55
[2024-01-01 23:45] VITALS: BP 102/59
[2024-01-02 07:07] LABS: Hematocrit 21.4 % (37.0-47.0); Hemoglobin 7.3 g/dL (12.0-16.0); Mean Corp Hgb Conc. 34.1 g/dL (33.0-37.0); Mean Corpuscular Hgb 29.3 pg (27.0-31.0); Mean Corpuscular Volume 85.9 fL (81.0-99.0); Mean Platelet Volume 10.1 fL (7.4-10.4); Platelet Count 352 10^3/uL (130-400); Red Blood Cell Count 2.49 10^6/uL (4.20-5.40); Red Cell Dist. Width 14.2 % (11.5-14.5); White Blood Cell Count 6.7 10^3/uL (4.8-10.8)
[2024-01-02 07:25] LABS: Blood Urea Nitrogen 51 mg/dl (7-17); Calcium 7.7 mg/dl (8.4-10.2); Carbon Dioxide 23 mmol/L (22-30); Chloride 105 mmol/L (98-107); Estimated Creatinine Clearance 52 ml/min; Glucose 84 mg/dl (70-99); Potassium 4.3 mmol/L (3.5-5.1); Sodium 128 mmol/L (135-145); eGFR > 60.00
[2024-01-02 07:30] VITALS: BP 168/87
[2024-01-02] MEDS: MIRALAX 17 GRAMS PO (09:27)
[2024-01-02] MEDS: CELLCEPT 1500 MG PO ×2 (09:28→20:18)
[2024-01-02] MEDS: PROCARDIA XL (EXTENDED RELEASE) 60 MG PO ×2 (09:29→20:17)
[2024-01-02] MEDS: LASIX 80 MG PO ×2 (09:30→16:39)
[2024-01-02] MEDS: DELTASONE 50 MG PO (09:30)
[2024-01-02] MEDS: LOW STRENGTH ASPIRIN 81 MG PO (09:30)
[2024-01-02] MEDS: APRESOLINE 20 MG PO ×2 (09:30→20:18)
[2024-01-02] MEDS: HEPARIN 5000 UNITS SC ×2 (09:31→16:39)
[2024-01-02] MEDS: ZESTRIL 20 MG PO ×2 (09:31→20:17)
[2024-01-02] MEDS: COREG 25 MG PO ×2 (09:31→20:17)
--- NOTE | 2024-01-02 10:40 | W.PN.HOSP.TC ---
Today's Communication/Plan
-
monitor hgb as had previous transfusion and seen to have possible drop today
monitor bmp with lasix - f/u nephro recs
orthostatics
Assessment / Plan
Assessment / Plan
General: Obese; Negative Appears in Distress
HEENT:Dobhoff out; Right eye nasal side deviation)
Respiratory: Clear to Auscultation
Cardiac: Regular Rhythm and S1/S2; Negative Murmur
GI: Soft, Nontender and Nondistended
Musculoskeletal: Edema, Right Upper Extrem, Edema, Left Upper Extrem, Edema, Right Lower Extrem and Edema, Left Lower Extrem
Neuro: Awake, Alert and Oriented
# Acute hypoxic and hypercapnic respiratory failure - Improved
# Vent dependent respiratory failure - Resolved
-Most likely secondary to acute metabolic encephalopathy +/- pulmonary edema
-extubated on 12/20
-Patient already on steroids as part of treatment of SLE.
-Patient was dysphagia, was unable to take orals at that time. - Now tolerated pureed - adv as tolerated
-Dobbhoff placed on 12/22�dced on 12/25
-Incentive Dewayne
-Early ambulation
#Hypertensive emergency - resolved
Uncontrolled HTN
-Weaned off Cardene drip
-hx of medication non compliance with SLE nephritis
-PRN hydralazine for SBP > 160
Continue lisinopril 20 mg daily
-Procardia
- Started on hydralazine - reduce dose
-will increase coreg dose if needed
#Hyponatremia
-monitor to ensure not dropping further now that on PO diet
-renal following
-okay if stable at appx 130- cont to monitor -
-increase lasix to 80mg BID
#Fall
-head strike
-parietal area hematoma, no ICH - stable on repeat ct
-cont to monitor, repeat ct head tomorrow
-after fall 12/30, SNF most likely best course
-F/u orthostatics
#Hyperkalemia
-lokelma
#Acute metabolic encephalopathy, resolved
-Suspected hypertensive encephalopathy versus press versus lupus cerebritis
-Unfortunately unable to get MRI brain without contrast to rule out lupus cerebritis
-CT head did not show any acute abnormality
-Cannot get MRI due to ROVING HAND shunt. Repeat CT head done and no new changes - 12/19
-Patient had continuous EEG monitoring. No clear seizure activity
-Patient has been taken off of Keppra.
-Repeat CT head remains neg
-LP showing WBC 2 RBC 54 Glu 79 TP 85 Meningitis panel neg
# SLE
-Question of SLE flare-up and patient being provided methylprednisolone 40 mg every 12 hours
-Minimal borderline low C3 level. Anti-dsDNA level 1
-Patient will be started on mycophenolate and Benlysta on outpatient basis by Rheumatology
-Rheumatology evaluated and recommended to be maintained on oral prednisone 50 mg daily at discharge
-Rheum OKed MMF 1500 BID - f/u rheum outpatient (Dr. Leung)
#CKD 3a
Stage IV lupus nephritis - biopsy in February 25
Nephrotic syndrome
Anasarca
-Nephrology following and help appreciated.
-diffuse swelling of upper/lower ext, 2/2 hypoalbuminemia , weight down trending.
-Switch IV Lasix to p.o. Lasix - adv to 80mg BID
-monitor urine output, postvoid cath to assess for urinary retention
# Strabismus/Esotropia
-Question of possible assorted cranial neuropathy of right nerve, although no papillary changes
-repeat CT head neg for acute abnormalities.
# Moraxella catarrhalis pneumonia
-Finished 5 days course of IV antibiotics. Discontinue and monitor
#Acute normocytic anemia
-S/p 1 unit of blood transfusion
-No signs of luminal blood loss. Not on any blood thinners.
-Hbg dropped today - continue to follow.
#Hypokalemia
#Hypocalcemia
� Monitor and replete
Hx Pericardial effusion 2021
h/o Hydrocephalus s/p v/p shunt
h/o latent TB s/p treatment
DVT PPx: HSQ
Anticipated Discharge: Within 24 hours
Subjective/Interval History
-
Date of Service: January 02, 2024
No acute events
Objective Data
-
Labs:
Laboratory Results
01/02/24
06:36
WBC 6.7
Hgb 7.3 L
Hct 21.4 L
Plt Count 352
Sodium 128 L
Potassium 4.3
Chloride 105
Carbon Dioxide 23
BUN 51 H
Creatinine 0.9
Glucose 84
Calcium 7.7 L
Vital Signs:
Vital Signs
Temp Pulse Resp BP Pulse Ox
98.9 F 78 16 168/87 100
01/02/24 07:30 01/02/24 07:30 01/02/24 07:30 01/02/24 07:30 01/02/24 07:30
I&O
01/01/24 01/02/24 01/03/24
06:59 06:59 06:59
Intake Total 840 / 840 1540 / 1540
Output Total 1745 / 1745 1390 / 1390
Balance -905 / -905 150 / 150
Review of Systems
-
History Source: Patient
All other systems: Not reviewed unless documented
Physical Exam
-
General: Well Developed, Well Nourished, No Apparent Distress and Obese; Negative Appears in Distress
HEENT: Oxygen
Respiratory: Clear to Auscultation
Cardiac: Regular Rhythm and S1/S2; Negative Murmur
GI: Soft, Nontender and Nondistended
Musculoskeletal: Edema, Right Upper Extrem, Edema, Left Upper Extrem, Edema, Right Lower Extrem and Edema, Left Lower Extrem
Neuro: Awake, Alert and Oriented
Data Reviewed
-
Diagnostic Radiology: Image personally visualized and interpreted and Report Reviewed by me
CT Scan: Image personally visualized and interpreted and Report Reviewed by me
Labs: Labs Reviewed by me and Discussed with Family
--- NOTE | 2024-01-02 12:59 | W.PN.NEPH.PH ---
Today's Communication / Plan
-
zaroxolyn
Assessment/Plan
-
Assessment:
AMS
VDRF
Class IV lupus nephritis (on MMF, prednisone, hydroxychloroquine + voclosporin)
CKD (bl Cr around 1.2)
Hydrocephalus s/p CLAM GRADER shunt
hypertensive emergency
nephrotic syndrome
hyponatremia
Anemia
hypocalcemia
h/o pericardial effusion
hx of latent TB, s/p treatment
Plan:
-po lasix to continue BID
-on po prednisone/MMF for immunosuppression
-follow BMP
-PT/OT
-metolazone once today again
-
-
Date of Service: January 02, 2024
CC / HPI / ROS
-
Chief Complaint:
JASKARAN
History of Present Illness:
Creatinine at 0.9
BUN stable on steroids
Hgb stable low 8.1
Hemodynamically stable
Na low stable 128
on pred/MMF for LN
Review of Systems:
Edema persists
no SOB
Labs
-
Labs:
WBC 6.7 10^3/uL (4.8-10.8) 01/02/24 06:36
RBC 2.49 10^6/uL (4.20-5.40) L 01/02/24 06:36
Hgb 7.3 g/dL (12.0-16.0) L 01/02/24 06:36
Hct 21.4 % (37.0-47.0) L 01/02/24 06:36
Plt Count 352 10^3/uL (130-400) 01/02/24 06:36
Sodium 128 mmol/L (135-145) L 01/02/24 06:36
Potassium 4.3 mmol/L (3.5-5.1) 01/02/24 06:36
Chloride 105 mmol/L (98-107) 01/02/24 06:36
Carbon Dioxide 23 mmol/L (22-30) 01/02/24 06:36
BUN 51 mg/dl (7-17) H 01/02/24 06:36
Creatinine 0.9 mg/dL (0.6-1.0) 01/02/24 06:36
eGFR > 60.00 01/02/24 06:36
Glucose 84 mg/dl (70-99) 01/02/24 06:36
Calcium 7.7 mg/dl (8.4-10.2) L 01/02/24 06:36
Nhq-M-Khlrbxydlul Pept 15557 pg/ml 12/18/23 04:27
Albumin 2.3 g/dl (3.5-5.0) L 12/18/23 04:19
Physical Exam
-
Vital Signs:
Vital Signs
Temp Pulse Resp BP Pulse Ox
98.9 F 78 16 168/87 100
01/02/24 07:30 01/02/24 07:30 01/02/24 07:30 01/02/24 07:30 01/02/24 08:30
Cardiovascular:: Regular rate and rhythm
Respiratory:: Bilateral: Coarse
Lung Excursion:: Normal
Abdomen:: Nontender and Soft
Bowel Sounds:: Normal
Extremity Edema:: +3: Bilateral:
[2024-01-02] MEDS: ZAROXOLYN 2.5 MG PO (13:52)
[2024-01-02 15:29] VITALS: PULSE 72; O2SAT 98
[2024-01-02 16:22] VITALS: BP 122/73
[2024-01-02 17:03] VITALS: BP 141/87; BP 149/89; BP 151/91; PULSE 83; PULSE 92; PULSE 95
[2024-01-02 19:50] VITALS: BP 144/86
[2024-01-02 23:02] VITALS: BP 155/87
[2024-01-03] MEDS: HEPARIN 5000 UNITS SC ×3 (01:10→15:19)
[2024-01-03 05:40] LABS: Blood Urea Nitrogen 45 mg/dl (7-17); Calcium 7.9 mg/dl (8.4-10.2); Carbon Dioxide 24 mmol/L (22-30); Chloride 104 mmol/L (98-107); Estimated Creatinine Clearance 58 ml/min; Glucose 90 mg/dl (70-99); Potassium 4.1 mmol/L (3.5-5.1); Sodium 129 mmol/L (135-145); eGFR > 60.00
[2024-01-03 05:52] LABS: Hematocrit 23.5 % (37.0-47.0); Hemoglobin 7.7 g/dL (12.0-16.0); Mean Corp Hgb Conc. 32.8 g/dL (33.0-37.0); Mean Corpuscular Hgb 29.1 pg (27.0-31.0); Mean Corpuscular Volume 88.7 fL (81.0-99.0); Mean Platelet Volume 10.5 fL (7.4-10.4); Platelet Count 379 10^3/uL (130-400); Red Blood Cell Count 2.65 10^6/uL (4.20-5.40); Red Cell Dist. Width 14.1 % (11.5-14.5); White Blood Cell Count 6.6 10^3/uL (4.8-10.8)
[2024-01-03 06:00] VITALS: BMI 28.1
[2024-01-03 08:10] VITALS: BP 121/75
[2024-01-03] MEDS: COREG 25 MG PO (08:53)
[2024-01-03] MEDS: LOW STRENGTH ASPIRIN 81 MG PO (08:53)
[2024-01-03] MEDS: DELTASONE 50 MG PO (08:53)
[2024-01-03] MEDS: LASIX 80 MG PO ×2 (08:53→15:19)
[2024-01-03] MEDS: MIRALAX 17 GRAMS PO (08:54)
[2024-01-03] MEDS: APRESOLINE 20 MG PO (08:54)
[2024-01-03] MEDS: PROCARDIA XL (EXTENDED RELEASE) 60 MG PO (08:55)
[2024-01-03] MEDS: ZESTRIL 20 MG PO (08:55)
[2024-01-03] MEDS: CELLCEPT 1500 MG PO (10:31)
--- NOTE | 2024-01-03 13:17 | W.PN.HOSP.TC ---
Today's Communication/Plan
-
d/c home after nephro eval
Assessment / Plan
Assessment / Plan
# Acute hypoxic and hypercapnic respiratory failure - Resolved
# Vent dependent respiratory failure - Resolved
-Most likely secondary to acute metabolic encephalopathy +/- pulmonary edema
-extubated on 12/20
-Patient already on steroids as part of treatment of SLE.
-Patient was dysphagia, was unable to take orals at that time. - Now tolerated pureed - adv as tolerated
-Dobbhoff placed on 12/22�dced on 12/25
#Hypertensive emergency - resolved
Uncontrolled HTN
-Weaned off Cardene drip
-hx of medication non compliance with SLE nephritis
-PRN hydralazine for SBP > 160
-Blood pressure controlled on regimen of hydralazine/lisinopril/Procardia/Coreg
#Hyponatremia
-monitor to ensure not dropping further now that on PO diet
-increase lasix to 80mg BID, tolerating well w/o renal dysfunction
-Nephro eval pending today
#Fall
-head strike
-parietal area hematoma, no ICH - stable on repeat ct
-cont to monitor, repeat ct head tomorrow
-after fall 12/30, SNF advised although patient and family prefers to go home and have declined rehab repeatedly.
#Hyperkalemia - resolved
#Acute metabolic encephalopathy, resolved
-Suspected hypertensive encephalopathy versus press versus lupus cerebritis
-Unfortunately unable to get MRI brain without contrast to rule out lupus cerebritis
-CT head did not show any acute abnormality
-Cannot get MRI due to UTILITY WORKER [employer] shunt. Repeat CT head done and no new changes - 12/19
-Patient had continuous EEG monitoring. No clear seizure activity
-Patient has been taken off of Keppra.
-Repeat CT head remains neg
-LP showing WBC 2 RBC 54 Glu 79 TP 85 Meningitis panel neg
# SLE
-Question of SLE flare-up and patient being provided methylprednisolone 40 mg every 12 hours
-Minimal borderline low C3 level. Anti-dsDNA level 1
-Patient will be started on mycophenolate and Benlysta on outpatient basis by Rheumatology
-Rheumatology evaluated and recommended to be maintained on oral prednisone 50 mg daily at discharge
-Rheum OKed MMF 1500 BID - f/u rheum outpatient (Dr. Leung)
#CKD 3a
Stage IV lupus nephritis - biopsy in February 25
Nephrotic syndrome
Anasarca
-diffuse swelling of upper/lower ext, 2/2 hypoalbuminemia , weight down trending.
-Switch IV Lasix to p.o. Lasix - adv to 80mg BID
# Strabismus/Esotropia
-Question of possible assorted cranial neuropathy of right nerve, although no papillary changes
-repeat CT head neg for acute abnormalities.
# Moraxella catarrhalis pneumonia
-Finished 5 days course of IV antibiotics. Discontinue and monitor
#Acute normocytic anemia
-S/p 1 unit of blood transfusion
-No signs of luminal blood loss. Not on any blood thinners.
-Hbg dropped today - continue to follow.
#Hypokalemia
#Hypocalcemia
� Monitor and replete
Hx Pericardial effusion 2021
h/o Hydrocephalus s/p v/p shunt
h/o latent TB s/p treatment
DVT PPx: HSQ
Discussed with nephrology, await evaluation today
More than 30 minutes spent in discharge including
Final examination of the patient
Summarizing hospital stay
Instructions for continuing care to all relevant caregivers
Preparation of discharge records, prescriptions, and referral forms
Total time spent (in minutes): 43 mins
Anticipated Discharge: Today
Subjective/Interval History
-
Date of Service: January 03, 2024
Resting comfortably in bed
Denies having any problems
Objective Data
-
Labs:
Laboratory Results
01/03/24
04:53
WBC 6.6
Hgb 7.7 L
Hct 23.5 L
Plt Count 379
Sodium 129 L
Potassium 4.1
Chloride 104
Carbon Dioxide 24
BUN 45 H
Creatinine 0.8
Glucose 90
Calcium 7.9 L
Vital Signs:
Vital Signs
Temp Pulse Resp BP Pulse Ox
98.2 F 77 16 121/75 97
01/03/24 08:10 01/03/24 08:55 01/03/24 08:10 01/03/24 08:55 01/03/24 08:10
I&O
01/02/24 01/03/24 01/04/24
06:59 06:59 06:59
Intake Total 1540 / 1540 420 / 420
Output Total 1390 / 1390 900 / 900
Balance 150 / 150 -480 / -480
Review of Systems
-
All other systems: Reviewed and negative
Physical Exam
-
General: Well Developed, Well Nourished, No Apparent Distress and Obese; Negative Appears in Distress
HEENT: Oxygen
Respiratory: Clear to Auscultation
Cardiac: Regular Rhythm and S1/S2; Negative Murmur
GI: Soft, Nontender and Nondistended
Musculoskeletal: Edema, Right Upper Extrem, Edema, Left Upper Extrem, Edema, Right Lower Extrem and Edema, Left Lower Extrem
Neuro: Awake, Alert and Oriented
--- NOTE | 2024-01-03 15:09 | W.PN.NEPH.PH ---
Today's Communication / Plan
-
ok for d/c
Assessment/Plan
-
Assessment:
AMS
VDRF
Class IV lupus nephritis (on MMF, prednisone, hydroxychloroquine + voclosporin)
CKD (bl Cr around 1.2)
Hydrocephalus s/p TRACTOR CRANE OPERATOR shunt
hypertensive emergency
nephrotic syndrome
hyponatremia
Anemia
hypocalcemia
h/o pericardial effusion
hx of latent TB, s/p treatment
Plan:
-po lasix to continue BID, prn metolazone 2.5mg for wt gain or worsening edema
-on po prednisone/MMF for immunosuppression
-follow BMP out pt
ok for d/c
d/w primary
f/u Rheum and Dr Hernandez
-
-
Date of Service: January 03, 2024
CC / HPI / ROS
-
Chief Complaint:
JASKARAN
History of Present Illness:
Creatinine at 0.8
BUN stable on steroids
Hgb stable low 7.7
Hemodynamically stable
Na low stable 129
on pred/MMF for LN
Review of Systems:
Edema persists
no SOB or cp
Labs
-
Labs:
WBC 6.6 10^3/uL (4.8-10.8) 01/03/24 04:53
RBC 2.65 10^6/uL (4.20-5.40) L 01/03/24 04:53
Hgb 7.7 g/dL (12.0-16.0) L 01/03/24 04:53
Hct 23.5 % (37.0-47.0) L 01/03/24 04:53
Plt Count 379 10^3/uL (130-400) 01/03/24 04:53
Sodium 129 mmol/L (135-145) L 01/03/24 04:53
Potassium 4.1 mmol/L (3.5-5.1) 01/03/24 04:53
Chloride 104 mmol/L (98-107) 01/03/24 04:53
Carbon Dioxide 24 mmol/L (22-30) 01/03/24 04:53
BUN 45 mg/dl (7-17) H 01/03/24 04:53
Creatinine 0.8 mg/dL (0.6-1.0) 01/03/24 04:53
eGFR > 60.00 01/03/24 04:53
Glucose 90 mg/dl (70-99) 01/03/24 04:53
Calcium 7.9 mg/dl (8.4-10.2) L 01/03/24 04:53
Mha-U-Vjxxrygtevp Pept 21670 pg/ml 12/18/23 04:27
Albumin 2.3 g/dl (3.5-5.0) L 12/18/23 04:19
Physical Exam
-
Vital Signs:
Vital Signs
Temp Pulse Resp BP Pulse Ox
98.2 F 77 16 121/75 97
01/03/24 08:10 01/03/24 08:55 01/03/24 08:10 01/03/24 08:55 01/03/24 08:10
Cardiovascular:: Regular rate and rhythm
Respiratory:: Bilateral: CTA
Lung Excursion:: Normal
Abdomen:: Nontender and Soft
Extremity Edema:: +2: Bilateral:
Ellis Catheter: No
[2024-01-03 15:18] VITALS: BP 132/72
--- NOTE | 2024-01-03 15:38 | CM ---
Patient has been medically cleared for discharge to home with no additional skilled services. Patient and family declined SNF. Patient does not have insurance for services. Patient has been recommended for follow-up with [facility].
Friend present and transported home.
--- NOTE | 2024-01-04 08:04 | W.DCSUMMARY ---
Discharge Summary
Discharge Data
Date of Admission: 12/18/23
Date of Discharge: 01/03/24
-
Pending Results: No
Hospital Course
Discharging Physician : Dr Solitario Lozano
Disposition : Home with home care
Primary care physician : None
Principal Discharge diagnosis :
Acute hypoxic/hypercapnic respiratory failure
Ventilator dependent respiratory failure
Hypertensive emergency
Toxic metabolic encephalopathy
Hyponatremia
Moraxella catarrhalis pneumonia
Acute normocytic anemia
Mechanical fall
Chronic Discharge diagnosis :
History of systemic lupus erythematosus
Chronic disease stage IIIa
Stage IV lupus nephritis
Nephrotic syndrome
Strabismus/esotropia
History of pericardial effusion
History of hydrocephalus s/p ventriculoperitoneal shunt
History of latent tuberculosis s/p treatment
Hospital Course :
Patient is a 53-year-old female with above-mentioned past medical history was brought in by family as patient was minimally responsive. Patient have history of SLE but has been noncompliant with medication. Patient was also noted to be extremely
hypertensive and in hypertensive emergency.
Acute hypoxic/hypercapnic respiratory failure, Ventilator dependant respiratory failure -patient was in hypertensive emergency in the ER and was noted to be minimally responsive. Patient was tachypneic and was electively intubated in ER. Chest
x-ray was suggestive of some ongoing pulmonary edema. Patient was transferred to ICU for further treatment. Patient was started on IV diuretic therapy to help with pulmonary edema. Patient was able to be extubated after improvement of
hypertensive encephalopathy and pulmonary edema.. Patient was slowly able to be weaned off of oxygen. Postextubation patient had some dysphagia and required Dobbhoff support, this was discontinued as well later during the hospital course.
Hypertensive emergency -patient was extremely hypertensive with systolic blood pressure 260-280 range in ER. Patient have history of stage IV lupus nephritis but unfortunately has been noncompliant with medication. Patient was started on Cardene
drip and was monitored in ICU. Patient was also required to be given IV Vasotec to help control blood pressure. Postextubation patient was started on oral antihypertensive therapy. Dose of blood pressure medications were titrated up and at
discharge patient is being discharged on combination of lisinopril/hydralazine/nifedipine/coreg.
Toxic metabolic encephalopathy -at admission patient was minimally responsive and required intubation. Postextubation patient continued to remain confused. A CT head was done x 3 and did not show any acute abnormality, no the patient abnormality.
There was question of patient possibly having lupus cerebritis although cannot get MRI due to WELDING ROBOT OPERATOR shunt in place. Lumbar puncture was done which did not indicate bronchitis. EEG was normal as well. Patient was maintained on empiric steroids per
recommendation by truck engine technician. Patient had improvement in mentation with complete resolution of encephalopathy before discharge.
Hyponatremia -presumed to be euvolemic hyponatremia. Stabilized around 130. No further treatment during this admission.
SLE -patient was supposed to be on mycophenolate/voclosporin/Prednisone, unfortunately patient likely was not taking this medication. Complement level C3 was borderline low. Zieg-vnjqnm-smwmhbzs DNA level was 1. Rheumatology involved in care who
recommended for patient to be started on oral prednisone. Later during the hospital course patient was also placed back on mycophenolate. Patient instructed to follow-up with rheumatology in office for continual management of SLE.
Moraxella catarrhalis pneumonia -patient finished course of antibiotic during hospitalization.
Acute normocytic anemia -no reported blood loss. Required 1 unit of blood transfusion this admission.
Mechanical fall -patient had mechanical fall in hospital. CT head was normal. Rehab was recommended although patient family declined and preferred to take patient home.
Important imaging findings :
None
Procedure findings :
None
Discharge Plan
-
Patient Disposition: Home with Home Care
Discharge Diagnosis/Procedures: Hypoxic/Hypercapnic resp failure, vent dependent, HTN emergency, Hyponatremia, Toxic metabolic encephalopathy, SLE, CKD IIIa
Condition: Fair
Diet: Regular
Activity: As tolerated
Driving Restrictions: No driving
Bathing Restrictions: OK to Shower
Activity Restrictions/Additional Instructions:
Follow-up with [facility] - contact number [phone]
Referrals:
Farhan Farrar MD [Active] - in one to two weeks
UNKNOWN - PT NOT,INTERVIEWE [Family Provider] -
Prescriptions:
New
polyethylene glycol 3350 [HealthyLax] 17 gram Powder In Packet
17 g PO DAILY PRN (Reason: Constipation) Qty: 30 0RF
sennosides-docusate sodium [Stool Softener-Stimulant Laxat] 8.6-50 mg Tablet
1 tab PO BIDPRN PRN (Reason: constipation) Qty: 60 0RF
furosemide 80 mg Tablet
80 mg PO BID@0800,1600 30 Days Qty: 60 2RF
prednisone 50 mg Tablet
50 mg PO DAILY 30 Days Qty: 30 2RF
aspirin [Children's Aspirin] 81 mg Tablet,Chewable
81 mg PO DAILY Qty: 30 2RF
nifedipine 60 mg Tablet Extended Release
60 mg PO BID 30 Days Qty: 60 2RF
lisinopril 20 mg Tablet
20 mg PO BID 30 Days Qty: 60 2RF
hydralazine 10 mg tablet
20 mg PO BID 30 Days Qty: 120 2RF
metolazone 5 mg tablet
5 mg PO DAILY PRN (Reason: For weight gain > 3 lb in 24 hrs) Qty: 30 0RF
Continued
acetaminophen [Tylenol Extra Strength] 500 mg Tablet
500 mg PO DAILYPRN PRN (Reason: mild pain)
carvedilol 25 mg Tablet
25 mg PO BID Qty: 60 0RF
mycophenolate mofetil 500 mg tablet
1,500 mg PO BID
ferrous sulfate 325 mg (65 mg iron) Tablet
325 mg PO HS
Held
voclosporin 7.9 mg Capsule
23.7 mg PO BID
Hold Instructions: Resume on 01/19/24. HOLD UNTIL SEEN BY [employer] REPORTER DR FARHAN FARRAR
Discontinued
sodium bicarbonate 650 mg Tablet
1,300 mg PO TID Qty: 180 0RF
lisinopril 20 mg tablet
20 mg PO DAILY
prednisone 20 mg tablet
50 mg PO DAILY
furosemide 40 mg tablet
40 mg PO DAILY
indapamide 2.5 mg tablet
1.25 mg PO DAILY
nifedipine 30 mg tablet extended release
90 mg PO DAILY
spironolactone 25 mg tablet
12.5 mg PO DAILY
potassium chloride 20 mEq Tablet Extended Release
20 meq PO TID
Discharge Orders:
Discharge Patient (As Directed); Ordered 01/03/24
Ordered By: Solitario Lozano
Discharge Date and Time
Discharge Date/Time: 01/03/24 15:33
Print Language: MALDIVIAN
== END 2024-01-03 15:33 | disposition home or self-care (01) | DRG 871 ==
LOC: 2 NORTH 06:03
PROVIDERS: Internal Medicine; Nurse Practitioner Family; Radiology Vascular & Interventional Radiology; Specialist; Student in an Organized Health Care Education/Training Program; ADMITTING PHYSICIAN Internal Medicine; ATTENDING PHYSICIAN Hospitalist; CONSULT PHYSICIAN Student in an Organized Health Care Education/Training Program; EMERGENCY PHYSICIAN Emergency Medicine; OTHER PHYSICIAN Internal Medicine; OTHER PHYSICIAN Internal Medicine Critical Care Medicine
PROC: 0BH17EZ Insertion of Endotracheal Airway into Trachea, Via Natural or Artificial Opening (ICD-10-PCS; 2023-12-18)
PROC: 5A1945Z Respiratory Ventilation, 24-96 Consecutive Hours (ICD-10-PCS; 2023-12-18)
PROC: 30233N1 Transfusion of Nonautologous Red Blood Cells into Peripheral Vein, Percutaneous Approach (ICD-10-PCS; 2023-12-19)
PROC: 009U3ZX Drainage of Spinal Canal, Percutaneous Approach, Diagnostic (ICD-10-PCS; 2023-12-24)
DX: A41.9 Sepsis, unspecified organism (principal); G92.8 Other toxic encephalopathy; J96.01 Acute respiratory failure with hypoxia; J96.02 Acute respiratory failure with hypercapnia; J15.69 Pneumonia due to other Gram-negative bacteria; J81.0 Acute pulmonary edema; D84.821 Immunodeficiency due to drugs; E87.1 Hypo-osmolality and hyponatremia; I16.1 Hypertensive emergency; N17.9 Acute kidney failure, unspecified; E87.29 Other acidosis; I31.39 Other pericardial effusion (noninflammatory); I67.4 Hypertensive encephalopathy; M32.14 Glomerular disease in systemic lupus erythematosus; I10 Essential (primary) hypertension; E88.09 Other disorders of plasma-protein metabolism, not elsewhere classified; E83.51 Hypocalcemia; D63.8 Anemia in other chronic diseases classified elsewhere; N18.31 Chronic kidney disease, stage 3a; I08.0 Rheumatic disorders of both mitral and aortic valves; W18.30XA Fall on same level, unspecified, initial encounter; E87.6 Hypokalemia; R13.10 Dysphagia, unspecified; E87.5 Hyperkalemia; H50.9 Unspecified strabismus; D50.9 Iron deficiency anemia, unspecified; Z98.2 Presence of cerebrospinal fluid drainage device; Z79.52 Long term (current) use of systemic steroids; Z79.624 Long term (current) use of inhibitors of nucleotide synthesis; Z79.899 Other long term (current) drug therapy; Z86.15 Personal history of latent tuberculosis infection; Z91.148 Patient's other noncompliance with medication regimen for other reason
CPT/HCPCS: 31500; 36600; 43752; 51702; 62328; 70450; 70496; 70498; 71045; 74018; 80048; 80053; 80202; 81003; 81015; 82077; 82570; 82805; 82945; 82962; 83605; 83880; 84145; 84156; 84157; 84439; 84443; 84478; 84484; 85025; 85027; 85610; 85652; 86038; 86140; 86160; 86225; 86850; 86900; 86901; 86920; 87015; 87040; 87070; 87077; 87102; 87185; 87205; 87327; 87483; 87641; 89051; 92526; 92610; 93005; 94002; 94003; 94640; 95714; 96365; 96366; 96375; 97116; 97163; 97167; 97530; 97535; 99291; 99292; P9016; Q9967

== ENCOUNTER → 2024-01-07 12:16 | Outpatient (REF) | payer OTHER, SELFPAY ==
[2024-01-07 13:38] LABS: Urine Albumin 2+ (Neg - Trace); Urine Bilirubin Negative (Negative); Urine Character Clear (Clear); Urine Color Yellow; Urine Glucose Negative (Negative); Urine Ketone Negative (Negative); Urine Leukocyte Negative (Negative); Urine Nitrite Negative (Negative); Urine Occult Blood 2+ (Negative); Urine Specific Gravity 1.005 (<1.030); Urine Urobilinogen Negative (Neg - 1+)
[2024-01-07 14:03] LABS: Urine Squamous Cell 16-20 /LPF (Few)
[2024-01-07 14:04] LABS: Urine Hyaline Cast >15 /LPF (0-2)
[2024-01-07 14:07] LABS: Urine White Cell 0-2 /HPF (0-5)
[2024-01-07 14:32] LABS: Protein/creatinine Ratio 11.9; Urine Protein 344 mg/dl
== END ==
LOC: CLINIC 12:16
PROVIDERS: ATTENDING PHYSICIAN Internal Medicine; FAMILY PHYSICIAN Nurse Practitioner Adult Health
DX: M32.14 Glomerular disease in systemic lupus erythematosus (principal); Z51.81 Encounter for therapeutic drug level monitoring
CPT/HCPCS: 81003; 81015; 82570; 84156

== ENCOUNTER → 2024-01-26 10:35 | Outpatient (REF) | payer OTHER, SELFPAY ==
[2024-01-26 11:20] LABS: % Basophils 0.2 % (0-2); % Eosinophils 1.7 % (0-6); % Immature Granulocytes 2.1 % (0-0.5); % Lymphocytes 10.1 % (20.5-51.1); % Monocytes 2.5 % (1.7-9.3); % Neutrophils 83.4 % (42.2-75.2); Absolute Eosinophils 0.3 10^3/uL (0-0.7); Absolute Immature Granulocytes 0.4 10^3/uL (0-0.05); Absolute Lymphocytes 1.9 10^3/uL (1.2-3.4); Absolute Monocytes 0.5 10^3/uL (0.1-0.6); Absolute Neutrophils 15.6 10^3/uL (1.4-6.5); Hematocrit 30.9 % (37.0-47.0); Hemoglobin 9.9 g/dL (12.0-16.0); Mean Corpuscular Hgb 29.6 pg (27.0-31.0); Mean Corpuscular Volume 92.2 fL (81.0-99.0); Mean Platelet Volume 9.6 fL (7.4-10.4); Nucleated Red Blood Cells % 0 %; Platelet Count 411 10^3/uL (130-400); Red Blood Cell Count 3.35 10^6/uL (4.20-5.40); Red Cell Dist. Width 14.6 % (11.5-14.5); Urine Albumin 1+ (Neg - Trace); Urine Bilirubin Negative (Negative); Urine Character Clear (Clear); Urine Color Straw; Urine Glucose Negative (Negative); Urine Ketone Negative (Negative); Urine Leukocyte Negative (Negative); Urine Nitrite Negative (Negative); Urine Occult Blood Negative (Negative); Urine Specific Gravity 1.005 (<1.030); Urine Urobilinogen Negative (Neg - 1+); Urine pH 6.5 (5.0-9.0); White Blood Cell Count 18.7 10^3/uL (4.8-10.8)
[2024-01-26 12:14] LABS: Urine Squamous Cell 16-20 /LPF (Few)
[2024-01-26 12:16] LABS: Urine Red Blood Cell 0-2 /HPF (0-2); Urine White Cell 0-2 /HPF (0-5)
[2024-01-26 12:37] LABS: Urine Protein 94 mg/dl
[2024-01-26 13:01] LABS: ALT (SGPT) 20 U/L (0-35); AST (SGOT) 27 U/L (14-36); Albumin 3.5 g/dl (3.5-5.0); Alkaline Phosphatase 104 U/L (38-126); Blood Urea Nitrogen 36 mg/dl (7-17); Carbon Dioxide 22 mmol/L (22-30); Chloride 99 mmol/L (98-107); Glucose 104 mg/dl (70-99); Sodium 130 mmol/L (135-145); Total Bilirubin 0.3 mg/dl (0.2-1.3); Total Protein 6.2 g/dl (6.3-8.2); eGFR > 60.00
== END ==
LOC: REG 10:35
PROVIDERS: ATTENDING PHYSICIAN Internal Medicine; FAMILY PHYSICIAN Nurse Practitioner Adult Health
DX: M32.14 Glomerular disease in systemic lupus erythematosus (principal); Z51.81 Encounter for therapeutic drug level monitoring
CPT/HCPCS: 36415; 80053; 81003; 81015; 82570; 84156; 85025

== ENCOUNTER → 2024-02-21 10:15 | Outpatient (REF) | payer MEDICAID, OTHER, SELFPAY ==
[2024-02-21 11:57] LABS: ALT (SGPT) 36 U/L (0-35); AST (SGOT) 26 U/L (14-36); Albumin 2.4 g/dl (3.5-5.0); Alkaline Phosphatase 137 U/L (38-126); Blood Urea Nitrogen 24 mg/dl (7-17); Calcium 7.6 mg/dl (8.4-10.2); Carbon Dioxide 25 mmol/L (22-30); Chloride 76 mmol/L (98-107); Glucose 144 mg/dl (70-99); Iron 42 ug/dl (37-170); Potassium 4.2 mmol/L (3.5-5.1); Sodium 106 mmol/L (135-145); Total Bilirubin 0.4 mg/dl (0.2-1.3); Total Protein 4.5 g/dl (6.3-8.2); eGFR > 60.00
[2024-02-21 12:17] LABS: Percent Saturation 28 % (20-50); Total Iron Binding Capacity 146 ug/dl (265-497)
[2024-02-21 14:13] LABS: Protein/creatinine Ratio 2.7; Urine Protein 385 mg/dl
[2024-02-21 14:24] LABS: Hemoglobin 9.9 g/dL (12.0-16.0); Mean Corp Hgb Conc. 38.1 g/dL (33.0-37.0); Mean Corpuscular Hgb 30.5 pg (27.0-31.0); Mean Platelet Volume 8.9 fL (7.4-10.4); Platelet Count 526 10^3/uL (130-400); Red Blood Cell Count 3.25 10^6/uL (4.20-5.40); Red Cell Dist. Width 13.6 % (11.5-14.5); White Blood Cell Count 10.4 10^3/uL (4.8-10.8)
== END ==
LOC: REG 10:15
PROVIDERS: ATTENDING PHYSICIAN Specialist
DX: M32.14 Glomerular disease in systemic lupus erythematosus (principal)
CPT/HCPCS: 36415; 80053; 82570; 82728; 83540; 83550; 84156; 85027

== ENCOUNTER 2024-02-22 18:05 | Inpatient (IN) | payer OTHER, SELFPAY ==
[2024-02-22 15:48] VITALS: BP 154/115
--- NOTE | 2024-02-22 15:58 | ED.GENMED ---
History of Present Illness
<Ashley Hester PA-C - Last Filed: 02/22/24 18:53>
General
Chief Complaint: Abnormal Lab Value
Source: patient
Exam Limitations: none
Time Seen by Provider: 02/22/24 15:57
Nursing documentation reviewed up to this point in time: agreed with
Travel History
Have you had any contact with someone who has COVID-19?: No
Do you have any symptoms of coronavirus? Fever > 100 degrees, chills, cough, shortness of breath, sore throat, loss of taste or smell, muscle aches, or headache?: No
History of Present Illness
History of Present Illness:
This is a 53 y/o female with past medical history of hydrocephalus with B2B SALES MANAGER shunt, hypertension, lupus nephritis, anemia presenting the emergency department today with concerns of weakness, vomiting, and low sodium. Patient states that she started
with nausea and vomiting 3 days ago and has had it every day persistently for the past 3 days. Patient states that because of her symptoms, she went to report to the emergency department today when she got a call in the waiting room from her
gunsmith apprentice saying that her recent lab work reveals a low sodium and that she should report to the emergency department. Patient also notes generalized weakness and fatigue. Patient denies any paresthesias, chest pain, syncope, confusion,
headache, abdominal pain, constipation. Patient notes occasional diarrhea. Patient no blood in her vomit. Patient does have a history of hyponatremia. Patient follows with nephrology for her lupus nephropathy.
Past History
<Ashley Hester PA-C - Last Filed: 02/22/24 18:53>
Past History
ED Past Medical History: HTN, Renal failure (Chronic kidney disease related to lupus) and Other (Hydrocephalus, lupus with lupus nephritis, chronic anemia)
ED Past Surgical History: Cholecystectomy and Other (B2B SALES MANAGER shunt)
Social History
Tobacco: Non-smoker
Alcohol: None
Drug: None
Personal:
Living: with family
Family History
Family History: Diabetes
Review of Systems
<Ashley Hester PA-C - Last Filed: 02/22/24 18:53>
Review of Systems
All Other Systems: ROS reviewed and negative except as documented in HPI and ROS
Phy Exam
<Ashley Hester PA-C - Last Filed: 02/22/24 18:53>
Physical Exam
Physical Exam:
General: Patient is well appearing and in no acute distress; non-toxic
Skin: Warm and dry, no rashes or lesions
Head: Normocephalic, atraumatic
Eyes: Sclera non-icteric. EOMs intact. PERRLA.
Cardiac: Regular rate and rhythm, no murmurs.
Peripheral Vascular: No lower extremity swelling or edema.
Pulm: Normal respiratory effort, no wheezes, rales, or rhonchi
Abdomen: No abdominal tenderness to palpation, no palpable mass
Neuro: GCS 15. CN II-XII intact, no focal neurologic deficits.
Psychiatric: Appropriate mood and affect.
Course
<Ashley Hester PA-C - Last Filed: 02/22/24 18:53>
Orders/Labs/Results
Orders:
Orders
02/22/24 15:53
Electrocardiogram (*1) Urgent
Reason for Study: Chest Pain
EKG- Treatment ONCE
02/22/24 16:09
Complete Blood Count/With Diff Urgent
Comprehensive Metabolic Panel Urgent
Magnesium Urgent
Serum Osmolality Urgent
Comment: ADD ON
02/22/24 16:23
0.9% Sodium Chloride 250 ml [Nss] 250 ml IV BOLUS
Acetaminophen [Tylenol] 650 mg PO NOW STA
02/22/24 17:18
3% Sodium Chloride 500 ml [Sodium Chloride 3%] 500 ml IV ONCE
02/22/24 17:19
COVID-19 Antigen Urgent
Source: Nasal Swab
Blood Culture Q30M
AUDREY Source: Blood/Venous
Specimen Description:
Influenza A+B Rapid Molecular Urgent
AUDREY Source: Nasal Swab
Specimen Description:
02/22/24 17:30
CR Chest - 2 Views Urgent
Comment:
Reason For Exam: fever
02/22/24 17:37
Blood Culture Q30M
AUDREY Source: Blood/Venous
Specimen Description:
02/22/24 17:51
CT Head W/o Iv Contrast Urgent
Comment:
Reason For Exam: hydrocelphalus, shunt, Low Na
02/22/24 17:55
Admit/Transfer Patient As Directed
Co-Sign Provider:
Level of Care: Inpatient admission
Assign to:: ICU
Physician / Group: barber
Diagnosis: hyponatremia
Reason for Hospitalization: hyponatremia
Expected length of stay greater than two midnights?: Yes
ELOS- Estimated Length of Stay in days: 2
I certify the patient meets the requirements for IP care: Yes
02/22/24 17:56
Code Status As Directed
Resuscitation Status: Full Code
02/22/24 18:00
HydrALAZINE [Apresoline] 10 mg IV Q6HPRN PRN
02/22/24 18:17
Osmolality, Random Urine Urgent
Date Specimen was Collected: 02/22/24
Time Specimen was Collected: 18:15
Urinalysis Urgent
Date Specimen was Collected: 02/22/24
Time Specimen was Collected: 18:15
Urine Sodium Urgent
Date Specimen was Collected: 02/22/24
Time Specimen was Collected: 18:15
Urine Culture Urgent
AUDREY Source: Urine
Specimen Description:
Obtained by: Straight Cath
Date Specimen was Collected: 02/22/24
Time Specimen was Collected: 18:15
Abnormal Lab Results
02/22/24
16:09
WBC 13.7 H 10^3/uL
(4.8-10.8)
RBC 3.14 L 10^6/uL
(4.20-5.40)
Hgb 9.6 L g/dL
(12.0-16.0)
Hct 25.7 L %
(37.0-47.0)
MCHC 37.4 H g/dL
(33.0-37.0)
Plt Count 568 H 10^3/uL
(130-400)
Abs Immat Gran (auto) 0.1 H 10^3/uL
(0-0.05)
Absolute Neuts (auto) 10.5 H 10^3/uL
(1.4-6.5)
Absolute Monos (auto) 1.2 H 10^3/uL
(0.1-0.6)
Immature Gran % 1.0 H %
(0-0.5)
Neutrophils % 76.8 H %
(42.2-75.2)
Lymphocytes % 10.9 L %
(20.5-51.1)
Sodium 106 L* mmol/L
(135-145)
Chloride 77 L mmol/L
(98-107)
Carbon Dioxide 21 L mmol/L
(22-30)
BUN 25 H mg/dl
(7-17)
Glucose 167 H mg/dl
(70-99)
Serum Osmolality 234 L mOsm/kg
(275-300)
Calcium 7.4 L mg/dl
(8.4-10.2)
ALT 38 H U/L
(0-35)
Alkaline Phosphatase 154 H U/L
(38-126)
Total Protein 4.4 L g/dl
(6.3-8.2)
Albumin 2.3 L g/dl
(3.5-5.0)
02/22/24 16:09
02/22/24 16:09
Vital Signs
Initial and Last Documented VS:
Initial Vital Signs
Temp Pulse Resp BP Pulse Ox
100.8 F H 120 20 154/115 100
02/22/24 15:48 02/22/24 15:48 02/22/24 15:48 02/22/24 15:48 02/22/24 15:48
Last Documented Vital Signs
Temp Pulse Resp BP Pulse Ox
100.8 F H 91 16 160/107 100
02/22/24 15:48 02/22/24 18:15 02/22/24 18:15 02/22/24 18:00 02/22/24 18:15
<Erwin Lezama, DO - Last Filed: 02/22/24 16:51>
Orders/Labs/Results
Orders:
Orders
02/22/24 15:53
Electrocardiogram (*1) Urgent
Reason for Study: Chest Pain
EKG- Treatment ONCE
02/22/24 16:09
Complete Blood Count/With Diff Urgent
Comprehensive Metabolic Panel Urgent
Magnesium Urgent
Serum Osmolality Urgent
Comment: ADD ON
02/22/24 16:23
0.9% Sodium Chloride 250 ml [Nss] 250 ml IV BOLUS
Acetaminophen [Tylenol] 650 mg PO NOW STA
02/22/24 17:18
3% Sodium Chloride 500 ml [Sodium Chloride 3%] 500 ml IV ONCE
02/22/24 17:19
COVID-19 Antigen Urgent
Source: Nasal Swab
Blood Culture Q30M
AUDREY Source: Blood/Venous
Specimen Description:
Influenza A+B Rapid Molecular Urgent
AUDREY Source: Nasal Swab
Specimen Description:
02/22/24 17:30
CR Chest - 2 Views Urgent
Comment:
Reason For Exam: fever
02/22/24 17:37
Blood Culture Q30M
AUDREY Source: Blood/Venous
Specimen Description:
02/22/24 17:51
CT Head W/o Iv Contrast Urgent
Comment:
Reason For Exam: hydrocelphalus, shunt, Low Na
02/22/24 17:55
Admit/Transfer Patient As Directed
Co-Sign Provider:
Level of Care: Inpatient admission
Assign to:: ICU
Physician / Group: barber
Diagnosis: hyponatremia
Reason for Hospitalization: hyponatremia
Expected length of stay greater than two midnights?: Yes
ELOS- Estimated Length of Stay in days: 2
I certify the patient meets the requirements for IP care: Yes
02/22/24 17:56
Code Status As Directed
Resuscitation Status: Full Code
02/22/24 18:00
HydrALAZINE [Apresoline] 10 mg IV Q6HPRN PRN
02/22/24 18:17
Osmolality, Random Urine Urgent
Date Specimen was Collected: 02/22/24
Time Specimen was Collected: 18:15
Urinalysis Urgent
Date Specimen was Collected: 02/22/24
Time Specimen was Collected: 18:15
Urine Sodium Urgent
Date Specimen was Collected: 02/22/24
Time Specimen was Collected: 18:15
Urine Culture Urgent
AUDREY Source: Urine
Specimen Description:
Obtained by: Straight Cath
Date Specimen was Collected: 02/22/24
Time Specimen was Collected: 18:15
Abnormal Lab Results
02/22/24
16:09
WBC 13.7 H 10^3/uL
(4.8-10.8)
RBC 3.14 L 10^6/uL
(4.20-5.40)
Hgb 9.6 L g/dL
(12.0-16.0)
Hct 25.7 L %
(37.0-47.0)
MCHC 37.4 H g/dL
(33.0-37.0)
Plt Count 568 H 10^3/uL
(130-400)
Abs Immat Gran (auto) 0.1 H 10^3/uL
(0-0.05)
Absolute Neuts (auto) 10.5 H 10^3/uL
(1.4-6.5)
Absolute Monos (auto) 1.2 H 10^3/uL
(0.1-0.6)
Immature Gran % 1.0 H %
(0-0.5)
Neutrophils % 76.8 H %
(42.2-75.2)
Lymphocytes % 10.9 L %
(20.5-51.1)
Sodium 106 L* mmol/L
(135-145)
Chloride 77 L mmol/L
(98-107)
Carbon Dioxide 21 L mmol/L
(22-30)
BUN 25 H mg/dl
(7-17)
Glucose 167 H mg/dl
(70-99)
Serum Osmolality 234 L mOsm/kg
(275-300)
Calcium 7.4 L mg/dl
(8.4-10.2)
ALT 38 H U/L
(0-35)
Alkaline Phosphatase 154 H U/L
(38-126)
Total Protein 4.4 L g/dl
(6.3-8.2)
Albumin 2.3 L g/dl
(3.5-5.0)
02/22/24 16:09
02/22/24 16:09
Vital Signs
Initial and Last Documented VS:
Initial Vital Signs
Temp Pulse Resp BP Pulse Ox
100.8 F H 120 20 154/115 100
02/22/24 15:48 02/22/24 15:48 02/22/24 15:48 02/22/24 15:48 02/22/24 15:48
Last Documented Vital Signs
Temp Pulse Resp BP Pulse Ox
100.8 F H 91 16 160/107 100
02/22/24 15:48 02/22/24 18:15 02/22/24 18:15 02/22/24 18:00 02/22/24 18:15
<Ashley Hester PA-C - Last Filed: 02/22/24 18:53>
MDM/Problems Addressed
Differential Diagnosis Includes:
Differentials include hypovolemic hyponatremia, SIADH, renal failure, gastroenteritis, COVID,
MDM/Problems Addressed:
Vomiting, hyponatremia:
This is a 53 y/o female with past medical history of hydrocephalus with B2B SALES MANAGER shunt, hypertension, lupus nephritis, anemia presenting the emergency department today with concerns of weakness, vomiting, and low sodium. Patient states that she started
with nausea and vomiting 3 days ago and has had it every day persistently for the past 3 days. Notes occasional diarrhea. Her gunsmith apprentice called while in the waiting room alerting her that she should go to the emergency department because of low
sodium found on routine labs. In Emergency Department, patient is well-appearing, no acute distress, has no abdominal tenderness on exam. Her neurological exam is unremarkable, GCS 15. Her does have a leukocytosis and is hyponatremic to 106.
Discussed case with my attending Dr. Lezama, we did start normal saline but then we contacted nephrology and patient was switched to 3% bolus. Admission indicated for further evaluation and treatment.
Chronic conditions affecting care:
lupus nephropathy, hydrocephalus, anemia
<Ashley Hester PA-C - Last Filed: 02/22/24 18:53>
*Pulse Oximetry
Patient hypoxic: no
*Critical Care Note
Total Time (30-74mins, 75-104mins- exclusive of procedures): Not Applicable
Data Reviewed
Review of Other/Old Records Reveals: Records (Reviewed discharge summary from 01/04/2024, reviewed recent ER physician documentation)
Source: patient and records
<Ashley Hester PA-C - Last Filed: 02/22/24 18:53>
Patient Management
Discussion with other providers: Hospitalist and Supervisor Inspecting (nephrology )
Escalation/DeEscalation of care consider admission/obs:
admission indicated
ED Attending Note
<Ashley Hester PA-C - Last Filed: 02/22/24 18:53>
-
Portions of this chart may have been created with voice recognition software.� Occasional wrong word or��sound alike� substitutions may have occurred due to the inherent limitations of voice recognition software.
<Erwin Lezama DO - Last Filed: 02/22/24 16:51>
ED Attending Note
Patient seen and examined by attending physician: Yes
I performed the substantive portion of visit, reviewed & personally made and approve the management plan that is documented in note by myself or JEFFREY.: Yes
ED Attending Note:
Seen with PA agree with assessment and plan, 53-year-old female with lupus followed by nephrology nausea vomiting for 3 days low-grade fevers, sodium noted suspect she is hypovolemic, will start on saline will require admission
Discharge Plan
Departure
Patient Disposition: Admit
Date of Disposition: 02/22/24
Time of Disposition: 17:26
Admit to: ICU
Presentation/result/management discussed w/ accepting MD/DO: Hospitalist
Patient with high blood pressure during this ER visit?: Yes
Condition: Critical
Discharge Problem:
Hyponatremia
Interventions
Interventions:
*Risk Screen - Suicide Last Done: 02/22/24 15:48
*General Assessment Last Done: 02/22/24 15:48
*Neglect/Abuse Screening Last Done: 02/22/24 15:48
ED- Fall Risk Assessment Last Done: 02/22/24 17:00
[2024-02-22 16:20] LABS: % Basophils 0.1 % (0-2); % Eosinophils 2.8 % (0-6); % Lymphocytes 10.9 % (20.5-51.1); % Monocytes 8.4 % (1.7-9.3); % Neutrophils 76.8 % (42.2-75.2); Absolute Eosinophils 0.4 10^3/uL (0-0.7); Absolute Immature Granulocytes 0.1 10^3/uL (0-0.05); Absolute Lymphocytes 1.5 10^3/uL (1.2-3.4); Absolute Monocytes 1.2 10^3/uL (0.1-0.6); Absolute Neutrophils 10.5 10^3/uL (1.4-6.5); Hematocrit 25.7 % (37.0-47.0); Hemoglobin 9.6 g/dL (12.0-16.0); Mean Corp Hgb Conc. 37.4 g/dL (33.0-37.0); Mean Corpuscular Hgb 30.6 pg (27.0-31.0); Mean Corpuscular Volume 81.8 fL (81.0-99.0); Mean Platelet Volume 8.8 fL (7.4-10.4); Nucleated Red Blood Cells % 0 %; Platelet Count 568 10^3/uL (130-400); Red Blood Cell Count 3.14 10^6/uL (4.20-5.40); Red Cell Dist. Width 13.2 % (11.5-14.5); White Blood Cell Count 13.7 10^3/uL (4.8-10.8)
[2024-02-22 16:35] LABS: ALT (SGPT) 38 U/L (0-35); AST (SGOT) 28 U/L (14-36); Albumin 2.3 g/dl (3.5-5.0); Alkaline Phosphatase 154 U/L (38-126); Blood Urea Nitrogen 25 mg/dl (7-17); Calcium 7.4 mg/dl (8.4-10.2); Carbon Dioxide 21 mmol/L (22-30); Chloride 77 mmol/L (98-107); Glucose 167 mg/dl (70-99); Magnesium 2.2 mg/dl (1.6-2.3); Potassium 4.2 mmol/L (3.5-5.1); Sodium 106 mmol/L (135-145); Total Bilirubin 0.4 mg/dl (0.2-1.3); Total Protein 4.4 g/dl (6.3-8.2); eGFR > 60.00
[2024-02-22] MEDS: TYLENOL 650 MG PO (16:42)
[2024-02-22] MEDS: NSS 250 IV (16:42)
[2024-02-22 17:00] VITALS: BP 190/113
--- NOTE | 2024-02-22 17:18 | W.CON.NEPH ---
Consultation
-
Date/Time Consultation Requested: 02/22/2024 5:00.
Date/Time Consultation Performed: 02/22/2024 5:00 PM
Requesting Provider: Dr. Lezama
Performing Provider: Dr. Hand
Reason for Consultation: Hyponatremia
Medical History
-
Chief Complaint: Hyponatremia
History of Present Illness:
Ms. Yaron Turpin is a 53YOF with PMH of lupus nephritis class IV, latent TB (s/p 6 months INH at age 21, retreatment -06/2024), HTN, anemia, hydrocephalus who presents to the hospital for days and a sodium of 106
The patient had been recently admitted to the hospital in December 2023 for with respiratory compromise and unresponsiveness. She is chronically maintained on mycophenolate and prednisone for her lupus nephritis for which she maintains a normal GFR of
0.7 at the time. Her most recent urine protein to creatinine ratio was 2.7 g as of 02/21/2024. Significantly improved from 9 g in January 2024. She is maintained on metolazone and furosemide for edema in the setting of her previous nephrotic syndrome.
Past Medical History
Poorly controlled hypertension
nephrotic syndrome
hydrocephalus with RESIDENTIAL ROOFER HELPER shunt placed 2011, revised 2017
chronic anemia
latent TB s/p treatment
Past Medical History: Other
Past Surgical History: Cholecystectomy and Gynecological (C section)
Social History
Tobacco: Non-Smoker
Alcohol: None
Drug: None
Living: With Family
Employment: Not Employed
Family History
+HTN
Allergies / Home Medications
Allergy/AdvReac Type Severity Reaction Status Date / Time
No Known Allergies Allergy Verified 02/22/24 15:51
�Medication �Instructions �Recorded �Confirmed �Type
Red Blood Supplement 1 dose PO DAILY 02/22/24 02/22/24 History
carvedilol 25 mg tablet 25 mg PO BID 02/22/24 02/22/24 History
furosemide 40 mg tablet 40 mg PO DAILY 02/22/24 02/22/24 History
hydralazine 10 mg tablet 10 mg PO DAILY 02/22/24 02/22/24 History
lisinopril 20 mg tablet 20 mg PO BID 02/22/24 02/22/24 History
metolazone 5 mg tablet 5 mg PO DAILY PRN weight gain >3 02/22/24 02/22/24 History
lbs in 24 hrs
mycophenolate mofetil 500 mg tablet 1,500 mg PO BID 02/22/24 02/22/24 History
nifedipine 60 mg tablet,extended 60 mg PO BID 02/22/24 02/22/24 History
release 24 hr
omeprazole 20 mg capsule,delayed 20 mg PO DAILY 02/22/24 02/22/24 History
release
prednisone 20 mg tablet 20 mg PO BID 02/22/24 02/22/24 History
Review of Systems
-
All other systems: Negative unless noted
Constitutional: Fever, Fatigue and Other (malaise)
EENT: No Symptoms
Respiratory: No Symptoms
Cardiac: No Symptoms
Abdomen/GI: Nausea and Vomiting
Musculoskeletal: No Symptoms
Neurological: No Symptoms
Endocrine: No Symptoms
Hematologic/Lymphatic: No Symptoms
Physical Exam
Vital Signs
Vital Signs
Temp Pulse Resp BP Pulse Ox
100.8 F H 120 20 154/115 100
02/22/24 15:48 02/22/24 15:48 02/22/24 15:48 02/22/24 15:48 02/22/24 15:48
Lab Results
02/22/24 16:09
02/22/24 16:09
WBC 13.7 10^3/uL (4.8-10.8) H 02/22/24 16:09
RBC 3.14 10^6/uL (4.20-5.40) L 02/22/24 16:09
Hgb 9.6 g/dL (12.0-16.0) L 02/22/24 16:09
Hct 25.7 % (37.0-47.0) L 02/22/24 16:09
Plt Count 568 10^3/uL (130-400) H 02/22/24 16:09
Sodium 106 mmol/L (135-145) L* 02/22/24 16:09
Potassium 4.2 mmol/L (3.5-5.1) 02/22/24 16:09
Chloride 77 mmol/L (98-107) L 02/22/24 16:09
Carbon Dioxide 21 mmol/L (22-30) L 02/22/24 16:09
BUN 25 mg/dl (7-17) H 02/22/24 16:09
Creatinine 0.7 mg/dL (0.6-1.0) 02/22/24 16:09
eGFR > 60.00 02/22/24 16:09
Glucose 167 mg/dl (70-99) H 02/22/24 16:09
Calcium 7.4 mg/dl (8.4-10.2) L 02/22/24 16:09
Albumin 2.3 g/dl (3.5-5.0) L 02/22/24 16:09
Physical Exam
General: AOx3, Nontoxic , NAD
HEENT: PERRL, EOMI, Anicteric, Conjunctivae Clear, Ear/Nose Intact, Hearing Normal, Oropharynx Clear/Moist, Dentition Intact, Facial Symmetry, Neck Supple, Neck: Trachea Midline, No JVD and No Thyromegaly, no Bruits
Respiratory: Clear to auscultation bilaterally with normal lung exersion
Cardiac: S1/S2 and Regular Rate/Rhythm
Breast: Deferred by me
Abdomen: Soft, Nontender, Nondistended, Normal Bowel Sounds and No Hepatosplenomegaly
Rectal: Deferred by Provider
Genito-urinary: No Costovertebral Tenderness
Extremities: No Clubbing, No Cyanosis and No Edema
Skin: No Rash or open lesions
Neuro: Nonfocal/Grossly Intact, CN II-XII (Intact) and Strength (Musculoskeletal exam 5 out of 5 both upper and lower extremities)
Psych: Mood/afflect pleasant, Insight/judgement good and Appropriate
Vascular: plus 1 pedal and radial pulses
Data Reviewed
-
Labs: Labs Reviewed by me
Critical Care Time (in minutes): 35
Assessment/Plan
-
Impression
Acute on chronic hyponatremia
Class IV lupus nephritis (on MMF, prednisone, hydroxychloroquine + voclosporin)
CKD (bl Cr around 1.2)
Hydrocephalus s/p RESIDENTIAL ROOFER HELPER shunt
Uncontrolled hypertension
nephrotic syndrome
hyponatremia
Anemia
hypocalcemia
h/o pericardial effusion
hx of latent TB, s/p treatment
Plan:
Hyponatremia
-admit to ICU
-Obtain stat urine osmolality and urine sodium
-Patient likely with chronic SIADH component possibly exacerbated by nausea vomiting, but would also consider obtaining CT of brain to assess for ventricle dilatation due to possible underlying RESIDENTIAL ROOFER HELPER shunt dysfunction
-Fluid restriction of 1000 cc a day
-Given extremely high risk for seizure event given low serum sodium of 106 in combination with patient's prior history of recent seizure we will administer 3% saline at 20 cc/h
-Goal of correction will be 10 mEq/L over the next 24 hours
-Frequent electrolyte checks every 2 hours interval for first few hours
-Patient is critically ill with profound hyponatremia with high risk of neurological sequela
-hold diuretics
-continue all antihtns, may need to start cardene gtt to control HTN
-45 minutes critical care time patient
[2024-02-22] MEDS: SODIUM CHLORIDE 3% 500 IV (17:39)
[2024-02-22 17:49] LABS: Osmolality Serum 234 mOsm/kg (275-300)
[2024-02-22 18:00] VITALS: BP 160/107
[2024-02-22 18:00] LABS: COVID-19 Antigen Negative (Negative)
--- NOTE | 2024-02-22 18:00 | HPS.HSE ---
Family Physician
-
Family Physician: Pilar Gaytan
Chief Complaint
-
hyponatremia
History of Present Illness
53-year-old Sudanese-speaking female past medical history of hydrocephalus with STAMPING DIE TRY OUT WORKER shunt, hyponatremia, hypertension, SLE, lupus nephritis, CKD 3A, chronic normocytic anemia, history of pericardial effusion, history of latent TB status posttreatment,
presenting with weakness, vomiting and low potassium. She started having nausea vomiting since 3 days ago. She denies any diarrhea. She denies any abdominal pain. She denies any headache, neck pain, dizziness, vertigo, numbness or tingling. She
states that she drinks 1 bottle of water every day. She denies smoking or alcohol. She denies any new medication or medication apart from what she has been taking for nausea. She has been taking all of her medications.
She denies any chest pain or shortness of breath.
Medical History
Past Medical History
Past Medical History: Reports Other (hydrocephalus with STAMPING DIE TRY OUT WORKER shunt, hyponatremia, hypertension, SLE, lupus nephritis, CKD 3A, chronic normocytic anemia, history of pericardial effusion, history of latent TB status posttreatment)
Past Surgical History: Reports None
Social History
Tobacco: Non-smoker
Alcohol: None
Drug: None
Family History
Family History: Not pertinent
Allergies / Home Medications
Allergies reflects when Allergies were last updated in [facility].
Home Medications with original date entered in [facility]
Allergy/Medication List:
Allergies
Allergy/AdvReac Type Severity Reaction Status Date / Time
No Known Allergies Allergy Verified 02/22/24 15:51
Home Medications
Red Blood Supplement 1 dose PO DAILY 02/22/24
carvedilol 25 mg tablet 25 mg PO BID 02/22/24
furosemide 40 mg tablet 40 mg PO DAILY 02/22/24
hydralazine 10 mg tablet 10 mg PO DAILY 02/22/24
lisinopril 20 mg tablet 20 mg PO BID 02/22/24
metolazone 5 mg tablet 5 mg PO DAILY PRN weight gain >3 lbs in 24 hrs 02/22/24
mycophenolate mofetil 500 mg tablet 1,500 mg PO BID 02/22/24
nifedipine 60 mg tablet,extended release 24 hr 60 mg PO BID 02/22/24
omeprazole 20 mg capsule,delayed release 20 mg PO DAILY 02/22/24
prednisone 20 mg tablet 20 mg PO BID 02/22/24
Review of Systems
-
History Source: Patient
A 12 point ROS was completed and negative except as noted: Yes
Constitutional: Reports No Symptoms
EENT: Reports No Symptoms
Respiratory: Reports No Symptoms
Cardiac: Reports No Symptoms
Abdomen/GI: Reports No Symptoms
: Reports No Symptoms
Musculoskeletal: Reports No Symptoms
Skin: Reports No Symptoms
Neurological: Reports No Symptoms
Endocrine: Reports No Symptoms
Hematologic/Lymphatic: Reports No Symptoms
Psych: Reports No Symptoms
Physical Exam
Vital Signs
Vital Signs
Temp Pulse Resp BP Pulse Ox
100.8 F H 86 16 190/113 100
02/22/24 15:48 02/22/24 17:15 02/22/24 17:15 02/22/24 17:00 02/22/24 17:15
Physical Exam
General: Well Developed, Well Nourished and No Apparent Distress
HEENT: NormoCephalic, Moist mucous membranes and Atraumatic
Respiratory: Clear
Cardiac: S1/S2 and Regular Rhythm; No Murmur or Rub
GI: Soft, Non Tender, Non Distended and Normal Bowel Sounds; No Organomegaly
Rectal: Deferred by Provider
Musculoskeletal: No Clubbing, No Cyanosis and No Edema
Skin: No Rash
Neuro: Nonfocal/grossly intact
Laboratory Results
-
02/22/24 16:09
02/22/24 16:09
Laboratory Results
Total Bilirubin 0.4 mg/dl (0.2-1.3) 02/22/24 16:09
AST 28 U/L (14-36) 02/22/24 16:09
ALT 38 U/L (0-35) H 02/22/24 16:09
Alkaline Phosphatase 154 U/L (38-126) H 02/22/24 16:09
Data Reviewed
-
Lab Data: Labs Reviewed by me
Old Records: Reviewed
Impression/Plan
-
IMPRESSION:
PLAN:
# Severe symptomatic hyponatremia
-Nausea and vomiting appears to be symptom of hyponatremia rather than GI process
-1000 cc fluid restriction
-Check BMP every 2 hours
-Urine studies pending
-Hypertonic saline
-Hold Lasix, metolazone
-nephro following
# SIRS (fever, leukocytosis, tachycardia) unclear source
-No focal symptoms of infection, no headache or altered mental status to suggest STAMPING DIE TRY OUT WORKER shunt infection or lupus cerebritis
-Nausea and vomiting does not appear to be GI related and rather related to hyponatremia
-Will nevertheless check CT scan of head
-Check chest x-ray
-Check urinalysis
-Check COVID, influenza
-Check procalcitonin
-Check blood cultures
-Maintain off antibiotics
# Hypertensive urgency
-Continue Coreg, hydralazine, lisinopril, nifedipine
-As needed IV hydralazine, nicardipine drip if no response
History of hydrocephalus with STAMPING DIE TRY OUT WORKER shunt
Systemic lupus erythematosus
-Continue mycophenolate
-Continue prednisone
History of lupus nephritis/CKD 3a
-Renal function based
Chronic normocytic anemia
History of pericardial effusion
History of latent TB status posttreatment
Full code
DVT prophylaxis�heparin
Renal diet
[2024-02-22 18:23] LABS: Urine Albumin 2+ (Neg - Trace); Urine Bilirubin Negative (Negative); Urine Character Clear (Clear); Urine Color Yellow; Urine Glucose Negative (Negative); Urine Ketone Negative (Negative); Urine Leukocyte Negative (Negative); Urine Nitrite Negative (Negative); Urine Occult Blood 3+ (Negative); Urine Specific Gravity 1.015 (<1.030); Urine Urobilinogen Negative (Neg - 1+)
[2024-02-22 18:32] LABS: Urine Bacteria Few (Negative); Urine White Cell 0-2 /HPF (0-5)
[2024-02-22 18:37] LABS: Osmolality Urine 355 mOsm/kg (300-900); Urine Sodium < 5 mmol/L (30-90)
--- NOTE | 2024-02-22 18:47 | CON.INTV ---
Consultation
Consultation Request
Date/Time Consultation Requested: 02-22-24
Date/Time Consultation Performed: 02-22-24
Requesting Provider: Hospitalist Shawanda
Performing Provider: Dr Faria
Reason for Consultation: hyponatremia, severe
Medical History
-
Chief Complaint: n/v, weakness
History of Present Illness:
Mrs Areli Marrufo is a 53/W adm 02-21 with 3-4 d h/o n/v/gralized weakness.
Known h/o nephrotic syndrome, chronic hyponatremia, HTN, hydrocephalus s/p SILK EXAMINER shunt, lupus nephritis (followed by Rheum on mycophenolate, prednisone 20 mg bid, HCQ, voclosporin, was considered for biologic therapy/Cytoxan therapy as outpatient).
Outpatient labs 02-20 showed serum Na 106, instructed to come to ER which she did today.
At ER, serum Na repeated and still at 106, afebrile, mild tachycardia, mild to moderate HTN, normoxemia on RA. Seen by nephrology and started on HS infusion
Seen at ER, in NAD, conversant, oriented, reports weakness and mild nausea
Past Medical History
Past Medical History: Other (see A&P for PMH/PSH)
Social History
Tobacco: Non-smoker
Alcohol: None
Drug: None
Personal:
Living: With Family
Employment: Not Employed
Family History
Family History: Reviewed & Not Pertinent
Allergies / Home Medications
Allergies
Allergy/AdvReac Type Severity Reaction Status Date / Time
No Known Allergies Allergy Verified 02/22/24 15:51
Home Medications
�Medication �Instructions �Recorded �Confirmed �Last Taken �Type
Red Blood Supplement 1 dose PO DAILY 02/22/24 02/22/24 02/22/24 History
carvedilol 25 mg tablet 25 mg PO BID 02/22/24 02/22/24 02/22/24 History
furosemide 40 mg tablet 40 mg PO DAILY 02/22/24 02/22/24 02/22/24 History
hydralazine 10 mg tablet 10 mg PO DAILY 02/22/24 02/22/24 02/22/24 History
lisinopril 20 mg tablet 20 mg PO BID 02/22/24 02/22/24 02/22/24 History
metolazone 5 mg tablet 5 mg PO DAILY PRN weight gain >3 02/22/24 02/22/24 3 Weeks Ago History
lbs in 24 hrs ~02/01/24
mycophenolate mofetil 500 mg tablet 1,500 mg PO BID 02/22/24 02/22/24 02/22/24 History
nifedipine 60 mg tablet,extended 60 mg PO BID 02/22/24 02/22/24 02/22/24 History
release 24 hr
omeprazole 20 mg capsule,delayed 20 mg PO DAILY 02/22/24 02/22/24 02/22/24 History
release
prednisone 20 mg tablet 20 mg PO BID 02/22/24 02/22/24 02/22/24 History
Review of Systems
-
History Source: Patient
All other systems: Negative unless noted
Constitutional: Fatigue
Abdomen/GI: Nausea, Vomiting and Diarrhea
Neuro: Weakness
Vitals / Labs / Diagnostic Testing
Vital Signs
Temp Pulse Resp BP Pulse Ox
100.8 F H 91 16 160/107 100
02/22/24 15:48 02/22/24 18:15 02/22/24 18:15 02/22/24 18:00 02/22/24 18:15
Lab Data
02/22/24 16:09
02/22/24 16:09
Microbiology
02/22/24 17:19 Nasal Swab Influenza Types A & B (DANIS) - Final
Negative for Influenza A & B, NAAT
Negative results must be combined with clinical observations
and patient history.
Nucleic Acid Amplification test (NAAT)performed on the
[employer] platform.
Diagnostic Testing:
Physical Exam
-
HEENT: Normocephalic, Moist Mucous Membranes and Thrush (n)
Cardiovascular: Regular Rhythm, Murmur (n), Peripheral Edema (n) and JVD (n)
Respiratory: Clear and Non-Labored Respirations
GI: Soft, Non Distended and Non Tender
Neurology: Awake, Oriented and No Motor Deficits
Skin: Warm
General: Respiratory Distress (n)
Assessment
-
Assessment:
Mrs Areli Marrufo is a 53/W adm 02-21 with 3-4 d h/o n/v/gralized weakness. Known h/o nephrotic syndrome, chronic hyponatremia, HTN, hydrocephalus s/p SILK EXAMINER shunt, lupus nephritis (followed by Rheum on mycophenolate, prednisone 20 mg bid, HCQ,
voclosporin, was considered for biologic therapy/Cytoxan therapy as outpatient). Outpatient labs 02-20 showed serum Na 106, instructed to come to ER which she did today. At ER, serum Na repeated and still at 106, afebrile, mild tachyardia, mild to
moderate HTN, normoxemia on RA. Seen by nephrology and started on HS infusion
Impression:
Severe symptomatic hyponatremia, acute on chronic hyponatremia
Adm serum Na 106
Suspected chronic SIADH component, potentially exacerbated by acute n/v
Subacute thrombocytosis
Microhematuria
COVID/flu negative
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
VDRF, intubated 12/18/2023 at ER for unresponsiveness, adm
Found unresponsive by family at 3:30 AM
Last seen in good health 10 PM on night CHIEF LEARNING OFFICER
Neuroimaging negative
Bloody secretions at time of intubation, trach cx with Morax cat BL positive, suspected patchy R infiltrates, adm CXR with L lung atelectasis due to RMSB intubation. Cefepime changed to ampic/sulb 12-20, complete 7-10 d atb course
Acute hypercapnia
Extubated 12-[address] with severe acute bilateral maxillary sinusitis
Lupus nephritis, on chronic immunosuppression
MMF/prednisone/hydroxychloroquine/voclosporin
Being considered for biologic therapy (Dr. Engel)
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
Hydrocephalus status post SILK EXAMINER shunt; placed in 2011 with an revised in 2017
Chronic anemia
Nephrotic syndrome
Significant proteinuria
Hypertension
Laparoscopic cholecystectomy
x2
History of latent tuberculosis, positive PPD, status post 6 months of INH per records
Seen by Department of Health, recommended 4 months of rifampin
History of noncompliance
History of mild to moderate mitral regurgitation and with pericardial effusion in the past
Nonsmoker
Plan:
Acute on chronic severe hyponatremia
Resp and hemodyn stable
CXR with no infiltrates
EKG with mild STach
Adm to ICU due to severe hyponatremia and high risk for sz (severe hyponatremia, prior h/o sz)
Follow head CT to rule out SILK EXAMINER shunt dysfunction/ventricular dilation
HS infusion
FR 1,000 mL/d
Goal of serum Na correction at 10 mEq/L over the next 24 hours as rec by Nephrology
History of renal insufficiency
Sees nephrology as outpatient (Mary)
Renal biopsy noted, suggestive of lupus nephritis (2021)
Follow renal function
BP control
Continue MMF and prednisone regimen
GI/DVT prophylaxis
Critical care time: 35 min
[2024-02-22 20:00] VITALS: BP 153/102
--- NOTE | 2024-02-22 20:00 | PTCARENOTE ---
rec`d pt at 1900 from ED. pt pleasant. and son at bedside. AAOx3. SR on monitor. on 3% gtt. BP elevated. meds given. room air. satting at 100%. purwick on pt. skin intact. 20LAC, 22LW. q2h BMPs sent. call luciano in reach, safe environment
maintained.
[2024-02-22] MEDS: HEPARIN 5000 UNITS SC (20:38)
[2024-02-22] MEDS: DELTASONE 20 MG PO (20:38)
[2024-02-22] MEDS: COREG 25 MG PO (20:38)
[2024-02-22] MEDS: ZESTRIL 20 MG PO (20:38)
[2024-02-22] MEDS: CELLCEPT 1500 MG PO (20:39)
[2024-02-22] MEDS: PROCARDIA XL (EXTENDED RELEASE) 60 MG PO (20:39)
[2024-02-22 20:57] LABS: Blood Urea Nitrogen 23 mg/dl (7-17); Calcium 6.7 mg/dl (8.4-10.2); Carbon Dioxide 22 mmol/L (22-30); Chloride 81 mmol/L (98-107); Glucose 130 mg/dl (70-99); Sodium 107 mmol/L (135-145); eGFR > 60.00
[2024-02-22 21:14] LABS: Procalcitonin 0.41 ng/ml (0.0-0.25)
[2024-02-22 22:00] VITALS: BP 106/65
[2024-02-22 23:00] VITALS: BP 85/51
[2024-02-23] VITALS (32 sets, daily range): BP systolic 84–119; BP diastolic 45–78
--- NOTE | 2024-02-23 | PTCARENOTE ---
pt reassessed. no changes in pt assessment.
[2024-02-23 00:03] LABS: Blood Urea Nitrogen 22 mg/dl (7-17); Calcium 6.4 mg/dl (8.4-10.2); Carbon Dioxide 23 mmol/L (22-30); Chloride 83 mmol/L (98-107); Glucose 139 mg/dl (70-99); Potassium 3.8 mmol/L (3.5-5.1); Sodium 110 mmol/L (135-145); eGFR > 60.00
[2024-02-23] MEDS: CALCIUM GLUCONATE 130 MG IV (00:34)
[2024-02-23 03:57] LABS: % Basophils 0.1 % (0-2); % Eosinophils 0.9 % (0-6); % Immature Granulocytes 1.1 % (0-0.5); % Lymphocytes 9.4 % (20.5-51.1); % Monocytes 5.9 % (1.7-9.3); % Neutrophils 82.6 % (42.2-75.2); Absolute Eosinophils 0.1 10^3/uL (0-0.7); Absolute Immature Granulocytes 0.1 10^3/uL (0-0.05); Absolute Lymphocytes 0.9 10^3/uL (1.2-3.4); Absolute Monocytes 0.6 10^3/uL (0.1-0.6); Absolute Neutrophils 7.9 10^3/uL (1.4-6.5); Hematocrit 21.9 % (37.0-47.0); Mean Corp Hgb Conc. 36.5 g/dL (33.0-37.0); Mean Corpuscular Hgb 30.4 pg (27.0-31.0); Mean Corpuscular Volume 83.3 fL (81.0-99.0); Mean Platelet Volume 8.6 fL (7.4-10.4); Nucleated Red Blood Cells % 0 %; Platelet Count 413 10^3/uL (130-400); Red Blood Cell Count 2.63 10^6/uL (4.20-5.40); Red Cell Dist. Width 13.3 % (11.5-14.5); White Blood Cell Count 9.6 10^3/uL (4.8-10.8)
--- NOTE | 2024-02-23 04:00 | PTCARENOTE ---
pt reassessed. no changes in pt assessment.
[2024-02-23 04:02] LABS: INR 1.25; PT 15.6 Sec (11.4-14.6)
[2024-02-23 04:03] LABS: APTT 33.9 Sec (23.4-35.0)
[2024-02-23 04:38] LABS: ALT (SGPT) 31 U/L (0-35); AST (SGOT) 20 U/L (14-36); Albumin 1.7 g/dl (3.5-5.0); Alkaline Phosphatase 117 U/L (38-126); Blood Urea Nitrogen 21 mg/dl (7-17); Calcium 8.4 mg/dl (8.4-10.2); Carbon Dioxide 23 mmol/L (22-30); Chloride 84 mmol/L (98-107); Glucose 128 mg/dl (70-99); Potassium 4.2 mmol/L (3.5-5.1); Sodium 110 mmol/L (135-145); Total Bilirubin 0.3 mg/dl (0.2-1.3); Total Protein 3.4 g/dl (6.3-8.2); eGFR > 60.00
--- NOTE | 2024-02-23 05:25 | DOWNTIME ---
There was a [employer] Client [employer]er Downtime on 02/23/2024 from 0100 to 02/23/2024 at 0337. Downtime documentation of patient's care, including medication administrations, has been reconciled in the electronic record per guidelines. Refer to the
patient's paper chart under the miscellaneous tab to see printed paper medication records and downtime forms.
--- NOTE | 2024-02-23 07:37 | W.PN.INTV ---
Documented by User: Danita Chavarria, Resident, 02/23/24 10:16
Today's Communication / Plan
Recommendations
continue 3% saline as per nephrology
monitor BMP
Assessment
-
Assessment:
Mrs Areli Marrufo is a 53/W adm 02-21 with 3-4 d h/o n/v/gralized weakness. 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
voclosporin, was considered for biologic therapy/Cytoxan therapy as outpatient). Outpatient labs 02-20 showed serum Na 106, instructed to come to ER which she did today. At ER, serum Na repeated and still at 106, afebrile, mild tachyardia, mild to
moderate HTN, normoxemia on RA. Seen by nephrology and started on HS infusion
Impression:
Severe symptomatic hyponatremia, acute on chronic hyponatremia
Adm serum Na 106
Suspected chronic SIADH component, potentially exacerbated by acute n/v
Subacute thrombocytosis
Microhematuria
COVID/flu negative
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
VDRF, intubated 12/18/2023 at ER for unresponsiveness, adm
Found unresponsive by family at 3:30 AM
Last seen in [facility] 10 PM on night SKEINER
Neuroimaging negative
Bloody secretions at time of intubation, trach cx with Morax cat BL positive, suspected patchy R infiltrates, adm CXR with L lung atelectasis due to RMSB intubation. Cefepime changed to ampic/sulb 12-20, complete 7-10 d atb course
Acute hypercapnia
Extubated 12-[address] with severe acute bilateral maxillary sinusitis
Lupus nephritis, on chronic immunosuppression
MMF/prednisone/hydroxychloroquine/voclosporin
Being considered for biologic therapy (Dr. Engel)
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
Hydrocephalus status post ASSOCIATE PROFESSOR OF THEOLOGY shunt; placed in 2011 with an revised in 2017
Chronic anemia
Nephrotic syndrome
Significant proteinuria
Hypertension
Laparoscopic cholecystectomy
x2
History of latent tuberculosis, positive PPD, status post 6 months of INH per records
Seen by Department of Health, recommended 4 months of rifampin
History of noncompliance
History of mild to moderate mitral regurgitation and with pericardial effusion in the past
Nonsmoker
Plan:
Acute on chronic severe hyponatremia
Resp and hemodyn stable
CXR with no infiltrates
EKG with mild STach
Adm to ICU due to severe hyponatremia and high risk for sz (severe hyponatremia, prior h/o sz)
Head CT on 02/21: No acute intracranial abnormality noted. Stable right-sided ASSOCIATE PROFESSOR OF THEOLOGY shunt and encephalomalacia in the right frontal lobe
CXR on 02/21: no acute disease of chest
Nephrology consulted, recs appreciated
HS infusion
FR 1,000 mL/d
closely monitor BMP
Hold antihypertensives besides nifedipine, hold parameteres SBP >110
History of renal insufficiency
Sees nephrology as outpatient ()
Renal biopsy noted, suggestive of lupus nephritis (2021)
Follow renal function
BP control
Continue MMF and prednisone regimen
GI/DVT prophylaxis
Subjective Dataa
Subjective Data
Date of Service:
Date of Service: February 23, 2024
Chief Complaint: Special Education Aide Follow Up
Subjective:
Patient was seen at bedside and had no acute overnight events. No N/V, diarrhea.
Review of Systems
General: Other (negative unless stated otherwise)
Objective Data
Data Reviewed
Vital Signs / I&O / Oxygen:
Vital Signs
Temp Pulse Resp BP Pulse Ox
98.1 F 73 18 108/54 100
02/23/24 07:30 02/23/24 07:28 02/23/24 07:28 02/23/24 07:28 02/23/24 07:30
Intake and Output
02/22/24 02/23/24 02/24/24
06:59 06:59 06:59
Intake Total 220 / 220
Output Total 350 / 350
Balance -130 / -130
SaO2 100
Physical Exam
General: Comfortable
HEENT: Normocephalic
Cardiovascular: S1-S2 and Regular Rhythm
Respiratory: Clear
GI: Soft, Non Distended and Non Tender
Neurology: Awake, Alert and Oriented
Labs/Micro/Reports
Lab Data
02/23/24 03:45
Laboratory Results
02/23/24
03:45
PT 15.6 H
INR 1.25
APTT 33.9
Microbiology
02/22/24 17:19 Nasal Swab Influenza Types A & B (DANIS) - Final
Negative for Influenza A & B, NAAT
Negative results must be combined with clinical observations
and patient history.
Nucleic Acid Amplification test (NAAT)performed on the
[employer] platform.

Documented by User: Henri Faria MD 02/23/24 12:25
Assessment
-
Assessment:
Mrs Areli Marrufo is a 53/W adm 02-21 with 3-4 d h/o n/v/gralized weakness. 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
voclosporin, was considered for biologic therapy/Cytoxan therapy as outpatient). Outpatient labs 02-20 showed serum Na 106, instructed to come to ER which she did today. At ER, serum Na repeated and still at 106, afebrile, mild tachyardia, mild to
moderate HTN, normoxemia on RA. Seen by nephrology and started on HS infusion
Impression:
Severe symptomatic hyponatremia, acute on chronic hyponatremia
Adm serum Na 106
Suspected chronic SIADH component, potentially exacerbated by acute n/v
Subacute thrombocytosis
Microhematuria
COVID/flu negative
Low grade temp on adm to ER (100.8F, 38.2C)
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
VDRF, intubated 12/18/2023 at ER for unresponsiveness, adm
Found unresponsive by family at 3:30 AM
Last seen in [facility] 10 PM on night SKEINER
Neuroimaging negative
Bloody secretions at time of intubation, trach cx with Morax cat BL positive, suspected patchy R infiltrates, adm CXR with L lung atelectasis due to RMSB intubation. Cefepime changed to ampic/sulb 12-20, complete 7-10 d atb course
Acute hypercapnia
Extubated 12-[address] with severe acute bilateral maxillary sinusitis
Lupus nephritis, on chronic immunosuppression
MMF/prednisone/hydroxychloroquine/voclosporin
Being considered for biologic therapy (Dr. Engel)
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
Hydrocephalus status post ASSOCIATE PROFESSOR OF THEOLOGY shunt; placed in 2011 with an revised in 2017
Chronic anemia
Nephrotic syndrome
Significant proteinuria
Hypertension
Laparoscopic cholecystectomy
x2
History of latent tuberculosis, positive PPD, status post 6 months of INH per records
Seen by Department of Health, recommended 4 months of rifampin
History of medical noncompliance
History of mild to moderate mitral regurgitation and with pericardial effusion in the past
Nonsmoker
Plan:
Acute on chronic severe hyponatremia
Resp and hemodyn stable
CXR with no infiltrates
EKG with mild STach
Adm to ICU due to severe hyponatremia and high risk for sz (severe hyponatremia, prior h/o sz)
Head CT on 02/21: No acute intracranial abnormality noted. Stable right-sided ASSOCIATE PROFESSOR OF THEOLOGY shunt and encephalomalacia in the right frontal lobe
CXR on 02/21: no acute disease of chest
Nephrology consulted, recs appreciated
HS infusion
FR 1,000 mL/d
closely monitor BMP
Chronic immunosuppresion: lupus nephritis on MMF, pred, HCQ, voclosporin
Low grade fever x1 on adm to ER, no further episodes, no fever
UCx prelim negative, blood cx pending
Observing off atbs
ID consulted by adm svce
Noted patient is chronically on prednisone at >=20 mg qd, will benefit from PJP prophylaxis
Hold antihypertensives besides nifedipine, hold parameteres SBP >110
History of renal insufficiency
Sees nephrology as outpatient (Mary)
Renal biopsy noted, suggestive of lupus nephritis (2021)
Follow renal function
BP control
Continue MMF and prednisone regimen
GI/DVT prophylaxis
Critical care time: 35 min
D/w MDT
D/w Mrs Marrufo
ATTENDING PHYSICIAN ATTESTATION:
(Follow-up Visit:)
I personally saw and evaluated the patient along with the Resident Dr Chavarria.
Discussed with Resident and discussed in rounds with MDT.
I agree with Resident�s findings and plan as documented in the resident�s note, which was edited by myself.
Objective Data
Physical Exam
General: Respiratory Distress (n)
HEENT: Moist Mucous Membranes and Thrush (n)
Cardiovascular: Murmur (n), JVD (n) and Other (ASSOCIATE PROFESSOR OF THEOLOGY shunt palpable at RIJV)
Respiratory: Non-Labored Respirations and Stridor (n)
Neurology: AO x 3 and No Motor Deficits
Skin: Warm
[2024-02-23] MEDS: CELLCEPT 1500 MG PO ×2 (07:39→19:49)
[2024-02-23] MEDS: DELTASONE 20 MG PO ×2 (07:39→19:49)
[2024-02-23] MEDS: HEPARIN 5000 UNITS SC ×2 (07:39→19:49)
[2024-02-23] MEDS: PROTONIX 40 MG PO (07:40)
[2024-02-23] MEDS: PROCARDIA XL (EXTENDED RELEASE) 60 MG PO (07:40)
--- NOTE | 2024-02-23 08:20 | W.PN.NEPH.PH ---
Today's Communication / Plan
-
Closely monitoring sodium
3% infusing
Holding a.m. antihypertensives except for nifedipine
Assessment/Plan
-
Impression
Acute on chronic hyponatremia
Class IV lupus nephritis (on MMF, prednisone, hydroxychloroquine + voclosporin)
CKD (bl Cr around 1.2)
Hydrocephalus s/p SLACKMAN shunt
Uncontrolled hypertension
nephrotic syndrome
hyponatremia
Anemia
hypocalcemia
h/o pericardial effusion
hx of latent TB, s/p treatment
Plan:
Hyponatremia
-admitted to ICU
-Obtain stat urine osmolality and urine sodium: Urine sodium less than 5 urine osmolality 355
-Patient likely with chronic SIADH component possibly exacerbated by nausea vomiting, but would also consider obtaining CT of brain to assess for ventricle dilatation due to possible underlying SLACKMAN shunt dysfunction
-Fluid restriction of 1000 cc a day
-Given extremely high risk for seizure event given low serum sodium of 106 in combination with patient's prior history of recent seizure we administered 3% saline at 20 cc/h
-Goal of correction will be 10 mEq/L over the next 24 hours
-Frequent electrolyte checks every 2 hours interval for first few hours
-Patient is critically ill with profound hyponatremia with high risk of neurological sequela
-holding diuretics
-Blood pressure low, only nifedipine provided this morning
-35 minutes critical care time patient
-
-
Date of Service: February 23, 2024
CC / HPI / ROS
-
Chief Complaint:
Hyponatremia
History of Present Illness:
Serum sodium of 110 with 3% infusion on goal
Hemodynamically soft
Review of Systems:
Oliguric
No complaint
No chest pain or shortness of
Labs
-
Labs:
WBC 9.6 10^3/uL (4.8-10.8) 02/23/24 03:45
RBC 2.63 10^6/uL (4.20-5.40) L 02/23/24 03:45
Hgb 8.0 g/dL (12.0-16.0) L 02/23/24 03:45
Hct 21.9 % (37.0-47.0) L 02/23/24 03:45
Plt Count 413 10^3/uL (130-400) H D 02/23/24 03:45
eGFR > 60.00 02/23/24 03:45
eGFR Cancelled 02/23/24 03:45
Albumin 1.7 g/dl (3.5-5.0) L 02/23/24 03:45
Physical Exam
-
Vital Signs:
Vital Signs
Temp Pulse Resp BP Pulse Ox
98.1 F 81 18 108/54 100
02/23/24 07:30 02/23/24 07:40 02/23/24 07:28 02/23/24 07:40 02/23/24 07:30
Cardiovascular:: Regular rate and rhythm
Respiratory:: Bilateral: CTA
Lung Excursion:: Normal
Abdomen:: Nontender and Soft
Bowel Sounds:: Normal
Extremity Edema:: None: Bilateral:
Ellis Catheter: No
--- NOTE | 2024-02-23 08:40 | W.PN.HOSP.TC ---
Today's Communication/Plan
-
3% IV saline. Monitor sodium.
Assessment / Plan
Assessment / Plan
Physical exam:
General: Acutely ill
HEENT: Normocephalic, Atraumatic and Moist Mucous Membranes
Respiratory: Clear to Auscultation; Negative Wheezes, Rales or Rhonchi
Cardiac: Regular Rhythm and S1/S2
GI: Soft, Non tender and Nondistended
Musculoskeletal: No Clubbing, No Cyanosis and No Edema
Neuro: Awake, Alert and Oriented
Psych: Calm
A/P:
# Severe symptomatic hyponatremia
Na 106-->111
Remains critically ill due to severe hyponatremia and requires close monitoring and increased risk of side effects of treatment as well.
Continue fluid restriction
Continue 3% saline
Hyponatremia workup
Monitor sodium closely
Nephrology consult
# Fever on immunocompromised patient
Not localizing signs
Workup unremarkable for any source at this point.
ID consult given immunocompromise status
Continue off antibiotics
# CKD stage III and class IV lupus nephritis/nephrotic syndrome:
Patient on hydroxychloroquine, voclosporin, and prednisone.
Nephrology on board
#Hypertension
Upon admission some ?hypertensive urgency/uncontrolled and blood pressures medications given. On Coreg hydralazine lisinopril nifedipine and IV hydralazine
Today blood pressure on the low side so most of antihypertensives held except for calcium channel alayna.
Continue monitor blood pressure and adjust medications accordingly
History of hydrocephalus with CHILD LIFE ASSISTANT shunt
Chronic normocytic anemia
History of pericardial effusion
History of latent TB status posttreatment
DVT prophylaxis�heparin
Full code
Total Critical Care Time 35 minutes. I was immediately available to the patient and staff. I personally examined, reviewed labs, diagnostic images/reports, interpretations, treatment plans, discussed patient care with other providers and family
or caregivers (if patient is unable to make decisions), entered orders as appropriate and documented the medical record.
Anticipated Discharge: > 48 hours
Subjective/Interval History
-
Date of Service: February 23, 2024
Patient feels generalized weakness. No fever. She feels thirsty and 'wants to drink water'.
Objective Data
-
Labs:
Laboratory Results
02/22/24 02/22/24 02/23/24
20:23 23:08 03:45
WBC 9.6
Hgb 8.0 L
Hct 21.9 L
Plt Count 413 H D
PT 15.6 H
INR 1.25
APTT 33.9
Sodium 107 L* 110 L* Cancelled
Potassium 4.0 3.8
Chloride 81 L 83 L
Carbon Dioxide 22 23
BUN 23 H 22 H
Creatinine 0.6 0.6
Glucose 130 H 139 H
Calcium 6.7 L* 6.4 L*
Total Bilirubin
AST
ALT
Alkaline Phosphatase
02/23/24 02/23/24 02/23/24
03:45 03:45 03:45
WBC
Hgb
Hct
Plt Count
PT
INR
APTT
Sodium 110 L*
Potassium Cancelled 4.2
Chloride Cancelled 84 L
Carbon Dioxide Cancelled
BUN
Creatinine
Glucose
Calcium
Total Bilirubin
AST
ALT
Alkaline Phosphatase
02/23/24 02/23/24 02/23/24
03:45 03:45 03:45
WBC
Hgb
Hct
Plt Count
PT
INR
APTT
Sodium
Potassium
Chloride
Carbon Dioxide 23
BUN Cancelled 21 H
Creatinine Cancelled 0.6
Glucose Cancelled
Calcium
Total Bilirubin
AST
ALT
Alkaline Phosphatase
02/23/24 02/23/24 02/23/24
03:45 03:45 07:36
WBC
Hgb
Hct
Plt Count
PT
INR
APTT
Sodium Pending
Potassium Pending
Chloride Pending
Carbon Dioxide Pending
BUN Pending
Creatinine Pending
Glucose 128 H Pending
Calcium Cancelled 8.4 D Pending
Total Bilirubin 0.3
AST 20
ALT 31
Alkaline Phosphatase 117
02/23/24 02/23/24 02/23/24
12:00 16:00 20:00
WBC
Hgb
Hct
Plt Count
PT
INR
APTT
Sodium Pending Pending Pending
Potassium Pending Pending Pending
Chloride Pending Pending Pending
Carbon Dioxide Pending Pending Pending
BUN Pending Pending Pending
Creatinine Pending Pending Pending
Glucose Pending Pending Pending
Calcium Pending Pending Pending
Total Bilirubin
AST
ALT
Alkaline Phosphatase
Vital Signs:
Vital Signs
Temp Pulse Resp BP Pulse Ox
98.1 F 81 18 108/54 100
02/23/24 07:30 02/23/24 07:40 02/23/24 07:28 02/23/24 07:40 02/23/24 07:30
I&O
02/22/24 02/23/24 02/24/24
06:59 06:59 06:59
Intake Total 220 / 220
Output Total 350 / 350
Balance -130 / -130
[2024-02-23] MEDS: COREG PO ×2 (09:10→20:12)
[2024-02-23] MEDS: ZESTRIL PO ×2 (09:10→20:12)
[2024-02-23] MEDS: APRESOLINE PO (09:10)
[2024-02-23 09:45] LABS: Blood Urea Nitrogen 21 mg/dl (7-17); Carbon Dioxide 23 mmol/L (22-30); Chloride 85 mmol/L (98-107); Glucose 161 mg/dl (70-99); Potassium 4.6 mmol/L (3.5-5.1); Sodium 112 mmol/L (135-145); eGFR > 60.00
--- NOTE | 2024-02-23 09:57 | PTCARENOTE ---
bmp results to Dr Hand, continue 3% as ordered and repeat at noon as currently ordered.
--- NOTE | 2024-02-23 11:45 | PTCARENOTE ---
repeat bmp drawn and sent. Pt without complaint. Refusing lunch at this time.
--- NOTE | 2024-02-23 12:18 | CON.ID ---
Consultation
-
Date/Time Consultation Requested: February 23, 2024 0845
Date/Time Consultation Performed: February 23, 2024 1220
Requesting Provider: Dr. Triston Crabtree
Performing Provider: Dr. Marcy Tidwell
Reason for Consultation: Fever of unclear source
Chief Complaint / Past History
Chief Complaint
Nausea and vomiting
History of Present Illness
53-year-old female with history of hydrocephalus status post MOLECULAR BIOLOGY SCIENTIST shunt, latent TB treated twice, nephrotic syndrome, lupus nephritis on mycophenolate and prednisone who presented to the hospital February 21 due to 3-day history of nausea, vomiting and
generalized weakness. Outpatient lab showed severe hyponatremia 106. She was therefore sent to the ER. Admission sodium 106. Blood pressure was 190/113. Temperature was 100.8 in the ED. White count 13.7. chest x-ray no acute pathology. Head
CT stable. Today patient reports she is feeling better. No further nausea. She reports no fevers or chills at home. No cough. No urinary symptoms. No abdominal pain. No diarrhea. No ill contacts.
Past History
Additional Past Medical History:
Lupus nephritis on mycophenolate, prednisone, voclosporin, HCQ
nephrotic syndrome
HTN
hyponatremia
Latent TB s/p 6 mos INH at age 21, retreated with rifampin 02/2023 to 06/2023 (due to no documentation of tx at age 21)
hydrocephalus s/p MOLECULAR BIOLOGY SCIENTIST shunt 2011, revision 2017
Cholecystectomy
Allergy History:
No Known Allergies Allergy (Verified 02/22/24 15:51)
Medications Reviewed: Yes
Current Antibiotics:
none
Social History
Tobacco: Non-Smoker
Alcohol: None
Drug: None
Personal:
Living: With Family
Family History
Family History: Not Pertinent
Review of Systems
Review of Systems
General: Change in Appetite; Negative Fever or Chills
HEENT: Negative Sinus Problems, Headache or Pharyngitis
Respiratory: Negative Dyspnea, Cough or Sputum Production
Genital / Urological: Negative Dysuria or Flank Pain
Endocrine: Weakness
Musculoskeletal: Negative Arthralgias
Neurological: Negative Headache or Dizziness
All systems: All other systems were reviewed and were negative
Vital Signs
Temp Pulse Resp BP Pulse Ox
98.2 F 72 22 95/52 100
02/23/24 11:06 02/23/24 11:00 02/23/24 11:00 02/23/24 11:00 02/23/24 08:00
Selected Entries
02/22/24
15:48
Temp 100.8 F H
Physical Exam
Physical Exam
Constitutional: No Acute Distress and Comfortable
Eyes: No Conjunctival Hemorrhage and Sclera Anicteric
Cardiovascular: Regular Rate and S1/S2
Pulmonary: Clear
Gastrointestinal: Soft, Non Tender, Non Distended and Normal Bowel Sounds
Genito-Urinary: Negative CVA Tenderness
Extremities: Negative Edema
Neurological: AO x 3; Negative Meningeal Signs
Lab / Diagnostic Study Results
02/23/24 03:45
Abs Immat Gran (auto) 0.1 10^3/uL (0-0.05) H 02/23/24 03:45
Absolute Neuts (auto) 7.9 10^3/uL (1.4-6.5) H 02/23/24 03:45
Absolute Lymphs (auto) 0.9 10^3/uL (1.2-3.4) L 02/23/24 03:45
Absolute Monos (auto) 0.6 10^3/uL (0.1-0.6) 02/23/24 03:45
Absolute Basos (auto) 0.0 10^3/uL (0-0.2) 02/23/24 03:45
Immature Gran % 1.1 % (0-0.5) H 02/23/24 03:45
Neutrophils % 82.6 % (42.2-75.2) H 02/23/24 03:45
Lymphocytes % 9.4 % (20.5-51.1) L 02/23/24 03:45
Monocytes % 5.9 % (1.7-9.3) 02/23/24 03:45
Eosinophils % 0.9 % (0-6) 02/23/24 03:45
Basophils % 0.1 % (0-2) 02/23/24 03:45
PT 15.6 Sec (11.4-14.6) H 02/23/24 03:45
INR 1.25 02/23/24 03:45
Procalcitonin 0.41 ng/ml (0.0-0.25) H 02/22/24 20:23
Urine WBC 0-2 /HPF (0-5) 02/22/24 18:17
Ur Squamous Epith Cells 3-5 /LPF (Few) 02/22/24 18:17
Microbiology Results
Micro:
02/22/24 18:17 Urine Culture - Preliminary
Urine NO GROWTH
02/22/24 17:37 Blood Culture - Pending
Blood/Venous
02/22/24 17:19 Influenza Types A & B (DANIS) - Final
Nasal Swab Negative for Influenza A & B, NAAT
Negative results must be combined with clinical observations
and patient history.
Nucleic Acid Amplification test (NAAT)performed on the
[employer] platform.
02/22/24 17:19 Blood Culture - Pending
Blood/Venous
02/22/24 CXR: No acute disease of the chest.
02/22/[address]: No acute intracranial abnormality noted. Stable right-sided MOLECULAR BIOLOGY SCIENTIST shunt and encephalomalacia in the right frontal lobe.
Assessment / Plan
# Severe hyponatremia improving
- Management as per renal.
# Fever x 1 resolved
# Leukocytosis resolved
-Suspect reactive
- CXR neg, UA neg.
- Follow blood cx's.
-Observe off abx
#Lupus nephritis on mycophenolate, prednisone, voclosporin, HCQ
# Other
nephrotic syndrome
HTN
hyponatremia
Latent TB s/p 6 mos INH at age 21, retreated with rifampin 02/2023 to 06/2023 (due to no documentation of tx at age 21)
hydrocephalus s/p MOLECULAR BIOLOGY SCIENTIST shunt 2011, revision 2017
Cholecystectomy
[2024-02-23 12:19] LABS: Blood Urea Nitrogen 26 mg/dl (7-17); Calcium 7.8 mg/dl (8.4-10.2); Carbon Dioxide 22 mmol/L (22-30); Chloride 86 mmol/L (98-107); Glucose 171 mg/dl (70-99); Potassium 4.2 mmol/L (3.5-5.1); Sodium 111 mmol/L (135-145); eGFR > 60.00
--- NOTE | 2024-02-23 12:20 | PTCARENOTE ---
na levels resulted to Dr Hand, 3% to continue at 20ml/hr at this time.
--- NOTE | 2024-02-23 15:21 | CM ---
Reviewed chart, met with patient to obtain information for assessment. Patient stated that she lives with her son and spouse in an apartment with no steps. Patient described herself as independent with her ADLs and personal care, dressing and
bathing. 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
She does not drive however her spouse does or she pays for a taxi.
She denied any DME in her home.
Patient stated that she has never had VN services.
She has never been to a SNF.
Patient has a prescription plan and uses, [facility] in [place] for all of her medications.
Her PCP is, Pilar CLANCY.
Patient stated that functionally, she feels she is at baseline and will remain agreeable to whatever is indicated at time of discharge.
Plan: Case management will continue to follow and assist with discharge planning. Home when stable.
[2024-02-23 16:16] LABS: Blood Urea Nitrogen 27 mg/dl (7-17); Calcium 7.5 mg/dl (8.4-10.2); Carbon Dioxide 22 mmol/L (22-30); Chloride 87 mmol/L (98-107); Glucose 162 mg/dl (70-99); Potassium 4.2 mmol/L (3.5-5.1); Sodium 113 mmol/L (135-145); eGFR > 60.00
--- NOTE | 2024-02-23 16:25 | PTCARENOTE ---
Dr Hand aware of latest sodium. 3% to continue until 6pm with repeat labs at 8pm. Otherwise no changes. Pt without complaint.
--- NOTE | 2024-02-23 20:00 | PTCARENOTE ---
report received from luisa RN. walking rounds completed. pt resting in bed, arouses easily to voice. AAOX3. denies pain. SR on telemetry heart rate in 70s. pulses palpable. no edema. pt on room air, sat 99%. lung sounds diminished. active bowel
sounds. voiding in bathroom. pt updated on plan of care. see worklist for full nursing assessment and interventions.
[2024-02-23] MEDS: PROCARDIA XL (EXTENDED RELEASE) PO (20:12)
[2024-02-23 20:19] LABS: Blood Urea Nitrogen 29 mg/dl (7-17); Calcium 7.5 mg/dl (8.4-10.2); Carbon Dioxide 20 mmol/L (22-30); Chloride 86 mmol/L (98-107); Glucose 166 mg/dl (70-99); Potassium 4.3 mmol/L (3.5-5.1); Sodium 112 mmol/L (135-145); eGFR > 60.00
--- NOTE | 2024-02-23 20:30 | PTCARENOTE ---
notified Dr. Hand of Na results of 112- stated okay for next check for AM labs.
[2024-02-24] VITALS (24 sets, daily range): BP systolic 102–159; BP diastolic 42–79; BMI 19.4
--- NOTE | 2024-02-24 | PTCARENOTE ---
vitals stable. no changes in assessment noted. pt sleeping between care.
--- NOTE | 2024-02-24 04:00 | PTCARENOTE ---
vital signs stable. pt ambulated to bathroom with standby assist. labs drawn and sent. no changes in assessment noted.
[2024-02-24 04:21] LABS: % Basophils 0.1 % (0-2); % Eosinophils 0.7 % (0-6); % Monocytes 6.1 % (1.7-9.3); % Neutrophils 86.1 % (42.2-75.2); Absolute Eosinophils 0.1 10^3/uL (0-0.7); Absolute Immature Granulocytes 0.2 10^3/uL (0-0.05); Absolute Monocytes 1.1 10^3/uL (0.1-0.6); Absolute Neutrophils 14.8 10^3/uL (1.4-6.5); Hematocrit 22.2 % (37.0-47.0); Hemoglobin 7.9 g/dL (12.0-16.0); Mean Corp Hgb Conc. 35.6 g/dL (33.0-37.0); Mean Corpuscular Hgb 30.3 pg (27.0-31.0); Mean Corpuscular Volume 85.1 fL (81.0-99.0); Mean Platelet Volume 9.2 fL (7.4-10.4); Nucleated Red Blood Cells % 0 %; Platelet Count 594 10^3/uL (130-400); Red Blood Cell Count 2.61 10^6/uL (4.20-5.40); Red Cell Dist. Width 13.5 % (11.5-14.5); White Blood Cell Count 17.2 10^3/uL (4.8-10.8)
[2024-02-24 05:11] LABS: Blood Urea Nitrogen 35 mg/dl (7-17); Calcium 7.7 mg/dl (8.4-10.2); Carbon Dioxide 17 mmol/L (22-30); Chloride 87 mmol/L (98-107); Glucose 166 mg/dl (70-99); Potassium 4.5 mmol/L (3.5-5.1); Sodium 112 mmol/L (135-145); eGFR > 60.00
--- NOTE | 2024-02-24 07:28 | PTCARENOTE ---
notified Dr Hand of AM sodium level 112
--- NOTE | 2024-02-24 07:41 | W.PN.INTV ---
Today's Communication / Plan
Recommendations
HS
Asp precs
To F once off HS
Assessment
-
Assessment:
Mrs Areli Marrufo is a 53/W adm 02-21 with 3-4 d h/o n/v/gralized weakness. Known h/o nephrotic syndrome, chronic hyponatremia, HTN, hydrocephalus s/p HYDRAULICS ENGINEER shunt, lupus nephritis (followed by Rheum on mycophenolate, prednisone 20 mg bid, HCQ,
voclosporin, was considered for biologic therapy/Cytoxan therapy as outpatient). Outpatient labs 02-20 showed serum Na 106, instructed to come to ER which she did today. At ER, serum Na repeated and still at 106, afebrile, mild tachyardia, mild to
moderate HTN, normoxemia on RA. Seen by nephrology and started on HS infusion
Impression:
Severe symptomatic hyponatremia, acute on chronic hyponatremia
Adm serum Na 106
Suspected chronic SIADH component, potentially exacerbated by acute n/v
Subacute thrombocytosis
Microhematuria
COVID/flu negative
Low grade temp on adm to ER (100.8F, 38.2C)
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
VDRF, intubated 12/18/2023 at ER for unresponsiveness, adm
Found unresponsive by family at 3:30 AM
Last seen in [facility] 10 PM on night CUSTODIAL ENGINEER
Neuroimaging negative
Bloody secretions at time of intubation, trach cx with Morax cat BL positive, suspected patchy R infiltrates, adm CXR with L lung atelectasis due to RMSB intubation. Cefepime changed to ampic/sulb 12-20, complete 7-10 d atb course
Acute hypercapnia
Extubated 12-[address] with severe acute bilateral maxillary sinusitis
Lupus nephritis, on chronic immunosuppression
MMF/prednisone/hydroxychloroquine/voclosporin
Being considered for biologic therapy (Dr. Engel)
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
Hydrocephalus status post HYDRAULICS ENGINEER shunt; placed in 2011 with an revised in 2016
Chronic anemia
Nephrotic syndrome
Significant proteinuria
Hypertension
Laparoscopic cholecystectomy
x2
History of latent tuberculosis, positive PPD, status post 6 months of INH per records
Seen by [facility], recommended 4 months of rifampin
History of medical noncompliance
History of mild to moderate mitral regurgitation and with pericardial effusion in the past
Nonsmoker
Plan:
Acute on chronic severe hyponatremia
Resp and hemodyn stable
CXR with no infiltrates
EKG with mild STach
Adm to ICU due to severe hyponatremia and high risk for sz (severe hyponatremia, prior h/o sz)
Head CT on 02/21: No acute intracranial abnormality noted. Stable right-sided HYDRAULICS ENGINEER shunt and encephalomalacia in the right frontal lobe
CXR on 02/21: no acute disease of chest
Nephrology consulted, recs appreciated
HS infusion to continue 02-23
FR 1,000 mL/d
Chronic immunosuppression: lupus nephritis on MMF, pred, HCQ, voclosporin
Low grade fever x1 on adm to ER, no further episodes, no fever
UCx prelim negative, blood cx so far negative
Observing off atbs
ID following
Noted patient is chronically on prednisone at >=20 mg qd, will benefit from PJP prophylaxis
Hold antihypertensives besides nifedipine, hold parameteres SBP >110
History of renal insufficiency
Sees nephrology as outpatient (Mary)
Renal biopsy noted, suggestive of lupus nephritis (2021)
Follow renal function
BP control
Continue MMF and prednisone regimen
GI/DVT prophylaxis
Critical care time: 35 min
D/w MDT
D/w Mrs Marrufo
Can transfer to [facility] once off HS, will sign off then
Subjective Dataa
Subjective Data
Date of Service:
Date of Service: February 24, 2024
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
Subjective:
No major events reported overnight
Clinical improvement continues
No GI symptoms at this time since at least yesterday
Eating with no difficulty
Was able to ambulate with help to go to the bathroom
Review of Systems
General: Other (negative ROS at time of visit)
Objective Data
Data Reviewed
Vital Signs / I&O / Oxygen:
Vital Signs
Temp Pulse Resp BP Pulse Ox
98.2 F 80 13 105/58 98
02/24/24 04:00 02/24/24 06:00 02/24/24 06:00 02/24/24 06:00 02/24/24 04:00
Intake and Output
02/23/24 02/24/24 02/25/24
06:59 06:59 06:59
Intake Total 220 / 240 1100 / 1100
Output Total 350 / 350
Balance -130 / -110 1100 / 1100
SaO2 98
Physical Exam
General: Respiratory Distress (n) and Comfortable
HEENT: Normocephalic, Moist Mucous Membranes and Thrush (n)
Cardiovascular: S1-S2, Regular Rhythm, Murmur (n), JVD (n) and Other (HYDRAULICS ENGINEER shunt palpable at RIJV)
Respiratory: Clear, Non-Labored Respirations and Stridor (n)
GI: Soft, Non Distended and Non Tender
Neurology: Awake, AO x 3 and No Motor Deficits
Skin: Warm
Labs/Micro/Reports
Lab Data
02/24/24 03:46
02/24/24 03:46
Microbiology
02/22/24 17:37 Blood/Venous Blood Culture - Preliminary
No Growth in 24 hours- Final report to follow
02/22/24 17:19 Blood/Venous Blood Culture - Preliminary
No Growth in 24 hours- Final report to follow
02/22/24 18:17 Urine Urine Culture - Preliminary
NO GROWTH
02/22/24 17:19 Nasal Swab Influenza Types A & B (DANIS) - Final
Negative for Influenza A & B, NAAT
Negative results must be combined with clinical observations
and patient history.
Nucleic Acid Amplification test (NAAT)performed on the
[employer] platform.
--- NOTE | 2024-02-24 08:25 | W.PN.NEPH.PH ---
Today's Communication / Plan
-
3% saline again
1500
Assessment/Plan
-
Impression
Acute on chronic hyponatremia
Class IV lupus nephritis (on MMF, prednisone, hydroxychloroquine + voclosporin)
CKD (bl Cr around 1.2)
Hydrocephalus s/p IMMUNOPATHOLOGIST shunt
Uncontrolled hypertension
nephrotic syndrome
hyponatremia
Anemia
hypocalcemia
h/o pericardial effusion
hx of latent TB, s/p treatment
Plan:
Hyponatremia
-admitted to ICU
-Creatinine elevating to 0.9
-Obtained stat urine osmolality and urine sodium: Urine sodium less than 5 urine osmolality 355
-Patient likely with chronic SIADH component possibly exacerbated by nausea vomiting, and hypotension
-maintain Fluid restriction of 1000 cc a day
-Serum sodium stalled at 112 despite 500 cc of hypertonic provided
-Will provide hypertonic saline again today and lasix if needed if serum sodium not correcting
-Goal of correction will be 10 mEq/L over the next 24 hours
-Recheck electrolytes at 1500
-Patient is critically ill with profound hyponatremia with high risk of neurological sequela
-holding diuretics for now
-anti htns held for low bp
-32 minutes critical care time patient
-
-
Date of Service: February 24, 2024
CC / HPI / ROS
-
Chief Complaint:
Hyponatremia
History of Present Illness:
Serum sodium of 112 with 3% infusion of 500cc
Hemodynamically stable
Review of Systems:
non oliguric
No complaint
No chest pain or shortness of breath
Labs
-
Labs:
WBC 17.2 10^3/uL (4.8-10.8) H 02/24/24 03:46
RBC 2.61 10^6/uL (4.20-5.40) L 02/24/24 03:46
Hgb 7.9 g/dL (12.0-16.0) L 02/24/24 03:46
Hct 22.2 % (37.0-47.0) L 02/24/24 03:46
Plt Count 594 10^3/uL (130-400) H D 02/24/24 03:46
Sodium 112 mmol/L (135-145) L* 02/24/24 03:46
Potassium 4.5 mmol/L (3.5-5.1) 02/24/24 03:46
Chloride 87 mmol/L (98-107) L 02/24/24 03:46
Carbon Dioxide 17 mmol/L (22-30) L 02/24/24 03:46
BUN 35 mg/dl (7-17) H 02/24/24 03:46
Creatinine 0.9 mg/dL (0.6-1.0) 02/24/24 03:46
eGFR > 60.00 02/24/24 03:46
Glucose 166 mg/dl (70-99) H 02/24/24 03:46
Calcium 7.7 mg/dl (8.4-10.2) L 02/24/24 03:46
Albumin 1.7 g/dl (3.5-5.0) L 02/23/24 03:45
Physical Exam
-
Vital Signs:
Vital Signs
Temp Pulse Resp BP Pulse Ox
97.6 F 80 13 105/58 98
02/24/24 07:54 02/24/24 06:00 02/24/24 06:00 02/24/24 06:00 02/24/24 04:00
Cardiovascular:: Regular rate and rhythm
Respiratory:: Bilateral: Coarse
Lung Excursion:: Normal
Abdomen:: Nontender, Soft and Tender
Bowel Sounds:: Normal
Extremity Edema:: None: Bilateral:
Ellis Catheter: No
--- NOTE | 2024-02-24 08:54 | W.PN.HOSP.TC ---
Today's Communication/Plan
-
3% saline IV. Monitor sodium
Assessment / Plan
Assessment / Plan
Physical exam:
General: Acutely ill
HEENT: Normocephalic, Atraumatic and Moist Mucous Membranes
Respiratory: Clear to Auscultation; Negative Wheezes, Rales or Rhonchi
Cardiac: Regular Rhythm and S1/S2
GI: Soft, Non tender and Nondistended
Musculoskeletal: No Clubbing, No Cyanosis and No Edema
Neuro: Awake, Alert and Oriented
Psych: Calm
A/P:
# Severe symptomatic hyponatremia
Na 106-->112
Remains critically ill due to severe hyponatremia and requires close monitoring and increased risk of side effects of treatment as well.
Continue fluid restriction
Continue 3% saline
Hyponatremia workup per nephrology
Monitor sodium closely
Nephrology consult and follow-up appreciated
# Fever on immunocompromised patient
Not localizing signs
Workup unremarkable for any source at this point.
ID consult given immunocompromise status
Continue off antibiotics
#Leukocytosis
Likely reactive (on steroids)
# CKD stage III and class IV lupus nephritis/nephrotic syndrome:
Patient on hydroxychloroquine, voclosporin, and prednisone.
Nephrology on board
#Hypertension
Upon admission some ?hypertensive urgency/uncontrolled and blood pressures medications given. On Coreg hydralazine lisinopril nifedipine and IV hydralazine
On 02/22 blood pressure on the low side so most of antihypertensives held except for calcium channel alayna.
Continue monitor blood pressure and adjust medications accordingly
History of hydrocephalus with LITHOGRAPHIC PRINTING MACHINIST shunt
Chronic normocytic anemia
History of pericardial effusion
History of latent TB status posttreatment
DVT prophylaxis�heparin
Full code
Total time spent on today's encounter was 52 minutes which included time spent in counseling the patient/family regarding diagnosis and treatment plan as listed above, goals of care, and symptom management. Case was discussed with nursing staff,
specialists, and care coordinators/case management. All labs and imaging personally reviewed by me. Remainder the time spent in detailed review of previous records, lab data, imaging, and other medical provider documentation.
Anticipated Discharge: > 48 hours
Subjective/Interval History
-
Date of Service: February 24, 2024
Denies any chest pain or shortness of breath. No nausea or vomiting. Afebrile
Objective Data
-
Labs:
Laboratory Results
02/24/24
03:46
WBC 17.2 H
Hgb 7.9 L
Hct 22.2 L
Plt Count 594 H D
Sodium 112 L*
Potassium 4.5
Chloride 87 L
Carbon Dioxide 17 L
BUN 35 H
Creatinine 0.9
Glucose 166 H
Calcium 7.7 L
Vital Signs:
Vital Signs
Temp Pulse Resp BP Pulse Ox
97.6 F 80 13 105/58 98
02/24/24 07:54 02/24/24 06:00 02/24/24 06:00 02/24/24 06:00 02/24/24 04:00
I&O
02/23/24 02/24/24 02/25/24
06:59 06:59 06:59
Intake Total 220 / 240 1100 / 1100
Output Total 350 / 350
Balance -130 / -110 1100 / 1100
[2024-02-24] MEDS: DELTASONE 20 MG PO ×2 (09:00→19:56)
[2024-02-24] MEDS: CELLCEPT 1500 MG PO ×2 (09:00→19:55)
[2024-02-24] MEDS: COREG 25 MG PO ×2 (09:00→19:56)
[2024-02-24] MEDS: PROTONIX 40 MG PO (09:00)
[2024-02-24] MEDS: ZESTRIL 20 MG PO ×2 (09:00→19:55)
[2024-02-24] MEDS: PROCARDIA XL (EXTENDED RELEASE) 60 MG PO ×2 (09:16→19:55)
[2024-02-24] MEDS: HEPARIN 5000 UNITS SC ×2 (09:19→19:56)
[2024-02-24] MEDS: APRESOLINE 10 MG PO (09:25)
[2024-02-24] MEDS: SODIUM CHLORIDE 3% 250 IV (09:31)
--- NOTE | 2024-02-24 09:53 | W.PN.ID1 ---
Date of Service
Date of Service: February 24, 2024
Today's Communication
Atovaquone for PCP prophylaxis.
Assessment / Plan
# Fever x 1 resolved
# Leukocytosis - due to steroid effect
- CXR neg, UA neg.
- blood cx's negative to date.
-Observe off abx
#Lupus nephritis on mycophenolate, prednisone 20mg bid, voclosporin, HCQ
- Recommend PCP prophylaxis while on prednisone of 20mg or more per day >30d.
Start atovaquone 1500mg daily.
# Severe hyponatremia improving
- Management as per renal.
# Other
nephrotic syndrome
HTN
hyponatremia
Latent TB s/p 6 mos INH at age 21, retreated with rifampin 02/2023 to 06/2023 (due to no documentation of tx at age 21)
hydrocephalus s/p BETTING CLERK shunt 2012, revision 2017
Cholecystectomy
Chief Complaint
-: Fever, Leukocytosis and Other (Severe hyponatremia)
Subjective / Review of Systems
Continues to feel better. No AHMADI. No abd pain. No cough.
Vital Signs / Physical Exam
Vital Signs
Vital Signs
Temp Pulse Resp BP Pulse Ox
97.6 F 81 13 141/65 98
02/24/24 07:54 02/24/24 09:25 02/24/24 06:00 02/24/24 09:25 02/24/24 04:00
Physical Exam
Constitutional: No Acute Distress and Comfortable
Eyes: Sclera Anicteric
Pulmonary: Clear
Gastrointestinal: Soft, Non Tender and Non Distended
Neurological: AO x 3
Objective Data
Lab Data
Lab Results
02/24/24 03:46
PT 15.6 Sec (11.4-14.6) H 02/23/24 03:45
INR 1.25 02/23/24 03:45
APTT 33.9 Sec (23.4-35.0) 02/23/24 03:45
Estimated Creat Clear Cancelled 02/23/24 03:45
Total Bilirubin 0.3 mg/dl (0.2-1.3) 02/23/24 03:45
AST 20 U/L (14-36) 02/23/24 03:45
ALT 31 U/L (0-35) 02/23/24 03:45
Alkaline Phosphatase 117 U/L (38-126) 02/23/24 03:45
Most recent labs reviewed.
Micro Results:
02/22/24 18:17 Urine Culture - Final
Urine NO GROWTH
02/22/24 17:37 Blood Culture - Preliminary
Blood/Venous No Growth in 24 hours- Final report to follow
02/22/24 17:19 Blood Culture - Preliminary
Blood/Venous No Growth in 24 hours- Final report to follow
02/22/24 17:19 Influenza Types A & B (DANIS) - Final
Nasal Swab Negative for Influenza A & B, NAAT
Negative results must be combined with clinical observations
and patient history.
Nucleic Acid Amplification test (NAAT)performed on the
[employer] platform.
02/22/24 CXR: No acute disease of the chest.
02/22/[address]: No acute intracranial abnormality noted. Stable right-sided BETTING CLERK shunt and encephalomalacia in the right frontal lobe.
Care Review
Plan reviewed with: Physician (Dr. Hand)
--- NOTE | 2024-02-24 10:48 | PTCARENOTE ---
Complete assessment this am. Pt oriented x3, speaks mostly Urdu with some Azerbaijani, expresses understanding. Pt steady on feet when walking to BR. HR SR as per monitor. All pulses palp. Pulse ox check =100% on R/A, lungs sl diminished at bases. Pt
ate 2 gm K+ breakfast without difficulty. Pt seen this am by Infectious Disease, Hospitalist Dr Crabtree, Director Zone Dr Faria, and Renal Dr Hand. This am's Na still low at 112, 3% NaCl drip restarted at 20 m l/hr via R midline. Bladder scan was
ixda=[id number]. Complete CHG bath given and mouth care/teeth brushed. Pt resting comfortably, call luciano at side.
[2024-02-24 16:09] LABS: Carbon Dioxide 16 mmol/L (22-30)
[2024-02-24 16:26] LABS: Chloride 88 mmol/L (98-107); Potassium 4.8 mmol/L (3.5-5.1); Sodium 111 mmol/L (135-145)
[2024-02-24] MEDS: LASIX 20 MG IV (16:45)
--- NOTE | 2024-02-24 16:48 | PTCARENOTE ---
Pt resting comfortably, OOB to chair x1 hr before wanting to go back to bed. 3% NaCl cont's to infuse at 20 ml/hr. Sal drawn, Dr Umaña aware of results. 20 mg iv lasix given. Na = 111. Will recheck sal again at 2100.
[2024-02-24 23:06] LABS: Carbon Dioxide 17 mmol/L (22-30); Chloride 90 mmol/L (98-107); Potassium 4.4 mmol/L (3.5-5.1); Sodium 113 mmol/L (135-145)
[2024-02-25] VITALS (23 sets, daily range): BP systolic 110–140; BP diastolic 56–92
[2024-02-25 04:50] LABS: % Basophils 0.3 % (0-2); % Eosinophils 1.3 % (0-6); % Immature Granulocytes 1.2 % (0-0.5); % Lymphocytes 6.6 % (20.5-51.1); % Monocytes 7.3 % (1.7-9.3); % Neutrophils 83.3 % (42.2-75.2); Absolute Eosinophils 0.2 10^3/uL (0-0.7); Absolute Immature Granulocytes 0.1 10^3/uL (0-0.05); Absolute Lymphocytes 0.8 10^3/uL (1.2-3.4); Absolute Monocytes 0.9 10^3/uL (0.1-0.6); Absolute Neutrophils 9.9 10^3/uL (1.4-6.5); Hematocrit 21.7 % (37.0-47.0); Hemoglobin 8.1 g/dL (12.0-16.0); Mean Corp Hgb Conc. 37.3 g/dL (33.0-37.0); Mean Corpuscular Hgb 30.5 pg (27.0-31.0); Mean Corpuscular Volume 81.6 fL (81.0-99.0); Mean Platelet Volume 9.1 fL (7.4-10.4); Nucleated Red Blood Cells % 0 %; Platelet Count 568 10^3/uL (130-400); Red Blood Cell Count 2.66 10^6/uL (4.20-5.40); Red Cell Dist. Width 13.9 % (11.5-14.5); White Blood Cell Count 11.9 10^3/uL (4.8-10.8)
[2024-02-25 05:41] LABS: Blood Urea Nitrogen 39 mg/dl (7-17); Calcium 7.3 mg/dl (8.4-10.2); Carbon Dioxide 17 mmol/L (22-30); Chloride 94 mmol/L (98-107); Glucose 172 mg/dl (70-99); Potassium 4.5 mmol/L (3.5-5.1); Sodium 116 mmol/L (135-145); eGFR > 60.00
--- NOTE | 2024-02-25 05:59 | PTCARENOTE ---
received patient from [facility], patient speaks some [place] citizen, no issues with communication. patient offers no complaints of pain or discomfort.
patient ate small amount of dinner with no issue, 3% nss running at 20 for hyponatremia.
patient min ast x 1 to bathroom, weak but steady gait.
saline stopped at 0300, q4 hr bmp continues, no further needs at this time.
--- NOTE | 2024-02-25 08:02 | W.PN.INTV ---
Documented by User: Danita Chavarria, Resident, 02/25/24 10:18
Today's Communication / Plan
Recommendations
Continue 3% saline
Monitor BMP
Continue prophylactic atovaquone
Assessment
-
Assessment:
Mrs Areli Marrufo is a 53/W adm 02-21 with 3-4 d h/o n/v/gralized weakness. Known h/o nephrotic syndrome, chronic hyponatremia, HTN, hydrocephalus s/p NET DEVELOPMENT MANAGER shunt, lupus nephritis (followed by Rheum on mycophenolate, prednisone 20 mg bid, HCQ,
voclosporin, was considered for biologic therapy/Cytoxan therapy as outpatient). Outpatient labs 02-20 showed serum Na 106, instructed to come to ER which she did today. At ER, serum Na repeated and still at 106, afebrile, mild tachyardia, mild to
moderate HTN, normoxemia on RA. Seen by nephrology and started on HS infusion
Impression:
Severe symptomatic hyponatremia, acute on chronic hyponatremia
Adm serum Na 106
Suspected chronic SIADH component, potentially exacerbated by acute n/v
Subacute thrombocytosis
Microhematuria
COVID/flu negative
Low grade temp on adm to ER (100.8F, 38.2C)
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
VDRF, intubated 12/18/2023 at ER for unresponsiveness, adm
Found unresponsive by family at 3:30 AM
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
Neuroimaging negative
Bloody secretions at time of intubation, trach cx with Morax cat BL positive, suspected patchy R infiltrates, adm CXR with L lung atelectasis due to RMSB intubation. Cefepime changed to ampic/sulb 12-20, complete 7-10 d atb course
Acute hypercapnia
Extubated 12-[address] with severe acute bilateral maxillary sinusitis
Lupus nephritis, on chronic immunosuppression
MMF/prednisone/hydroxychloroquine/voclosporin
Being considered for biologic therapy (Dr. Engel)
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
Hydrocephalus status post NET DEVELOPMENT MANAGER shunt; placed in 2011 with an revised in 2017
Chronic anemia
Nephrotic syndrome
Significant proteinuria
Hypertension
Laparoscopic cholecystectomy
x2
History of latent tuberculosis, positive PPD, status post 6 months of INH per records
Seen by Department of Health, recommended 4 months of rifampin
History of medical noncompliance
History of mild to moderate mitral regurgitation and with pericardial effusion in the past
Nonsmoker
Plan:
Acute on chronic severe hyponatremia
Resp and hemodyn stable
CXR with no infiltrates
EKG with mild STach
Adm to ICU due to severe hyponatremia and high risk for sz (severe hyponatremia, prior h/o sz)
Head CT on 02/21: No acute intracranial abnormality noted. Stable right-sided NET DEVELOPMENT MANAGER shunt and encephalomalacia in the right frontal lobe
CXR on 02/21: no acute disease of chest
Nephrology consulted, recs appreciated
HS infusion to continue today
Sodium today 116
FR 1,000 mL/d
Chronic immunosuppression: lupus nephritis on MMF, pred, HCQ, voclosporin
Low grade fever x1 on adm to ER, no further episodes, no fever
UCx prelim negative, blood cx so far negative
Observing off atbs
ID following
Atovaquone started for PJP prophylaxis as patient is chronically on prednisone at >=20 mg qd
Hold antihypertensives besides nifedipine, hold parameteres SBP >110
History of renal insufficiency
Sees nephrology as outpatient (Mary)
Renal biopsy noted, suggestive of lupus nephritis (2021)
Follow renal function
BP control
Continue MMF and prednisone regimen
GI/DVT prophylaxis
Subjective Dataa
Subjective Data
Date of Service:
Date of Service: February 25, 2024
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
Subjective:
Patient seen at bedside, no acute overnight events.
Review of Systems
General: Other (Negative unless stated otherwise)
Objective Data
Data Reviewed
Vital Signs / I&O / Oxygen:
Vital Signs
Temp Pulse Resp BP Pulse Ox
98.1 F 78 14 120/59 98
02/25/24 07:32 02/25/24 05:00 02/25/24 05:00 02/25/24 05:00 02/24/24 10:13
Intake and Output
02/24/24 02/25/24 02/26/24
06:59 06:59 06:59
Intake Total 1100 / 1100 1080 / 1080
Output Total 1100 / 1100
Balance 1100 / 1100 -20 / -20
SaO2 98
Nasal Cannula flow liters per 2
minute
Physical Exam
General: Respiratory Distress (n) and Comfortable
HEENT: Normocephalic, Moist Mucous Membranes and Thrush (n)
Cardiovascular: S1-S2, Regular Rhythm, Murmur (n), JVD (n) and Other (NET DEVELOPMENT MANAGER shunt palpable at RIJV)
Respiratory: Clear, Non-Labored Respirations and Stridor (n)
GI: Soft, Non Distended and Non Tender
Neurology: Awake, AO x 3 and No Motor Deficits
Skin: Warm
Labs/Micro/Reports
Lab Data
02/25/24 04:31
02/25/24 04:31
Microbiology
02/22/24 17:37 Blood/Venous Blood Culture - Preliminary
No Growth in 48 hours- Final report to follow
02/22/24 17:19 Blood/Venous Blood Culture - Preliminary
No Growth in 48 hours- Final report to follow
02/22/24 18:17 Urine Urine Culture - Final
NO GROWTH
02/22/24 17:19 Nasal Swab Influenza Types A & B (DANIS) - Final
Negative for Influenza A & B, NAAT
Negative results must be combined with clinical observations
and patient history.
Nucleic Acid Amplification test (NAAT)performed on the
[employer] platform.

Documented by User: Henri Faria MD 02/25/24 11:34
Assessment
-
Assessment:
Mrs Areli Marrufo is a 53/W adm 02-21 with 3-4 d h/o n/v/gralized weakness. Known h/o nephrotic syndrome, chronic hyponatremia, HTN, hydrocephalus s/p NET DEVELOPMENT MANAGER shunt, lupus nephritis (followed by Rheum on mycophenolate, prednisone 20 mg bid, HCQ,
voclosporin, was considered for biologic therapy/Cytoxan therapy as outpatient). Outpatient labs 02-20 showed serum Na 106, instructed to come to ER which she did today. At ER, serum Na repeated and still at 106, afebrile, mild tachyardia, mild to
moderate HTN, normoxemia on RA. Seen by nephrology and started on HS infusion
Impression:
Severe symptomatic hyponatremia, acute on chronic hyponatremia
Adm serum Na 106
Suspected chronic SIADH component, potentially exacerbated by acute n/v
Subacute thrombocytosis
Microhematuria
COVID/flu negative
Low grade temp on adm to ER (100.8F, 38.2C)
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
VDRF, intubated 12/18/2023 at ER for unresponsiveness, adm
Found unresponsive by family at 3:30 AM
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
Neuroimaging negative
Bloody secretions at time of intubation, trach cx with Morax cat BL positive, suspected patchy R infiltrates, adm CXR with L lung atelectasis due to RMSB intubation. Cefepime changed to ampic/sulb 12-20, complete 7-10 d atb course
Acute hypercapnia
Extubated 12-[address] with severe acute bilateral maxillary sinusitis
Lupus nephritis, on chronic immunosuppression
MMF/prednisone/hydroxychloroquine/voclosporin
Being considered for biologic therapy (Dr. Engel)
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
Hydrocephalus status post NET DEVELOPMENT MANAGER shunt; placed in 2011 with an revised in 2016
Chronic anemia
Nephrotic syndrome
Significant proteinuria
Hypertension
Laparoscopic cholecystectomy
x2
History of latent tuberculosis, positive PPD, status post 6 months of INH per records
Seen by Department of Health, recommended 4 months of rifampin
History of medical noncompliance
History of mild to moderate mitral regurgitation and with pericardial effusion in the past
Nonsmoker
Plan:
Acute on chronic severe hyponatremia
Resp rivera stable since adm
CXR with no infiltrates
EKG with mild STach
Adm to ICU due to severe hyponatremia and high risk for sz (severe hyponatremia, prior h/o sz)
Head CT on 02/21: No acute intracranial abnormality noted. Stable right-sided NET DEVELOPMENT MANAGER shunt and encephalomalacia in the right frontal lobe
CXR on 02/21: no acute disease of chest
Nephrology consulted, recs appreciated
HS infusion to continue 02-24, sodium 116
D/w pharmacy, PULPER TENDER in charge, Dr Viramontes (Renal): can transfer out of ICU once HS rate <=20 mL/h)
FR 1,000 mL/d
Chronic immunosuppression: lupus nephritis on MMF, pred, HCQ, voclosporin
Low grade fever x1 on adm to ER, no further episodes, no fever
UCx prelim negative, blood cx so far negative
Observing off atbs
ID following
Atovaquone started 02-24 for PJP prophylaxis as patient is chronically on prednisone at >=20 mg qd
Resumed antihypertensives
History of renal insufficiency
Sees nephrology as outpatient (Mary)
Renal biopsy noted, suggestive of lupus nephritis (2021)
Follow renal function
BP control
Continue MMF and prednisone regimen
GI/DVT prophylaxis
Stable for transfer out of ICU, will sign off then
D/w pharmacy, PULPER TENDER in charge, Dr Viramontes (Renal): can transfer out of ICU once HS rate <=20 mL/h)
No critical care time charged today
D/w MDT
ATTENDING PHYSICIAN ATTESTATION:
(Follow-up Visit:)
I personally saw and evaluated the patient along with the Resident Dr Chavarria.
Discussed with Resident and discussed in rounds with MDT.
I agree with Resident�s findings and plan as documented in the resident�s note, which was edited by myself.
Subjective Dataa
Subjective Data
Subjective:
Patient seen at bedside, no acute overnight events.
Has remained respiratory rivera she is stable
Trace diarrhea to present
Serum sodium continues improving but slowly
Review of Systems
GI: Diarrhea (trace)
[2024-02-25] MEDS: PROTONIX 40 MG PO (08:15)
[2024-02-25] MEDS: CELLCEPT 1500 MG PO ×2 (08:15→19:46)
[2024-02-25] MEDS: PROCARDIA XL (EXTENDED RELEASE) 60 MG PO ×2 (08:15→19:49)
[2024-02-25] MEDS: ZESTRIL 20 MG PO ×2 (08:16→19:46)
[2024-02-25] MEDS: COREG 25 MG PO ×2 (08:16→19:48)
[2024-02-25] MEDS: DELTASONE 20 MG PO ×2 (08:16→19:48)
[2024-02-25] MEDS: MEPRON SUSPENSION 1500 MG PO (08:16)
[2024-02-25] MEDS: HEPARIN 5000 UNITS SC ×2 (08:16→19:48)
--- NOTE | 2024-02-25 08:20 | PTCARENOTE ---
Assumed care of pt at 0715 following shift report. Pt resting quietly w/ eyes closed- arousable to name. Language barrier noted but pt able to communicate effectively to make needs known and responds appropriately to staff. Denies c/o pain. On RA w/
POx 99%. No SOB. MAEW- supervision provided for pt to ambulate to BR to void. Physical assessment completed as documented. Call luciano w/in pt reach. Safe environment maintained.
--- NOTE | 2024-02-25 09:09 | W.PN.ID1 ---
Date of Service
Date of Service: February 25, 2024
Today's Communication
Continue prophylactic atovaquone 1500mg daily while on prednisone of 20mg or more per day.
ID will sign off. Call prn.
Assessment / Plan
# Fever x 1 resolved
# Leukocytosis - due to steroid effect,improving
- CXR neg, UA neg.
- blood cx's negative to date.
-Observe off abx
#Lupus nephritis on mycophenolate, chronic prednisone 20mg bid, voclosporin, HCQ
- Recommend pneumocystis prophylaxis while on prednisone of 20mg or more per day.
Continue atovaquone 1500mg daily.
# Severe hyponatremia improving
- Management as per renal.
ID will sign off.
# Other
nephrotic syndrome
HTN
hyponatremia
Latent TB s/p 6 mos INH at age 21, retreated with rifampin 02/2023 to 06/2023 (due to no documentation of tx at age 21)
hydrocephalus s/p GARNETT FIXER shunt 2012, revision 2017
Cholecystectomy
Chief Complaint
-: Other (Severe hyponatremia)
Subjective / Review of Systems
No complaints today. Continues to feel better.
Vital Signs / Physical Exam
Vital Signs
Vital Signs
Temp Pulse Resp BP Pulse Ox
98.1 F 91 14 128/92 98
02/25/24 07:32 02/25/24 08:16 02/25/24 05:00 02/25/24 08:16 02/24/24 10:13
Physical Exam
Constitutional: No Acute Distress and Comfortable
Cardiovascular: Regular Rate and S1/S2
Pulmonary: Clear
Gastrointestinal: Soft, Non Tender and Normal Bowel Sounds
Neurological: AO x 3
Objective Data
Lab Data
Lab Results
02/25/24 04:31
PT 15.6 Sec (11.4-14.6) H 02/23/24 03:45
INR 1.25 02/23/24 03:45
APTT 33.9 Sec (23.4-35.0) 02/23/24 03:45
Estimated Creat Clear Cancelled 02/23/24 03:45
Total Bilirubin 0.3 mg/dl (0.2-1.3) 02/23/24 03:45
AST 20 U/L (14-36) 02/23/24 03:45
ALT 31 U/L (0-35) 02/23/24 03:45
Alkaline Phosphatase 117 U/L (38-126) 02/23/24 03:45
Most recent labs reviewed.
Micro Results:
02/22/24 17:37 Blood Culture - Preliminary
Blood/Venous No Growth in 48 hours- Final report to follow
02/22/24 17:19 Blood Culture - Preliminary
Blood/Venous No Growth in 48 hours- Final report to follow
02/22/24 18:17 Urine Culture - Final
Urine NO GROWTH
02/22/24 17:19 Influenza Types A & B (DANIS) - Final
Nasal Swab Negative for Influenza A & B, NAAT
Negative results must be combined with clinical observations
and patient history.
Nucleic Acid Amplification test (NAAT)performed on the
[employer] platform.
02/22/24 CXR: No acute disease of the chest.
02/22/[address]: No acute intracranial abnormality noted. Stable right-sided GARNETT FIXER shunt and encephalomalacia in the right frontal lobe.
[2024-02-25 09:46] LABS: Blood Urea Nitrogen 39 mg/dl (7-17); Calcium 7.2 mg/dl (8.4-10.2); Carbon Dioxide 17 mmol/L (22-30); Chloride 92 mmol/L (98-107); Glucose 179 mg/dl (70-99); Potassium 4.4 mmol/L (3.5-5.1); Sodium 116 mmol/L (135-145); eGFR > 60.00
--- NOTE | 2024-02-25 10:07 | W.PN.HOSP.TC ---
Today's Communication/Plan
-
Restart 3% saline today.
Assessment / Plan
Assessment / Plan
Physical exam:
General: Acutely ill
HEENT: Normocephalic, Atraumatic and Moist Mucous Membranes
Respiratory: Clear to Auscultation; Negative Wheezes, Rales or Rhonchi
Cardiac: Regular Rhythm and S1/S2
GI: Soft, Non tender and Nondistended
Musculoskeletal: No Clubbing, No Cyanosis and No Edema
Neuro: Awake, Alert and Oriented
Psych: Calm
A/P:
# Severe symptomatic hyponatremia
Na 106-->112-->116
Remains critically ill due to severe hyponatremia and requires close monitoring and increased risk of side effects of treatment as well.
PICC line today given the need for 3% and increase rate.
Continue fluid restriction
Continue 3% saline
Hyponatremia workup per nephrology
Monitor sodium closely
Nephrology consult and follow-up appreciated
# Fever on immunocompromised patient
Not localizing signs
Workup unremarkable for any source at this point.
ID consult given immunocompromise status
Continue off antibiotics
On prophylactic Atovaquone for PCP while on steroids
Had received tx for LTB
ID signing off 02/24
#Leukocytosis
Likely reactive (on steroids)-now trending down
# CKD stage III and class IV lupus nephritis/nephrotic syndrome:
Patient on hydroxychloroquine, voclosporin, and prednisone.
Nephrology on board
#Hypertension
Upon admission some ?hypertensive urgency/uncontrolled and blood pressures medications given. On Coreg hydralazine lisinopril nifedipine and IV hydralazine
On 02/22 blood pressure on the low side so most of antihypertensives held except for calcium channel alayna.
Continue monitor blood pressure and adjust medications accordingly
History of hydrocephalus with CORPORATE CONCIERGE shunt
Chronic normocytic anemia
History of pericardial effusion
History of latent TB status posttreatment
DVT prophylaxis�heparin
Full code
Total time spent on today's encounter was 52 minutes which included time spent in counseling the patient/family regarding diagnosis and treatment plan as listed above, goals of care, and symptom management. Case was discussed with nursing staff,
specialists, and care coordinators/case management. All labs and imaging personally reviewed by me. Remainder the time spent in detailed review of previous records, lab data, imaging, and other medical provider documentation.
Anticipated Discharge: > 48 hours
Subjective/Interval History
-
Date of Service: February 25, 2024
Patient feels well overall. No chest pain or shortness of breath.
Objective Data
-
Labs:
Laboratory Results
02/24/24 02/25/24 02/25/24
22:41 04:31 09:04
WBC 11.9 H
Hgb 8.1 L
Hct 21.7 L
Plt Count 568 H
Sodium 113 L* 116 L* 116 L*
Potassium 4.4 4.5 4.4
Chloride 90 L 94 L 92 L
Carbon Dioxide 17 L 17 L 17 L
BUN 39 H 39 H
Creatinine 0.8 0.8
Glucose 172 H 179 H
Calcium 7.3 L 7.2 L
02/25/24 02/25/24 02/25/24
10:06 14:06 18:06
WBC
Hgb
Hct
Plt Count
Sodium Pending Pending Pending
Potassium Pending Pending Pending
Chloride Pending Pending Pending
Carbon Dioxide Pending Pending Pending
BUN Pending Pending Pending
Creatinine Pending Pending Pending
Glucose Pending Pending Pending
Calcium Pending Pending Pending
02/25/24
22:06
WBC
Hgb
Hct
Plt Count
Sodium Pending
Potassium Pending
Chloride Pending
Carbon Dioxide Pending
BUN Pending
Creatinine Pending
Glucose Pending
Calcium Pending
Vital Signs:
Vital Signs
Temp Pulse Resp BP Pulse Ox
98.1 F 91 14 128/92 98
02/25/24 07:32 02/25/24 08:16 02/25/24 05:00 02/25/24 08:16 02/24/24 10:13
I&O
02/24/24 02/25/24 02/26/24
06:59 06:59 06:59
Intake Total 1100 / 1100 1080 / 1080
Output Total 1100 / 1100
Balance 1100 / 1100 - / 20
[2024-02-25] MEDS: LASIX 20 MG IV (10:36)
[2024-02-25] MEDS: APRESOLINE PO (10:52)
--- NOTE | 2024-02-25 12:30 | PTCARENOTE ---
Pt continues to rest quietly. OOB in chair for approx 2hrs and now returned to bed after ambulating w/ supervision to BR to complete hygiene. IV Team RN placed PICC- waiting on confirmation of placement until can begin infusing ordered 3% NSS. No
changes from previous assessment findings.
--- NOTE | 2024-02-25 12:41 | VATNOTE ---
PICC line retracted approx 3.6 cm for SVC tip placement per post-PICC insertion chest x-ray report. PCN notified PICC is OK to use at this time.
[2024-02-25] MEDS: SODIUM CHLORIDE 3% 250 IV ×2 (12:49→19:49)
[2024-02-25 13:41] LABS: Blood Urea Nitrogen 38 mg/dl (7-17); Calcium 7.3 mg/dl (8.4-10.2); Carbon Dioxide 17 mmol/L (22-30); Chloride 91 mmol/L (98-107); Glucose 193 mg/dl (70-99); Potassium 4.2 mmol/L (3.5-5.1); Sodium 114 mmol/L (135-145); eGFR > 60.00
--- NOTE | 2024-02-25 14:14 | W.PN.NEPH.PH ---
Today's Communication / Plan
-
- HTS + lasix
Assessment/Plan
-
Impression
Acute on chronic hyponatremia
Class IV lupus nephritis (on MMF, prednisone, hydroxychloroquine + voclosporin)
CKD (bl Cr around 1.2)
Hydrocephalus s/p MECHANICAL ENGINEERING DRAFTSPERSON shunt
Uncontrolled hypertension
nephrotic syndrome
hyponatremia
Anemia
hypocalcemia
h/o pericardial effusion
hx of latent TB, s/p treatment
Plan:
Hyponatremia
-admitted to ICU
-Creatinine elevating to 0.9
-Obtained stat urine osmolality and urine sodium: Urine sodium less than 5 urine osmolality 355
-Patient likely with chronic SIADH component possibly exacerbated by nausea vomiting, and hypotension? but some worsening noted with HTS -> could this be a volume issue?
-maintain Fluid restriction of 1000 cc a day
-Serum sodium stalled at 114 despite 30cc/hr of HTS. redose another lasix 40mg IV now.
-Goal of correction will be 8 mEq/L over the next 24 hours. goal of 124 by tomorrow AM
-BMP q4h
-Patient is critically ill with profound hyponatremia with high risk of neurological sequela
-holding diuretics for now
-anti htns held for low bp
-
-
Date of Service: February 25, 2024
CC / HPI / ROS
-
Chief Complaint:
Hyponatremia
History of Present Illness:
Serum sodium of 114 with 3% infusion
Hemodynamically stable
Review of Systems:
non oliguric
No complaint
No chest pain or shortness of breath
Labs
-
Labs:
WBC 11.9 10^3/uL (4.8-10.8) H 02/25/24 04:31
RBC 2.66 10^6/uL (4.20-5.40) L 02/25/24 04:31
Hgb 8.1 g/dL (12.0-16.0) L 02/25/24 04:31
Hct 21.7 % (37.0-47.0) L 02/25/24 04:31
Plt Count 568 10^3/uL (130-400) H 02/25/24 04:31
eGFR > 60.00 02/25/24 12:48
Albumin 1.7 g/dl (3.5-5.0) L 02/23/24 03:45
Physical Exam
-
Vital Signs:
Vital Signs
Temp Pulse Resp BP Pulse Ox
97.7 F 81 13 114/56 100
02/25/24 11:29 02/25/24 10:36 02/25/24 10:00 02/25/24 10:36 02/25/24 08:07
Cardiovascular:: Regular rate and rhythm
Respiratory:: Bilateral: Coarse
Lung Excursion:: Normal
Abdomen:: Nontender and Soft
Bowel Sounds:: Normal
Extremity Edema:: None: Bilateral:
Ellis Catheter: No
--- NOTE | 2024-02-25 16:00 | PTCARENOTE ---
Pt continues to rest quietly in bed. Declined getting OOB to chair. No complaints or changes noted from previous assessment findings.
[2024-02-25 17:57] LABS: Blood Urea Nitrogen 37 mg/dl (7-17); Calcium 7.2 mg/dl (8.4-10.2); Carbon Dioxide 17 mmol/L (22-30); Chloride 94 mmol/L (98-107); Glucose 191 mg/dl (70-99); Potassium 4.1 mmol/L (3.5-5.1); Sodium 115 mmol/L (135-145); eGFR > 60.00
[2024-02-25] MEDS: LASIX 40 MG IV (19:48)
[2024-02-25 22:12] LABS: Blood Urea Nitrogen 35 mg/dl (7-17); Calcium 7.4 mg/dl (8.4-10.2); Carbon Dioxide 18 mmol/L (22-30); Chloride 96 mmol/L (98-107); Glucose 191 mg/dl (70-99); Potassium 3.9 mmol/L (3.5-5.1); Sodium 118 mmol/L (135-145); eGFR > 60.00
[2024-02-26] VITALS (20 sets, daily range): BP systolic 112–152; BP diastolic 59–90; BMI 20.1
[2024-02-26 03:36] LABS: Mean Corp Hgb Conc. 36.7 g/dL (33.0-37.0); Mean Corpuscular Volume 84.5 fL (81.0-99.0); Mean Platelet Volume 8.4 fL (7.4-10.4); Platelet Count 359 10^3/uL (130-400); Red Blood Cell Count 2.13 10^6/uL (4.20-5.40); Red Cell Dist. Width 14.3 % (11.5-14.5); White Blood Cell Count 8.1 10^3/uL (4.8-10.8)
[2024-02-26 03:43] LABS: Hemoglobin 6.6 g/dL (12.0-16.0)
--- NOTE | 2024-02-26 03:46 | PTCARENOTE ---
Pt received at 19:00, initial assessment as documented. Pt Ox3. SR, HR 80s-90s. RA, pulses ox 97-100%. 3% NaCl continues as ordered. q4h labs. Safe environment maintained, call luciano within reach.
[2024-02-26 03:55] LABS: Blood Urea Nitrogen 35 mg/dl (7-17); Calcium 7.2 mg/dl (8.4-10.2); Carbon Dioxide 17 mmol/L (22-30); Chloride 101 mmol/L (98-107); Glucose 160 mg/dl (70-99); Magnesium 1.7 mg/dl (1.6-2.3); Potassium 3.6 mmol/L (3.5-5.1); Sodium 124 mmol/L (135-145); eGFR > 60.00
--- NOTE | 2024-02-26 04:06 | W.PN.UPDATE ---
Update Note
Progress Note Update
Hgb 6.6 (repeated sample *2) = type and screen done, blood consent completed, Ordered one unit of blood. Patient does have history of anemia�and has received prior blood transfusions.
--- NOTE | 2024-02-26 04:07 | PTCARENOTE ---
Na = 124, 3% NaCl placed on hold per nephrology. Hgb = 6.6, type and screen ordered and sent. x1 unit PRBCs ordered, consent obtained by RAFFAELE.
[2024-02-26] MEDS: CALCIUM GLUCONATE 130 MG IV (06:04)
--- NOTE | 2024-02-26 07:43 | W.PN.INTV ---
Today's Communication / Plan
Recommendations
Follow H/H, Na
Can transfer to telem
PJP proph
Assessment
-
Assessment:
Mrs Areli Marrufo is a 53/W adm 02-21 with 3-4 d h/o n/v/gralized weakness. Known h/o nephrotic syndrome, chronic hyponatremia, HTN, hydrocephalus s/p CREATIVE ASSISTANT shunt, lupus nephritis (followed by Rheum on mycophenolate, prednisone 20 mg bid, HCQ,
voclosporin, was considered for biologic therapy/Cytoxan therapy as outpatient). Outpatient labs 02-20 showed serum Na 106, instructed to come to ER which she did today. At ER, serum Na repeated and still at 106, afebrile, mild tachyardia, mild to
moderate HTN, normoxemia on RA. Seen by nephrology and started on HS infusion
Impression:
Severe symptomatic hyponatremia, acute on chronic hyponatremia
Adm serum Na 106
Suspected chronic SIADH component, potentially exacerbated by acute n/v
Subacute thrombocytosis
Microhematuria
COVID/flu negative
Low grade temp on adm to ER (100.8F, 38.2C)
Acute on chronic anemia
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
VDRF, intubated 12/18/2023 at ER for unresponsiveness, adm
Found unresponsive by family at 3:30 AM
Last seen in good health 10 PM on night MORTGAGE COORDINATOR
Neuroimaging negative
Bloody secretions at time of intubation, trach cx with Morax cat BL positive, suspected patchy R infiltrates, adm CXR with L lung atelectasis due to RMSB intubation. Cefepime changed to ampic/sulb 12-20, complete 7-10 d atb course
Acute hypercapnia
Extubated 12-[address] with severe acute bilateral maxillary sinusitis
Lupus nephritis, on chronic immunosuppression
MMF/prednisone/hydroxychloroquine/voclosporin
Being considered for biologic therapy (Dr. Engel)
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
Hydrocephalus status post CREATIVE ASSISTANT shunt; placed in 2011 with an revised in 2017
Chronic anemia
Nephrotic syndrome
Significant proteinuria
Hypertension
Laparoscopic cholecystectomy
x2
History of latent tuberculosis, positive PPD, status post 6 months of INH per records
Seen by Department of Health, recommended 4 months of rifampin
History of medical noncompliance
History of mild to moderate mitral regurgitation and with pericardial effusion in the past
Nonsmoker
Plan:
Acute on chronic severe hyponatremia
Resp rivera stable since adm
CXR with no infiltrates
EKG with mild STach
Adm to ICU due to severe hyponatremia and high risk for sz (severe hyponatremia, prior h/o sz)
Head CT on 02/21: No acute intracranial abnormality noted. Stable right-sided CREATIVE ASSISTANT shunt and encephalomalacia in the right frontal lobe
CXR on 02/21: no acute disease of chest (chronic CREATIVE ASSISTANT shunt descending through RIJV)
CXR 02-24: s/p RUE PICC, no infiltrates
Nephrology consulted, recs appreciated
HS infusion continued 02-24, completed
D/w pharmacy, OPEN HEARTH HELPER in charge: can transfer out of ICU once HS rate <=20 mL/h)
Na 124 on 02-25
Chronic immunosuppression: lupus nephritis on MMF, pred, HCQ, voclosporin
Low grade fever x1 on adm to ER, no further episodes, no fever
UCx prelim negative, blood cx so far negative
Observing off atbs
ID following
Atovaquone started 02-24 for PJP prophylaxis as patient is chronically on prednisone at >=20 mg qd
Acute on chronic anemia
Hgb as low as 6.5 in December 2023
Adm Hgb 9.6, slow decline since adm, down to 6.6 on 02-25
No evidence of hemodyn compromise, no evident source of bleeding
Received 1U PRBCs this morning
Resumed antihypertensives
History of renal insufficiency
Sees nephrology as outpatient (Mary)
Renal biopsy noted, suggestive of lupus nephritis (2021)
Follow renal function
BP control
Continue MMF and prednisone regimen
GI/DVT prophylaxis
Stable for transfer out of ICU, will sign off then
No critical care time charged today
D/w OPEN HEARTH HELPER
Subjective Dataa
Subjective Data
Date of Service:
Date of Service: February 26, 2024
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
Subjective:
No major events reported overnight, except for intermittent drop in hemoglobin down to 6.6, received 1 unit of red blood cells this morning
Trace diarrhea
Denies nausea, vomit, abdominal pain
Having breakfast this morning with no issue
Wants to go home
Review of Systems
General: Fever (n), Sweats (n), Chills (n) and Satisfactory Appetite
Cardiopulmonary: Dyspnea (n), Cough (n), Wheezing (n) and Chest Pain (n)
GI: Abdominal Pain (n), Nausea (n), Vomiting (n) and Diarrhea (trace)
Neuro: Weakness (n)
Objective Data
Data Reviewed
Vital Signs / I&O / Oxygen:
Vital Signs
Temp Pulse Resp BP Pulse Ox
97.4 F 97 16 138/67 98
02/26/24 07:19 02/26/24 06:26 02/26/24 06:26 02/26/24 06:26 02/26/24 06:09
Intake and Output
02/25/24 02/26/24 02/27/24
06:59 06:59 06:59
Intake Total 1080 / 1080 920 / 920
Output Total 1100 / 1100 1650 / 1650
Balance -20 / -20 -730 / -730
SaO2 98
Nasal Cannula flow liters per 2
minute
Physical Exam
General: Respiratory Distress (n) and Comfortable
HEENT: Normocephalic, Moist Mucous Membranes and Thrush (n)
Cardiovascular: S1-S2, Regular Rhythm, Murmur (n), JVD (n), Peripheral Edema (n), Calf Tenderness (n) and Other (CREATIVE ASSISTANT [facility] at [facility])
Respiratory: Clear, Non-Labored Respirations and Stridor (n)
GI: Soft, Non Distended and Non Tender
Neurology: Awake, AO x 3 and No Motor Deficits
Skin: Warm
Labs/Micro/Reports
Lab Data
02/26/24 03:47
Microbiology
02/22/24 17:37 Blood/Venous Blood Culture - Preliminary
No Growth in 72 hours- Final report to follow
02/22/24 17:19 Blood/Venous Blood Culture - Preliminary
No Growth in 72 hours- Final report to follow
02/22/24 18:17 Urine Urine Culture - Final
NO GROWTH
[2024-02-26] MEDS: APRESOLINE 10 MG PO (07:59)
[2024-02-26] MEDS: MEPRON SUSPENSION 1500 MG PO (07:59)
[2024-02-26] MEDS: PROTONIX 40 MG PO (07:59)
--- NOTE | 2024-02-26 08:00 | PTCARENOTE ---
Pt resting quietly w/ eyes closed- arousable to name. Language barrier noted but pt able to communicate effectively to make needs known and responds appropriately to staff. Denies c/o pain. On RA w/ POx 99%. No SOB. MAEW- supervision provided for pt
to ambulate to BR to void. Physical assessment completed as documented. Call mustapha w/in pt reach. Safe environment maintained. 1 unit PRBC infusing
[2024-02-26] MEDS: COREG 25 MG PO ×2 (08:01→19:56)
[2024-02-26] MEDS: CELLCEPT 1500 MG PO ×2 (08:02→19:56)
[2024-02-26] MEDS: DELTASONE 20 MG PO ×2 (08:02→19:57)
[2024-02-26] MEDS: ZESTRIL 20 MG PO ×2 (08:02→19:57)
[2024-02-26] MEDS: PROCARDIA XL (EXTENDED RELEASE) 60 MG PO ×2 (08:02→19:56)
[2024-02-26] MEDS: HEPARIN 5000 UNITS SC ×2 (08:03→19:55)
--- NOTE | 2024-02-26 09:30 | W.PN.HOSP.TC ---
Today's Communication/Plan
-
Continue 3% saline. Monitor sodium.
Assessment / Plan
Assessment / Plan
Physical exam:
General: Acutely ill
HEENT: Normocephalic, Atraumatic and Moist Mucous Membranes
Respiratory: Clear to Auscultation; Negative Wheezes, Rales or Rhonchi
Cardiac: Regular Rhythm and S1/S2
GI: Soft, Non tender and Nondistended
Musculoskeletal: No Clubbing, No Cyanosis and No Edema
Neuro: Awake, Alert and Oriented
Psych: Calm
A/P:
# Severe symptomatic hyponatremia
Na 106-->112-->116-->120
Remains critically ill due to severe hyponatremia and requires close monitoring and increased risk of side effects of treatment as well.
PICC line given the need for 3% and increase rate.
Continue fluid restriction
Continue 3% saline
Hyponatremia workup per nephrology
Monitor sodium closely
Nephrology consult and follow-up appreciated
# Fever on immunocompromised patient
Not localizing signs
Workup unremarkable for any source at this point.
ID consult given immunocompromise status
Continue off antibiotics
On prophylactic Atovaquone for PCP while on steroids
Had received tx for LTB
ID signing off 02/24
#Leukocytosis
Likely reactive (on steroids)-now trending down
# CKD stage III and class IV lupus nephritis/nephrotic syndrome:
Patient on hydroxychloroquine, voclosporin, and prednisone.
Nephrology on board
#Hypertension
Upon admission some ?hypertensive urgency/uncontrolled and blood pressures medications given. On Coreg hydralazine lisinopril nifedipine and IV hydralazine
On 02/22 blood pressure on the low side so most of antihypertensives held except for calcium channel alayna.
Continue monitor blood pressure and adjust medications accordingly
History of hydrocephalus with OPERATIONS OFFICER AFLOAT shunt
Chronic normocytic anemia
History of pericardial effusion
History of latent TB status posttreatment
DVT prophylaxis�heparin
Full code
Total time spent on today's encounter was 52 minutes which included time spent in counseling the patient/family regarding diagnosis and treatment plan as listed above, goals of care, and symptom management. Case was discussed with nursing staff,
specialists, and care coordinators/case management. All labs and imaging personally reviewed by me. Remainder the time spent in detailed review of previous records, lab data, imaging, and other medical provider documentation.
Anticipated Discharge: 24 - 48 hours
Subjective/Interval History
-
Date of Service: February 26, 2024
Patient does not voice any new complaints. No nausea or vomiting.
Objective Data
-
Labs:
Laboratory Results
02/25/24 02/26/24 02/26/24
21:42 03:12 03:29
WBC Cancelled 8.1
Hgb Cancelled 6.6 L*
Hct Cancelled 18.0 L*
Plt Count Cancelled 359 D
Sodium 118 L* Cancelled 124 L
Potassium 3.9 Cancelled 3.6
Chloride 96 L Cancelled 101
Carbon Dioxide 18 L Cancelled 17 L
BUN 35 H Cancelled 35 H
Creatinine 0.8 Cancelled 0.7
Glucose 191 H Cancelled 160 H
Calcium 7.4 L Cancelled 7.2 L
02/26/24 02/26/24 02/26/24
03:47 06:00 10:00
WBC
Hgb Cancelled
Hct Cancelled
Plt Count
Sodium Cancelled Pending
Potassium Cancelled Pending
Chloride Cancelled Pending
Carbon Dioxide Cancelled Pending
BUN Cancelled Pending
Creatinine Cancelled Pending
Glucose Cancelled Pending
Calcium Cancelled Pending
02/26/24 02/26/24 02/26/24
14:00 18:00 22:00
WBC
Hgb
Hct
Plt Count
Sodium Pending Pending Pending
Potassium Pending Pending Pending
Chloride Pending Pending Pending
Carbon Dioxide Pending Pending Pending
BUN Pending Pending Pending
Creatinine Pending Pending Pending
Glucose Pending Pending Pending
Calcium Pending Pending Pending
Vital Signs:
Vital Signs
Temp Pulse Resp BP Pulse Ox
97.4 F 100 18 142/84 98
02/26/24 07:19 02/26/24 08:02 02/26/24 08:00 02/26/24 08:02 02/26/24 06:09
I&O
02/25/24 02/26/24 02/27/24
06:59 06:59 06:59
Intake Total 1080 / 1080 920 / 1170 250 / 250
Output Total 1100 / 1100 1650 / 1650
Balance -20 / -20 -730 / -480 250 / 250
[2024-02-26 11:30] LABS: Blood Urea Nitrogen 31 mg/dl (7-17); Calcium 8.8 mg/dl (8.4-10.2); Carbon Dioxide 16 mmol/L (22-30); Chloride 100 mmol/L (98-107); Estimated Creatinine Clearance 56 ml/min; Glucose 162 mg/dl (70-99); Potassium 3.8 mmol/L (3.5-5.1); Sodium 121 mmol/L (135-145); eGFR > 60.00
[2024-02-26 14:57] LABS: Blood Urea Nitrogen 29 mg/dl (7-17); Calcium 8.2 mg/dl (8.4-10.2); Carbon Dioxide 17 mmol/L (22-30); Chloride 98 mmol/L (98-107); Estimated Creatinine Clearance 56 ml/min; Glucose 194 mg/dl (70-99); Potassium 3.9 mmol/L (3.5-5.1); Sodium 120 mmol/L (135-145); eGFR > 60.00
--- NOTE | 2024-02-26 15:24 | W.PN.NEPH.PH ---
Today's Communication / Plan
-
- 3% + lasix
Assessment/Plan
-
Impression
Acute on chronic hyponatremia
Class IV lupus nephritis (on MMF, prednisone, hydroxychloroquine + voclosporin)
CKD (bl Cr around 1.2)
Hydrocephalus s/p MOLD YARN SUPERVISOR shunt
Uncontrolled hypertension
nephrotic syndrome
hyponatremia
Anemia
hypocalcemia
h/o pericardial effusion
hx of latent TB, s/p treatment
Plan:
Hyponatremia
-admitted to ICU but likely transferring to tele
-Cr at baseline
-Obtained stat urine osmolality and urine sodium: Urine sodium less than 5 urine osmolality 355
-Patient likely with chronic SIADH component possibly exacerbated by nausea vomiting, and hypotension? but some worsening noted with HTS -> could this be a volume issue?
-maintain Fluid restriction of 1000 cc a day
-Serum sodium stalled at 121, did hit 124 this AM. improving very slowly with HTS + lasix
-BMP q6h
-plan for HTS + lasix today again
-Patient is critically ill with profound hyponatremia with high risk of neurological sequela
-anti htns held for low bp
-
-
Date of Service: February 26, 2024
CC / HPI / ROS
-
Chief Complaint:
Hyponatremia
History of Present Illness:
Serum sodium of 121 with 3% infusion
Hemodynamically stable
Review of Systems:
non oliguric
No complaint
No chest pain or shortness of breath
Labs
-
Labs:
WBC 8.1 10^3/uL (4.8-10.8) 02/26/24 03:29
RBC 2.13 10^6/uL (4.20-5.40) L 02/26/24 03:29
Hgb Cancelled 02/26/24 03:47
Hct Cancelled 02/26/24 03:47
Plt Count 359 10^3/uL (130-400) D 02/26/24 03:29
eGFR > 60.00 02/26/24 14:39
Albumin 1.7 g/dl (3.5-5.0) L 02/23/24 03:45
Physical Exam
-
Vital Signs:
Vital Signs
Temp Pulse Resp BP Pulse Ox
98.4 F 107 18 142/83 98
02/26/24 15:08 02/26/24 13:00 02/26/24 13:00 02/26/24 12:25 02/26/24 06:09
Cardiovascular:: Regular rate and rhythm
Respiratory:: Bilateral: CTA
Lung Excursion:: Normal
Abdomen:: Nontender and Soft
Bowel Sounds:: Normal
Extremity Edema:: None: Bilateral:
Ellis Catheter: No
[2024-02-26] MEDS: LASIX 40 MG IV (15:32)
[2024-02-26] MEDS: SODIUM CHLORIDE 3% 500 IV (15:33)
[2024-02-26 18:08] LABS: Blood Urea Nitrogen 29 mg/dl (7-17); Carbon Dioxide 16 mmol/L (22-30); Chloride 98 mmol/L (98-107); Estimated Creatinine Clearance 56 ml/min; Glucose 184 mg/dl (70-99); Potassium 3.9 mmol/L (3.5-5.1); Sodium 119 mmol/L (135-145); eGFR > 60.00
--- NOTE | 2024-02-26 21:03 | PTCARENOTE ---
Pt received at 19:00. Ox3, ambulates to bathroom with min assist/supervision. SR, HR 90s, palpable pulses. RA, spot check pulse ox, 100%. No BM. Void x1, clau urine. 3% NaCl continues as ordered. Safe environment maintained, call luciano within reach,
plan of care ongoing.
[2024-02-26 22:05] LABS: Hematocrit 22.2 % (37.0-47.0)
[2024-02-26 22:07] LABS: Hemoglobin 8.3 g/dL (12.0-16.0)
[2024-02-26 22:25] LABS: Blood Urea Nitrogen 28 mg/dl (7-17); Calcium 7.6 mg/dl (8.4-10.2); Carbon Dioxide 17 mmol/L (22-30); Chloride 98 mmol/L (98-107); Estimated Creatinine Clearance 56 ml/min; Glucose 157 mg/dl (70-99); Potassium 3.8 mmol/L (3.5-5.1); Sodium 119 mmol/L (135-145); eGFR > 60.00
--- NOTE | 2024-02-26 22:28 | PTCARENOTE ---
Na = 119, Nephrology aware. 3% continues as ordered.
[2024-02-27] VITALS (24 sets, daily range): BP systolic 110–150; BP diastolic 60–109; BMI 20.4
[2024-02-27 02:56] LABS: Hematocrit 22.4 % (37.0-47.0); Mean Corp Hgb Conc. 35.7 g/dL (33.0-37.0); Mean Corpuscular Hgb 30.2 pg (27.0-31.0); Mean Corpuscular Volume 84.5 fL (81.0-99.0); Mean Platelet Volume 8.8 fL (7.4-10.4); Platelet Count 340 10^3/uL (130-400); Red Blood Cell Count 2.65 10^6/uL (4.20-5.40); Red Cell Dist. Width 14.1 % (11.5-14.5); White Blood Cell Count 10.2 10^3/uL (4.8-10.8)
[2024-02-27 03:11] LABS: Blood Urea Nitrogen 29 mg/dl (7-17); Calcium 7.7 mg/dl (8.4-10.2); Carbon Dioxide 16 mmol/L (22-30); Chloride 102 mmol/L (98-107); Estimated Creatinine Clearance 56 ml/min; Glucose 152 mg/dl (70-99); Potassium 3.7 mmol/L (3.5-5.1); Sodium 121 mmol/L (135-145); eGFR > 60.00
[2024-02-27 07:09] LABS: Blood Urea Nitrogen 27 mg/dl (7-17); Calcium 7.2 mg/dl (8.4-10.2); Carbon Dioxide 16 mmol/L (22-30); Chloride 104 mmol/L (98-107); Estimated Creatinine Clearance 56 ml/min; Glucose 156 mg/dl (70-99); Potassium 3.6 mmol/L (3.5-5.1); Sodium 125 mmol/L (135-145); eGFR > 60.00
--- NOTE | 2024-02-27 07:29 | W.PN.INTV ---
Today's Communication / Plan
Recommendations
Na replacement
Can transfer out of ICU once ok by Renal
Assessment
-
Assessment:
Mrs Areli Marrufo is a 53/W adm 02-21 with 3-4 d h/o n/v/gralized weakness. Known h/o nephrotic syndrome, chronic hyponatremia, HTN, hydrocephalus s/p TELLER shunt, lupus nephritis (followed by Rheum on mycophenolate, prednisone 20 mg bid, HCQ,
voclosporin, was considered for biologic therapy/Cytoxan therapy as outpatient). Outpatient labs 02-20 showed serum Na 106, instructed to come to ER which she did today. At ER, serum Na repeated and still at 106, afebrile, mild tachyardia, mild to
moderate HTN, normoxemia on RA. Seen by nephrology and started on HS infusion
Impression:
Severe symptomatic hyponatremia, acute on chronic hyponatremia
Adm serum Na 106
Suspected chronic SIADH component, potentially exacerbated by acute n/v
Subacute thrombocytosis
Microhematuria
COVID/flu negative
Low grade temp on adm to ER (100.8F, 38.2C)
Acute on chronic anemia
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
VDRF, intubated 12/18/2023 at ER for unresponsiveness, adm
Found unresponsive by family at 3:30 AM
Last seen in good health 10 PM on night EXECUTIVE VICE PRESIDENT BUSINESS DEVELOPMENT
Neuroimaging negative
Bloody secretions at time of intubation, trach cx with Morax cat BL positive, suspected patchy R infiltrates, adm CXR with L lung atelectasis due to RMSB intubation. Cefepime changed to ampic/sulb 12-20, complete 7-10 d atb course
Acute hypercapnia
Extubated 12-[address] with severe acute bilateral maxillary sinusitis
Lupus nephritis, on chronic immunosuppression
MMF/prednisone/hydroxychloroquine/voclosporin
Being considered for biologic therapy (Dr. Engel)
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
Hydrocephalus status post TELLER shunt; placed in 2011 with an revised in 2017
Chronic anemia
Nephrotic syndrome
Significant proteinuria
Hypertension
Laparoscopic cholecystectomy
x2
History of latent tuberculosis, positive PPD, status post 6 months of INH per records
Seen by Department of Health, recommended 4 months of rifampin
History of medical noncompliance
History of mild to moderate mitral regurgitation and with pericardial effusion in the past
Nonsmoker
Plan:
Acute on chronic severe hyponatremia
Resp rivera stable since adm
CXR with no infiltrates
EKG with mild STach
Adm to ICU due to severe hyponatremia and high risk for sz (severe hyponatremia, prior h/o sz)
Head CT on 02/21: No acute intracranial abnormality noted. Stable right-sided TELLER shunt and encephalomalacia in the right frontal lobe
CXR on 02/21: no acute disease of chest (chronic TELLER shunt descending through RIJV)
CXR 02-24: s/p RUE PICC, no infiltrates
Nephrology consulted, recs appreciated
HS infusion continued 02-25 as rec by Renal
D/w pharmacy and MANAGEMENT PROFESSIONAL in charge: can transfer out of ICU once HS rate <=20 mL/h)
Na 125 on 02-26
Chronic immunosuppression: lupus nephritis on MMF, pred, HCQ, voclosporin
Low grade fever x1 on adm to ER, no further episodes, no fever
UCx prelim negative, blood cx so far negative
Observing off atbs
ID following
Atovaquone started 02-24 for PJP prophylaxis as patient is chronically on prednisone at >=20 mg qd
Acute on chronic anemia
Hgb as low as 6.5 in December 2023
Adm Hgb 9.6, slow decline since adm, down to 6.6 on 02-25
No evidence of hemodyn compromise, no evident source of bleeding
Received 1U PRBCs 02-25, Hgb up to 8.2 same day, 8.0 on 02-26
Resumed antihypertensives
History of renal insufficiency
Sees nephrology as outpatient (Dr Hernandez)
Renal biopsy noted, suggestive of lupus nephritis (2021)
Follow renal function
BP control
Continue MMF and prednisone regimen
GI/DVT prophylaxis
Stable for transfer out of ICU, will sign off then
No critical care time charged today
D/w MANAGEMENT PROFESSIONAL
Subjective Dataa
Subjective Data
Date of Service:
Date of Service: February 27, 2024
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
Subjective:
No major events reported overnight
Received 1 unit of process yesterday due to interim severe anemia, which is a recurring issue, did not show signs of respiratory or hemodynamic decompensation
Sitting in chair, having breakfast, denies new complaints, wants to go home
Review of Systems
General: Fever (n), Sweats (n), Chills (n) and Satisfactory Appetite
Cardiopulmonary: Dyspnea (n), Cough and Chest Pain (n)
GI: Abdominal Pain, Nausea (n), Vomiting (n) and Diarrhea (n)
Neuro: Weakness (n)
Objective Data
Data Reviewed
Vital Signs / I&O / Oxygen:
Vital Signs
Temp Pulse Resp BP Pulse Ox
98.6 F 95 15 137/81 100
02/27/24 07:20 02/27/24 06:00 02/27/24 06:00 02/27/24 06:00 02/27/24 06:00
Intake and Output
02/26/24 02/27/24 02/28/24
06:59 06:59 06:59
Intake Total 920 / 1170 1789
Output Total 1650 / 1650
Balance -730 / -480 1789
SaO2 100
Nasal Cannula flow liters per 2
minute
Physical Exam
General: Respiratory Distress (n) and Comfortable
HEENT: Normocephalic, Moist Mucous Membranes and Thrush (n)
Cardiovascular: S1-S2, Regular Rhythm, Murmur (n), JVD (n), Peripheral Edema (n), Calf Tenderness (n) and Other ([facility]LLER [facility]
Respiratory: Clear, Non-Labored Respirations and Stridor (n)
GI: Soft, Non Distended and Non Tender
Neurology: Awake, AO x 3 and No Motor Deficits
Skin: Warm
Labs/Micro/Reports
Lab Data
02/27/24 02:34
02/27/24 06:29
Microbiology
02/22/24 17:37 Blood/Venous Blood Culture - Preliminary
No Growth in 4 days- Final report to follow
02/22/24 17:19 Blood/Venous Blood Culture - Preliminary
No Growth in 4 days- Final report to follow
02/22/24 18:17 Urine Urine Culture - Final
NO GROWTH
[2024-02-27] MEDS: COREG 25 MG PO ×2 (07:52→20:09)
[2024-02-27] MEDS: PROTONIX 40 MG PO (07:53)
[2024-02-27] MEDS: CELLCEPT 1500 MG PO ×2 (07:53→20:09)
[2024-02-27] MEDS: ZESTRIL 20 MG PO ×2 (07:53→20:10)
[2024-02-27] MEDS: PROCARDIA XL (EXTENDED RELEASE) 60 MG PO ×2 (07:53→20:10)
[2024-02-27] MEDS: MEPRON SUSPENSION 1500 MG PO (07:53)
[2024-02-27] MEDS: DELTASONE 20 MG PO ×2 (07:53→20:10)
[2024-02-27] MEDS: APRESOLINE 10 MG PO (07:54)
[2024-02-27] MEDS: HEPARIN 5000 UNITS SC ×2 (07:54→20:10)
--- NOTE | 2024-02-27 08:10 | PTCARENOTE ---
Assumed care of pt at 0715 following shift report. Sitting up in bed w/ breakfast tray just delivered. Pt min assist/supervision to use BR and complete AM hygiene. Generalized weakness noted although gait steady- pt provided w/ wheeled walker to use
which pt voiced appreciation for. Pt to bedside chair to eat breakfast. Mobile/portable telemetry pack applied. Physical assessment completed as documented. No complaints. Call luciano w/in pt reach.
--- NOTE | 2024-02-27 08:36 | W.PN.HOSP.TC ---
Today's Communication/Plan
-
Continue 3% saline and Lasix. Monitor sodium.
Assessment / Plan
Assessment / Plan
Physical exam:
General: Acutely ill
HEENT: Normocephalic, Atraumatic and Moist Mucous Membranes
Respiratory: Clear to Auscultation; Negative Wheezes, Rales or Rhonchi
Cardiac: Regular Rhythm and S1/S2
GI: Soft, Non tender and Nondistended
Musculoskeletal: No Clubbing, No Cyanosis and No Edema
Neuro: Awake, Alert and Oriented
Psych: Calm
A/P:
# Severe symptomatic hyponatremia
Na 106-->112-->116-->120-->125
Remains critically ill due to severe hyponatremia and requires close monitoring and increased risk of side effects of treatment as well.
PICC line given the need for 3% and increase rate.
Continue fluid restriction
Continue 3% saline
Hyponatremia workup per nephrology
Monitor sodium closely
Nephrology consult and follow-up appreciated
# Diarrhea
If it persists we will proceed to workup
# Fever on immunocompromised patient
Not localizing signs
Workup unremarkable for any source at this point.
ID consult given immunocompromise status
Continue off antibiotics
On prophylactic Atovaquone for PCP while on steroids
Had received tx for LTB
ID signing off 02/24
#Leukocytosis
Likely reactive (on steroids)-now trending down
# CKD stage III and class IV lupus nephritis/nephrotic syndrome:
Patient on hydroxychloroquine, voclosporin, and prednisone.
Nephrology on board
#Hypertension
Upon admission some ?hypertensive urgency/uncontrolled and blood pressures medications given. On Coreg hydralazine lisinopril nifedipine and IV hydralazine
On 02/22 blood pressure on the low side so most of antihypertensives held except for calcium channel alayna.
Continue monitor blood pressure and adjust medications accordingly
History of hydrocephalus with HARDBOARD PANEL PRINTER shunt
Chronic normocytic anemia
History of pericardial effusion
History of latent TB status posttreatment
DVT prophylaxis�heparin
Full code
Total time spent on today's encounter was 52 minutes which included time spent in counseling the patient/family regarding diagnosis and treatment plan as listed above, goals of care, and symptom management. Case was discussed with nursing staff,
specialists, and care coordinators/case management. All labs and imaging personally reviewed by me. Remainder the time spent in detailed review of previous records, lab data, imaging, and other medical provider documentation.
Anticipated Discharge: 24 - 48 hours
Subjective/Interval History
-
Date of Service: February 27, 2024
Patient denies any nausea or vomiting. She does complain of mild diarrhea. No chest pain or shortness of breath. Afebrile
Objective Data
-
Labs:
Laboratory Results
02/26/24 02/27/24 02/27/24
22:00 02:34 06:29
WBC 10.2
Hgb 8.3 L D 8.0 L
Hct 22.2 L 22.4 L
Plt Count 340
Sodium 119 L* 121 L 125 L
Potassium 3.8 3.7 3.6
Chloride 98 102 104
Carbon Dioxide 17 L 16 L 16 L
BUN 28 H 29 H 27 H
Creatinine 0.6 0.6 0.6
Glucose 157 H 152 H 156 H
Calcium 7.6 L 7.7 L 7.2 L
Vital Signs:
Vital Signs
Temp Pulse Resp BP Pulse Ox
98.6 F 111 15 148/88 100
02/27/24 07:20 02/27/24 07:54 02/27/24 06:00 02/27/24 07:54 02/27/24 06:00
I&O
02/26/24 02/27/24 02/28/24
06:59 06:59 06:59
Intake Total 920 / 1170 1789
Output Total 0 / 1649
Balance -730 / -480 1789
[2024-02-27] MEDS: SODIUM BICARBONATE 50 MEQ IV (09:27)
[2024-02-27] MEDS: LASIX 40 MG IV (09:27)
[2024-02-27] MEDS: SODIUM CHLORIDE 3% 250 IV ×2 (10:52→19:13)
--- NOTE | 2024-02-27 12:15 | PTCARENOTE ---
Pt resting quietly in bed. Assistance/supervision provided to pt when ambulating to BR to void. Pt requiring reminders about fluid restriction. Family here to visit. No complaints or changes noted from previous assessment findings.
--- NOTE | 2024-02-27 12:22 | W.PN.NEPH.PH ---
Today's Communication / Plan
-
- BMP q6h
- HTS + lasix
Assessment/Plan
-
Impression
Acute on chronic hyponatremia
Class IV lupus nephritis (on MMF, prednisone, hydroxychloroquine + voclosporin)
CKD (bl Cr around 1.2)
Hydrocephalus s/p ASSEMBLY MACHINE OFFBEARER shunt
Uncontrolled hypertension
nephrotic syndrome
hyponatremia
Anemia
hypocalcemia
h/o pericardial effusion
hx of latent TB, s/p treatment
Plan:
Hyponatremia
-admitted to ICU but likely transferring to tele
-Cr at baseline
-Obtained stat urine osmolality and urine sodium: Urine sodium less than 5 urine osmolality 355
-Patient likely with chronic SIADH component possibly exacerbated by nausea vomiting, and hypotension? but some worsening noted with HTS -> could this be a volume issue?
-maintain Fluid restriction of 1000 cc a day
-Serum sodium stalled at 125 today, went down to 119 yesterday. improving very slowly with HTS + lasix
-BMP q6h
-plan for HTS + lasix today again
-Patient is critically ill with profound hyponatremia with high risk of neurological sequela
-anti htns held for low bp
-
-
Date of Service: February 27, 2024
CC / HPI / ROS
-
Chief Complaint:
Hyponatremia
History of Present Illness:
Serum sodium of 125 with 3% infusion
Hemodynamically stable
Review of Systems:
non oliguric
No complaint
No chest pain or shortness of breath
Labs
-
Labs:
WBC 10.2 10^3/uL (4.8-10.8) 02/27/24 02:34
RBC 2.65 10^6/uL (4.20-5.40) L 02/27/24 02:34
Hgb 8.0 g/dL (12.0-16.0) L 02/27/24 02:34
Hct 22.4 % (37.0-47.0) L 02/27/24 02:34
Plt Count 340 10^3/uL (130-400) 02/27/24 02:34
eGFR > 60.00 02/27/24 06:29
Albumin 1.7 g/dl (3.5-5.0) L 02/23/24 03:45
Physical Exam
-
Vital Signs:
Vital Signs
Temp Pulse Resp BP Pulse Ox
98.5 F 112 29 144/109 100
02/27/24 11:04 02/27/24 10:00 02/27/24 08:00 02/27/24 09:30 02/27/24 10:00
Cardiovascular:: Regular rate and rhythm
Respiratory:: Bilateral: CTA
Lung Excursion:: Normal
Abdomen:: Nontender and Soft
Bowel Sounds:: Normal
Extremity Edema:: None: Bilateral:
Ellis Catheter: No
[2024-02-27 13:13] LABS: Blood Urea Nitrogen 26 mg/dl (7-17); Carbon Dioxide 20 mmol/L (22-30); Chloride 104 mmol/L (98-107); Estimated Creatinine Clearance 56 ml/min; Glucose 203 mg/dl (70-99); Potassium 3.5 mmol/L (3.5-5.1); Sodium 127 mmol/L (135-145); eGFR > 60.00
--- NOTE | 2024-02-27 16:00 | PTCARENOTE ---
Pt's family gone home. Pt to BR as needed to void. Pt refusing to sit OOB in chair - 'Maybe tomorrow' despite attempts to educate on importance of activity. Resting quietly in bed. No new complaints received or changes noted from previous assessment
findings.
[2024-02-27 18:41] LABS: Blood Urea Nitrogen 27 mg/dl (7-17); Carbon Dioxide 20 mmol/L (22-30); Chloride 106 mmol/L (98-107); Estimated Creatinine Clearance 48 ml/min; Glucose 233 mg/dl (70-99); Potassium 3.3 mmol/L (3.5-5.1); Sodium 129 mmol/L (135-145); eGFR > 60.00
--- NOTE | 2024-02-27 20:00 | PTCARENOTE ---
Rec'd pt resting in bed, amb to bathroom w/ walker, sherrill , back to bed, denies pain, cooperative, SR, BP stable, + pulses, no edema, skin warm/dry, RA, lungs clear, sat 100, + bowel sounds, had loose brown bm in bathroom, abd soft, denies N/V, HNV
yet this shift, NA- 129-3% NACL decr to 15ml/hr per order at 1900, 40 KCL/100ml hung over 4 hr per order for K-3.3
[2024-02-27] MEDS: KCL 100 IV (20:09)
[2024-02-28] VITALS (14 sets, daily range): BP systolic 92–144; BP diastolic 58–88; PULSE 93; O2SAT 100; BMI 20.5
--- NOTE | 2024-02-28 00:26 | PTCARENOTE ---
sys reviewed, changes noted, amb to bathroom voided cloudy yellow urine, labs sent
[2024-02-28 00:55] LABS: Blood Urea Nitrogen 28 mg/dl (7-17); Calcium 7.5 mg/dl (8.4-10.2); Carbon Dioxide 18 mmol/L (22-30); Chloride 110 mmol/L (98-107); Estimated Creatinine Clearance 48 ml/min; Glucose 153 mg/dl (70-99); Potassium 4.9 mmol/L (3.5-5.1); Sodium 130 mmol/L (135-145); eGFR > 60.00
--- NOTE | 2024-02-28 01:00 | PTCARENOTE ---
Bry Williamson NP aware of BMP results, no new orders rec'd
[2024-02-28] MEDS: IMODIUM 2 MG PO (02:42)
--- NOTE | 2024-02-28 02:43 | PTCARENOTE ---
immodium 2mg po given for freq loose stools
--- NOTE | 2024-02-28 03:43 | PTCARENOTE ---
sys reviewed, changes noted
[2024-02-28 05:25] LABS: Hematocrit 21.9 % (37.0-47.0); Hemoglobin 7.8 g/dL (12.0-16.0); Mean Corp Hgb Conc. 35.6 g/dL (33.0-37.0); Mean Corpuscular Hgb 30.8 pg (27.0-31.0); Mean Corpuscular Volume 86.6 fL (81.0-99.0); Mean Platelet Volume 8.7 fL (7.4-10.4); Platelet Count 311 10^3/uL (130-400); Red Blood Cell Count 2.53 10^6/uL (4.20-5.40); Red Cell Dist. Width 14.6 % (11.5-14.5); White Blood Cell Count 10.9 10^3/uL (4.8-10.8)
[2024-02-28 05:42] LABS: Blood Urea Nitrogen 27 mg/dl (7-17); Calcium 7.3 mg/dl (8.4-10.2); Carbon Dioxide 18 mmol/L (22-30); Chloride 111 mmol/L (98-107); Estimated Creatinine Clearance 48 ml/min; Glucose 173 mg/dl (70-99); Potassium 4.2 mmol/L (3.5-5.1); Sodium 132 mmol/L (135-145); eGFR > 60.00
--- NOTE | 2024-02-28 06:14 | PTCARENOTE ---
Dr Viramontes aware of Na- 132, 3% NACL dc'd per order
--- NOTE | 2024-02-28 06:58 | W.PN.HOSP.TC ---
Today's Communication/Plan
-
.
Assessment / Plan
Assessment / Plan
Physical exam:
General: Acutely ill
HEENT: Normocephalic, Atraumatic and Moist Mucous Membranes
Respiratory: Clear to Auscultation; Negative Wheezes, Rales or Rhonchi
Cardiac: Regular Rhythm and S1/S2
GI: Soft, Non tender and Nondistended
Musculoskeletal: No Clubbing, No Cyanosis and No Edema
Neuro: Awake, Alert and Oriented
Psych: Calm
A/P:
# Severe symptomatic acute on chronic hyponatremia
Na 106 on admission
Improved slowly to 132
Urine sodium less than 5 urine osmolality 355
per nephrology: likely with chronic SIADH component possibly exacerbated by nausea / vomiting
s/p PICC line given the need for 3% and increase rate. She also received Lasix.
Continue fluid restriction with regular diet
Monitored sodium closely
Nephrology consult and follow-up appreciated
# Hypokalemia, replaced
# Diarrhea
Nota problem per pt
# Fever on immunocompromised patient
No recurrent fevers
Urine and blood cultures No growth
Not localizing signs
ID consulted given immunocompromise status
Continue off antibiotics
On prophylactic Atovaquone for PCP while on steroids
Had received tx for LTB
ID signing off 02/24
#Leukocytosis
Likely reactive (on steroids)-now trending down
# CKD stage III and class IV lupus nephritis/nephrotic syndrome:
Patient on hydroxychloroquine, voclosporin, CellCept, and prednisone.
Creatinine stable
#Hypertension
Upon admission some ?hypertensive urgency/uncontrolled and blood pressures medications given. On Coreg hydralazine lisinopril nifedipine and IV hydralazine
On 02/22 blood pressure on the low side so most of antihypertensives held except for calcium channel alayna.
Continue monitor blood pressure and adjust medications accordingly
History of hydrocephalus with BUYERS' AGENT shunt
# Chronic normocytic anemia/ Anemia of chronic disease
Normal iron level
s/p one unit of blood transfusion on 02/25
History of pericardial effusion
History of latent TB status posttreatment
DVT prophylaxis�heparin
Full code
Total time spent to see the patient on the floor, examine the patient, review data and lab results, discuss treatment plan with patient, nursing staff around 55 minutes
Anticipated Discharge: 24 - 48 hours
Subjective/Interval History
-
Date of Service: February 28, 2024
No complaints
[id number] chest pain or sob
Objective Data
-
Labs:
Laboratory Results
02/28/24 02/28/24 02/28/24
00:21 05:11 06:00
WBC 10.9 H
Hgb 7.8 L
Hct 21.9 L
Plt Count 311
Sodium 130 L 132 L Cancelled
Potassium 4.9 D 4.2 Cancelled
Chloride 110 H 111 H Cancelled
Carbon Dioxide 18 L 18 L Cancelled
BUN 28 H 27 H Cancelled
Creatinine 0.7 0.7 Cancelled
Glucose 153 H 173 H Cancelled
Calcium 7.5 L 7.3 L Cancelled
Vital Signs:
Vital Signs
Temp Pulse Resp BP Pulse Ox
97.9 F 106 18 144/84 99
02/28/24 03:42 02/28/24 06:00 02/28/24 03:42 02/28/24 06:00 02/28/24 03:42
I&O
02/26/24 02/27/24 02/28/24
06:59 06:59 06:59
Intake Total 920 / 1170 1790 / 1820 1495 / 1495
Output Total 1650 / 1650 475 / 475
Balance -730 / -480 1790 / 1820 1020 / 1020
--- NOTE | 2024-02-28 07:08 | W.PN.INTV ---
Today's Communication / Plan
Recommendations
Na has resolved, now >130
No new complaints, encouraged ambulation/OOB/PTOT
Tolerating diet, nephrology following for further recs
Can transfer to floors now, we will sign off upon transfer
Assessment
-
Mrs Areli Marrufo is a 53/W adm 02-21 with 3-4 d h/o n/v/generalized weakness. Known h/o nephrotic syndrome, chronic hyponatremia, HTN, hydrocephalus s/p PLASTER FOREMAN shunt, lupus nephritis (followed by Rheum on mycophenolate, prednisone 20 mg bid, HCQ,
voclosporin, was considered for biologic therapy/Cytoxan therapy as outpatient). Outpatient labs 02-20 showed serum Na 106, instructed to come to ER which she did today. At ER, serum Na repeated and still at 106, afebrile, mild tachycardia, mild to
moderate HTN, normoxemia on RA. Seen by nephrology and started on HS infusion
Impression:
Severe symptomatic hyponatremia, acute on chronic hyponatremia
Adm serum Na 106
Suspected chronic SIADH component, potentially exacerbated by acute n/v
Subacute thrombocytosis
Microhematuria
COVID/flu negative
Low grade temp on adm to ER (100.8F, 38.2C)
Acute on chronic anemia
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
VDRF, intubated 12/18/2023 at ER for unresponsiveness, adm
Found unresponsive by family at 3:30 AM
Last seen in [facility] 10 PM on night ENVIRONMENTAL PROTECTION SPECIALIST
Neuroimaging negative
Bloody secretions at time of intubation, trach cx with Morax cat BL positive, suspected patchy R infiltrates, adm CXR with L lung atelectasis due to RMSB intubation. Cefepime changed to ampic/sulb 12-20, complete 7-10 d atb course
Acute hypercapnia
Extubated 12-[address] with severe acute bilateral maxillary sinusitis
Lupus nephritis, on chronic immunosuppression
MMF/prednisone/hydroxychloroquine/voclosporin
Being considered for biologic therapy (Dr. Engel)
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
Hydrocephalus status post PLASTER FOREMAN shunt; placed in 2011 with an revised in 2016
Chronic anemia
Nephrotic syndrome
Significant proteinuria
Hypertension
Laparoscopic cholecystectomy
x2
History of latent tuberculosis, positive PPD, status post 6 months of INH per records
Seen by [facility], recommended 4 months of rifampin
History of medical noncompliance
History of mild to moderate mitral regurgitation and with pericardial effusion in the past
Nonsmoker
Plan:
Acute on chronic severe hyponatremia, resolving now >130
Resp rivera stable since adm
CXR with no infiltrates
EKG with mild STach
Adm to ICU due to severe hyponatremia and high risk for sz (severe hyponatremia, prior h/o sz)
Head CT on 02/21: No acute intracranial abnormality noted. Stable right-sided PLASTER FOREMAN shunt and encephalomalacia in the right frontal lobe
CXR on 02/21: no acute disease of chest (chronic PLASTER FOREMAN shunt descending through RIJV)
CXR 02-24: s/p RUE PICC, no infiltrates
Nephrology consulted, recs appreciated
HS infusion continued 02-25 as rec by Renal
D/w pharmacy and GASKET NOTCHER in charge: can transfer out of ICU once HS rate <=20 mL/h)
Na 125 on 02-26
Chronic immunosuppression: lupus nephritis on MMF, pred, HCQ, voclosporin
Low grade fever x1 on adm to ER, no further episodes, no fever
UCx prelim negative, blood cx so far negative
Observing off atbs
ID following
Atovaquone started 02-24 for PJP prophylaxis as patient is chronically on prednisone at >=20 mg qd
Acute on chronic anemia
Hgb as low as 6.5 in December 2023
Adm Hgb 9.6, slow decline since adm, down to 6.6 on 02-25
No evidence of hemodyn compromise, no evident source of bleeding
Received 1U PRBCs 02-25, Hgb up to 8.2 same day, 8.0 on 02-26
Resumed antihypertensives
History of renal insufficiency
Sees nephrology as outpatient (Dr Hernandez)
Renal biopsy noted, suggestive of lupus nephritis (2021)
Follow renal function
BP control
Continue MMF and prednisone regimen
GI/DVT prophylaxis
Stable for transfer out of ICU, will sign off then
D/w GASKET NOTCHER
-----
Critical Care time 31 mins -- The patient is admitted for acute critical illness for the treatment of vital organ failure and/or prevention of further life-threatening conditions. Total care includes time spent in review of history, physical exam,
medications, hemodynamic/ventilator parameters, laboratory data, imaging and discussion with house staff, pharmacy, respiratory therapy, entry level java developer, and nursing.
Subjective Dataa
Subjective Data
Date of Service:
Date of Service: February 28, 2024
Chief Complaint: Clinical Services Manager Follow Up
Subjective:
doing well, no acute events ON
no new complaints, ambulating/OOB
tolerating meals
Objective Data
Data Reviewed
Vital Signs / I&O / Oxygen:
Vital Signs
Temp Pulse Resp BP Pulse Ox
97.9 F 106 18 144/84 99
02/28/24 03:42 02/28/24 06:00 02/28/24 03:42 02/28/24 06:00 02/28/24 03:42
Intake and Output
02/27/24 02/28/24 02/29/24
06:59 06:59 06:59
Intake Total 1789 / 0 1495 / 1495
Output Total 475 / 475
Balance 1789 / 0 1020 / 1020
SaO2 99
Nasal Cannula flow liters per 2
minute
Physical Exam
General: Respiratory Distress (n) and Comfortable
HEENT: Normocephalic, Moist Mucous Membranes and Thrush (n)
Cardiovascular: S1-S2, Regular Rhythm, Murmur (n), JVD (n), Peripheral Edema (n), Calf Tenderness (n) and Other (PLASTER FOREMAN shunt palpable at [facility])
Respiratory: Clear, Non-Labored Respirations and Stridor (n)
GI: Soft, Non Distended and Non Tender
Neurology: Awake, Alert, Oriented, AO x 3 and No Motor Deficits
Skin: Warm and Dry
Labs/Micro/Reports
Lab Data
02/28/24 05:11
02/28/24 06:00
Microbiology
02/22/24 17:37 Blood/Venous Blood Culture - Final
No Growth - Final Report
02/22/24 17:19 Blood/Venous Blood Culture - Final
No Growth - Final Report
[2024-02-28] MEDS: COREG PO (08:16)
[2024-02-28] MEDS: CELLCEPT 1500 MG PO ×2 (08:16→20:58)
[2024-02-28] MEDS: APRESOLINE PO (08:16)
[2024-02-28] MEDS: MEPRON SUSPENSION 1500 MG PO (08:17)
[2024-02-28] MEDS: DELTASONE 20 MG PO ×2 (08:17→20:58)
[2024-02-28] MEDS: HEPARIN 5000 UNITS SC ×2 (08:17→20:59)
[2024-02-28] MEDS: PROCARDIA XL (EXTENDED RELEASE) 60 MG PO ×2 (08:17→20:58)
[2024-02-28] MEDS: PROTONIX 40 MG PO (08:17)
[2024-02-28] MEDS: ZESTRIL PO (08:18)
[2024-02-28 08:57] LABS: Osmolality Urine 405 mOsm/kg (300-900)
--- NOTE | 2024-02-28 10:13 | W.PN.NEPH.PH ---
Today's Communication / Plan
-
lasix
Assessment/Plan
-
Impression
Acute on chronic hyponatremia
Class IV lupus nephritis (on MMF, prednisone, hydroxychloroquine + voclosporin)
CKD (bl Cr around 1.2)
Hydrocephalus s/p LIVESTOCK HANDLER shunt
Uncontrolled hypertension
nephrotic syndrome
hyponatremia
Anemia
hypocalcemia
h/o pericardial effusion
hx of latent TB, s/p treatment
Plan:
lasix 20mg po daily
follow BMP
watch BP, may need to reduce BP meds
sodium bicarb 650 mg BID
pt wants to go home. has a young son at home
-
-
Date of Service: February 28, 2024
CC / HPI / ROS
-
Chief Complaint:
Hyponatremia
History of Present Illness:
Serum sodium up to 132 after more 3%
Hemodynamically stable, BP lower today
on prednisone for Lupus
Review of Systems:
non oliguric
No complaint
No chest pain or shortness of breath
Labs
-
Labs:
WBC 10.9 10^3/uL (4.8-10.8) H 02/28/24 05:11
RBC 2.53 10^6/uL (4.20-5.40) L 02/28/24 05:11
Hgb 7.8 g/dL (12.0-16.0) L 02/28/24 05:11
Hct 21.9 % (37.0-47.0) L 02/28/24 05:11
Plt Count 311 10^3/uL (130-400) 02/28/24 05:11
Sodium Cancelled 02/28/24 06:00
Potassium Cancelled 02/28/24 06:00
Chloride Cancelled 02/28/24 06:00
Carbon Dioxide Cancelled 02/28/24 06:00
BUN Cancelled 02/28/24 06:00
Creatinine Cancelled 02/28/24 06:00
eGFR Cancelled 02/28/24 06:00
Glucose Cancelled 02/28/24 06:00
Calcium Cancelled 02/28/24 06:00
Albumin 1.7 g/dl (3.5-5.0) L 02/23/24 03:45
Physical Exam
-
Vital Signs:
Vital Signs
Temp Pulse Resp BP Pulse Ox
98.3 F 95 18 109/71 100
02/28/24 07:00 02/28/24 08:00 02/28/24 03:42 02/28/24 08:16 02/28/24 08:00
Cardiovascular:: Regular rate and rhythm
Respiratory:: Bilateral: Coarse
Lung Excursion:: Normal
Abdomen:: Nontender and Soft
Bowel Sounds:: Normal
Extremity Edema:: +1: Bilateral:
[2024-02-28] MEDS: SODIUM BICARBONATE 650 MG PO ×2 (10:45→20:58)
[2024-02-28] MEDS: LASIX 20 MG PO (10:45)
[2024-02-28 12:15] LABS: Glucose - Point of Care 196 mg/dl (70-99)
[2024-02-28] MEDS: NOVOLOG FLEXPEN-MODERATE RESISTANCE 1 UNITS SC (12:16)
--- NOTE | 2024-02-28 12:31 | CM ---
CM following re: discharge planning.
Discussed in Rounds, reviewed pt's chart, met with pt. Per Rounds meeting, acute on chronic severe hyponatremia, resolving and pt will be downgraded from ICU level of care.
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 Pt expressed her desire to return back home to take care of her son.
D/C plan: home with anticipated no needs. Spouse to transport at discharge.
CM will follow with discharge plan updates as needed.
[2024-02-28 12:36] LABS: Glycohemoglobin (HgbA1c) 6.1 % (4.0-5.6)
--- NOTE | 2024-02-28 12:45 | PTCARENOTE ---
Pt transferred from ICU into room 406-2. Pt ambulated with steady gait and x1 asisst/RW into room. VSS. Tele showing sinus tach HR 110. Pt oriented to room and has call luciano within reach.
--- NOTE | 2024-02-28 14:51 | PTOTSP ---
pt currently demonstrates ability to complete simple ADLs, functional transfers, ambulation with supervision to no assistance. no acute OT needs identified at this time, will sign off.
[2024-02-28 17:20] LABS: Glucose - Point of Care 219 mg/dl (70-99)
[2024-02-28] MEDS: NOVOLOG FLEXPEN-MODERATE RESISTANCE 3 UNITS SC (18:14)
[2024-02-28] MEDS: ZESTRIL 20 MG PO (20:58)
[2024-02-28] MEDS: COREG 25 MG PO (20:58)
[2024-02-28 21:22] LABS: Glucose - Point of Care 69 mg/dl (70-99)
[2024-02-28 21:51] LABS: Glucose - Point of Care 76 mg/dl (70-99)
[2024-02-29 03:55] VITALS: BP 144/96
[2024-02-29 06:10] LABS: Blood Urea Nitrogen 33 mg/dl (7-17); Calcium 7.4 mg/dl (8.4-10.2); Carbon Dioxide 18 mmol/L (22-30); Chloride 104 mmol/L (98-107); Estimated Creatinine Clearance 42 ml/min; Glucose 155 mg/dl (70-99); Potassium 4.2 mmol/L (3.5-5.1); Sodium 128 mmol/L (135-145); eGFR > 60.00
[2024-02-29 07:32] LABS: Glucose - Point of Care 188 mg/dl (70-99)
[2024-02-29 07:55] VITALS: BP 179/117
[2024-02-29] MEDS: PROCARDIA XL (EXTENDED RELEASE) 60 MG PO (09:03)
[2024-02-29] MEDS: NOVOLOG FLEXPEN-MODERATE RESISTANCE 1 UNITS SC (09:03)
[2024-02-29] MEDS: CELLCEPT 1500 MG PO (09:04)
[2024-02-29] MEDS: COREG 25 MG PO (09:04)
[2024-02-29] MEDS: PROTONIX 40 MG PO (09:04)
[2024-02-29] MEDS: ZESTRIL 20 MG PO (09:04)
[2024-02-29] MEDS: HEPARIN 5000 UNITS SC (09:05)
[2024-02-29] MEDS: LASIX 20 MG PO (09:05)
[2024-02-29] MEDS: DELTASONE 20 MG PO (09:05)
[2024-02-29] MEDS: SODIUM BICARBONATE 650 MG PO (09:05)
[2024-02-29] MEDS: APRESOLINE 10 MG PO (09:05)
[2024-02-29] MEDS: MEPRON SUSPENSION 1500 MG PO (09:14)
--- NOTE | 2024-02-29 10:17 | W.DCSUMMARY ---
Discharge Summary
Discharge Data
Date of Admission: 02/22/24
Date of Discharge: 02/29/24
-
Pending Results: No
Hospital Course
53 years old female presented to the emergency hospital with hyponatremia. Sodium on admission was 106. Creatinine was 0.7. Hemoglobin 9.6 patient was diagnosed with acute on chronic hyponatremia. Urine sodium was less than 5, urine osmolality
355. She had likely history of chronic syndrome of inappropriate antidiuretic hormone secretion component and possibly exacerbated by nausea and vomiting. Patient was evaluated by administrative assistant. She was started on hypertonic normal saline with
fluid restriction. She was started on low-dose furosemide. Her sodium started to improve slowly with level of 128 upon discharge. She was monitored in intensive care unit. She had low-grade temperature. No source of infection found. Urine and
blood culture did not show any growth. She was followed by infectious diseases it infrastructure consultant and was monitored off antibiotics. Patient was on prophylactic atovaquone. She had history of chronic kidney disease stage IIIa with baseline creatinine
around 1.2. Patient had history of class IV lupus nephritis. She was maintained on mycophenolate, prednisone. Patient did not have headache. She had history of hydrocephalus with SOFTWARE TOOLS ENGINEER shunt. She had history of uncontrolled hypertension and she
was maintained on blood pressure medications. Field Marketing Lead doctor recommended to continue furosemide 20 mg daily and sodium bicarbonate 650 mg twice a day. Patient remained hemodynamically stable and was discharged in a stable condition.
Physical exam:
General: Acutely ill
HEENT: Normocephalic, Atraumatic and Moist Mucous Membranes
Respiratory: Clear to Auscultation; Negative Wheezes, Rales or Rhonchi
Cardiac: Regular Rhythm and S1/S2
GI: Soft, Non tender and Nondistended
Musculoskeletal: No Clubbing, No Cyanosis and No Edema
Neuro: Awake, Alert and Oriented
Psych: Calm.
Total discharge time spent to see the patient on the floor, examine the patient, review data and lab results, discuss discharge plan with patient( through translation line), administrative assistant, nursing staff around 65 minutes
Discharge Plan
-
Patient Disposition: Home with Home Care
Discharge Diagnosis/Procedures: Acute on chronic hyponatremia
You are followed by administrative assistant. Current medications list was reviewed with administrative assistant, please follow the current medications doses.
Condition: Good
Diet: As tolerated
Referrals:
Grayson Hernandez MD [Active] - 03/14/24
Pilar Gaytan NP [Family Provider] -
Prescriptions:
New
Lupkynis 7.9 mg capsule
7.9 mg PO QPM Qty: 30 0RF
Benlysta 200 mg/mL auto-injector
200 mg SC QWEEK Qty: 1 0RF
furosemide [Lasix] 40 mg tablet
40 mg PO DAILY Qty: 30 0RF
sodium bicarbonate 650 mg Tablet
650 mg PO BID Qty: 60 0RF
prednisone 10 mg tablet
30 mg PO DAILY Qty: 60 0RF
famotidine [Pepcid] 20 mg tablet
20 mg PO HSPRN PRN (Reason: heartburn) Qty: 30 0RF
Continued
carvedilol 25 mg Tablet
25 mg PO BID
lisinopril 20 mg Tablet
20 mg PO BID
metolazone 5 mg Tablet
5 mg PO DAILY PRN (Reason: weight gain >3 lbs in 24 hrs)
mycophenolate mofetil 500 mg Tablet
1,500 mg PO BID
nifedipine 60 mg Tablet Extended Release 24hr
60 mg PO BID
omeprazole 20 mg Capsule,Delayed Release(Dr/Ec)
20 mg PO DAILY
Discontinued
furosemide 40 mg Tablet
40 mg PO DAILY
hydralazine 10 mg Tablet
10 mg PO DAILY
Patient Comments:
02/22/2024, prescribed 2 tabs BID but pt. takes 1 tab daily.
prednisone 20 mg Tablet
20 mg PO BID
Red Blood Supplement liquid
1 dose PO DAILY
Discharge Orders:
Discharge Patient (As Directed); Ordered 02/29/24
Ordered By: Lucy Navarro
Discharge Date and Time
Print Language: ROMANSH
--- NOTE | 2024-02-29 11:16 | W.PN.NEPH.PH ---
Today's Communication / Plan
-
samsca
Assessment/Plan
-
Impression
Acute on chronic hyponatremia
Class IV lupus nephritis (on MMF, prednisone, hydroxychloroquine + voclosporin)
CKD (bl Cr around 1.2)
Hydrocephalus s/p DAIRY WORKER shunt
Uncontrolled hypertension
nephrotic syndrome
hyponatremia
Anemia
hypocalcemia
h/o pericardial effusion
hx of latent TB, s/p treatment
Plan:
lasix 40mg po daily
samsca today
follow BMP
watch BP, may need to reduce BP meds
sodium bicarb 650 mg BID
ok for dc
has OV with me 03/14
BMP 1 week
-
-
Date of Service: February 29, 2024
CC / HPI / ROS
-
Chief Complaint:
Hyponatremia
History of Present Illness:
Serum sodium down to 128
Hemodynamically stable, BP high today
on prednisone/MMF/benlysta/lupkynis for Lupus
Review of Systems:
non oliguric
No complaint
No chest pain or shortness of breath
Labs
-
Labs:
WBC 10.9 10^3/uL (4.8-10.8) H 02/28/24 05:11
RBC 2.53 10^6/uL (4.20-5.40) L 02/28/24 05:11
Hgb 7.8 g/dL (12.0-16.0) L 02/28/24 05:11
Hct 21.9 % (37.0-47.0) L 02/28/24 05:11
Plt Count 311 10^3/uL (130-400) 02/28/24 05:11
Sodium 128 mmol/L (135-145) L 02/29/24 05:19
Potassium 4.2 mmol/L (3.5-5.1) 02/29/24 05:19
Chloride 104 mmol/L (98-107) 02/29/24 05:19
Carbon Dioxide 18 mmol/L (22-30) L 02/29/24 05:19
BUN 33 mg/dl (7-17) H 02/29/24 05:19
Creatinine 0.8 mg/dL (0.6-1.0) 02/29/24 05:19
eGFR > 60.00 02/29/24 05:19
Glucose 155 mg/dl (70-99) H 02/29/24 05:19
Calcium 7.4 mg/dl (8.4-10.2) L 02/29/24 05:19
Albumin 1.7 g/dl (3.5-5.0) L 02/23/24 03:45
Physical Exam
-
Vital Signs:
Vital Signs
Temp Pulse Resp BP Pulse Ox
98.1 F 70 16 179/117 100
02/29/24 07:55 02/29/24 09:05 02/29/24 07:55 02/29/24 09:05 02/29/24 09:53
Cardiovascular:: Regular rate and rhythm
Respiratory:: Bilateral: Coarse
Lung Excursion:: Normal
Abdomen:: Nontender and Soft
Bowel Sounds:: Normal
Extremity Edema:: +1: Bilateral:
[2024-02-29 11:37] VITALS: BP 169/113
--- NOTE | 2024-02-29 11:47 | CM ---
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 Pt is eager to return back home to take care of her son.
Plan: Home with no needs. Spouse to transport at discharge.
[2024-02-29] MEDS: SAMSCA 7.5 MG PO (11:57)
[2024-02-29 12:04] LABS: Glucose - Point of Care 224 mg/dl (70-99)
[2024-02-29] MEDS: NOVOLOG FLEXPEN-MODERATE RESISTANCE 3 UNITS SC (12:15)
--- NOTE | 2024-02-29 12:44 | PTCARENOTE ---
Utilized audio/visual IPAD for wage and salary administrator for assessment questions and discharge instructions. IV team removed right upper arm PICC line. Patient verbalizes understanding of all discharge instructions and denies questions. Tele
removed. Patient awaiting transport home.
[2024-02-29 12:47] VITALS: BP 152/94
== END 2024-02-29 13:08 | disposition home or self-care (01) | DRG 644 ==
LOC: 4 EAST ACU 18:05
PROVIDERS: Hospitalist; Nurse Practitioner Family; Nurse Practitioner Primary Care; Physician Assistant; Specialist; Student in an Organized Health Care Education/Training Program; ADMITTING PHYSICIAN Hospitalist; ATTENDING PHYSICIAN Internal Medicine; CONSULT PHYSICIAN Specialist; EMERGENCY PHYSICIAN Emergency Medicine; FAMILY PHYSICIAN Nurse Practitioner Adult Health; OTHER PHYSICIAN Internal Medicine Infectious Disease; OTHER PHYSICIAN Internal Medicine Pulmonary Disease
DX: E22.2 Syndrome of inappropriate secretion of antidiuretic hormone (principal); D84.821 Immunodeficiency due to drugs; G91.9 Hydrocephalus, unspecified; R65.10 Systemic inflammatory response syndrome (SIRS) of non-infectious origin without acute organ dysfunction; M32.14 Glomerular disease in systemic lupus erythematosus; I12.9 Hypertensive chronic kidney disease with stage 1 through stage 4 chronic kidney disease, or unspecified chronic kidney disease; N18.31 Chronic kidney disease, stage 3a; D64.9 Anemia, unspecified; E83.51 Hypocalcemia; I16.0 Hypertensive urgency; D75.839 Thrombocytosis, unspecified; R31.29 Other microscopic hematuria; Z98.2 Presence of cerebrospinal fluid drainage device; Z22.7 Latent tuberculosis; Z79.52 Long term (current) use of systemic steroids; Z79.899 Other long term (current) drug therapy; Z86.79 Personal history of other diseases of the circulatory system; Z90.49 Acquired absence of other specified parts of digestive tract; Z11.52 Encounter for screening for COVID-19
CPT/HCPCS: 70450; 71045; 71046; 80048; 80051; 80053; 81003; 81015; 82962; 83036; 83735; 83930; 83935; 84145; 84300; 85014; 85018; 85025; 85027; 85610; 85730; 86850; 86900; 86901; 86920; 87040; 87086; 87502; 87811; 93005; 96360; 97161; 97165; 99285; P9016

== ENCOUNTER 2024-03-06 17:06 | Inpatient (IN) | payer OTHER, SELFPAY ==
[2024-03-06] VITALS (32 sets, daily range): BP systolic 99–162; BP diastolic 67–99; BMI 19.9
--- NOTE | 2024-03-06 12:23 | VATNOTE ---
Multiple unsuccessful attempts made to place PIV. VAT to place midline.
--- NOTE | 2024-03-06 13:07 | ED.GENMED ---
History of Present Illness
General
Chief Complaint: Weakness
Time Seen by Provider: 03/06/24 12:37
History of Present Illness
History of Present Illness:
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 Patient arrives with family. Patient lives
with her son who notes in the past 2 weeks she has been increasingly weak. She has been able to lift her head up, has been ambulating and has been eating. She has also been having some vomiting. Patient was recently admitted to the hospital
discharged 02/28 for hyponatremia. At time of admission, sodium was 106, which improved to 128. They report the patient was overall doing well until 2 days ago. She did have a fall, fell backward, however was caught, no report of head injury.
Patient denies any chest pain or difficulty breathing. No report of cough. She has had decreased urination due to decreased p.o. intake. Due to weakness and decreased p.o. intake, has not been taking her medications. No additional symptoms
reported at this time
Past History
Past History
ED Past Medical History: HTN, Renal failure (Chronic kidney disease related to lupus) and Other (Hydrocephalus, lupus with lupus nephritis, chronic anemia)
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
Social History
Tobacco: Non-smoker
Alcohol: None
Drug: None
Personal:
Living: with family
Family History
Family History: Diabetes
Phy Exam
Physical Exam
Physical Exam:
GENERAL: Alert , in no apparent distress
EYE: pupils equal and reactive
NECK: Supple, no significant adenopathy.
ENT: o/p clr, dry mucous membranes
CARDIAC: Regular rate and rhythm .
LUNGS: Clear breath sounds bilaterally, no acute respiratory distress, no wheezes/rales/rhonchi
ABDOMEN: Soft, without focal tenderness, no r/g
NEUROLOGICAL: Alert and oriented, no focal neuro deficits. Moving all extremities equally
SKIN: Warm and dry, skin intact.
MUSCULOSKELETAL: 1+ edema bilaterally to lower extremities, well perfused.
PSYCH: Normal and appropriate interaction.
Course
Orders/Labs/Results
Orders:
Orders
03/06/24 11:13
Electrocardiogram (*1) Urgent
Reason for Study: Abdominal Pain
EKG- Treatment ONCE
03/06/24 12:55
Urinalysis Urgent
03/06/24 13:06
Basic Metabolic Panel Urgent
Complete Blood Count/With Diff Urgent
03/06/24 15:04
Type+Screen Urgent
Comprehensive Metabolic Panel Urgent
Magnesium Routine
Phosphorus Routine
03/06/24 15:13
* Blood Bank Products Urgent
Blood Bank Products: *Packed RBC Leuko(PRBC's)
Quantity: 1
Transfuse Today: Yes
Reason: Anemia
03/06/24 15:21
3% Sodium Chloride 250 ml [Sodium Chloride 3%] 250 ml IV ONCE
Abnormal Lab Results
03/06/24
13:06
RBC 1.43 L 10^6/uL
(4.20-5.40)
Hgb 4.4 L* g/dL
(12.0-16.0)
Hct 12.4 L* %
(37.0-47.0)
RDW 14.6 H %
(11.5-14.5)
MPV 11.1 H fL
(7.4-10.4)
Sodium 111 L* mmol/L
(135-145)
Chloride 89 L mmol/L
(98-107)
Carbon Dioxide 21 L mmol/L
(22-30)
BUN 35 H mg/dl
(7-17)
Glucose 126 H mg/dl
(70-99)
Calcium 6.5 L* mg/dl
(8.4-10.2)
03/06/24 13:06
Vital Signs
Initial and Last Documented VS:
Initial Vital Signs
Temp Pulse Resp BP Pulse Ox
98.2 F 130 23 105/67 99
03/06/24 11:09 03/06/24 11:09 03/06/24 11:09 03/06/24 11:09 03/06/24 11:09
Last Documented Vital Signs
Temp Pulse Resp BP Pulse Ox
98.2 F 118 22 111/72 100
03/06/24 11:09 03/06/24 14:00 03/06/24 14:00 03/06/24 14:00 03/06/24 11:45
MDM/Problems Addressed
MDM/Problems Addressed:
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 Vital signs on arrival significant for tachycardia.
On exam, patient is in no acute distress. She is resting comfortably. She is awake, alert, oriented. No signs of trauma, reported fall 2 days ago, however no report of head trauma.
Cardiac and pulmonary exam. No tenderness to abdomen. Patient moving all extremities equally with lower suspicion for central neurologic process. Concern for electrolyte derangement with recent admission for hyponatremia and history of SIADH.
Plan for laboratory analysis including electrolyte panel, magnesium, phosphorus.
14:10 -delay in disposition pending IV access. Left upper extremity ultrasound-guided IV placed, 2 attempts, 20-gauge IV
15:20 -patient sodium is 111 and hemoglobin is 4.4. Patient consented for transfusion and rectal exam performed, heme positive. Also discussed with nephrology. Starting hypertonic saline. Plan for admission.
*EKG
Interpreted by ED Provider?: Yes
EKG Intrepretation Date: 03/06/24
EKG Intrepretation Time: 13:14
Interpretation: normal
Comparison EKG: changes noted (02/22/24)
Heart Rate: 131
Rate: tachycardiac
Rhythm: sinus
[place]: normal axis
Interval: normal interval
QRS Pattern: normal QRS
Ischemia: no ischemia
*Critical Care Note
Total Time (30-74mins, 75-104mins- exclusive of procedures): 60 min
comment:
Critical care statement: A total of 60 minutes of critical care time was provided for this patient. This includes management of unstable vital signs, evaluation of the patient at bedside, reviewing the patient's pertinent medical records, discussion
with consultants, review of old EKGs and review of pertinent medical records. This time with separate from time utilized to perform the aforementioned documented procedures
ED Attending Note
-
Portions of this chart may have been created with voice recognition software.� Occasional wrong word or��sound alike� substitutions may have occurred due to the inherent limitations of voice recognition software.
Discharge Plan
Departure
Prescriptions:
No Action
carvedilol 25 mg Tablet
25 mg PO BID
lisinopril 20 mg Tablet
20 mg PO BID
mycophenolate mofetil 500 mg Tablet
1,500 mg PO BID
nifedipine 60 mg Tablet Extended Release 24hr
60 mg PO BID
omeprazole 20 mg Capsule,Delayed Release(Dr/Ec)
20 mg PO DAILY
Lupkynis 7.9 mg capsule
7.9 mg PO QPM Qty: 30 0RF
Benlysta 200 mg/mL auto-injector
200 mg SC QWEEK Qty: 1 0RF
furosemide [Lasix] 40 mg tablet
40 mg PO DAILY Qty: 30 0RF
sodium bicarbonate 650 mg Tablet
650 mg PO BID Qty: 60 0RF
famotidine [Pepcid] 20 mg tablet
20 mg PO HSPRN PRN (Reason: heartburn) Qty: 30 0RF
prednisone 10 mg tablet
20 mg PO DAILY
Referrals:
UNKNOWN - PT DOES,NOT KNOW [Family Provider] -
Interventions
Interventions:
*Risk Screen - Suicide Last Done: 03/06/24 11:40
*General Assessment Last Done: 03/06/24 11:10
*Neglect/Abuse Screening Last Done: 03/06/24 11:40
*ED COVID-19 Vaccine History Last Done: 03/06/24 11:40
ED- Cardiac Assessment Last Done: 03/06/24 11:45
ED- Neurological Assessment Last Done: 03/06/24 11:45
ED- Pulmonary Assessment Last Done: 03/06/24 11:45
Discharge Date and Time
Print Language: NAURUAN
[2024-03-06 14:35] LABS: Mean Corp Hgb Conc. 35.5 g/dL (33.0-37.0); Mean Corpuscular Hgb 30.8 pg (27.0-31.0); Mean Corpuscular Volume 86.7 fL (81.0-99.0); Mean Platelet Volume 11.1 fL (7.4-10.4); Nucleated Red Blood Cells % 0 %; Platelet Count 306 10^3/uL (130-400); Red Blood Cell Count 1.43 10^6/uL (4.20-5.40); Red Cell Dist. Width 14.6 % (11.5-14.5); White Blood Cell Count 7.3 10^3/uL (4.8-10.8)
[2024-03-06 14:55] LABS: Hematocrit 12.4 % (37.0-47.0); Hemoglobin 4.4 g/dL (12.0-16.0)
[2024-03-06 15:02] LABS: Blood Urea Nitrogen 35 mg/dl (7-17); Carbon Dioxide 21 mmol/L (22-30); Chloride 89 mmol/L (98-107); Glucose 126 mg/dl (70-99); eGFR > 60.00
[2024-03-06 15:03] LABS: Sodium 111 mmol/L (135-145)
[2024-03-06 15:04] LABS: Calcium 6.5 mg/dl (8.4-10.2)
--- NOTE | 2024-03-06 15:24 | W.CON.NEPH ---
Consultation
-
Date/Time Consultation Requested: 03/06/2024 3:00 PM
Date/Time Consultation Performed: 03/06/2024 3:00 PM
Requesting Provider: Dr. Avelar
Performing Provider: Dr. Hand
Reason for Consultation: Hyponatremia/history of lupus nephritis
Medical History
-
Chief Complaint: Hyponatremia/lupus nephritis
History of Present Illness:
Ms. Yaron Turpin is a 53YOF with PMH of lupus nephritis class IV, latent TB (s/p 6 months INH at age 21, retreatment -06/2024), HTN, anemia, hydrocephalus who presents to the hospital for a sodium of 111 and weakness. Her hemoglobin was 4.4
and she was noted to be heme positive on stool sample. The patient was tachycardic on admission with systolic blood pressures in the low 100s. The patient had been recently admitted to the hospital in December 2023 for with respiratory compromise and
unresponsiveness. She was recently hospitalized again a few weeks prior with a sodium of 106. Her hyponatremia has been very difficult to control even while inpatient with hypertonic saline Lasix and Samsca required during her last admission. She
was eventually discharged on a fluid restriction and 40 mg of Lasix daily. She is chronically maintained on mycophenolate and prednisone for her lupus nephritis for which she maintains a abnormal but stable GFR of 0.9 at the time. Her most recent
urine protein to creatinine ratio was 2.7 g as of 02/21/2024. Significantly improved from 9 g in January 2024. She is maintained on furosemide for edema in the setting of her previous nephrotic syndrome. We were consulted for her hyponatremia on
admission. She is also notably hypocalcemic and profoundly anemic.
Past Medical History
Poorly controlled hypertension
nephrotic syndrome
hydrocephalus with CARPENTER REPAIR shunt placed 2011, revised 2017
chronic anemia
latent TB s/p treatment
Past Medical History: Other
Past Surgical History: Cholecystectomy and Gynecological (C section)
Social History
Tobacco: Non-Smoker
Alcohol: None
Drug: None
Living: With Family
Employment: Not Employed
Family History
+HTN
Allergies / Home Medications
Allergy/AdvReac Type Severity Reaction Status Date / Time
No Known Allergies Allergy Verified 02/22/24 15:51
�Medication �Instructions �Recorded �Confirmed �Type
carvedilol 25 mg tablet 25 mg PO BID Blood Pressure 02/22/24 03/06/24 History
lisinopril 20 mg tablet 20 mg PO BID Blood Pressure 02/22/24 03/06/24 History
mycophenolate mofetil 500 mg tablet 1,500 mg PO BID IMMUNOSUPPRESANT 02/22/24 03/06/24 History
nifedipine 60 mg tablet,extended 60 mg PO BID 02/22/24 03/06/24 History
release 24 hr
omeprazole 20 mg capsule,delayed 20 mg PO DAILY GERD 02/22/24 03/06/24 History
release
belimumab 200 mg/mL subcutaneous 200 mg SC QWEEK #1 mL 02/29/24 03/06/24 Rx
auto-injector (Benlysta)
famotidine 20 mg tablet (Pepcid) 20 mg PO HSPRN PRN heartburn #30 02/29/24 03/06/24 Rx
tabs
furosemide 40 mg tablet (Lasix) 40 mg PO DAILY #30 tabs 02/29/24 03/06/24 Rx
sodium bicarbonate 650 mg tablet 650 mg PO BID #60 tabs 02/29/24 03/06/24 Rx
voclosporin 7.9 mg capsule 7.9 mg PO QPM #30 caps 02/29/24 03/06/24 Rx
(Lupkynis)
prednisone 10 mg tablet 20 mg PO DAILY 03/06/24 03/06/24 History
Review of Systems
-
History Source: Patient
All other systems: Negative unless noted
Constitutional: Fatigue
Physical Exam
Vital Signs
Vital Signs
Temp Pulse Resp BP Pulse Ox
98.2 F 118 22 111/72 100
03/06/24 11:09 03/06/24 14:00 03/06/24 14:00 03/06/24 14:00 03/06/24 11:45
Lab Results
WBC 7.3 10^3/uL (4.8-10.8) 03/06/24 13:06
RBC 1.43 10^6/uL (4.20-5.40) L 03/06/24 13:06
Hgb 4.4 g/dL (12.0-16.0) L* 03/06/24 13:06
Hct 12.4 % (37.0-47.0) L* 03/06/24 13:06
Plt Count 306 10^3/uL (130-400) 03/06/24 13:06
eGFR > 60.00 03/06/24 13:06
Physical Exam
General: AOx2, Nontoxic ,chronically ill appearing and lethargic
HEENT: PERRL, EOMI, Anicteric, Conjunctivae pale, Ear/Nose Intact, Hearing Normal, Oropharynx Clear/Moist, Dentition Intact, Facial Symmetry, Neck Supple, Neck: Trachea Midline, No JVD and No Thyromegaly, no Bruits
Respiratory: Clear to auscultation bilaterally with normal lung exersion
Cardiac: S1/S2 and Regular Rate/Rhythm but tachycardic
Breast: Deferred by me
Abdomen: Soft, Nontender, Nondistended, Normal Bowel Sounds and No Hepatosplenomegaly
Rectal: Deferred by Provider
Genito-urinary: No Costovertebral Tenderness
Extremities: No Clubbing, No Cyanosis but some central pitting Edema
Skin: No Rash or open lesions
Data Reviewed
-
Medical Tests (Nuc Med, Echo etc): Other (EKG personally reviewed sinus tachycardic rhythm at)
Labs: Labs Reviewed by me (BMP CBC)
Old Records: Reviewed (Reviewed previous consult from February 2024 for hyponatremia)
Assessment/Plan
-
Impression:
Acute on chronic hyponatremia (111)
Anemia hemoglobin 4.4 (heme positive stool)
Class IV lupus nephritis (on MMF, prednisone, hydroxychloroquine + voclosporin)
CKD (b/l Cr around 0.9 to 1.2)
Hydrocephalus s/p CARPENTER REPAIR shunt
Hx of Uncontrolled hypertension
nephrotic syndrome
hypocalcemia
h/o pericardial effusion
hx of latent TB, s/p treatment
Plan:
Hyponatremia:
-Hypertonic saline to be administered at 20 cc/hr for total of 250 cc
-Check lytes every 3 hours
-1000 cc fluid restriction to be placed
-recheck TSH and cortisol
-hold lasix
Hypocalcemia
-Will require 2 g of calcium gluconate IV
-Check vitamin D level and intact PTH
-Hypocalcemia will continue to exacerbate with blood transfusion
Anemia:
-Will require at least 2 units of blood
-Heme positive stool noted which will likely require GI investigation
-Curious if there could be marrow infiltration from her lupus
-check iron stores and retic count
35 minutes of critical care time spent with patient who is critically ill with life-threatening hyponatremia and anemia
Total Time Spent with Patient (in minutes): 35 minutes critical care time spent with patient
[2024-03-06] MEDS: SODIUM CHLORIDE 3% 250 IV (15:28)
[2024-03-06 15:29] LABS: Absolute Neutrophils -Man Diff 5.1 10^3/uL (1.4-6.5); Band Neutrophils 28 % (0-3); Eosinophils 3 % (0-6); Hypochromasia 1+; Lymphocytes 16 % (20-51); Monocytes 8 % (2-9); Normal RBC Morphology No; Platelets Checked Yes; Segmented Neutrophils 43 % (42-75)
[2024-03-06 15:30] LABS: Metamyelocytes 2 % (-); Polychromasia Slight; Total Cells Counted 100
[2024-03-06 15:34] LABS: ALT (SGPT) 65 U/L (0-35); AST (SGOT) 44 U/L (14-36); Albumin 1.1 g/dl (3.5-5.0); Alkaline Phosphatase 128 U/L (38-126); Blood Urea Nitrogen 34 mg/dl (7-17); Calcium 6.5 mg/dl (8.4-10.2); Carbon Dioxide 21 mmol/L (22-30); Chloride 88 mmol/L (98-107); Glucose 124 mg/dl (70-99); Magnesium 1.8 mg/dl (1.6-2.3); Phosphorus 4.6 mg/dl (2.5-4.5); Potassium 4.4 mmol/L (3.5-5.1); Sodium 111 mmol/L (135-145); Total Bilirubin 1.4 mg/dl (0.2-1.3); Total Protein 2.7 g/dl (6.3-8.2); eGFR > 60.00
--- NOTE | 2024-03-06 15:56 | HPS.HSE ---
Addendum entered and electronically signed by Herbie Hale MD 03/06/24 17:28:
I saw and examined the patient.
The DISPATCHER MAINTENANCE or PA's note was reviewed and I agree with the note.
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
generalized weakness over the past 2 weeks has been increasingly weak according to her son whom she lives with. Has been non compliant with majority of medications as due to being too weak. Has had recent admission for severe hyponatremia in the
past and dced on lasix and bicarb. Noted to have black stool over past 2 days. She denies fever, chills, headache, sore throat, chest pain, palpitations, shortness of breath, cough, abdominal pain, vomiting, diarrhea. Noted to be anemic and
hyponatremic. Plan - Hypertonic saline, monitor BMP closely; F/u nepro. Start back on bicarb, fluid restrict, f/u tsh, cortisol. Hodl lasix due to hypotension. Transfuse 3 u prbc, f/u anemia labs. PPI IV BID. GI consulted. Hold antihypertensives.
serial cbc.
Original Note:
Family Physician
-
Family Physician: NOT KNOW UNKNOWN - PT DOES
Chief Complaint
-
Weakness x 2 weeks, dark stool, nausea
History of Present Illness
53-year-old female complaining of generalized weakness over the past 2 weeks has been increasingly weak according to her son whom she lives with. Her son states over the past 4 days she has been progressively weak with some nausea and has not
taking any of her medications except her volosporin. She has not taken her CellCept or prednisone for her chronic lupus. She is Togolese-speaking only. Her son at bedside states she has had some dark stool over the past 2 days but denies
hematuria. She denies fever, chills, headache, sore throat, chest pain, palpitations, shortness of breath, cough, abdominal pain, vomiting, diarrhea.
She had a recent admission 02/21 - 02/29/2024 for hyponatremia secondary to SIADH with a presenting sodium of 106 corrected to 128 upon discharge. She was discharged on furosemide 20 mg daily along with sodium bicarbonate 650 mg twice daily. She was
also noted to be anemic with hemoglobin of 9.6 she has history of CKD stage III yea baseline creat 1.2 history of class IV lupus nephritis maintained on mycophenolate, and prednisone.
Medical History
Past Medical History
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
Past Surgical History: Reports None
Social History
Tobacco: Non-smoker
Alcohol: None
Drug: None
Personal: Single
Living: With Family (With son)
Employment: Not Employed
Family History
Family History: Not pertinent
Allergies / Home Medications
Allergies reflects when Allergies were last updated in [facility].
Home Medications with original date entered in [facility]
Allergy/Medication List:
Allergies
Allergy/AdvReac Type Severity Reaction Status Date / Time
No Known Allergies Allergy Verified 02/22/24 15:51
Home Medications
carvedilol 25 mg tablet 25 mg PO BID Blood Pressure 02/22/24
lisinopril 20 mg tablet 20 mg PO BID Blood Pressure 02/22/24
mycophenolate mofetil 500 mg tablet 1,500 mg PO BID IMMUNOSUPPRESANT 02/22/24
nifedipine 60 mg tablet,extended release 24 hr 60 mg PO BID 02/22/24
omeprazole 20 mg capsule,delayed release 20 mg PO DAILY GERD 02/22/24
belimumab 200 mg/mL subcutaneous auto-injector (Benlysta) 200 mg SC QWEEK #1 mL 02/29/24
famotidine 20 mg tablet (Pepcid) 20 mg PO HSPRN PRN heartburn #30 tabs 02/29/24
furosemide 40 mg tablet (Lasix) 40 mg PO DAILY #30 tabs 02/29/24
sodium bicarbonate 650 mg tablet 650 mg PO BID #60 tabs 02/29/24
voclosporin 7.9 mg capsule (Lupkynis) 7.9 mg PO QPM #30 caps 02/29/24
prednisone 10 mg tablet 20 mg PO DAILY 03/06/24
Review of Systems
-
History Source: Patient and Family (Son at bedside translating)
A 12 point ROS was completed and negative except as noted: Yes
Constitutional: Reports Fatigue; Denies Chills
EENT: Denies Sore Throat or Runny Nose
Respiratory: Denies Cough or Trouble Breathing
Cardiac: Denies Chest Pain, Diaphoresis, Palpitations or Syncope
Abdomen/GI: Reports Nausea and Black Stools (X 2 days); Denies Abdominal Pain, Vomiting, Diarrhea, Constipated or Bloody Stools
: Denies Dysuria, Frequency, Flank Pain, Incontinence, Difficulty Voiding or Urgency
Musculoskeletal: Denies Joint Pain or Edema
Skin: Denies Itching or Rash
Neurological: Reports Weakness (Generalized); Denies Dizzy or Headache
Endocrine: Reports No Symptoms
Hematologic/Lymphatic: Reports No Symptoms
Psych: Reports Calm
Physical Exam
Vital Signs
Vital Signs
Temp Pulse Resp BP Pulse Ox
98.2 F 113 27 101/78 100
03/06/24 11:09 03/06/24 15:01 03/06/24 15:01 03/06/24 15:01 03/06/24 15:01
Physical Exam
General: No Apparent Distress, Conversant (Speaks in Togolese to son) and Other (Generalized weakness); No Chills
HEENT: NormoCephalic, Anicteric, Moist mucous membranes, PERRLA, [place] Conjunctivae and No Ptosis
Respiratory: Clear; No Wheezes, Rales or Rhonchi
Cardiac: S1/S2 and Regular Rhythm; No Murmur, Rub, Gallop or Peripheral Edema
Breast: Deferred by me
GI: Soft, Non Tender, Non Distended, Normal Bowel Sounds and No Hepatosplenomegaly
Rectal: Hem Positive (Per ER provider)
Genito-urinary: Deferred by me
Musculoskeletal: No Clubbing, No Cyanosis and No Edema
Skin: Warm, Dry and IV/Catheter Site (Midline right upper arm placed in ER today 03/06/2024); No Rash
Neuro: No Motor Deficits, Cranial Nerves Intact, No Sensory Deficits and Other (Drowsy but oriented x 3 is speaking Togolese with son); No Slurred Speech, Facial Droop or Tremors
Psych: Calm
Laboratory Results
-
03/06/24 13:06
03/06/24 15:04
Laboratory Results
Total Bilirubin 1.4 mg/dl (0.2-1.3) H 03/06/24 15:04
AST 44 U/L (14-36) H 03/06/24 15:04
ALT 65 U/L (0-35) H 03/06/24 15:04
Alkaline Phosphatase 128 U/L (38-126) H 03/06/24 15:04
Impression/Plan
-
Impression/plan:
Admit to ICU
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
NA 111 was prior 106 on 01/22/2024 corrected to 128
-Hypertonic saline 3% 20 cc an hour total 250 cc
-Check BMP every 3 hours
-Consult nephrology
-Continue sodium bicarb 650 twice daily
-Fluid restrict 1000 cc daily
-Check TSH, cortisol level
-Hold Lasix 40 mg daily
#Anemia concern GI bleed
#Acute on chronic normocytic anemia/anemia of chronic disease
Heme positive stool, patient reports black stool x 2 days
Patient is status post 1 unit blood transfusion on 02/26/2024
Hgb currently 4.4
-Type and screen
-Will transfuse 3 units PRBC's
-Check iron panel, reticulocyte count, B12, folate
-IV Protonix 40 mg twice daily
-Consult GI
#Hypocalcemia
Calcium 6.5
-Check vitamin D, intact PTH
-Give 2 g calcium gluconate IV
#CKD stage III/class IV lupus nephritis
Patient has not taken her CellCept,prednisone for the past 4 days
-Continue Belimumab once week, voclosporin, CellCept 1500 mg twice daily prednisone 20 mg daily
-Creat 1.1, baseline creat 1.2
# Hypotension/HTN�benign
BP 101/78
-Hold Coreg 25 mg twice daily, lisinopril 20 mg twice daily, nifedipine 60 mg twice daily
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
#Hx pericardial effusion
#Hx latent TB status posttreatment with INH at age 21
DVT prophylaxis
SCDs
Full code
[2024-03-06 17:01] LABS: Reticulocyte Count 6.9 % (0.4-2.8)
--- NOTE | 2024-03-06 17:10 | CON.GI ---
Addendum entered and electronically signed by Channing Lawrence MD 03/06/24 19:30:
I saw and examined the patient.
The PA's note was reviewed and I agree with the note.
Comment:
The patient is a 53 year old female with h/o multiple co-morbidities as noted below p/w increasing weakness and fatigue. Noted to have profound hyponatremia and anemia with Hgb 4.4. She denies melena and has had vomiting / inability to tolerate
oral intake.
Impression / Rec:
1. Anemia - has symptomatic anemia with Hgb 4.4 on admission. She denies melena/coffee ground emesis, although her stool was hemoccult +ve. Not sure if melenic stool was seen. No NSAID use. No previous endo evaluation. She has multiple
profound electrolyte derangements including Na 111, Ca 6.5. Will need these corrected before considering endo eval. Agree with PPI IV BID for now.
Original Note:
Consultation
-
Date/Time Consultation Requested: 03/06/241699
Date/Time Consultation Performed: 03/06/241699
Requesting Provider: ASTON Easton
Performing Provider: Dr. Lawrence/ASTNO Lu
Reason for Consultation: melena, anemia
Medical History
Chief Complaint / HPI
Chief Complaint: weakness
History of Present Illness:
53-year-old Argentine-speaking female with history of hydrocephalus status post LEASING SALES CONSULTANT shunt, hyponatremia, hypertension, SLE/lupus nephritis currently on mycophenolate, voclosporin, Benlysta, hyroxychloroquine and prednisone, CKD 3, chronic anemia,
history of pericardial effusion with history of latent TB status posttreatment, recent admission for SIADH/hyponatremia presents to the emergency room with 2-week history of increasing weakness, inability to get up and walk for the past 2 days,
nausea with vomiting for 2 days and sticky bowel movements x 2 days. Asked to evaluate for GI bleed in the setting of dark OB positive stool and hemoglobin of 4.4. The use of court interpreter ([employer] [id number] was used for this encounter). The
patient states that over the past 2 weeks she is felt weak with progressive weakness over the past 2 days with the inability to stand up over the past 2 days. She has noticed that her bowel movements were more over the past 2 days and were sticky
in nature. She does not necessarily notice them to be melena or with any red blood. She felt that they were normal in color to her. She has had nausea and vomiting for the past 2 days with the inability to keep down any food or pills. She states
that the vomit was normal as well. She denies any hematemesis. She denies any abdominal pain. She states she just overall feels tired. She denies any fevers, chills, dysphagia or odynophagia. No early satiety or unintentional weight loss. She
is never had a colonoscopy or endoscopy. She denies any history of ulcers that she is aware of. She has no family history of gastrointestinal malignancy or inflammatory bowel disease. She denies any current history of GERD or reflux like
symptoms. She does not take any NSAIDs but she is on prednisone 20 mg daily. Her hemoglobin on discharge 02/28/2024 was 7.8. Today it is 4.4, she is tachycardic at 114, she is currently receiving packed red blood cells at the present time.
Past Medical History
Past Medical History: HTN and Other (Acute on chronic hyponatremia, lupus nephritis, CKD, hydrocephalus, nephrotic syndrome, hypocalcemia, pericardial effusion, history of latent TB status posttreatment)
Past Surgical History: Cholecystectomy, and Other (LEASING SALES CONSULTANT shunt)
Social History
Tobacco: Non-Smoker
Alcohol: None
Drug: None
Living: With Family
Family History
Family History: Other (No family history gastrointestinal malignancy or IBD)
Allergies / Home Medications
Allergy/AdvReac Type Severity Reaction Status Date / Time
No Known Allergies Allergy Verified 02/22/24 15:51
�Medication �Instructions �Recorded
carvedilol 25 mg tablet 25 mg PO BID Blood Pressure 02/22/24
lisinopril 20 mg tablet 20 mg PO BID Blood Pressure 02/22/24
mycophenolate mofetil 500 mg tablet 1,500 mg PO BID IMMUNOSUPPRESANT 02/22/24
nifedipine 60 mg tablet,extended 60 mg PO BID 02/22/24
release 24 hr
omeprazole 20 mg capsule,delayed 20 mg PO DAILY GERD 02/22/24
release
belimumab 200 mg/mL subcutaneous 200 mg SC QWEEK #1 mL 02/29/24
auto-injector (Benlysta)
famotidine 20 mg tablet (Pepcid) 20 mg PO HSPRN PRN heartburn #30 02/29/24
tabs
furosemide 40 mg tablet (Lasix) 40 mg PO DAILY #30 tabs 02/29/24
sodium bicarbonate 650 mg tablet 650 mg PO BID #60 tabs 02/29/24
voclosporin 7.9 mg capsule 7.9 mg PO QPM #30 caps 02/29/24
(Lupkynis)
prednisone 10 mg tablet 20 mg PO DAILY 03/06/24
Review of Systems
-
All other systems: A 12 pt ROS was Negative except as stated above in HPI
Vital Signs
Temp Pulse Resp BP Pulse Ox
98.1 F 113 16 113/70 100
03/06/24 16:43 03/06/24 16:43 03/06/24 16:43 03/06/24 16:43 03/06/24 16:43
Physical Exam
Exam
General: Other (Appears older than stated age, Lethargic)
Respiratory: Clear (Anterior)
Cardiac: Regular Rhythm (Tachycardic at 114)
GI: Soft, Non Tender, Non Distended and Normal Bowel Sounds
Rectal: Hem Positive (Per ER)
Skin: Warm and Dry
Neuro: Awake and Alert
Psych: Calm
Results
WBC 7.3 10^3/uL (4.8-10.8) 03/06/24 13:06
Hgb 4.4 g/dL (12.0-16.0) L* 03/06/24 13:06
Hct 12.4 % (37.0-47.0) L* 03/06/24 13:06
MCV 86.7 fL (81.0-99.0) 03/06/24 13:06
Plt Count 306 10^3/uL (130-400) 03/06/24 13:06
Absolute Neuts (auto) Not Reportable 03/06/24 13:06
Sodium 111 mmol/L (135-145) L* 03/06/24 15:04
Potassium 4.4 mmol/L (3.5-5.1) 03/06/24 15:04
Chloride 88 mmol/L (98-107) L 03/06/24 15:04
Carbon Dioxide 21 mmol/L (22-30) L 03/06/24 15:04
BUN 34 mg/dl (7-17) H 03/06/24 15:04
Creatinine 1.1 mg/dL (0.6-1.0) H 03/06/24 15:04
Calcium 6.5 mg/dl (8.4-10.2) L* 03/06/24 15:04
Total Bilirubin 1.4 mg/dl (0.2-1.3) H 03/06/24 15:04
AST 44 U/L (14-36) H 03/06/24 15:04
ALT 65 U/L (0-35) H 03/06/24 15:04
Alkaline Phosphatase 128 U/L (38-126) H 03/06/24 15:04
Diagnostic Image Results:
none this admission
Prior GI Procedures:
EGD: Never had
Colonoscopy: Never had
Assessment / Plan
-
53-year-old Argentine-speaking female with history of hydrocephalus status post LEASING SALES CONSULTANT shunt, hyponatremia, hypertension, SLE/lupus nephritis currently on mycophenolate, voclosporin, Benlysta, hyroxychloroquine and prednisone, CKD 3, chronic anemia,
history of pericardial effusion with history of latent TB status posttreatment, recent admission for SIADH/hyponatremia presents to the emergency room with 2-week history of increasing weakness, inability to get up and walk for the past 2 days,
nausea with vomiting for 2 days and sticky bowel movements x 2 days. Asked to evaluate for GI bleed in the setting of dark OB positive stool and hemoglobin of 4.4. The use of court interpreter ([employer] was used for this encounter). The
patient states that over the past 2 weeks she is felt weak with progressive weakness over the past 2 days with the inability to stand up over the past 2 days. She has noticed that her bowel movements were more over the past 2 days and were sticky
in nature. She does not necessarily notice them to be melena or with any red blood. She felt that they were normal in color to her. She has had nausea and vomiting for the past 2 days with the inability to keep down any food or pills. She states
that the vomit was normal as well. She denies any hematemesis. WBC 7.3, hemoglobin 4.4, hematocrit 12.4, platelets 306, PT 15.9, INR 1.28, sodium 111, potassium 4.4, chloride 88, CO2 21, BUN 34, creatinine 1.11, glucose 124, calcium 6.5, phosphorus
4.6, magnesium 1.8, total bilirubin 1.4, AST 44, ALT 65, alk phos 128, albumin 1.1
Impression:
Anemia with OB positive stool
Vomiting
Hyponatremia
Hypocalcemia
Elevated LFTs
Lupus Nephritis
Hydrocephalus with LEASING SALES CONSULTANT shunt
CKD
Plan:
-Transfuse to keep Hgb > 7
-NPO for now given nausea/vomiting
-Pantoprazole 40 mg IV BID
-Check Hepatitis panel
-Trend LFTs
-US Abdomen
-Eventual EGD when stable
-Further recommendations to be forthcoming
-
-
Thank you for consultation and allowing me to participate in the patient's care. Please call the bone char kiln operator GI physician during the after hours with any questions or concerns.
[2024-03-06 17:11] LABS: INR 1.28; PT 15.9 Sec (11.4-14.6)
[2024-03-06 17:12] LABS: APTT 35.9 Sec (23.4-35.0)
[2024-03-06 17:34] LABS: Total Iron Binding Capacity 82 ug/dl (265-497)
[2024-03-06 18:03] LABS: Iron 20 ug/dl (37-170); Percent Saturation 24 % (20-50)
--- NOTE | 2024-03-06 18:05 | PTCARENOTE ---
patient received from ED, assesments per work list. admission completed utilizing video intrepreter #[id number]. monitor sinus tach, prbc transfusing with out signs reaction. abdomen distended, non tender with diffuse area dark bruising, petechaie,
extends to upper thighs and mid back. +2 pedal edema. VAT RN at bedside to place PICC. 3% saline on hold at this time.
[2024-03-06 18:12] LABS: TSH Reflex To Free T4 0.41 uIU/ml (0.47-4.68)
[2024-03-06] MEDS: NSS (PRESERVATIVE FREE) 10 ML IV (18:31)
[2024-03-06] MEDS: PROTONIX IV 40 MG IV (18:31)
[2024-03-06 18:36] LABS: Free T4 1.91 ng/dl (0.78-2.19)
[2024-03-06] MEDS: CALCIUM GLUCONATE 100 IV (18:42)
--- NOTE | 2024-03-06 18:47 | PTCARENOTE ---
cxr taken post picc placement, awaiting read by radiologist, unable to send labs, transfuse PC or resume 3 %saline at this time due to lack of access until picc placement confirmed
[2024-03-06 18:49] LABS: Vitamin B12 > 1000 pg/ml (239-931)
[2024-03-06 18:52] LABS: Cortisol, Random 74.4 ug/dl
[2024-03-06] MEDS: CELLCEPT PO (20:21)
--- NOTE | 2024-03-06 20:55 | PTCARENOTE ---
rec'd patient at 1900. pt lethargic, Lithuanian speaking. ST on monitor, afebrile. on 2L NC, diminished breath sounds. abd soft, nontender, multiple bruises/petechiae noted. RUE DL PICC in place, repositioned by VAT per radiology report. ICU REAL ESTATE CLOSING COORDINATOR
notified. 1u PRBC initiated in LAC PIV. 3% NS restarted through PICC after placement adjustment per ICU REAL ESTATE CLOSING COORDINATOR. labs sent. call luciano within reach, care ongoing.
[2024-03-06 21:16] LABS: Calcium 7.2 mg/dl (8.4-10.2)
--- NOTE | 2024-03-06 21:22 | VATNOTE ---
PER RADIOLOGIST RECOMMENDATION, 5FR DL R PICC RETRACTED 9.5CM. BOTH LUMENS FLUSH WELL AND HAVE A GOOD BR. PCN AND ELECTRIC MOTOR ANALYST AWARE OF INTERVENTION AND OUTOCME. NO NEED TO RE XRAY PICC PER ELECTRIC MOTOR ANALYST ARABELLA.
[2024-03-06 21:33] LABS: Vitamin D, 25-OH*** < 12.8 ng/mL (30-80)
[2024-03-06 21:36] LABS: Blood Urea Nitrogen 37 mg/dl (7-17); Calcium 7.4 mg/dl (8.4-10.2); Carbon Dioxide 18 mmol/L (22-30); Chloride 90 mmol/L (98-107); Estimated Creatinine Clearance 37 ml/min; Glucose 103 mg/dl (70-99); Potassium 4.3 mmol/L (3.5-5.1); Sodium 113 mmol/L (135-145); eGFR > 60.00
[2024-03-06 22:10] LABS: Hepatitis B Surface Antigen Negative (Negative)
[2024-03-06 22:14] LABS: Hepatitis A IgM Antibody Negative (Negative); Hepatitis B Core Ab, IgM Negative (Negative)
[2024-03-06 22:28] LABS: Hepatitis B Surface Antibody Negative; Hepatitis C Antibody Negative (Negative)
[2024-03-07] VITALS (41 sets, daily range): BP systolic 72–158; BP diastolic 48–129; PULSE 130; O2SAT 98; BMI 20.9
[2024-03-07 00:50] LABS: Hemoglobin 10.9 g/dL (12.0-16.0)
[2024-03-07 01:08] LABS: Blood Urea Nitrogen 36 mg/dl (7-17); Carbon Dioxide 17 mmol/L (22-30); Estimated Creatinine Clearance 37 ml/min; eGFR > 60.00
[2024-03-07 01:42] LABS: Chloride 95 mmol/L (98-107); Glucose 105 mg/dl (70-99); Potassium 4.2 mmol/L (3.5-5.1); Sodium 116 mmol/L (135-145)
--- NOTE | 2024-03-07 02:00 | PTCARENOTE ---
repeat labs sent, Hgb 10.9, Na 116. ICU DIVING INSTRUCTOR aware, 3% NS continues. 2u PRBC transfused. Pt with BM and saturated brief, cleaned and repositioned. remains ST on monitor, on 2L NC. call luciano within reach, care ongoing.
[2024-03-07 04:16] LABS: Hematocrit 31.3 % (37.0-47.0); Hemoglobin 11.4 g/dL (12.0-16.0); Mean Corp Hgb Conc. 36.4 g/dL (33.0-37.0); Mean Corpuscular Hgb 29.7 pg (27.0-31.0); Mean Corpuscular Volume 81.5 fL (81.0-99.0); Red Blood Cell Count 3.84 10^6/uL (4.20-5.40); Red Cell Dist. Width 13.7 % (11.5-14.5); White Blood Cell Count 9.4 10^3/uL (4.8-10.8)
[2024-03-07 04:27] LABS: INR 1.33; PT 16.3 Sec (11.4-14.6)
[2024-03-07 04:43] LABS: Urine Albumin Trace (Neg - Trace); Urine Bilirubin 2+ (Negative); Urine Character Clear (Clear); Urine Color Yellow; Urine Glucose Negative (Negative); Urine Ketone Trace (Negative); Urine Leukocyte Trace (Negative); Urine Nitrite Negative (Negative); Urine Occult Blood 1+ (Negative); Urine Specific Gravity 1.005 (<1.030); Urine Urobilinogen 3+ (Neg - 1+)
[2024-03-07 05:10] LABS: Urine Squamous Cell 0-2 /LPF (Few)
[2024-03-07 05:11] LABS: Urine Bacteria Many (Negative); Urine Red Blood Cell 0-2 /HPF (0-2)
[2024-03-07 05:16] LABS: ALT (SGPT) 69 U/L (0-35); AST (SGOT) 52 U/L (14-36); Albumin 1.2 g/dl (3.5-5.0); Alkaline Phosphatase 158 U/L (38-126); Blood Urea Nitrogen 37 mg/dl (7-17); Calcium 6.9 mg/dl (8.4-10.2); Carbon Dioxide 15 mmol/L (22-30); Chloride 96 mmol/L (98-107); Estimated Creatinine Clearance 41 ml/min; Glucose 98 mg/dl (70-99); Sodium 118 mmol/L (135-145); Total Bilirubin 2.8 mg/dl (0.2-1.3); Total Protein 2.9 g/dl (6.3-8.2); eGFR > 60.00
--- NOTE | 2024-03-07 05:20 | PTCARENOTE ---
AM labs sent, Hgb 11.4, Na 118, Ca 6.9. 3% NS on standby per ICU ACTIVITY MANAGER. Pt BS for 473ml, straight cath for 400ml. NPO for US this morning. call luciano within reach, care ongoing.
[2024-03-07 05:24] LABS: Mean Platelet Volume 10.9 fL (7.4-10.4); Platelet Count 198 10^3/uL (130-400)
[2024-03-07 05:25] LABS: Absolute Neutrophils -Man Diff 7.8 10^3/uL (1.4-6.5); Anisocytosis Slight; Band Neutrophils 14 % (0-3); Lymphocytes 12 % (20-51); Metamyelocytes 2 % (-); Monocytes 2 % (2-9); Normal RBC Morphology No; Platelets Checked Yes; Polychromasia Slight; Segmented Neutrophils 69 % (42-75); Total Cells Counted 100
[2024-03-07] MEDS: CALCIUM GLUCONATE 130 MG IV (06:08)
--- NOTE | 2024-03-07 06:45 | W.PN.GI.CBS2 ---
Addendum entered and electronically signed by Garcia Barrios MD 03/07/24 06:54:
Is okay for diet from GI standpoint, though will defer fluid restrictions to medicine/nephrology given profound SIADH/hyponatremia.
Original Note:
Today's Communication / Plan
-
Please see assessment and plan for details.
Assessment / Plan
-
1. Anemia: With underlying anemia of chronic disease, with hemoglobin admission at 4.4, though received 3 notes of blood and responded more than appropriately, is where would be expected on her discharge hemoglobin from before, think that the 4.4
was likely lab variation. Iron studies consistent with anemia of chronic disease, no gross bleeding. Her profound weakness is likely more related to her significant hyponatremia which is also much improved. Given her other significant
comorbidities we will hold on endoscopic evaluation for now.
2. Elevated LFTs: Chronically intermittently elevated, negative hepatitis panel, likely more related to medication or fatty liver related to steroids, stable and at baseline.
We will sign off for now, please call back with any further questions.
Subjective
Subjective
Date of Service: March 07, 2024
Patient feeling okay, better overall, 1 brown bowel movement per nursing overnight. Denies abdominal pain or nausea.
Objective
Data Reviewed
Laboratory Data:
Laboratory Results
03/07/24 04:01
Laboratory Results
PT 16.3 Sec (11.4-14.6) H 03/07/24 04:01
INR 1.33 03/07/24 04:01
APTT 35.9 Sec (23.4-35.0) H 03/06/24 16:47
Phosphorus 4.6 mg/dl (2.5-4.5) H 03/06/24 15:04
Magnesium 1.8 mg/dl (1.6-2.3) 03/06/24 15:04
Total Bilirubin 2.8 mg/dl (0.2-1.3) H D 03/07/24 04:01
AST 52 U/L (14-36) H 03/07/24 04:01
ALT 69 U/L (0-35) H 03/07/24 04:01
Alkaline Phosphatase 158 U/L (38-126) H 03/07/24 04:01
Vital Signs and I&O:
Vital Signs
Temp Pulse Resp BP Pulse Ox
97.5 F 113 19 148/96 99
03/07/24 03:32 03/07/24 06:30 03/07/24 06:30 03/07/24 06:13 03/07/24 06:30
I&O
03/05/24 03/06/24 03/07/24
06:59 06:59 06:59
Intake Total 1550 / 1550
Output Total 400 / 400
Balance 1150 / 1150
Physical Exam
Physical Exam
General: NAD
Abdomen: normal bowel sounds, soft, no tenderness, no masses or bruits, no ascites
--- NOTE | 2024-03-07 07:18 | CON.INTV ---
Consultation
Consultation Request
Date/Time Consultation Requested: 03/07
Date/Time Consultation Performed: 03/07
Reason for Consultation: Critical care
Medical History
-
History of Present Illness:
History obtained from the patient and reviewing the chart. Patient is a 53-year-old female with complex medical history who was recently discharged 02/29/2024 for hyponatremia. She was brought back to [facility] because of increased
fatigue and weakness. She was also sleeping a lot. There was also emesis. Discharge sodium during last visit was 128, admission sodium during last visit 106. Patient denies any shortness of breath, chest pain, cough, fevers, chills. She has not
been taking p.o. or medications consistently. Upon arrival to [facility], afebrile, pulse 130, breathing at 23, blood pressure 105/67, 99%. Patient noted to have a hemoglobin of 4.4, heme positive stool. Hypertonic saline was started,
transfusion was given. Patient mated to ICU for further management
.
PMH: Poorly controlled hypertension, nephrotic syndrome, hydrocephalus with RN CASE MANAGEMENT shunt placed 2011, revised 2017, chronic kidney disease, chronic anemia. History of recurrent hyponatremia. History of laparoscopic cholecystectomy,
Past Medical History
Past Medical History: None (See above)
Past Surgical History: None (See above )
Social History
Tobacco: Non-smoker
Alcohol: None
Drug: None
Living: With Family
Employment: Not Employed
Family History
Family History: Other (There is a family history of renal disease and hypertension)
Allergies / Home Medications
Allergies
Allergy/AdvReac Type Severity Reaction Status Date / Time
No Known Allergies Allergy Verified 02/22/24 15:51
Home Medications
�Medication �Instructions �Recorded �Confirmed �Last Taken �Type
carvedilol 25 mg tablet 25 mg PO BID Blood Pressure 02/22/24 03/06/24 02/22/24 History
lisinopril 20 mg tablet 20 mg PO BID Blood Pressure 06/03/06/24 02/22/24 History
mycophenolate mofetil 500 mg tablet 1,500 mg PO BID IMMUNOSUPPRESANT 02/22/24 03/06/24 02/22/24 History
nifedipine 60 mg tablet,extended 60 mg PO BID 02/22/24 03/06/24 02/22/24 History
release 24 hr
omeprazole 20 mg capsule,delayed 20 mg PO DAILY GERD 02/22/24 03/06/24 02/22/24 History
release
belimumab 200 mg/mL subcutaneous 200 mg SC QWEEK #1 mL 02/29/24 03/06/24 Unknown Rx
auto-injector (Benlysta)
famotidine 20 mg tablet (Pepcid) 20 mg PO HSPRN PRN heartburn #30 02/29/24 03/06/24 Unknown Rx
tabs
furosemide 40 mg tablet (Lasix) 40 mg PO DAILY #30 tabs 02/29/24 03/06/24 Unknown Rx
sodium bicarbonate 650 mg tablet 650 mg PO BID #60 tabs 02/29/24 03/06/24 Unknown Rx
voclosporin 7.9 mg capsule 7.9 mg PO QPM #30 caps 02/29/24 03/06/24 Unknown Rx
(Lupkynis)
prednisone 10 mg tablet 20 mg PO DAILY 03/06/24 03/06/24 Unknown History
Review of Systems
-
All other systems: Negative unless noted
Vitals / Labs / Diagnostic Testing
Vital Signs
Temp Pulse Resp BP Pulse Ox
98.1 F 113 19 148/96 99
03/07/24 07:07 03/07/24 06:30 03/07/24 06:30 03/07/24 06:13 03/07/24 06:30
Lab Data
03/07/24 04:01
Laboratory Results
03/06/24 03/07/24
16:47 04:01
PT 15.9 H 16.3 H
INR 1.28 1.33
APTT 35.9 H
Diagnostic Testing:
Physical Exam
-
HEENT: Normocephalic, Anicteric and Other (RUE PICC)
Cardiovascular: S1/S2, Regular Rhythm, Murmur (n) and Rub (n)
Respiratory: Wheeze (n), Rales (n), Rhonchi (n) and Non-Labored Respirations
GI: Soft, Non Distended and Non Tender
Neurology: Awake, Alert and No Motor Deficits (Moves all extremities, generally weak)
Skin: Other (No clubbing, no cyanosis)
General: Comfortable
Assessment
-
Patient is a 53-year-old female with complex medical history including nephrotic syndrome, hypertension, hydrocephalus s/p RN CASE MANAGEMENT shunt, lupus nephritis followed by rheumatology on mycophenolate, prednisone, was being considered for biologic
therapy/Cytoxan therapy as outpatient. She has had recent hospital stay for hyponatremia, recently discharged 02/29/2024 with sodium level of 128. She apparently was doing well but then developed poor p.o. intake, nausea/emesis, increased lethargy
and was readmitted with hyponatremia. We are asked to help from critical care standpoint
Acute hyponatremia
Nausea/emesis
Acute anemia, hemoglobin 4.4, suspected inaccurate
Heme positive stool
Status post 3 units transfusion
Transaminitis
Leukocytosis
Hyponatremia, hypokalemia
elevated lactate
History of mild to moderate mitral regurgitation per echo 2021
Aortic sclerosis
PA pressure 34
Moderate pericardial effusion
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
VDRF 12/18/23
Difficult intubation
Found unresponsive by family at 330am
History of hypertensive emergency, CHF
Lupus nephritis, on chronic immunosuppression
MMF/prednisone/Voclosporin?
Being considered for biologic therapy (Dr. Engel)
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
Hydrocephalus status post RN CASE MANAGEMENT shunt; placed in 2011 with an revised in 2017
Chronic anemia
Nephrotic syndrome
Significant proteinuria
Hypertension
Laparoscopic cholecystectomy
x2
History of latent tuberculosis, positive PPD, status post 6 months of INH per records
Cannot confirm
Seen by Department of Health, recommended 4 months of rifampin
History of noncompliance
Plan/recommendations
At this time, patient is critically ill, but stable
Admission sodium 111. Not sure whether hemoglobin of 4.4 accurate. Responsive 3 units noted, hemoglobin greater than 11
Continue with hypertonic saline, per nephrology
Frequent electrolyte evaluation
Thyroid function unremarkable, cortisol elevated
Replete calcium per nephrology
Continue to follow hemoglobin
GI correspondence reviewed. They have signed off
Chronic immunosuppression noted
There does not appear to be any evidence of acute infectious process at this time
Chest x-ray with right upper extremity PICC
Per records, there is a history of noncompliance with regards to antihypertensive therapy
Unclear whether patient continues to be noncompliant with medications
She continues to have episodes of progressive TME at home (see admission December 2023)
History of moderate pericardial effusion noted in the past
Renal biopsy noted , Suggestive of lupus nephritis although difficult to visualize report from 2021
Reviewed with critical care nursing, respiratory care
TCCT 31 min
[2024-03-07] MEDS: DELTASONE 20 MG PO (08:14)
[2024-03-07] MEDS: NSS (PRESERVATIVE FREE) 10 ML IV (08:14)
[2024-03-07] MEDS: PROTONIX IV 40 MG IV (08:14)
[2024-03-07] MEDS: CELLCEPT 1500 MG PO ×2 (08:14→20:42)
--- NOTE | 2024-03-07 09:07 | W.PN.NEPH.PH ---
Today's Communication / Plan
-
3%
Assessment/Plan
-
Impression:
Acute on chronic hyponatremia
Anemia hemoglobin 4.4 (heme positive stool)
Class IV lupus nephritis (on MMF, prednisone, hydroxychloroquine + voclosporin)
CKD (b/l Cr around 0.9 to 1.2)
Hydrocephalus s/p GLOBAL REGULATORY LEAD shunt
Hx of Uncontrolled hypertension
nephrotic syndrome
hypocalcemia
h/o pericardial effusion
hx of latent TB, s/p treatment
Plan:
3% NaCl again
serial BMP, q4-6hrs
repeat U Pr/Cr
continue prednisone
restart coreg
sodium bicarbonate PO
follow hgb
-
-
Date of Service: March 07, 2024
CC / HPI / ROS
-
Chief Complaint:
Hyponatremia
History of Present Illness:
Serum sodium up to 118
Hemodynamically stable, BP high today, tachycardic
as OP on prednisone/MMF/benlysta/lupkynis for Lupus
hgb up significantly >11 after only 3 units PRBC
Review of Systems:
non oliguric
No complaints
No chest pain or shortness of breath
Labs
-
Labs:
WBC 9.4 10^3/uL (4.8-10.8) 03/07/24 04:01
RBC 3.84 10^6/uL (4.20-5.40) L 03/07/24 04:01
Hgb 11.4 g/dL (12.0-16.0) L 03/07/24 04:01
Hct 31.3 % (37.0-47.0) L 03/07/24 04:01
Plt Count 198 10^3/uL (130-400) D 03/07/24 04:01
eGFR > 60.00 03/07/24 04:01
Phosphorus 4.6 mg/dl (2.5-4.5) H 03/06/24 15:04
Albumin 1.2 g/dl (3.5-5.0) L 03/07/24 04:01
Physical Exam
-
Vital Signs:
Vital Signs
Temp Pulse Resp BP Pulse Ox
98.1 F 113 19 148/96 99
03/07/24 07:07 03/07/24 06:30 03/07/24 06:30 03/07/24 06:13 03/07/24 06:30
Cardiovascular:: Regular rate and rhythm (tachy)
Respiratory:: Bilateral: CTA
Lung Excursion:: Normal
Abdomen:: Nontender and Soft
Bowel Sounds:: Normal
Extremity Edema:: None: Bilateral:
[2024-03-07] MEDS: SODIUM CHLORIDE 3% 250 IV (09:31)
[2024-03-07 09:40] LABS: Blood Urea Nitrogen 37 mg/dl (7-17); Calcium 8.1 mg/dl (8.4-10.2); Carbon Dioxide 15 mmol/L (22-30); Chloride 96 mmol/L (98-107); Estimated Creatinine Clearance 41 ml/min; Glucose 79 mg/dl (70-99); Potassium 3.8 mmol/L (3.5-5.1); Sodium 119 mmol/L (135-145); eGFR > 60.00
--- NOTE | 2024-03-07 09:54 | PTCARENOTE ---
pt awake and alert, Bengali speaking , pt is able to let needs known , she denies any pain , she is asking to eat , abdominal ultra sound completed , repeat NA 119 , 3% NSS infusing as ordered, hemoglobin 11.4 , OOB in chair with x1 assist, PT
consulted, NST on monitor, BP elevated 158/85 pt is to restart on Coreg
[2024-03-07] MEDS: COREG 25 MG PO (10:33)
[2024-03-07 11:23] LABS: Protein/creatinine Ratio 0.9; Urine Protein 38 mg/dl
--- NOTE | 2024-03-07 14:24 | W.PN.HOSP.TC ---
Today's Communication/Plan
-
3%
Serial BMP
Resume steroids
PPI PO
Monitor HgB
Restart coreg
HSQ
Assessment / Plan
Assessment / Plan
-
HEENT: Normocephalic, Anicteric and Other (RUE PICC)
Cardiovascular: S1/S2, Regular Rhythm, Murmur (n) and Rub (n)
Respiratory: Wheeze (n), Rales (n), Rhonchi (n) and Non-Labored Respirations
GI: Soft, Non Distended and Non Tender
Neurology: Awake, Alert and No Motor Deficits (Moves all extremities, generally weak)
Skin: Other (No clubbing, no cyanosis)
General: Comfortable
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
improving
3%
-serial BMP
-Hold Lasix 40 mg daily
#Anemia
#Acute on chronic normocytic anemia/anemia of chronic disease
-responded dramatically to 3 units,indicating spurious result of hgb of 4.4
-ctm while inpatient
-advance diet
-can stop ppi IV
#CKD stage III/class IV lupus nephritis
Patient has not taken her CellCept,prednisone for the past 4 days
-Continue Belimumab once week, voclosporin, CellCept 1500 mg twice daily prednisone 20 mg daily
-Creat 1.1, baseline creat 1.2
-see nephro plan
-resume steroids
-cont NaHCo3
# /HTN�benign
BP 101/78
-Restart Coreg 25 mg twice daily,
-hold lisinopril 20 mg twice daily, nifedipine 60 mg twice daily
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
#Hx pericardial effusion
#Hx latent TB status posttreatment with INH at age 21
DVT prophylaxis
hsq
Full code
Anticipated Discharge: 24 - 48 hours
Subjective/Interval History
-
Date of Service: March 07, 2024
more energetic today
Objective Data
-
Labs:
Laboratory Results
03/07/24 03/07/24 03/07/24
02:00 04:01 08:29
WBC 9.4
Hgb 11.4 L
Hct 31.3 L
Plt Count 198 D
PT 16.3 H
INR 1.33
Sodium Cancelled 118 L* 119 L*
Potassium Cancelled 4.0 3.8
Chloride Cancelled 96 L 96 L
Carbon Dioxide Cancelled 15 L 15 L
BUN Cancelled 37 H 37 H
Creatinine Cancelled 0.9 0.9
Glucose Cancelled 98 79
Calcium Cancelled 6.9 L* 8.1 L
Total Bilirubin 2.8 H D
AST 52 H
ALT 69 H
Alkaline Phosphatase 158 H
03/07/24 03/07/24 03/07/24
11:00 14:00 14:00
WBC
Hgb
Hct
Plt Count
PT
INR
Sodium Cancelled Cancelled Pending
Potassium Cancelled Cancelled
Chloride Cancelled
Carbon Dioxide Cancelled
BUN Cancelled
Creatinine Cancelled
Glucose Cancelled
Calcium Cancelled
Total Bilirubin
AST
ALT
Alkaline Phosphatase
03/07/24 03/07/24 03/07/24
14:00 14:00 14:00
WBC
Hgb
Hct
Plt Count
PT
INR
Sodium
Potassium Pending
Chloride Cancelled Pending
Carbon Dioxide Cancelled Pending
BUN Cancelled
Creatinine
Glucose
Calcium
Total Bilirubin
AST
ALT
Alkaline Phosphatase
07/10/3003/07/24 03/07/24
14:00 14:00 14:00
WBC
Hgb
Hct
Plt Count
PT
INR
Sodium
Potassium
Chloride
Carbon Dioxide
BUN Pending
Creatinine Cancelled Pending
Glucose Cancelled Pending
Calcium Cancelled
Total Bilirubin
AST
ALT
Alkaline Phosphatase
03/07/24 03/07/24
14:00 17:00
WBC
Hgb
Hct
Plt Count
PT
INR
Sodium Cancelled
Potassium Cancelled
Chloride Cancelled
Carbon Dioxide Cancelled
BUN Cancelled
Creatinine Cancelled
Glucose Cancelled
Calcium Pending Cancelled
Total Bilirubin
AST
ALT
Alkaline Phosphatase
Vital Signs:
Vital Signs
Temp Pulse Resp BP Pulse Ox
98.0 F 130 23 129/99 96
03/07/24 11:58 03/07/24 10:33 03/07/24 09:30 03/07/24 10:33 03/07/24 08:00
I&O
03/06/24 03/07/24 03/08/24
06:59 06:59 06:59
Intake Total 1550 / 1550 185 / 185
Output Total 400 / 400 400 / 400
Balance 1150 / 1150 -215 / -215
Review of Systems
-
History Source: Patient
All other systems: Not reviewed unless documented
Physical Exam
-
General: Well Developed, Well Nourished, No Apparent Distress and Obese; Negative Appears in Distress
HEENT: Oxygen
Respiratory: Clear to Auscultation
Cardiac: Regular Rhythm and S1/S2; Negative Murmur
GI: Soft, Nontender and Nondistended
Musculoskeletal: Edema, Right Upper Extrem, Edema, Left Upper Extrem, Edema, Right Lower Extrem and Edema, Left Lower Extrem
Neuro: Awake, Alert and Oriented
Data Reviewed
-
Ultrasound: Image personally visualized and interpreted and Report Reviewed by me
Labs: Labs Reviewed by me
--- NOTE | 2024-03-07 15:08 | CM ---
CM following re: discharge planning.
Reviewed pt's chart, met with pt and associate Carie from [facility] at bedside.
Pt is a 53 year old undocumented female from [place], lives with spouse and 2 sons in an apartment 1st floor. Pt has been receiving services at [facility] and per Carie pt cannot even hold a spoon and it is a concerns who will be able to
care for pt at home. works and they do have 9 year old son.
PCP and pharmacy: [facility].
D/C plan: uncertain at this time and will depend on pt's progress.
[2024-03-07] MEDS: HEPARIN 5000 UNITS SC ×2 (16:02→23:04)
[2024-03-07] MEDS: SODIUM BICARBONATE 1300 MG PO ×2 (16:03→20:42)
[2024-03-07 16:51] LABS: Blood Urea Nitrogen 40 mg/dl (7-17); Calcium 6.8 mg/dl (8.4-10.2); Carbon Dioxide 18 mmol/L (22-30); Chloride 97 mmol/L (98-107); Estimated Creatinine Clearance 37 ml/min; Glucose 75 mg/dl (70-99); Potassium 3.9 mmol/L (3.5-5.1); Sodium 117 mmol/L (135-145); eGFR > 60.00
--- NOTE | 2024-03-07 17:41 | PTCARENOTE ---
pt having low BPs since 14:00 her most recent BP 74/48 , she was given 25mg of Carvedilol as ordered for this am at 10:30 her am blood pressures elevated at 0800 156/129 , Dr Hernandez notified of low BPs and pt 3% NSS to be increased to 30ml hour , pt
also had repeat Na level at 14:00 result 117 , Dr Hernandez notified of decrease in Na despite her having a transfusion of 3% NSS
[2024-03-07] MEDS: ProAmatine 10 MG PO (17:55)
[2024-03-07] MEDS: LEVOPHED 250 IV (18:30)
--- NOTE | 2024-03-07 19:16 | PTCARENOTE ---
pt BP continues to be low and down to 67/42, Dr Hernandez notified and pt was started on Levophed gtt for hypotension goal to keep map of 65
--- NOTE | 2024-03-07 19:45 | PTCARENOTE ---
pt rec'd. assessment as documented. fijian speaking. SR on monitor. afebrile. levo gtt infusing through RUE PICC to maintain MAP >65. on RA, denies SOB. Pt with BM and urine on pad, cleaned and changed linens, CHG wipes. poor appetite. bruising to
abdomen. protective sacral foam intact. 3% NS infusing through PICC, repeat BMP at 2100. call luciano within reach, care ongoing.
--- NOTE | 2024-03-07 20:49 | PTCARENOTE ---
3% NS finished, repeat BMP sent
[2024-03-07 21:09] LABS: Blood Urea Nitrogen 43 mg/dl (7-17); Calcium 6.4 mg/dl (8.4-10.2); Carbon Dioxide 15 mmol/L (22-30); Chloride 99 mmol/L (98-107); Estimated Creatinine Clearance 41 ml/min; Glucose 91 mg/dl (70-99); Potassium 3.7 mmol/L (3.5-5.1); Sodium 120 mmol/L (135-145); eGFR > 60.00
--- NOTE | 2024-03-07 21:22 | W.PN.UPDATE ---
Update Note
Progress Note Update
Patient Calcium 6.4, corrected to 8.2 with hypoalbuminemia. Order placed for Calcium Gluconate 2gm IVPB 1x now.
[2024-03-07] MEDS: CALCIUM GLUCONATE 100 IV ×2 (22:32→23:04)
[2024-03-07] MEDS: NON-FORMULARY ITEM 7.90000000000000036 MG PO (22:34)
[2024-03-07] MEDS: SODIUM BICARBONATE 50 MEQ IV (23:04)
[2024-03-08] VITALS (60 sets, daily range): BP systolic 33–100; BP diastolic 18–87; BMI 20.9
[2024-03-08] MEDS: ZOFRAN 4 MG IV (00:05)
--- NOTE | 2024-03-08 00:11 | PTCARENOTE ---
pt with abrupt episode of vomiting, house CO TEACHER made aware. PRN zofran ordered and given. oral care provided.
[2024-03-08] MEDS: LEVOPHED 250 IV ×3 (02:02→07:15)
[2024-03-08 03:51] LABS: Hematocrit 26.9 % (37.0-47.0); Hemoglobin 9.8 g/dL (12.0-16.0); Mean Corp Hgb Conc. 36.4 g/dL (33.0-37.0); Mean Corpuscular Hgb 29.3 pg (27.0-31.0); Mean Corpuscular Volume 80.5 fL (81.0-99.0); Nucleated Red Blood Cells % 0.4 %; Red Blood Cell Count 3.34 10^6/uL (4.20-5.40); Red Cell Dist. Width 14.5 % (11.5-14.5); White Blood Cell Count 5.7 10^3/uL (4.8-10.8)
--- NOTE | 2024-03-08 04:30 | PTCARENOTE ---
AM labs sent. levo gtt titrated to maintain MAP >65, see worklist. pt with multiple small BMs overnight. call luciano within reach, care ongoing.
[2024-03-08 04:50] LABS: ALT (SGPT) 97 U/L (0-35); AST (SGOT) 109 U/L (14-36); Albumin < 1.0 g/dl (3.5-5.0); Alkaline Phosphatase 166 U/L (38-126); Blood Urea Nitrogen 44 mg/dl (7-17); Calcium 7.8 mg/dl (8.4-10.2); Carbon Dioxide 17 mmol/L (22-30); Chloride 98 mmol/L (98-107); Estimated Creatinine Clearance 41 ml/min; Glucose 111 mg/dl (70-99); Potassium 3.4 mmol/L (3.5-5.1); Sodium 121 mmol/L (135-145); Total Bilirubin 3.3 mg/dl (0.2-1.3); Total Protein 2.3 g/dl (6.3-8.2); eGFR > 60.00
[2024-03-08] MEDS: NEO-SYNEPHRINE 250 IV (04:50)
--- NOTE | 2024-03-08 07:13 | W.PN.INTV ---
Today's Communication / Plan
Recommendations
Continue pressors
check echocardiogram, EKG, blood work
NG tube, check abdominal/pelvic CT
Empiric antibiotics following cultures
Follow hemoglobin
Assessment
-
Patient is a 53-year-old female with complex medical history including nephrotic syndrome, hypertension, hydrocephalus s/p ACCOUNT LEADER shunt, lupus nephritis followed by rheumatology on mycophenolate, prednisone, was being considered for biologic
therapy/Cytoxan therapy as outpatient. She has had recent hospital stay for hyponatremia, recently discharged 02/29/2024 with sodium level of 128. She apparently was doing well but then developed poor p.o. intake, nausea/emesis, increased lethargy
and was readmitted with hyponatremia. We are asked to help from critical care standpoint
Acute hyponatremia
Nausea/emesis
Acute anemia, hemoglobin 4.4, suspected inaccurate
Heme positive stool
Status post 3 units transfusion
Hypotension, progressive
Now requiring 3 pressors
Etiology unclear
Transaminitis
Leukocytosis
Hyponatremia, hypokalemia
elevated lactate
History of mild to moderate mitral regurgitation per echo 2021
Aortic sclerosis
PA pressure 34
Moderate pericardial effusion
Thrombocytopenia
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
VDRF 12/18/23
Difficult intubation
Found unresponsive by family at 330am
History of hypertensive emergency, CHF
Lupus nephritis, on chronic immunosuppression
MMF/prednisone/Voclosporin?
Being considered for biologic therapy (Dr. Engel)
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
Hydrocephalus status post ACCOUNT LEADER shunt; placed in 2011 with an revised in 2016
Chronic anemia
Nephrotic syndrome
Significant proteinuria
Hypertension
Laparoscopic cholecystectomy
x2
History of latent tuberculosis, positive PPD, status post 6 months of INH per records
Cannot confirm
Seen by Department of Health, recommended 4 months of rifampin
History of noncompliance
Plan/recommendations
At this time, patient is critically ill, now requiring 3 pressors
Did not respond to fluid bolus
Urine output marginal. Creatinine stable
Platelets 90, decreased from 198
Hemoglobin also trending down
Moving forward
Workup for hypotension
Echocardiogram, EKG, lactate, troponin
Check abdominal films. Will likely require abdominal CT depending on findings
NG tube as indicated
Check echocardiogram. History of moderate pericardial effusion in 2021
Empiric stress dose steroids. Patient on chronic prednisone therapy
Hold immunosuppressive therapy
Currently on phenylephrine, norepinephrine, vasopressin
There may be some variability depending on cuff site
A-line later today
Continue with hypertonic saline, per nephrology
Follow electrolytes
Thyroid function unremarkable
Replete calcium per nephrology
Continue to follow hemoglobin
GI correspondence reviewed. They have signed off
Trending down at this time.
Maintain active type and screen
Chronic immunosuppression noted. This will be held as of now
Chest x-ray with right upper extremity PICC
She continues to have episodes of progressive TME at home (see admission December 2023)
History of moderate pericardial effusion noted in the past
Renal biopsy noted , Suggestive of lupus nephritis although difficult to visualize report from 2021
Reviewed with critical care nursing, respiratory care, primary service
Attempted to call son, no answer. Message left
Remains high risk situation
TCCT 80 min
Subjective Dataa
Subjective Data
Date of Service:
Date of Service: March 08, 2024
Subjective:
Patient remains critically ill. Progressive hypotension noted since yesterday requiring pressors. Patient denies abdominal pain, nausea. Oxygen requirement slightly worse this morning, up to 5 L. Patient remains lethargic
Objective Data
Data Reviewed
Vital Signs / I&O / Oxygen:
Vital Signs
Temp Pulse Resp BP Pulse Ox
97.4 F 97 26 78/49 96
03/08/24 03:47 03/08/24 06:45 03/08/24 06:45 07/03/24 06:45 03/08/24 06:23
Intake and Output
03/07/24 03/08/24 03/09/24
06:59 06:59 06:59
Intake Total 1550 / 1550 1213.5 / 1213.5
Output Total 400 / 400 400 / 400
Balance 1150 / 1150 813.5 / 813.5
SaO2 96
Nasal Cannula flow liters per 2
minute
Physical Exam
General: Comfortable (Lethargic) and Other (Right upper extremity PICC line)
HEENT: Normocephalic, Anicteric and Other (Dry mucosa)
Cardiovascular: S1-S2, Regular Rhythm (Mild tachycardia), Murmur (n) and Other (Radial pulse 1+ bilaterally)
Respiratory: Wheeze (n), Crackles (Few at base), Rhonchi (n), Accessory Resp Muscle Use (Mild when sleeping) and Stridor (n)
GI: Soft, Non Distended and Tender (Midepigastric tenderness, no rebound or guarding)
Neurology: Lethargic (Arousable, following commands, generally weak)
Skin: Good Color (n), Cyanosis (n) and Rash (Mild erythematous rash lower extremity/groin)
Labs/Micro/Reports
Lab Data
03/08/24 03:39
03/08/24 03:39
--- NOTE | 2024-03-08 07:50 | PTCARENOTE ---
Pt dozing but easily arousable although appears tired. BP 73/48- Ash increased to 180 mcg at 0720 and 200 mcg at 0745-.
[2024-03-08] MEDS: SOLU-CORTEF 100 MG IV (08:28)
[2024-03-08] MEDS: LR 500 IV (08:29)
--- NOTE | 2024-03-08 08:30 | PTCARENOTE ---
Rec'd pt at 0720 sleeping. Does awaken easily to verbal stimuli. Is primarily Faroese speaking but does seem to understand some basic Sinhala. Denies pain when asked but does moan and wince when abd is touched. Affect overall is flat and pt overall
is drowsy but interactive and follows basic command. INGRAM but is weak. Skin is pale and sl cool. Areas on abd and upper tighs have purplish stewart- look like mottling but difficulty to tell if bruising Nailbeds are pale with refill >2 sec. Respis are
shallow- tachypinc at intervals but non-labroed. Intially on 2l nc but since 0745 sats have been in the 90-91% range. O2 increased to 4l and currently to 6L as sats are running 87-89%. BS are sl decreased throughout with base crackles. LES.
--- NOTE | 2024-03-08 08:46 | W.PN.NEPH.PH ---
Today's Communication / Plan
-
pressors
Assessment/Plan
-
Impression:
Acute on chronic hyponatremia
Anemia hemoglobin 4.4 (heme positive stool)
Class IV lupus nephritis (on MMF, prednisone, hydroxychloroquine + voclosporin)
CKD (b/l Cr around 0.9 to 1.2)
Hydrocephalus s/p NURSING TECHNICIAN shunt
Hx of Uncontrolled hypertension
nephrotic syndrome
hypocalcemia
h/o pericardial effusion
hx of latent TB, s/p treatment
Plan:
keep MAP > 65, add vasopressin
for echo
for CXR
no current evidence to suggest active LN IV. her hypoalbuminemia is striking however. Her synthetic hepatic function seems to be intact. She did have significant proteinuria, and it is possible that now there is little protein left to spill
will need abdominal imaging as well, probably CT once stable
check BCx
critical care time 35 minutes
-
-
Date of Service: March 08, 2024
CC / HPI / ROS
-
Chief Complaint:
Hyponatremia
History of Present Illness:
Serum sodium up to 121
hypotense on pressors
critically ill in ICU
now on stress dose steroids
albumin undetectable
Calcium better at 7.8
LFTs rising
Review of Systems:
non oliguric
lethargic
Labs
-
Labs:
WBC 5.7 10^3/uL (4.8-10.8) 03/08/24 03:39
RBC 3.34 10^6/uL (4.20-5.40) L 03/08/24 03:39
Hgb 9.8 g/dL (12.0-16.0) L 03/08/24 03:39
Hct 26.9 % (37.0-47.0) L 03/08/24 03:39
Sodium 121 mmol/L (135-145) L 03/08/24 03:39
Potassium 3.4 mmol/L (3.5-5.1) L 03/08/24 03:39
Chloride 98 mmol/L (98-107) 03/08/24 03:39
Carbon Dioxide 17 mmol/L (22-30) L 03/08/24 03:39
BUN 44 mg/dl (7-17) H 03/08/24 03:39
Creatinine 0.9 mg/dL (0.6-1.0) 03/08/24 03:39
eGFR > 60.00 03/08/24 03:39
Glucose 111 mg/dl (70-99) H 03/08/24 03:39
Calcium 7.8 mg/dl (8.4-10.2) L 03/08/24 03:39
Phosphorus 4.6 mg/dl (2.5-4.5) H 03/06/24 15:04
Albumin < 1.0 g/dl (3.5-5.0) L 03/08/24 03:39
Physical Exam
-
Vital Signs:
Vital Signs
Temp Pulse Resp BP Pulse Ox
97.9 F 97 26 78/49 96
03/08/24 07:00 03/08/24 06:45 03/08/24 06:45 03/08/24 06:45 03/08/24 06:23
Cardiovascular:: Regular rate and rhythm
Respiratory:: Bilateral: Coarse
Lung Excursion:: Normal
Abdomen:: Soft and Tender
Bowel Sounds:: Decreased
Extremity Edema:: None: Bilateral:
[2024-03-08] MEDS: PITRESSIN 100 IV ×2 (08:51→15:31)
--- NOTE | 2024-03-08 09:15 | W.PN.HOSP.TC ---
Addendum entered and electronically signed by Herbie Hale MD 03/10/24 17:45:
[id number]
Addendum entered and electronically signed by Herbie Hale MD 03/08/24 15:54:
Anemia of chronic disease only
Acute hypercapnic respite failure
- Intubated, mechanically ventilated
�
Original Note:
Today's Communication/Plan
-
-Wean Pressors as tolerated; MAP Goal >65; trend lactate until <2
-CT A/P; upright CR
-Cultures
-Broad spectrum abx
-IVF PRN
Assessment / Plan
Assessment / Plan
-
HEENT: Normocephalic, Anicteric and Other (RUE PICC)
Cardiovascular: S1/S2, Regular Rhythm, Murmur (n) and Rub (n)
Respiratory: Wheeze (n), Rales (n), Rhonchi (n) and Non-Labored Respirations
GI: Soft, Non Distended and Non Tender
Neurology: Awake, Alert and No Motor Deficits (Moves all extremities, generally weak)
Skin: Other (No clubbing, no cyanosis)
General: Comfortable
#Shock, septic v obstructive - unclear at this time
-unclear source, UA positive although appears to have abdominal source as well
-CT A/P
-Cultures
-Broad spectrum abx
-Maintain MAP >65
-LR bolus
-Pressors, Stress dose Steroids
-Trend Lactate until <2
-Upright CT and CT imaging
-f/u echo - EF 66%; no RV strain noted
#Abdominal Pain
-generalize tenderness upon palpation
-f/u upright CXR, rule out free air
-ct abd/pelvis to rule out obstruction, infectious etiology
-Gen Surg Consulted
#Transaminitis
-2/2 to shock v intraabdominal pathology
f/u CT imaging
-gen surg consulted
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
f/u renal recs
-s/p 3%
-serial BMP
-Hold Lasix 40 mg daily
#Hypokalemia
-monitor and replete
# Thrombocytopenia
� Possibly secondary to sepsis
� Continue to monitor with resuscitation
#Anemia
#Acute on chronic normocytic anemia/anemia of chronic disease
-responded dramatically to 3 units,indicating spurious result of hgb of 4.4
-ctm while inpatient
-advance diet
-can stop ppi IV
#CKD stage III/class IV lupus nephritis
Patient has not taken her CellCept,prednisone for the past 4 days
-Continue Belimumab once week, voclosporin, CellCept 1500 mg twice daily prednisone 20 mg daily
-Creat 1.1, baseline creat 1.2
-see nephro plan
-resume steroids
-cont NaHCo3
#HTN�benign; now hypotensive
-Hold Coreg 25 mg twice daily,
-hold lisinopril 20 mg twice daily, nifedipine 60 mg twice daily
#Hypokalemia
-monitor and replete
#Transaminitis
-most likely 2/2 to shock
-ctm
-ct a/p
#History of hydrocephalus with RN GYNECOLOGY shunt 2011, revised 2017
#Hx pericardial effusion
#Hx latent TB status posttreatment with INH at age 21
DVT prophylaxis
hsq
Full code
Total time spent on today's encounter was 51 minutes which included time spent in counseling the patient/family regarding diagnosis and treatment plan as listed above, goals of care, and symptom management. Case was discussed with nursing staff,
specialists, and care coordinators/case management. All labs and imaging personally reviewed by me. Remainder the time spent in detailed review of previous records, lab data, imaging, and other medical provider documentation.
Anticipated Discharge: > 48 hours
Subjective/Interval History
-
Date of Service: March 08, 2024
went into shock, requiring pressors/stress dose steroids. lethargic, tenderness upon palpation of abdomen. Feculent material from ngt. requiring intubation midafternoon
Objective Data
-
Labs:
Laboratory Results
03/08/24
03:39
WBC 5.7
Hgb 9.8 L
Hct 26.9 L
Plt Count Pending
Sodium 121 L
Potassium 3.4 L
Chloride 98
Carbon Dioxide 17 L
BUN 44 H
Creatinine 0.9
Glucose 111 H
Calcium 7.8 L
Total Bilirubin 3.3 H
AST 109 H
ALT 97 H
Alkaline Phosphatase 166 H
Vital Signs:
Vital Signs
Temp Pulse Resp BP Pulse Ox
97.9 F 97 26 78/49 96
03/08/24 07:00 03/08/24 06:45 03/08/24 06:45 03/08/24 06:45 03/08/24 06:23
I&O
03/07/24 03/08/24 03/09/24
06:59 06:59 06:59
Intake Total 1550 / 1550 1213.5 / 1213.5
Output Total 400 / 400 400 / 400
Balance 1150 / 1150 813.5 / 813.5
Review of Systems
-
History Source: Patient
All other systems: Not reviewed unless documented
Physical Exam
-
General: Well Developed, Well Nourished, No Apparent Distress and Obese; Negative Appears in Distress
HEENT: Oxygen
Respiratory: Clear to Auscultation
Cardiac: Regular Rhythm and S1/S2; Negative Murmur
GI: Soft, Nontender and Nondistended
Musculoskeletal: Edema, Right Upper Extrem, Edema, Left Upper Extrem, Edema, Right Lower Extrem and Edema, Left Lower Extrem
Neuro: Awake, Alert and Oriented
Data Reviewed
-
Diagnostic Radiology: Image personally visualized and interpreted and Report Reviewed by me
Ultrasound: Image personally visualized and interpreted and Report Reviewed by me
Labs: Labs Reviewed by me
[2024-03-08 09:16] LABS: Troponin I < 0.012 ng/ml
[2024-03-08] MEDS: LEVOPHED 258 MG IV ×3 (09:20→18:16)
[2024-03-08] MEDS: CELLCEPT PO (09:23)
[2024-03-08] MEDS: SODIUM BICARBONATE PO (09:23)
[2024-03-08] MEDS: HEPARIN 5000 UNITS SC (09:25)
--- NOTE | 2024-03-08 09:30 | PTCARENOTE ---
Bp's continue to be an issue mostly running in the 70's syst post 500 ml LR bolus. #16 thermistor conrad placed to better ascertain I/O. Inital return of 400 mls of dk clau/tea colored urine. Abd and CXRays taken as ordered. Labs sent. Blood
culture x2 sent - unable to get peripheral cultures- so sent via LAC int and R arm PICC. Pt remains cool and nailbeds with refill >2 seconds-pale in color. Temp via Thermistor 96.3- warm blankets applied. Vasopressin added for Bp support at 0.04
units/min via R arm PICC. ECHO ready to be done.
[2024-03-08 09:35] LABS: Lactic Acid 2.9 mmol/L (0.7-2.0)
[2024-03-08] MEDS: NEO-SYNEPHRINE 1% 260 MG IV ×2 (10:20→18:18)
[2024-03-08 10:28] LABS: Urine Albumin Trace (Neg - Trace); Urine Bilirubin 2+ (Negative); Urine Character Very Cloudy (Clear); Urine Color Amber; Urine Glucose Negative (Negative); Urine Ketone 1+ (Negative); Urine Leukocyte 1+ (Negative); Urine Nitrite Positive (Negative); Urine Occult Blood Trace (Negative); Urine Urobilinogen 4+ (Neg - 1+)
[2024-03-08 10:37] LABS: Platelet Count 90 10^3/uL (130-400)
[2024-03-08 10:38] LABS: Mean Platelet Volume 11.1 fL (7.4-10.4)
--- NOTE | 2024-03-08 10:40 | PTCARENOTE ---
#16 Mejia placed via the L nare at the 70 Cm corrie. Placement auscultated and abd xray obtained. Immediate return of 400 mls of mai colored secretions. BP's and sats are difficult to obtain and inconsistent. Dr. Suarez in and aware. Pt continues
to deny pain but does continue to wince when stomach is touched. IV Ash also changed to double concentrated. Remains at 200 mcg via R PICC
[2024-03-08 10:46] LABS: Absolute Neutrophils -Man Diff 4.8 10^3/uL (1.4-6.5); Band Neutrophils 29 % (0-3); Eosinophils 1 % (0-6); Lymphocytes 4 % (20-51); Metamyelocytes 1 % (-); Monocytes 9 % (2-9); Segmented Neutrophils 56 % (42-75)
[2024-03-08 10:47] LABS: Acanthocytes 1+; Burr Cells 1+; Normal RBC Morphology No; Platelets Checked Yes; Polychromasia 1+; Total Cells Counted 100
[2024-03-08] MEDS: PROTONIX IV 40 MG IV (11:00)
[2024-03-08] MEDS: NSS (PRESERVATIVE FREE) 10 ML IV (11:00)
[2024-03-08] MEDS: ZOSYN 50 IV ×2 (11:01→16:45)
[2024-03-08 11:04] LABS: Urine Bacteria Many (Negative)
[2024-03-08] MEDS: DELTASONE PO (11:32)
--- NOTE | 2024-03-08 11:40 | PTCARENOTE ---
Pt still with difficulty with sats 84-88%- Placed on 10 L mdfilow but issues with obtaining sats desiite multiple stie checks. Very Lethargic but arousable.
[2024-03-08 11:41] LABS: Glucose - Point of Care 168 mg/dl (70-99)
--- NOTE | 2024-03-08 12:40 | PTCARENOTE ---
Continued issues with obtaining sats despite now being on Midflow- intially at 10L and now increased to 15 L. Pt remains hypotensive with difficulty with consistency with obtaining BP's despite trying L UA and bilat calfs. Pt however now more
lethargic and very difficult to arouse. No responding. Dr. Suarez in and decision made to intubate pt. Anesthesia here and pt intubated with #8 ETT -CXRAY obtained and repositioined to the 19 cm corrie R side of the mouth. Vent settings AC 20, tv
300, peep 5, FIo2 100%- stiff unable to get sats. + Breath sounds. Monitor SR. ABd is softer. Additional 200 mls of Padilla NG drainage. NG repositioned to the 67 cm corrie from the 70 cm corrie. after most recent xray. Incont of a large amt of loose padilla
stool. Agnes care given. Repostiioned.
--- NOTE | 2024-03-08 12:44 | W.PN.ANESINT ---
Anesthesia Intubation Note
- Intubation Note
Intubation Note:
Diagnosis: resp failure
Blade: mac4
Tube Size: 8.0 cett HiLo
Depth: 20cm
Side Taped:right
Drugs Used:anectine 60mgs
Grade View:II
EtCO2 Present:yes
Atraumatic:yes
Attempts: x1
Insertion Start and Stop Time:1310,1315
SaO2 Pre:86
SaO2 Post:92
Glidescope Used:yes
Other Airway Adjustments:
Pre-Oxygenated:yes
Portable Chest X-Ray:yes
RSI:no
Suctioned:
Bilateral Breath Sounds Confirmed: x5
Vent Settings:
Settings per __dr archarya_Attending Physician
--- NOTE | 2024-03-08 12:48 | W.PN.ANESINT ---
Anesthesia Intubation Note
- Intubation Note
Intubation Note:
Diagnosis:
Blade:
Tube Size:
Depth:
Side Taped:
Drugs Used:
Grade View:
EtCO2 Present:
Atraumatic:
Attempts:
Insertion Start and Stop Time:
SaO2 Pre:
SaO2 Post:
Glidescope Used:
Other Airway Adjustments:
Pre-Oxygenated:
Portable Chest X-Ray:
RSI:
Suctioned:
Bilateral Breath Sounds Confirmed:
Vent Settings:
Settings per ___Attending Physician
[2024-03-08] MEDS: OMNIPAQUE 50 ML PO (12:53)
--- NOTE | 2024-03-08 12:55 | PTCARENOTE ---
CT contrast started vai L nare nick tube. Dr. Mathew here to attempt A line
[2024-03-08] MEDS: SOLU-CORTEF 50 MG IV ×2 (13:01→19:47)
--- NOTE | 2024-03-08 13:21 | CON.GS ---
Consultation
-
Requesting Provider: Alexia
Performing Provider: Jean Claude
Reason for Consultation: Abd pain
Medical History
-
Chief Complaint: Abd pain
History of Present Illness:
53F admitted 3 days ago for AMS a/w severe hyponatremia and anemia. Known hx of severe lupus with nephritis. Recent admit last month for hyponatremia 2/2 SIADH, DC'ed 1 week ago. Appropriate response to lytes replacement and blood transfusion. No
evidence of melanic or bloody stool, stool and NGT outputs during my encounter light martinez/brown and not suspicious for acute bleed. Acute decompensation this am with AMS changes prompting emergent intubation in the ICU. History obtained from chart.
Reportedly was slowly declining prior to admit for 2 weeks, last 4 days with increased nausea, not taking her home meds as a result. Reportedly c/o abd pain prior to this acute decompensation, prior KUBs this admit show some dilated sb loops without
air fluid levels. Stat upright CXR at the time of my encounter negative for free air.
Past Medical History
Past Medical History: Other ((hydrocephalus with SHOE IRONER shunt, hyponatremia, hypertension, SLE, lupus nephritis, CKD 3A, chronic normocytic anemia, history of pericardial effusion, history of latent TB status posttreatment))
Past Surgical History: Reviewed & Noncontributory
Social History
Tobacco: Non-Smoker
Alcohol: None
Drug: None
Personal: Single
Living: With Family
Family History
Family History: Reviewed & Noncontributory
Allergies / Home Medications
Allergy/AdvReac Type Severity Reaction Status Date / Time
No Known Allergies Allergy Verified 02/22/24 15:51
�Medication �Instructions �Recorded �Confirmed �Type
carvedilol 25 mg tablet 25 mg PO BID Blood Pressure 02/22/24 03/06/24 History
lisinopril 20 mg tablet 20 mg PO BID Blood Pressure 02/22/24 03/06/24 History
mycophenolate mofetil 500 mg tablet 1,500 mg PO BID IMMUNOSUPPRESANT 02/22/24 03/06/24 History
nifedipine 60 mg tablet,extended 60 mg PO BID Blood Pressure 02/22/24 03/06/24 History
release 24 hr
omeprazole 20 mg capsule,delayed 20 mg PO DAILY GERD 02/22/24 03/06/24 History
release
belimumab 200 mg/mL subcutaneous 200 mg SC QWEEK #1 mL 02/29/24 03/06/24 Rx
auto-injector (Benlysta)
famotidine 20 mg tablet (Pepcid) 20 mg PO HSPRN PRN heartburn #30 02/29/24 03/06/24 Rx
tabs
furosemide 40 mg tablet (Lasix) 40 mg PO DAILY #30 tabs 02/29/24 03/06/24 Rx
sodium bicarbonate 650 mg tablet 650 mg PO BID #60 tabs 02/29/24 03/06/24 Rx
voclosporin 7.9 mg capsule 7.9 mg PO QPM #30 caps 02/29/24 03/06/24 Rx
(Lupkynis)
prednisone 10 mg tablet 20 mg PO DAILY Anti-Inflammatory 03/06/24 03/06/24 History
Review of Systems
-
Unable to obtain full review of systems at this time due to: Acuity and Patient Intubation
Physical Exam
Vital Signs
Temp Pulse Resp BP Pulse Ox
96.4 F L 92 31 89/53 90
03/08/24 11:00 03/08/24 11:30 03/08/24 11:30 03/08/24 11:18 03/08/24 11:59
03/07/24 03/08/24 03/09/24
06:59 06:59 06:59
Actual Weight 41.5 kg 41.4 kg
Body Mass Index (BMI) 20.9
Lab Results
03/08/24 03:39
03/08/24 03:39
WBC 5.7 10^3/uL (4.8-10.8) 03/08/24 03:39
Hgb 9.8 g/dL (12.0-16.0) L 03/08/24 03:39
Hct 26.9 % (37.0-47.0) L 03/08/24 03:39
Plt Count 90 10^3/uL (130-400) L D 03/08/24 03:39
Abs Immat Gran (auto) Not Reportable 03/06/24 13:06
Neutrophils % Not Reportable 03/06/24 13:06
Physical Exam
General: Intubated
GI: Soft, Non Distended, Tender (unable to assess ttp) and Other (NGT with martinez turbid fluid)
Rectal: Brown (large martinez brown BM in the bed)
Data Reviewed
-
Radiology: Image Personally Visualized and interpreted, Report Reviewed by me, Discussed with Physician and Discussed with Nurse
Labs: Labs Reviewed by me
Old Records: Reviewed
Assessment / Plan
-
53F admitted for severe anemia and hyponatremia in setting of severe lupus with associated nephritis, reported abd pain and nausea
Intubated emergently this am 2/2 AMS changes
Currently hypotensive on max dose 3 pressors
Abd exam is limited, but soft
No obvious GI bleeding source
Upright CXR negative for free air post-intubation
Plan:
CT A/P when stable enough for transport
Doubt acute intra-abdominal surgical process is driving this decline, in any case the prognosis is poor
Further surgical mgmt will be guided by imaging results
--- NOTE | 2024-03-08 13:30 | PN.CDI ---
CDI
- -
CDI:
Physician Documentation Request
Admit Date: 03/06/24 17:06
Dear Doctor Alexia,
Please review the following and provide your response in the progress notes.
Clinical Indicators:
Pt admitted with SIADH/GI bleed
Documented in the record, ' Anemia Acute on chronic normocytic anemia/anemia of chronic disease... hgb of 4.4....'
Pt S/P 3 units PRBCs
Documented per H&P,' Anemia concern GI bleed Acute on chronic normocytic anemia/anemia of chronic disease...Heme positive stool, patient reports black stool x 2 days
03/06/24 03/07/24 03/07/24
13:06 00:43 04:01
Hgb 4.4 L* 10.9 L D 11.4 L
Hct 12.4 L* 29.0 L 31.3 L
03/08/24
03:39
Hgb 9.8 L
Hct 26.9 L
Based on the above, could you clarify, in your progress note, which of the following is the most likely type of anemia you are evaluating, monitoring and/or treating?
Acute blood loss anemia with baseline anemia of chronic disease
Anemia of chronic disease only
Other ( please Specify)
Use of terms such as suspected, likely, concern for, or probable (associated with a specific diagnosis that is being evaluated, monitored, or treated as if it exists) are acceptable and can be coded in the inpatient setting, when documented at the
time of discharge.
Thank you,
Hilda Martínez RN
CDI Specialist
[place] [facility]
Please use your independent medical judgment in providing your response.
[2024-03-08] MEDS: LR 1000 IV ×3 (13:50→16:45)
--- NOTE | 2024-03-08 14:02 | W.PN.UPDATE ---
Update Note
Progress Note Update
Patient remains critically ill, on maximal pressors
Patient had brown liquid stool and proceeded to have 600 cc of brown liquid feculent material removed via NG tube
Patient developed worsening mental status, prompting intubation.
Intubation without complication. Left lung briefly atelectatic with right mainstem, improved with ET tube adjustment
On volume-cycled ventilation, peak pressure 30-32, plateau pressure 25
Patient received LR bolus x 1, with questionable improvement
A-line was placed with assistance from Dr. Mathew
Patient received additional bolus of LR with improvement in SBP
Echocardiogram without any obvious ventricular dysfunction, pericardial effusion or valvular disease
Chest x-ray, abdominal films reviewed with surgery at bedside. No free air
Moving forward
Continue with LR bolus x 2, maintenance fluids thereafter
Continue with phenylephrine, norepinephrine, vasopressin
Abdominal exam is softer after movement from above and below
Await abdominal CT
Right femoral A-line in place by Dr. Mathew. Unable to place radial A-line, extremely small caliber artery bilaterally
Continue Zosyn therapy
Updated son at length multiple times throughout the day and at bedside
Reviewed events during the day. Reviewed critical illness, pressor dependence, risk for renal failure, multisystem organ failure
He confirmed full CODE STATUS
All questions answered
TCCT 40 min
--- NOTE | 2024-03-08 14:20 | PTCARENOTE ---
R femoral A line placed at [address] Mathew. Inital BP 59/29. LR 1000 ml bolus hung via R arm PICC with current improvement in BP to 80-90's syst with MAP of 62-68. HR 80's SR. Pt remains on the vent. Calm, not responsive currently. Pressors
unchanged. Labs sent as ordered. CT contrast completed.
--- NOTE | 2024-03-08 14:21 | W.SUR.POST ---
Surgical Immediate Post Op
Note
Arterial Catheterization Procedure Note
Date of procedure: 03/08/2024
Pre Op Diagnosis: Circulatory Shock; on mechanical ventilation
Post Op Diagnosis: Circulatory shock; on mechanical ventilation
Procedure Performed: Arterial catheter insertion
Primary Surgeon/proceduralist: Dr Mathew
Commercial Sewing Instructor: Dr. Suarez
Anesthesia: N/A
Estimated Blood Loss: 15cc
Fluids: N/A
Drains/Shunts: n/A
Specimens/Cultures: N/A
Doppler/Duplex/Angio (Y/N): N/A
Complications: No immediate complications
Operative Findings: First both radial arteries were evaluated via palpation as well as under ultrasound and there was poor contractility noticed so attention placed to right femoral artery. Full sterile technique was used including handwashing,
facemask, cap, sterile gown and sterile gloves. Ultrasound was utilized with sterile probe cover as well. Trochar was inserted into right femoral artery with guidewire insertion without resistance. Trochar removed and small incision was made
adjacent to guidewire. Femoral arterial catheter was inserted over the guidewire and advanced to the hub, and guidewire then finally removed. Femoral arterial catheter attached to arterial line transducer via leur lock with appropriate arterial
waveform seen. Arterial line was sutured into place and then covered with Biopatch and Tegaderm. There was no immediate complications.
[2024-03-08 14:25] LABS: Hemoglobin 7.1 g/dL (12.0-16.0); Mean Corp Hgb Conc. 35.3 g/dL (33.0-37.0); Mean Corpuscular Hgb 29.1 pg (27.0-31.0); Mean Corpuscular Volume 82.4 fL (81.0-99.0); Red Blood Cell Count 2.44 10^6/uL (4.20-5.40); Red Cell Dist. Width 15.8 % (11.5-14.5)
[2024-03-08 14:28] LABS: B.E. -16.6 mmol/L; O2 Saturation % 93.2 % (94-98); PCO2 35 mmHg (32-35); PO2 75 mmHg (83-108)
[2024-03-08 14:33] LABS: INR 2.79; PT 29.8 Sec (11.4-14.6)
[2024-03-08 14:34] LABS: pH 7.12 (7.35-7.45)
[2024-03-08 14:35] LABS: HCO3 11.4 mmol/L (21-28)
[2024-03-08 14:38] LABS: Hematocrit 20.1 % (37.0-47.0)
[2024-03-08 14:43] LABS: AST (SGOT) 113 U/L (14-36); Albumin < 1.0 g/dl (3.5-5.0); Alkaline Phosphatase 109 U/L (38-126); Blood Urea Nitrogen 41 mg/dl (7-17); Calcium 6.2 mg/dl (8.4-10.2); Carbon Dioxide 12 mmol/L (22-30); Chloride 98 mmol/L (98-107); Estimated Creatinine Clearance 37 ml/min; Glucose 77 mg/dl (70-99); Potassium 3.7 mmol/L (3.5-5.1); Sodium 117 mmol/L (135-145); Total Bilirubin 3.8 mg/dl (0.2-1.3); Total Protein < 2.0 g/dl (6.3-8.2); eGFR > 60.00
[2024-03-08 14:44] LABS: Lactic Acid 6.4 mmol/L (0.7-2.0)
--- NOTE | 2024-03-08 14:44 | CM ---
CM following re: discharge planning.
Discussed in rounds, reviewed pt's chart, met with pt and pt's family at bedside. Per chart review, patient remains critically ill, on maximal pressors, developed worsening mental status, intubated today, continue supportive care.
D/C plan: uncertain at this time and will depend on pt's progress.
CM will follow with discharge plan updates as hospitalization progresses
[2024-03-08 14:46] LABS: Troponin I < 0.012 ng/ml
--- NOTE | 2024-03-08 14:57 | PTCARENOTE ---
Rec'd pt at 0720 sleeping. Does awaken easily to verbal stimuli. Is primarily Luxembourgish speaking but does seem to understand some basic Luxembourgish. Denies pain when asked but does moan and wince when abd is touched. Affect overall is flat and pt overall
is drowsy but interactive and follows basic commands. INGRAM but is weak. Skin is pale and sl cool. Areas on abd and upper tighs have purplish stewart- look like mottling but difficulty to tell if bruising. Nailbeds are pale with refill >2 sec. Respis
are shallow- tachypinc at intervals but non-labored. Intially on 2l nc but since 0745 sats have been in the 90-91% range. O2 increased to 4l and currently to 6L as sats are running 87-89%. BS are sl decreased throughout with base crackles. Denies
shortness of breath. Monitor SR in the 80-90's. + pulses. Bilat radial pulses with the doppler. PT pulses with the doppler. Able to get only the R DP pulse. KH SCD's in place. Rec'd pt on 30 mcg of LEvophed and now maxed on Ash at 200 mcg via R arm
DL picc. Site WNL. Dr. Suarez in and aware. LR 500 ml bolus ordered and hung. Bps are running in the 60-70's syst. ECG done. Solucortef 100 mg IV given. Abd is round/tender with hypoactive BS. Denies nausea. Incont of a smear of martinez stool. Capped
int intact L arm. Repositioned. Mouth and skin care given. Call luciano in reach.
[2024-03-08 15:07] LABS: ALT (SGPT) 72 U/L (0-35)
[2024-03-08] MEDS: SODIUM BICARBONATE 50 MEQ IV ×3 (15:10→19:49)
--- NOTE | 2024-03-08 15:11 | PTCARENOTE ---
Dr. Suarez updated on labs at 1445. AC rate increased to 24 on the vent Pt currently adding no additional rate or volume. 2nd LR 1000 ml bolus hung at 1350 and currently 2 amps NaHCO3 given (100 meq). Bp improved with LR bolus currently 90-100's
syst
--- NOTE | 2024-03-08 15:30 | PTCARENOTE ---
Pt taken via bed for CT of the abd
--- NOTE | 2024-03-08 16:30 | PTCARENOTE ---
CT of the Abd completed. Neuro -pt not responsive. No cough or gag. Pupils sluggish at 2mm. Pts temp down to 93.8- Pearl Hugger placed on pt on Medium setting. Respirs are intact on the vent- currently rate is at 24. Adds no additional rate or
volume. BS are coarse throughout. No secretions via ETT when suctioned. ETT repositioned in the center of the mouth at the 19 cm corrie. Unable to get sats despite multiple locations. Monitor SR. VS-initally BP in the 90-80's upon arrival back from CT
scan then drifted back downward to the 70's and 60's. Dr. Suarez aware. A line rezeroed. Pt much more mottled throughout the shift. ABd -ng placed back to low intermittent suction draining mai drainage. Incont of a large amt of loose/liquid
brown stool. Will send stool for C Diff. FMS placed to contain stool as pt has a R femoral arterial line in place. Ellis draining dk clau/tea colored urine. IV fluids infusing via PICC line. Repositioned. Mouth and quinn care given. Pts family
updated by Dr. Suarez.
[2024-03-08] MEDS: HEPARIN SC (16:40)
[2024-03-08] MEDS: SODIUM BICARBONATE 1150 MEQ IV (17:09)
--- NOTE | 2024-03-08 17:09 | W.PN.UPDATE ---
Update Note
Progress Note Update
Abdominal CT findings reviewed
Extensive enterocolitis, worrisome for possible inflammatory/infectious colitis
There may be some air within the bowel wall, suggestive of possible focal ischemia
Reviewed with surgery
Patient is on 3 pressors now with blood pressures in the 50s. Had initially responded to IV fluid boluses, systolic pressure in the 100s
Patient is not an appropriate candidate for surgery. She would likely not survive surgery and experience significant postoperative complications
Chronic immunosuppressive therapy, prednisone, MMF and voclosporin therapy noted
Reviewed at length with son, multiple family members and sisters
Reviewed extremely poor prognosis
After extensive discussion, family has decided to make patient DNR
Will continue with full supportive care
IV fluids, bicarbonate per nephrology, transfuse blood
Patient remains unresponsive, but appears comfortable
Family requesting software support technician. We will try to accommodate.
Updated providers at length
--- NOTE | 2024-03-08 17:30 | PTCARENOTE ---
Dr. Suarez spoke with family. Decision made for DNR. Purple bracelet applied. BP's 60's syst. Unable to get sats. Temp 94 core. Family in to see pt. Floor Coverings Salesperson in to see pt. IV with Bicarb infusing via L AC IV SITe. #1 unit PRBC's hung via R arm PICC.
No other changes. At times BP dips to the 50's as does her HR.
--- NOTE | 2024-03-08 18:40 | PTCARENOTE ---
Blood infusing. Labs sent as ordered. No other changes
[2024-03-08 18:55] LABS: B.E. -19.9 mmol/L; O2 Saturation % 78.7 % (94-98); PCO2 34 mmHg (32-35)
[2024-03-08 19:02] LABS: HCO3 9.2 mmol/L (21-28); PO2 51 mmHg (83-108); pH 7.04 (7.35-7.45)
[2024-03-08 19:21] LABS: Lactic Acid 11.9 mmol/L (0.7-2.0)
[2024-03-08] MEDS: STERILE WATER FOR INJECTION 10 ML IV (19:47)
[2024-03-08] MEDS: MAXIPIME 2000 MG IV (19:47)
--- NOTE | 2024-03-08 20:57 | PTCARENOTE ---
Assumed care of pt at 1900. Received pt intubated, #8 ETT, 19cm at lip, AC 24/300/100/5, unable to obtain accurate pulse ox reading on patient despite trying multiple locations, changing pulse ox sensor, etc. Received pt on 3 pressors at maxed
rates: Levophed at 30mcg/min (double concentrated), Phenylephrine at 200mcg/min (double concentrated) and Vasopressin at 0.04 units/min. Pt finished 1 unit PRBC shortly after 1999. Bicarb drip infusing as well, and pt given 1 amp bicarb towards
beginning of shift. Pt has been mostly in NSR, with occasional episodes of SB or ST, HR anywhere from 50s to low 100s so far this shift. BP readings from right femoral arterial line. Pt has been unresponsive so far, not currently on any sedation. No
cough or gag during mouth care/suctioning, pupils are not reactive at this time. See nursing shift assessment flowsheet for further physical assessment details.
[2024-03-08] MEDS: LEVOPHED IV (21:40)
--- NOTE | 2024-03-08 22:40 | PTCARENOTE ---
Addendum entered by Tanya Purdy RN 03/08/24 23:24:
Pt removed from vent and pronounced at 2246. GOL notified. Pt's son and son's fiance currently in room, more family to come in. Pt's dentures and home lupus medication given to pt's son. Pt had silver colored bracelet and two rings on, pt's son took
both rings, bracelet noted to no longer be on pt's wrist. Asked son if he also took the bracelet and he stated that he did not but one of his aunts most likely did.
Original Note:
Around 2210 started bathing pts with CHG cloths. FMS flushed, linens and gown changed. Pt's HR was in 80s during this time. Arterial line site noted to be bleeding. After cleaning patient, dressing removed in preparation for changing it. Arterial
line pleth then disappeared and rhythm changed and looked to be asystole (at 2228), attempted to find pulse, no pulse present. Family not in room at the time but still in the hospital, called back to room and PAYROLL TAX ANALYST in room speaking with them at this
time (2243), pt to be removed from the vent so PAYROLL TAX ANALYST can pronounce.
--- NOTE | 2024-03-08 23:08 | W.PN.DEATH ---
Pronouncement of
-
Called to see patient to pronounce.
No spontaneous heart tones or respirations noted.
Patient not responsive to verbal stimuli.
Patient is pronounced .
Time of : 22:46
Date of : 03/08/24
Cause of : septic shock, secondary to severe acute enterocolitis
Family Notified: Yes (son- Walt Galdamez)
--- NOTE | 2024-03-09 02:18 | PTCARENOTE ---
Family left around 0200, post mortem care done, [place] [facility] [place]
== END 2024-03-08 22:46 | disposition expired | DRG 643 ==
LOC: ICU 17:06
PROVIDERS: Clinical Nurse Specialist Family Health; Emergency Medicine; Internal Medicine Critical Care Medicine; Nurse Practitioner; Nurse Practitioner Family; Specialist; ADMITTING PHYSICIAN Internal Medicine; CONSULT PHYSICIAN Internal Medicine Critical Care Medicine; CONSULT PHYSICIAN Internal Medicine Gastroenterology; CONSULT PHYSICIAN Specialist; CONSULT PHYSICIAN Surgery; EMERGENCY PHYSICIAN Student in an Organized Health Care Education/Training Program
PROC: 02HV33Z Insertion of Infusion Device into Superior Vena Cava, Percutaneous Approach (ICD-10-PCS; 2024-03-06)
PROC: 30233N1 Transfusion of Nonautologous Red Blood Cells into Peripheral Vein, Percutaneous Approach (ICD-10-PCS; 2024-03-06)
PROC: 0BH17EZ Insertion of Endotracheal Airway into Trachea, Via Natural or Artificial Opening (ICD-10-PCS; 2024-03-08)
PROC: 04HY32Z Insertion of Monitoring Device into Lower Artery, Percutaneous Approach (ICD-10-PCS; 2024-03-08)
PROC: 5A1935Z Respiratory Ventilation, Less than 24 Consecutive Hours (ICD-10-PCS; 2024-03-08)
DX: E22.2 Syndrome of inappropriate secretion of antidiuretic hormone (principal); A41.9 Sepsis, unspecified organism; J18.9 Pneumonia, unspecified organism; K55.029 Acute infarction of small intestine, extent unspecified; J96.02 Acute respiratory failure with hypercapnia; R65.21 Severe sepsis with septic shock; A09 Infectious gastroenteritis and colitis, unspecified; G91.9 Hydrocephalus, unspecified; I31.39 Other pericardial effusion (noninflammatory); J98.11 Atelectasis; M32.14 Glomerular disease in systemic lupus erythematosus; I12.9 Hypertensive chronic kidney disease with stage 1 through stage 4 chronic kidney disease, or unspecified chronic kidney disease; N18.31 Chronic kidney disease, stage 3a; D63.1 Anemia in chronic kidney disease; E83.51 Hypocalcemia; R19.5 Other fecal abnormalities; R74.01 Elevation of levels of liver transaminase levels; E87.6 Hypokalemia; Z66 Do not resuscitate; D69.6 Thrombocytopenia, unspecified; I08.0 Rheumatic disorders of both mitral and aortic valves; K76.1 Chronic passive congestion of liver; E88.09 Other disorders of plasma-protein metabolism, not elsewhere classified; Z91.148 Patient's other noncompliance with medication regimen for other reason; Z98.2 Presence of cerebrospinal fluid drainage device; Z22.7 Latent tuberculosis; Z79.52 Long term (current) use of systemic steroids
CPT/HCPCS: 36430; 71045; 74018; 74177; 76700; 80048; 80053; 81003; 81015; 82248; 82306; 82533; 82570; 82607; 82728; 82746; 82805; 82962; 83540; 83550; 83605; 83735; 83970; 84100; 84156; 84439; 84443; 84484; 85014; 85018; 85025; 85027; 85045; 85610; 85730; 86705; 86706; 86709; 86803; 86850; 86900; 86901; 86920; 87040; 87077; 87086; 87149; 87186; 87205; 87324; 87340; 87449; 93005; 93306; 93975; 94002; 97163; 97167; 99291; P9016; Q9967